=== PATIENT | male | born 1935 | race Caucasian/White ===

== ENCOUNTER 2019-07-30 15:10 | Inpatient (IN) | payer MEDICARE, SELFPAY ==
[2019-07-30] VITALS (7 sets, daily range): BP systolic 119–158; BP diastolic 43–87; PULSE 63–108; RESP 16–22; TEMP 36.7–36.8; O2SAT 96–100; BMI 23.3
--- NOTE | ~2019-07-30 | XR_ITS ---
EXAMINATION: XR foot LT min 3V DATE: 07/31/2019 15:27 INDICATION: Left foot gangrene. TECHNIQUE: 4 views of left foot were obtained. COMPARISON: None. FINDINGS: There is dorsiflexion of all of the metatarsophalangeal joints on all views. There is an ol d healed fracture of proximal diaphysis of fifth metatarsal. There is mild osteoarthritis of talonavi cular joint. There are enthesophytes at the posterior and plantar aspects of calcaneal tuberosity. Th ere is soft tissue gas in the second and third digits and near the heads of the second and third meta tarsals. IMPRESSION: 1. Soft tissue gas in the second and third digits and near the heads of the second and third metatars als. 2. No specific evidence of osteomyelitis. Reviewed, dictated and finalized at location A. K LEATHER TRIMMER IMPRESSION: 1. Soft tissue gas in the second and third digits and near the heads of the sec ond and third metatarsals. 2. No specific evidence of osteomyelitis.
--- NOTE | ~2019-07-30 | US_ITS ---
EXAMINATION: US renal BI DATE: 08/05/2019 15:58 INDICATION: Abnormal kidney function. TECHNIQUE: Multiple ultrasound grayscale images of the kidneys were obtained. COMPARISON: Ultrasound 05/20/2019 FINDINGS: The right kidney measures 7.3 x 5.3 x 4.4 cm. The left kidney measures 11.0 x 4.6 x 7.4 cm. The kidne ys demonstrate normal parenchymal echogenicity. There is mild left hydronephrosis. The bladder is dis tended. IMPRESSION: 1. New mild left hydronephrosis. 2. Stable mild atrophy of right kidney. Reviewed, dictated and finalized at location A. SUPPORT TECH
--- NOTE | ~2019-07-30 | US_ITS ---
US arterial duplex LE 07/30/2019 18:20 Indication: Gangrenous toe of the fourth digit. Procedure: Duplex Doppler ultrasound including color flow analysis of the left lower extremity arteri es Comparison: No prior studies for comparison. Findings: There is normal Doppler signal throughout the left lower extremity arteries including the c ommon femoral, profunda femoral, superficial femoral, popliteal, posterior tibial and air cells pedis arteries. The following velocities were obtained: Common femoral artery 143 cm/s, profunda femoral 62 cm/s, superficial femoral 251 cm/s, popliteal art claus 65 cm/s, posterior tibial artery 51 cm/s and dorsalis pedis artery 65 cm/s. There is predominantl y biphasic flow throughout the left lower extremity. Impression: 1: Unremarkable Doppler signal in the left lower extremity arteries. No evidence for occlusion. Reviewed, dictated and finalized at location A. NESS UNIT LEADER Impression: 1: Unremarkable Doppler signal in the left lower extremity arteries. No evidenc e for occlusion.
--- NOTE | 2019-07-30 16:12 | ED.LOWEXIN ---
HPI - Extremity Injury (Lower) General Chief Complaint: Extremity Injury, Lower Stated Complaint: left foot infection Time Seen by Provider: 07/30/19 16:09 Source: patient and RN notes reviewed Mode of arrival: EMS Limitations: no limitations History of Present Illness HPI Narrative: Pt is an 84 y/o male who presents to the ED, via EMS, with c/o 10/10 left foot pain d/t his left foot infection. Pt does not recall when the infection began. Pt states that the infection began after he stubbed his toe. Pt was seen at [facility] and was sent home with abx for his foot. Pt states that he did not take the medication and he also states that he is noncompliant with his diabetes medication. Pt arrived with his left foot covered in a bandage. Pt reports chills, but denies a fever. complaint: other (foot pain) Onset (ago): unknown Context: other (infection) Other symptoms: other (chills) Treatments prior to arrival: bandage Related Data Home Medications Medication Instructions Recorded Confirmed Januvia 50 mg PO DAILY 05/17/19 05/17/19 atorvastatin 80 mg PO HS 05/17/19 05/17/19 clopidogrel 75 mg PO DAILY 05/17/19 05/17/19 dutasteride 0.5 mg PO DAILY 05/17/19 05/17/19 furosemide 20 mg PO DAILY 05/17/19 05/17/19 gabapentin 300 mg PO TID 05/17/19 05/17/19 glimepiride 1 mg PO QAM 05/17/19 05/17/19 pantoprazole 40 mg PO BID 05/17/19 05/17/19 Allergies Allergy/AdvReac Type Severity Reaction Status Date / Time No Known Allergies Allergy Unknown Verified 07/30/19 16:01 Review of Systems Review of Systems: All systems reviewed & are unremarkable except as noted in HPI and below Constitutional: Constitutional: Reports chills and Denies fever(s) Musculoskeletal: Musculoskeletal: Reports other (left foot pain) [facility] Past Medical History Medical History (Updated 07/30/19 @ 19:22 by Timmy Hunt MD) Anemia Arthritis Cataract Chronic kidney disease, stage 3 Coronary artery disease CVA (cerebral vascular accident) Diabetes type 2, controlled GERD (gastroesophageal reflux disease) Hiatal hernia History of angina Hyperlipidemia Hypertension Peripheral arterial disease Seasonal allergies Thrombocytopenia Surgical History Surgical History (Updated 07/30/19 @ 16:44 by Carmencita Hughes) H/O carotid endarterectomy H/O endarterectomy Patient has hx of axillofem bypass requiring endarterectomy in May 2017 History of angioplasty x2 History of cardiac catheterization History of carpal tunnel release Social History Social History Social History: Patient is full code. He lives with his niece. They have 2 dogs. Smoking packs per day: 1 Smoking cigarettes per day: 20.0 Years smoked: 30 Smoking pack-years: 30.00 Smoking status: Former smoker Alcohol intake: current Substance use: never Gender identity (if verbalized by the patient): Male Spiritual care concerns: No Exam Const: General: no acute distress and alert Orientation/consciousness: patient oriented x3 HENMT: Head: normal to inspection Eyes: Conjunctivae: conjunctivae normal Pupils: Equal, round and reactive pupils present Neck: Neck: normal visual inspection Chest: Chest palpation & inspection: normal inspection of the chest Resp: Effort & Inspection: normal respiratory effort Cardio: Rate: regular rate Rhythm: regular rhythm GI: GI Palp: Yes Soft to palpation Skin: General skin exam: normal color Extrem: Other: examination of the left foot shows gangrene 3 toe with foul smell ,with a serous drainage. Psych: Mental Status: mental status grossly normal Affect: normal affect Course Consultations Consultation #1: Discussed case with GUNNER Nichols (Hospitalist). Accepts admission to Dr. Clark. Date: 07/30/19 Time: 17:34 Consultation #2: Discussed case with Dr. Avalos (General Surgery). Accepts consult. Date: 07/30/19 Time: 19:06 Vital Sign
--- NOTE | 2019-07-30 16:18 | ECG_ITS ---
Measurements Intervals [place] Rate: 84 P: WI: 0 QRS: 18 QRSD: 94 T: 49 QT: 410 QTc: 486 Interpretive Statements SINUS RHYTHM ATRIAL AND VENTRICULAR PREMATURE COMPLEXES BASELINE ARTIFACT- I, II, III, AVR, AVL, AVF, V1-V3 ABNORMAL ECG Electronically Signed On 07-30-2019 17:53:41 FURNACE MAINTENANCE by Duncan Walsh D.O.
--- NOTE | 2019-07-30 18:07 | PC.NURSE ---
Patient in ultrasound at this time.
[2019-07-30 18:16] LABS: Basophils Percent Auto 0.3 % (0.2-1.2); Eosinophils Percent Auto 0.1 % (0-4.4); Hematocrit 35.1 % (42.0-52.0); Hemoglobin 12.1 g/dL (14.0-18.0); Immature Granulocyte Absolute 0.17 K/mm3 (0.00-0.031); Immature Granulocyte Percent A 1.2 % (0-0.5); Lymphocytes Absolute Auto 1.57 K/mm3 (0.9-3.2); Lymphocytes Percent Auto 10.7 % (18.3-44.2); Mean Corpuscular HGB Conc 34.5 g/dl (32-36); Mean Corpuscular Hemoglobin 30.9 pg (26-34); Mean Corpuscular Volume 89.5 fl (80-100); Mean Platelet Volume 10.6 fl (7.4-10.4); Monocytes Absolute Auto 0.9 K/mm3 (0.1-0.6); Monocytes Percent Auto 5.9 % (2.6-8.5); Neutrophils Percent Auto 81.8 % (45.5-73.1); Platelet Count Result 257 k/mm3 (150-375); Red Blood Count 3.92 M/mm3 (4.6-6.20); Red Cell Distribution Width 12.3 % (11.5-14.5); White Blood Count 14.7 K/mm3 (4.5-10.0)
[2019-07-30 18:24] LABS: INR 1.2; Prothrombin Time 14.6 Seconds (11.1-14.7)
[2019-07-30 18:29] LABS: Alanine Aminotransferase 21 U/L (4-50); Albumin Level 3.3 g/dL (3.5-5.1); Alkaline Phosphatase 135 U/L (38-126); Aspartate Amino Transferase 29 U/L (17-59); Bilirubin,Total 1.8 mg/dL (0.2-1.3); Blood Urea Nitrogen 24 mg/dL (9-20); CRP 7.8 mg/dL (<1.0); Calcium 8.9 mg/dL (8.4-10.2); Carbon Dioxide 25 mmol/L (22-30); Chloride 88 mmol/L (98-107); Estimated CRCL calculation 24 ml/min; Estimated Glomerular Filt Rate 36; Glucose 228 mg/dL (75-110); Potassium 3.6 mmol/L (3.4-5.0); Sodium 129 mmol/L (137-145)
[2019-07-30] MEDS: SODIUM CHLORIDE 0.9% IV 1,000 ML 150 ML IV CONT (18:35)
[2019-07-30 20:00] LABS: Add Urine Microscopic? YES; Amorphous Sediment Urine Moderate; Appearance Urine Cloudy (Clear); Bacteria Urine Trace /hpf; Bilirubin Urine Negative (Negative); Blood Urine 1+ (Negative); Color Urine Yellow (Yellow); Glucose Urine UA 3+ mg/dL (Negative); Ketones Urine 2+ mg/dL (Negative); Leukocyte Esterase Ur Negative LEU/UL (Negative); Mucus Urine Rare /lpf; Nitrate Urine Negative (Negative); Protein Urine 2+ mg/dL (Negative); RBC Urine 21-50 /hpf (0-2); Specific Grav Ur 1.021 (1.001-1.035); Squamous Epithelial Cell Urine Few /hpf (Few); WBC Urine 0-3 /hpf
[2019-07-30] MEDS: MORPHINE SULFATE 4 MG/ML INJ IV PUSH (21:24)
--- NOTE | 2019-07-30 23:57 | ADMGEN ---
This patient, Jose D Sterling, was admitted to [facility] Surg Room 321-01. Patient/family oriented to hospital policies and general routines including ID bracelet, bed and alarms, visiting hours, pain management, procedures, bathroom and other care routines, personal items, smoking policy, room service/diet, and visiting hours. Valuables list has been completed. Information on how to activate the Rapid Response Team has been discussed. Patient/Family are encouraged to report perceived risks to care and to ask questions if they do not understand what they are told or what they should do.
[2019-07-31 00:04] LABS: Glucose Point of Care 181 (65-105)
[2019-07-31] MEDS: LACTATED RINGERS 1,000 ML 150 ML IV CONT (00:46)
[2019-07-31 06:00] VITALS: BP 140/43; PULSE 62; RESP 18; TEMP 36.7; O2SAT 98
[2019-07-31 06:01] LABS: Glucose Point of Care 165 (65-105)
--- NOTE | 2019-07-31 08:30 | PM.PNGS ---
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 complications; L08.9 - Local infection of the skin and subcutaneous tissue, unspecified Status: Acute Assessment and Plan: agree with antibiotics and will need dried dressing for now. Due to peripheral vascular disease and the gangrenous changes of the forefoot, his foot is not salvageable. I explained to him that he will be needing an amputation of the left leg. He would not be ambulatory with a below knee amputation and it is questionable if a below-knee amputation would heal. Therefore, I think it best to proceed with left above knee amputation. I discussed this with the patient. He lives with his niece who he says is in the hospital but not here. Will discuss with others but do not feel the leg is salvageable due to severe peripheral vascular disease. (2) Gangrene of left foot: Code(s): I96 - Gangrene, not elsewhere classified Status: Acute Assessment and Plan: See above. (3) Diabetes mellitus with peripheral vascular disease: Code(s): E11.51 - Type 2 diabetes mellitus with diabetic peripheral angiopathy without gangrene Status: Chronic Assessment and Plan: See above. (4) Antiplatelet or antithrombotic long-term use: Code(s): Z79.02 - group home (current) use of antithrombotics/antiplatelets Status: Chronic Assessment and Plan: Hold for now. Unfortunately he will not be able to be off Plavix for a week so bleeding risks will be increased with surgery. Subjective Subjective Date/Time Seen: 07/31/19 08:30 Left gangrenous forefoot an 83-year-old gentleman. Has some memory issues. Not sure how long this has been present. Review of Systems Review of Systems: ROS unobtainable: unobtainable due to mental status ( Has memory issues.) Constitutional: Constitutional: Denies chills and Denies fever(s) Endocrine: Endocrine: Reports other ( Insulin-dependent diabetes.) Hematologic/Lymphatic: Hematologic/Lymphatic: Reports easy bleeding ( Patient takes Plavix.) Exam Extrem: Left lower extremity: foot ( Gangrenous 3rd toe and forefoot with ulceration and foul odor) Details: warmth, edema and vascular exam ( no distal pulses, no left popliteal pulse, positive left femoral pulse.) Objective Data Vital Signs Vital Signs: Vital Signs - 24 hr 07/30/19 15:17 07/30/19 17:18 07/30/19 18:47 Temperature 36.8 C Pulse Rate 108 H 79 80 Respiratory Rate 22 H 16 16 Blood Pressure 119/87 158/61 H 132/52 L Pulse Oximetry 100 99 100 07/30/19 19:38 07/30/19 22:43 07/30/19 22:50 Temperature 36.7 C Pulse Rate 83 69 71 Respiratory Rate 16 18 18 Blood Pressure 150/72 H 127/59 L 131/43 L Pulse Oximetry 100 100 99 07/30/19 23:28 07/31/19 06:00 Temperature 36.7 C Pulse Rate 63 62 Respiratory Rate 16 18 Blood Pressure 140/43 L Pulse Oximetry 96 98 Intake/Output Intake/Output: Intake & Output 07/28/19 07/29/19 07/30/19 07/31/19 23:59 23:59 23:59 23:59 Intake Total 1000 740 Output Total 100 Balance 1000 640 Meds/Results Medications: Active Medications Generic Name Dose Route Start Last Admin Trade Name Freq PRN Reason Stop Dose Admin Acetaminophen 650 mg 07/31/19 04:53 Tylenol Tablet PO Q4H PRN Mild Pain (1-3) Or Fever Hydrocodone Bitart/Acetaminophen 1 tab 07/30/19 19:24 [place] 5-325 Mg PO Q4H PRN Pain Rated 4-6 Atorvastatin Calcium 80 mg 07/31/19 21:00 Lipitor PO HS [facility] Clopidogrel Bisulfate 75 mg 07/31/19 09:00 Plavix PO DAILY [facility] Dextrose 12.5 gm 07/31/19 04:56 Dextrose 50% Syringe IV PUSH PRN PRN Hypoglycemia Protocol Dutasteride 0.5 mg 07/31/19 09:00 Avodart PO DAILY [facility] Furosemide 20 mg 07/31/19 09:00 Lasix Tablet PO DAILY [facility] Gabapentin 300 mg 07/31/19 09:00
[2019-07-31] MEDS: CLOPIDOGREL BISULFATE 75 MG TABLET PO (08:53)
[2019-07-31] MEDS: GABAPENTIN 300 MG CAPSULE PO ×3 (08:54→18:44)
[2019-07-31] MEDS: TAMSULOSIN HCL 0.4 MG CAPSULE PO (08:54)
[2019-07-31] MEDS: DUTASTERIDE 0.5 MG CAPSULE PO (08:54)
[2019-07-31] MEDS: FUROSEMIDE 20 MG TABLET PO (08:54)
[2019-07-31] MEDS: PANTOPRAZOLE 40 MG TABLET PO ×2 (08:54→18:44)
[2019-07-31] MEDS: INSULIN GLARGINE (*BKC) 100 UNITS/ML 10 UNITS SUB-Q (09:02)
[2019-07-31 09:14] LABS: Glucose Point of Care 150 (65-105)
--- NOTE | 2019-07-31 09:58 | PM.CNGS ---
Assessment and Plan Assessment and plan (1) Gangrene of left foot: Code(s): I96 - Gangrene, not elsewhere classified Status: Acute Assessment and Plan: Continue with IV antibiotics. We will initiate a dry gauze dressing to keep the left foot covered today. The patient does have a history of significant peripheral arterial disease but his vascular exam reveals a palpable dorsalis pedis pulse and I was able to doppler both a posterior tibial and dorsalis pedis pulse. Discussed this with Dr. Taylor. He has evaluated the patient and discussed the options with the patient. The plan is to proceed with an open transmetatarsal amputation by Dr. taylor tomorrow. I will also order plain films of the left foot today. Post-operatively, the patient will need extensive wound therapy. He will also likely need to go to a group home facility on discharge due to the extensive wound care and he will essentially be living at home alone if his niece is still in the hospital or in poor health. This can further be discussed once closer to discharge. Thank you for allowing me to evaluate the patient in consultation and we will continue to follow along with you. (2) Diabetes mellitus with peripheral vascular disease: Code(s): E11.51 - Type 2 diabetes mellitus with diabetic peripheral angiopathy without gangrene Status: Chronic (3) Antiplatelet or antithrombotic long-term use: Code(s): Z79.02 - termite inspector (current) use of antithrombotics/antiplatelets Status: Chronic Assessment and Plan: The patient did receive a dose of Plavix today (07/31/19). I put the Plavix on hold for now. This will increase his risk of bleeding associated with surgery tomorrow. (4) Chronic kidney disease, stage 3: Code(s): N18.3 - Chronic kidney disease, stage 3 (moderate) Status: Acute (5) Hypertension: Qualifiers: Hypertension type: essential hypertension Qualified Code(s): I10 - Essential (primary) hypertension Code(s): I10 - Essential (primary) hypertension Status: Acute (6) Hyperlipidemia: Code(s): E78.5 - Hyperlipidemia, unspecified Status: Acute Additional Plan Discussed the patient's case and plan of care with Dr. Taylor. History of Present Illness Consult details Consult date: 07/31/19 Reason for consult: wound care (Diabetic left foot infection) Requesting physician: Jeff Clark MD Narrative: This is an 84-year-old male with a history of diabetes, coronary artery disease, peripheral arterial disease, chronic kidney disease, hypertension, hyperlipidemia, and history of stroke. The patient is currently on Plavix for his previous vascular surgeries years ago. The patient has been in the hospital a few times in the past 2 months. He was hospitalized at [facility] from 05/17/2019 through 05/24/2019 for left lower extremity cellulitis and treated with IV antibiotics, then discharged with 3 days of oral antibiotics. The patient was discharged to a SNF for rehab, but was eventually sent back to his home where he lives with his niece. Since then, he has apparently had multiple falls. He has admitted to being noncompliant with his medications. I also spoke with his nephew on the phone, who reports he is noncompliant at home. The patient's niece, who he resides with and helps take care of him, has recently been admitted to a different hospital as well for a diabetic foot infection. The patient apparently called EMS with complaints of left lower extremity pain and was taken to the ED for further evaluation. After evaluation in the emergency department, the patient was found to have a left foot infection. His white blood cell count was 14,700 and CRP 7.8. Left arterial duplex showed unremarkable doppler signal with no evidence of an arterial occlusion. According to the ED documentation, the patient was also recently at [facility] the left foot infection and treated with or
[2019-07-31] MEDS: LACTATED RINGERS 1,000 ML 75 ML IV CONT (11:37)
--- NOTE | 2019-07-31 13:01 | PM.IMPN ---
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 complications; L08.9 - Local infection of the skin and subcutaneous tissue, unspecified Status: Acute Assessment and Plan: Pt is on iv fluids and iv zosyn, norco for pain control (2) Gangrene of left foot: Code(s): I96 - Gangrene, not elsewhere classified Status: Acute Assessment and Plan: Pt to have toe amputation today 1 possibly 2-3 toes with salvage (3) Hyperlipidemia: Code(s): E78.5 - Hyperlipidemia, unspecified Status: Chronic (4) DVT prophylaxis: Code(s): Z29.9 - Encounter for prophylactic measures, unspecified Status: Acute Assessment and Plan: HOld Lovenox and clopidogrel pt is going for surgery tomorrow (5) Diabetes type 2, controlled: Qualifiers: Diabetes mellitus complication detail: with peripheral angiopathy without gangrene Diabetes mellitus complication status: with circulatory complication Diabetes mellitus terminal press operator insulin use: without skilled nursing use Qualified Code(s): E11.51 - Type 2 diabetes mellitus with diabetic peripheral angiopathy without gangrene Code(s): E11.9 - Type 2 diabetes mellitus without complications Status: Chronic Assessment and Plan: Accuchecks, SSI (6) Peripheral arterial disease: Code(s): I73.9 - Peripheral vascular disease, unspecified Status: Chronic Assessment and Plan: ARterial doppler negative, surgery has felt palpable pulses in the leg (7) Chronic kidney disease, stage 3: Code(s): N18.3 - Chronic kidney disease, stage 3 (moderate) Status: Chronic Assessment and Plan: Continue to monitor BMP Subjective Date/time seen: 07/31/19 13:01 Interval history: Admitted with cellulitis of the left lower extremity as well as acute kidney injury. Pt has foul smelling 3 rd left toe. Pt was discharged with abx for DM cellulitis infection of left foot. Pt will need 3 rd toe amputation tomorrow under surgery with with possible 2 and 4 th toes amputation. Pt is quite anxious wants his nephew involved in the decision. Explained that his foot can worsen without surgery with ascending gangrene. Pt is ready for the procedure. Review of Systems Review of Systems: All systems reviewed & are unremarkable except as noted in HPI and below Musculoskeletal: Comments: Toe drainage Exam Const: General: cooperative and healthy appearing; No in distress Nutritional Appearance: overweight Orientation/consciousness: oriented to person HENMT: Head: normal to inspection Resp: Effort & Inspection: no respiratory distress Auscultation: no rhonchi and no wheezes Cardio: Rate: regular rate Rhythm: regular rhythm GI: Inspection: normal to inspection GI Palp: No abdominal tenderness, No Guarding due to palpation present (GI) and No Hepatomegaly present Auscultation: normal bowel sounds Extrem: Other: 3 rd toe left foot with drainage Objective Data Vital Signs Vital Signs: Vital Signs - 24 hr 07/30/19 15:17 07/30/19 17:18 07/30/19 18:47 Temperature 36.8 C Pulse Rate 108 H 79 80 Respiratory Rate 22 H 16 16 Blood Pressure 119/87 158/61 H 132/52 L Pulse Oximetry 100 99 100 07/30/19 19:38 07/30/19 22:43 07/30/19 22:50 Temperature 36.7 C Pulse Rate 83 69 71 Respiratory Rate 16 18 18 Blood Pressure 150/72 H 127/59 L 131/43 L Pulse Oximetry 100 100 99 07/30/19 23:28 07/31/19 06:00 Temperature 36.7 C Pulse Rate 63 62 Respiratory Rate 16 18 Blood Pressure 140/43 L Pulse Oximetry 96 98 Intake/Output Intake/Output: Intake & Output 07/28/19 07/29/19 07/30/19 07/31/19 23:59 23:59 23:59 23:59 Intake Total 1000 1150 Output Total 100 Balance 1000 1050 Meds/Results Medications: Active Medications Generic Name Dose Route Start Last Admin Trade Name Freq PRN Reason Stop Dose Ad
[2019-07-31 14:26] LABS: Glucose Point of Care 191 (65-105)
[2019-07-31 15:28] VITALS: BP 126/45; PULSE 74; RESP 16; TEMP 36.6; O2SAT 100
[2019-07-31] MEDS: INSULIN ASPART (*BKC) 100 UNITS/ML SUB-Q (18:46)
[2019-07-31 18:48] LABS: Glucose Point of Care 233 (65-105)
[2019-07-31 21:18] LABS: Glucose Point of Care 190 (65-105)
[2019-07-31] MEDS: ATORVASTATIN 40 MG TABLET 80 MG PO (21:40)
[2019-07-31 22:00] VITALS: BP 135/52; PULSE 77; RESP 18; TEMP 36.8; O2SAT 98
[2019-08-01] VITALS (14 sets, daily range): BP systolic 119–166; BP diastolic 49–83; PULSE 56–80; RESP 10–18; TEMP 36.4–37; O2SAT 94–100
[2019-08-01] MEDS: LACTATED RINGERS 1,000 ML 75 ML IV CONT (02:07)
[2019-08-01 06:31] LABS: Hematocrit 31.4 % (42.0-52.0); Hemoglobin 10.3 g/dL (14.0-18.0); Mean Corpuscular HGB Conc 32.8 g/dl (32-36); Mean Corpuscular Hemoglobin 30.5 pg (26-34); Mean Corpuscular Volume 92.9 fl (80-100); Mean Platelet Volume 10.6 fl (7.4-10.4); Platelet Count Result 204 k/mm3 (150-375); Red Blood Count 3.38 M/mm3 (4.6-6.20); Red Cell Distribution Width 12.6 % (11.5-14.5); White Blood Count 11.7 K/mm3 (4.5-10.0)
[2019-08-01 06:47] LABS: Potassium 3.1 mmol/L (3.4-5.0)
[2019-08-01 07:09] LABS: Blood Urea Nitrogen 26 mg/dL (9-20); Calcium 7.7 mg/dL (8.4-10.2); Carbon Dioxide 27 mmol/L (22-30); Chloride 91 mmol/L (98-107); Estimated CRCL calculation 24 ml/min; Estimated Glomerular Filt Rate 30; Glucose 219 mg/dL (75-110); Sodium 127 mmol/L (137-145)
[2019-08-01 09:16] LABS: Glucose Point of Care 203 (65-105)
[2019-08-01] MEDS: DUTASTERIDE 0.5 MG CAPSULE PO (09:28)
[2019-08-01] MEDS: PANTOPRAZOLE 40 MG TABLET PO ×2 (09:29→19:16)
[2019-08-01] MEDS: GABAPENTIN 300 MG CAPSULE PO ×2 (09:29→19:16)
[2019-08-01] MEDS: TAMSULOSIN HCL 0.4 MG CAPSULE PO (09:29)
[2019-08-01] MEDS: FUROSEMIDE 20 MG TABLET PO (09:29)
[2019-08-01] MEDS: INSULIN GLARGINE (*BKC) 100 UNITS/ML 10 UNITS SUB-Q (09:58)
[2019-08-01 11:56] LABS: Glucose Point of Care 181 (65-105)
--- NOTE | 2019-08-01 13:20 | WPDANESEPPF ---
Anes - Initial Pre Proc Eval Procedure: Operation Date: 08/01/19 15:30 Proposed Procedures p OPEN TRANSMETATARSAL AMPUTATION LEFT 3RD TOE,POSSBLE 2ND AND 4TH TOE AMPUTATION - Bryan Avalos MD Date/Time: 08/01/19 13:20 Pre Op Diagnosis: gangrene toe left foot Patient Data Age: 84 Gender: M Height: 1.73 m Weight: 69.8 kg Last Vital Signs Temp 37.0 C 08/01/19 06:00 Pulse 80 08/01/19 06:00 Resp 18 08/01/19 06:00 BP 121/49 L 08/01/19 06:00 Pulse Ox 94 08/01/19 06:00 Allergies Allergy/AdvReac Type Severity Reaction Status Date / Time No Known Allergies Allergy Unknown Verified 07/30/19 16:01 Home Medications Medication Instructions Recorded Confirmed Type Januvia 50 mg PO DAILY 05/17/19 07/30/19 History atorvastatin 80 mg PO HS 05/17/19 07/30/19 History clopidogrel 75 mg PO DAILY 05/17/19 07/30/19 History dutasteride 0.5 mg PO DAILY 05/17/19 07/30/19 History furosemide 20 mg PO DAILY 05/17/19 07/30/19 History gabapentin 300 mg PO TID 05/17/19 07/30/19 History glimepiride 1 mg PO QAM 05/17/19 07/30/19 History pantoprazole 40 mg PO BID 05/17/19 07/30/19 History acetaminophen [Mapap 650 mg PO Q4H PRN 30 Days tablet 05/24/19 07/30/19 Rx (acetaminophen)] clindamycin HCl 300 mg PO Q8H 3 Days #9 cap 05/24/19 07/30/19 Rx docosanol [Abreva] 1 applic TOPICAL 5 TIMES DAILY 7 05/24/19 07/30/19 Rx Days gm tamsulosin 0.4 mg capsule 0.4 mg PO DAILY #90 cap 07/18/19 07/30/19 Rx insulin glargine 100 unit/mL 10 unit SUBCUT DAILY #9 ml 07/23/19 07/30/19 Rx subcutaneous solution Laboratory Tests 07/31/19 07/31/19 07/31/19 13:04 18:45 21:09 WBC RBC Hgb Hct MCV MCH MCHC RDW Plt Count MPV Sodium Potassium Chloride Carbon Dioxide BUN Creatinine Estim Creat Clear Calc Estimated GFR Glucose POC Capillary Glucose 191 mg/dl H mg/dl 233 mg/dl H mg/dl 190 mg/dl H mg/dl (65-105) (65-105) (65-105) Calcium 08/01/19 08/01/19 08/01/19 06:02 06:02 09:13 WBC 11.7 K/mm3 H K/mm3 (4.5-10.0) RBC 3.38 M/mm3 L M/mm3 (4.6-6.20) Hgb 10.3 g/dL L g/dL (14.0-18.0) Hct 31.4 % L % (42.0-52.0) MCV 92.9 fl fl (80-100) MCH 30.5 pg pg (26-34) MCHC 32.8 g/dl g/dl (32-36) RDW 12.6 % % (11.5-14.5) Plt Count 204 k/mm3 k/mm3 (150-375) MPV 10.6 fl H fl (7.4-10.4) Sodium 127 mmol/L L mmol/L (137-145) Potassium 3.1 mmol/L L mmol/L (3.4-5.0) Chloride 91 mmol/L L mmol/L (98-107) Carbon Dioxide 27 mmol/L mmol/L (22-30) BUN 26 mg/dL H mg/dL (9-20) Creatinine 2.10 mg/dL H mg/dL (0.7-1.3) Estim Creat Clear Calc 24 ml/min ml/min Estimated GFR 30 L (59 - ) Glucose 219 mg/dL H mg/dL (75-110) POC Capillary Glucose 203 mg/dl H mg/dl (65-105) Calcium 7.7 mg/dL L mg/dL (8.4-10.2) 08/01/19 11:53 WBC RBC Hgb Hct MCV MCH MCHC RDW Plt Count MPV Sodium Potassium Chloride Carbon Dioxide BUN Creatinine Estim Creat Clear Calc Estimated GFR Glucose POC Capillary Glucose 181 mg/dl H mg/dl (65-105) Calcium ECG: Date of Service: 07/30/19 Procedure(s): CA 12 lead EKG Accession Number(s): [id number] cc: ~ Measurements Intervals [place] Rate: 84 P: OR: 0 QRS: 18 QRSD: 94 T: 49 QT: 410
--- NOTE | 2019-08-01 13:35 | PC.NURSE ---
To OR per [bed ], IV [ saline locked]
[2019-08-01] MEDS: LACTATED RINGERS 1,000 ML 30 ML IV CONT (13:50)
--- NOTE | 2019-08-01 16:52 | PM.PROC ---
Procedure Note - Detailed Date of procedure: 08/01/19 Pre-op diagnosis: gangrene toe left foot Diabetic foot infection left foot, gangrene left 3rd toe. Post-op diagnosis: other (Diabetic foot infection left foot, gangrene left 3rd toe, necrotizing soft tissue infection left forefoot) Procedure performed: Open transmetatarsal amputation left 3rd and 2nd toes, excisional debridement skin, subcutaneous,and muscle of necrotic tissue of the corresponding forefoot-5 cm x 3 cm x 1 cm. . Description of procedure: The patient was taken to surgery and IV sedation was administered. The left foot was prepped and draped. We started with a transmetatarsal amputation of the left 3rd toe which was obviously gangrenous and appeared to be the central focus of the diabetic foot infection. A wedge including the plantar surface and the instep associated with the metatarsal of the 3rd toe was incised. The soft tissue was divided. The 3rd toe came off the metatarsal easily. It was sent off as a specimen labeled gangrenous left 3rd toe. There was obvious necrotizing soft tissue infection in the bed of the 3rd metatarsal. I used a swab and took a wound culture for aerobes and anaerobes from the infected tissue in the area of the 3rd metatarsal. I used a periosteal elevator to free the shaft of the 3rd metatarsal. Bone cutters were then used to divide the distal shaft of the 3rd metatarsal and removed the distal end of the 3rd metatarsal. This was sent with the toe as a specimen. We then excised necrotic skin subcutaneous and muscle in the bed of the transmetatarsal amputation. Most of this lead over to the 2nd toe. Eventually it became obvious, the 2nd toe would need to be removed as well. I went ahead and created another incision that excised the medial portion of the 2nd toe and connected this with the wedge defect at it already been created for the 3rd toe and 3rd metatarsal. I exposed the distal metatarsal shaft for the 2nd toe. I used the periosteal elevator to expose the shaft. I then used a larger bone cutter and divided the 2nd metatarsal shaft distally. The toe and distal metatarsal were removed and sent off to pathology labeled appropriately. We then continued to excise necrotic subcutaneous and fascia in the wound bed. Fortunately this did not appear to compromise the 1st toe. We also removed ends of tendon and ligament that would interfere with wound healing. There was some bleeding but it was not brisk. A small amount of cautery was used. Eventually the wound was debrided adequately such that there was no further devitalized or infected tissue present. There was some generalized oozing which was not unexpected and should respond to packing. The patient was on Plavix at the time of the procedure. I packed the wound bed with vaginal packing. Multiple fluffs were placed over the vaginal packing and over the forefoot. I then wrapped the foot and ankle with 2 Kerlix rolls. Finally, 2 4 in John wraps were used to secure the dressing in place. The patient was then awakened and taken to recovery in good condition. Counts were correct x2. Anesthesia: MAC Surgeon: Bryan Avalos MD Cryptographic Machine Operator: Graciela SMITH Estimated blood loss (mL): 20 Drains: No Packing: Yes (Vaginal packing) Pathology: yes (2ND AND 3RD TOES WITH METATARSALS, CULTURES OF WOUND) Complications: None Condition: stable Disposition: PACU Findings: GANGRENOUS 3RD TOE WITH NECROTIZING SOFT TISSUE INFECTION OF THE SKIN, SUBCUTANEOUS, AND MUSCLE OF THE FOREFOOT. SECOND TOE NOT GANGRENOUS BUT ALL THE UNDERLYING INFECTION AROUND THE TOE AND METATARSAL REQUIRED THIS TO BE AMPUTATED WELL. RESULTING WOUND LOOKED QUITE CLEAN.
[2019-08-01 17:41] LABS: Glucose Point of Care 153 (65-105)
--- NOTE | 2019-08-01 18:42 | PC.NURSE ---
Returned from OR per [bed ]
[2019-08-01] MEDS: ATORVASTATIN 40 MG TABLET 80 MG PO (20:23)
[2019-08-01] MEDS: LACTATED RINGERS 1,000 ML 80 ML IV CONT (20:28)
[2019-08-01 20:36] LABS: Glucose Point of Care 146 (65-105)
[2019-08-02 01:39] VITALS: BP 137/67; PULSE 72; RESP 18; TEMP 36.6; O2SAT 97
[2019-08-02 06:00] VITALS: BP 155/59; PULSE 76; RESP 18; TEMP 36.5; O2SAT 97
[2019-08-02] MEDS: SILVERGEL (ELTA) 45 ML 1 APPLIC TOPICAL (07:38)
--- NOTE | 2019-08-02 08:03 | PM.PNGS ---
Progress Note: A&P Assessment and Plan (1) Gangrene of left foot: Code(s): I96 - Gangrene, not elsewhere classified Status: Acute Assessment and Plan: left foot much improved after amputation of 2nd and 3rd toes with transmetatarsal amputation done open. Still a little bit of necrotic tissue in the wound but no purulence and overall looks to have good blood supply and much improved. Will have wound nurses see about placing wound VAC today. (2) Diabetic infection of left foot: Code(s): E11.628 - Type 2 diabetes mellitus with other skin complications; L08.9 - Local infection of the skin and subcutaneous tissue, unspecified Status: Acute Assessment and Plan: Cultures taken intraoperatively. Continue IV antibiotics. (3) Diabetes mellitus with peripheral vascular disease: Code(s): E11.51 - Type 2 diabetes mellitus with diabetic peripheral angiopathy without gangrene Status: Chronic (4) Antiplatelet or antithrombotic long-term use: Code(s): Z79.02 - tank terminal gauger (current) use of antithrombotics/antiplatelets Status: Chronic Assessment and Plan: No excessive bleeding despite Plavix. Probably can restart Plavix tomorrow. Subjective Subjective Date/Time Seen: 08/02/19 08:03 patient confused. No particular complaints. Does have some burning pain with the left foot. Review of Systems Review of Systems: ROS unobtainable: unobtainable due to mental status Exam Extrem: Left lower extremity: foot ( Amps wound clean with minimal necrotic debris lateral wall. No purulence) Psych: Speech and movement: Clear speech present Affect: normal affect Attitude: cooperative Thought process: Illogical thought process present Thought content: Yes other ( Confused) Insight: Fair insight present (Psych) Judgement: Poor judgement present (Psych) Objective Data Vital Signs Vital Signs: Vital Signs - 24 hr 08/01/19 13:43 08/01/19 16:40 08/01/19 16:55 Temperature 37.0 C 37.0 C Pulse Rate 64 60 60 Respiratory Rate 16 12 15 Blood Pressure 166/52 H 119/49 L 126/54 L Pulse Oximetry 99 99 99 08/01/19 17:10 08/01/19 17:25 08/01/19 17:40 Temperature Pulse Rate 56 L 60 59 L Respiratory Rate 14 12 12 Blood Pressure 153/54 H 154/62 H 151/55 H Pulse Oximetry 98 97 97 08/01/19 17:55 08/01/19 18:10 08/01/19 18:40 Temperature 36.4 C L Pulse Rate 57 L 60 63 Respiratory Rate 12 10 L 14 Blood Pressure 152/51 H 152/83 H 135/68 Pulse Oximetry 96 95 98 08/01/19 18:55 08/01/19 19:25 08/01/19 20:25 Temperature 36.5 C 36.6 C 36.7 C Pulse Rate 68 59 L 62 Respiratory Rate 14 16 16 Blood Pressure 145/68 H 152/59 H 149/61 H Pulse Oximetry 96 100 99 08/01/19 22:00 08/02/19 01:39 08/02/19 06:00 Temperature 36.8 C 36.6 C 36.5 C Pulse Rate 65 72 76 Respiratory Rate 16 18 18 Blood Pressure 146/62 H 137/67 155/59 H Pulse Oximetry 100 97 97 Intake/Output Intake/Output: Intake & Output 07/30/19 07/31/19 08/01/19 08/02/19 23:59 23:59 23:59 23:59 Intake Total 1000 2090 2477 850 Output Total 450 1250 1325 Balance 1000 1640 1227 -475 Meds/Results Medications: Active Medications Generic Name Dose Route Start Last Admin Trade Name Micheline PRN Reason Stop Dose Admin Acetaminophen 500 mg 08/01/19 18:33 Tylenol Tablet PO Q6H PRN Mild Pain (1-3) or Fever Hydrocodone Bitart/Acetaminophen 1 tab 08/01/19 18:33 08/02/19 07:34 [place] 7.5-325 Mg PO 1 tab Q4H PRN Administration Pain Rated 7-10 Hydrocodone Bitart/Acetaminophen 1 tab 08/01/19 18:33 08/01/19 20:23 [place] 5-325 Mg PO 1 tab Q4H PRN Administration Pain Rated 4-6 Atorvastatin Calcium 80 mg 07/31/19 21:00 08/01/19 20:23 Lipitor PO 80 mg HS JOSSUE Administration Clopidogrel Bisulfate 75 mg 07/31/19 09:00 07/31/19 08:53 Plavix PO 75 mg DAILY JOSSUE Administration Dextrose 12.5 gm 07/31/19 04:56 Dextrose 50% Syringe IV PUSH P
[2019-08-02 08:26] LABS: Blood Urea Nitrogen 21 mg/dL (9-20); Calcium 8.3 mg/dL (8.4-10.2); Carbon Dioxide 31 mmol/L (22-30); Chloride 90 mmol/L (98-107); Estimated CRCL calculation 24 ml/min; Estimated Glomerular Filt Rate 30; Glucose 106 mg/dL (75-110); Potassium 2.9 mmol/L (3.4-5.0); Sodium 130 mmol/L (137-145)
[2019-08-02 08:39] LABS: Hematocrit 33.7 % (42.0-52.0); Hemoglobin 11.5 g/dL (14.0-18.0); Mean Corpuscular HGB Conc 34.1 g/dl (32-36); Mean Corpuscular Hemoglobin 30.7 pg (26-34); Mean Corpuscular Volume 89.9 fl (80-100); Mean Platelet Volume 10.6 fl (7.4-10.4); Platelet Count Result 231 k/mm3 (150-375); Red Blood Count 3.75 M/mm3 (4.6-6.20); Red Cell Distribution Width 12.5 % (11.5-14.5); White Blood Count 11.6 K/mm3 (4.5-10.0)
[2019-08-02 09:50] VITALS: O2SAT 91
--- NOTE | 2019-08-02 10:06 | WPDANESPN ---
Anes - Prog Note Post-Op Date/Time: 08/02/19 10:06 Vital Signs: Last Vital Signs Temp 97.7 F 08/02/19 06:00 Pulse 76 08/02/19 06:00 Resp 18 08/02/19 06:00 BP 155/59 H 08/02/19 06:00 Pulse Ox 91 08/02/19 09:50 I/O: Intake & Output 08/01/19 08/02/19 08/02/19 23:59 07:59 15:59 Intake Total 450 850 Output Total 650 1325 Balance -200 -475 Laboratory Tests 08/02/19 07:42 08/02/19 07:42 08/01/19 08/01/19 08/01/19 11:53 17:39 20:34 WBC RBC Hgb Hct MCV MCH MCHC RDW Plt Count MPV Sodium Potassium Chloride Carbon Dioxide BUN Creatinine Estim Creat Clear Calc Estimated GFR Glucose POC Capillary Glucose 181 H 153 H 146 H Calcium 08/02/19 08/02/19 07:42 07:42 WBC 11.6 H RBC 3.75 L Hgb 11.5 L Hct 33.7 L MCV 89.9 MCH 30.7 MCHC 34.1 RDW 12.5 Plt Count 231 MPV 10.6 H Sodium 130 L Potassium 2.9 L Chloride 90 L Carbon Dioxide 31 H BUN 21 H Creatinine 2.10 H Estim Creat Clear Calc 24 Estimated GFR 30 L Glucose 106 POC Capillary Glucose Calcium 8.3 L Patient Feedback: Patient satisfied with anesthetic care.
[2019-08-02] MEDS: LACTATED RINGERS 1,000 ML 80 ML IV CONT (10:14)
[2019-08-02] MEDS: FUROSEMIDE 20 MG TABLET PO (11:09)
[2019-08-02] MEDS: GABAPENTIN 300 MG CAPSULE PO ×3 (11:09→17:58)
[2019-08-02] MEDS: ENOXAPARIN 40 MG/0.4 ML SYRINGE SUB-Q (11:09)
[2019-08-02] MEDS: TAMSULOSIN HCL 0.4 MG CAPSULE PO (11:10)
[2019-08-02] MEDS: DUTASTERIDE 0.5 MG CAPSULE PO (11:10)
[2019-08-02] MEDS: PANTOPRAZOLE 40 MG TABLET PO ×2 (11:10→17:58)
[2019-08-02] MEDS: polyethylene glycoL 3350 17 GM POWD.PACK PO (11:10)
[2019-08-02] MEDS: INSULIN GLARGINE (*BKC) 100 UNITS/ML 10 UNITS SUB-Q (11:10)
[2019-08-02 14:00] VITALS: BP 112/47; PULSE 78; RESP 18; TEMP 36.4; O2SAT 98
--- NOTE | 2019-08-02 15:54 | PM.IMPN ---
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 complications; L08.9 - Local infection of the skin and subcutaneous tissue, unspecified Status: Acute Assessment and Plan: Pt is on iv fluids and iv zosyn, norco for pain control (2) Gangrene of left foot: Code(s): I96 - Gangrene, not elsewhere classified Status: Acute Assessment and Plan: sp amputation of 2nd and 3rd toes (3) Hyperlipidemia: Code(s): E78.5 - Hyperlipidemia, unspecified Status: Chronic (4) DVT prophylaxis: Code(s): Z29.9 - Encounter for prophylactic measures, unspecified Status: Acute Assessment and Plan: On Lovenox and clopidogrel (5) Diabetes type 2, controlled: Qualifiers: Diabetes mellitus terminologist insulin use: without mcc use Diabetes mellitus complication status: with circulatory complication Diabetes mellitus complication detail: with peripheral angiopathy without gangrene Qualified Code(s): E11.51 - Type 2 diabetes mellitus with diabetic peripheral angiopathy without gangrene Code(s): E11.9 - Type 2 diabetes mellitus without complications Status: Chronic Assessment and Plan: Accuchecks, SSI (6) Peripheral arterial disease: Code(s): I73.9 - Peripheral vascular disease, unspecified Status: Chronic Assessment and Plan: ARterial doppler negative, mild PAD (7) Chronic kidney disease, stage 3: Code(s): N18.3 - Chronic kidney disease, stage 3 (moderate) Status: Chronic Assessment and Plan: Continue to monitor BMP Subjective Date/time seen: 08/02/19 15:54 Interval history: Admitted with cellulitis of the left lower extremity as well as acute kidney injury. Pt has foul smelling 3 rd left toe. Pt was discharged with abx for DM cellulitis infection of left foot. Pt is sp amputation of his 2nd and 3 rd toes left foot. Pt awaiting rehab placememt. No specific compliants Review of Systems Review of Systems: All systems reviewed & are unremarkable except as noted in HPI and below Exam Const: General: cooperative and healthy appearing; No in distress Nutritional Appearance: overweight Orientation/consciousness: oriented to person HENMT: Head: normal to inspection Resp: Effort & Inspection: no respiratory distress Auscultation: no rhonchi and no wheezes Cardio: Rate: regular rate Rhythm: regular rhythm GI: Inspection: normal to inspection Auscultation: normal bowel sounds Neuro: General: oriented to person Extrem: Other: left foot bandaged over s amputation of his left 3rd and 2nd toes Objective Data Vital Signs Vital Signs: Vital Signs - 24 hr 08/01/19 16:40 08/01/19 16:55 08/01/19 17:10 Temperature 37.0 C Pulse Rate 60 60 56 L Respiratory Rate 12 15 14 Blood Pressure 119/49 L 126/54 L 153/54 H Pulse Oximetry 99 99 98 08/01/19 17:25 08/01/19 17:40 08/01/19 17:55 Temperature Pulse Rate 60 59 L 57 L Respiratory Rate 12 12 12 Blood Pressure 154/62 H 151/55 H 152/51 H Pulse Oximetry 97 97 96 08/01/19 18:10 08/01/19 18:40 08/01/19 18:55 Temperature 36.4 C L 36.5 C Pulse Rate 60 63 68 Respiratory Rate 10 L 14 14 Blood Pressure 152/83 H 135/68 145/68 H Pulse Oximetry 95 98 96 08/01/19 19:25 08/01/19 20:25 08/01/19 22:00 Temperature 36.6 C 36.7 C 36.8 C Pulse Rate 59 L 62 65 Respiratory Rate 16 16 16 Blood Pressure 152/59 H 149/61 H 146/62 H Pulse Oximetry 100 99 100 08/02/19 01:39 08/02/19 06:00 08/02/19 09:50 Temperature 36.6 C 36.5 C Pulse Rate 72 76 Respiratory Rate 18 18 Blood Pressure 137/67 155/59 H Pulse Oximetry 97 97 91 Intake/Output Intake/Output: Intake & Output 07/30/19 07/31/19 08/01/19 08/02/19 23:59 23:59 23:59 23:59 Intake Total 1000 2090 2477 1760 Output Total 450 1250 1325 Balance 1000 9657 1227 435 Meds/Results Medicatio
[2019-08-02 17:02] LABS: Glucose Point of Care 215 (65-105)
[2019-08-02 17:02] LABS: Glucose Point of Care 109 (65-105)
[2019-08-02 17:20] VITALS: BP 130/68; PULSE 66; RESP 16; TEMP 36.3; O2SAT 98
[2019-08-02] MEDS: INSULIN ASPART (*BKC) 100 UNITS/ML SUB-Q (17:58)
[2019-08-02] MEDS: ATORVASTATIN 40 MG TABLET 80 MG PO (20:35)
[2019-08-02 21:11] LABS: Glucose Point of Care 224 (65-105)
[2019-08-02 22:00] VITALS: BP 127/67; PULSE 68; RESP 16; TEMP 36.7; O2SAT 97
[2019-08-03] MEDS: LACTATED RINGERS 1,000 ML 80 ML IV CONT ×2 (00:35→14:24)
[2019-08-03 06:00] VITALS: BP 122/58; PULSE 62; RESP 16; TEMP 36.8; O2SAT 96
[2019-08-03 08:05] LABS: Glucose Point of Care 137 (65-105)
[2019-08-03] MEDS: ACETAMINOPHEN 500 MG TABLET PO (08:46)
[2019-08-03] MEDS: INSULIN GLARGINE (*BKC) 100 UNITS/ML 10 UNITS SUB-Q (08:47)
[2019-08-03] MEDS: TAMSULOSIN HCL 0.4 MG CAPSULE PO (08:47)
[2019-08-03] MEDS: ENOXAPARIN 40 MG/0.4 ML SYRINGE SUB-Q (08:48)
[2019-08-03] MEDS: polyethylene glycoL 3350 17 GM POWD.PACK PO (08:48)
[2019-08-03] MEDS: FUROSEMIDE 20 MG TABLET PO (08:48)
[2019-08-03] MEDS: DUTASTERIDE 0.5 MG CAPSULE PO (08:48)
[2019-08-03] MEDS: GABAPENTIN 300 MG CAPSULE PO ×3 (08:48→16:57)
[2019-08-03] MEDS: PANTOPRAZOLE 40 MG TABLET PO ×2 (08:48→16:57)
--- NOTE | 2019-08-03 09:47 | PM.PNGS ---
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 complications; L08.9 - Local infection of the skin and subcutaneous tissue, unspecified Status: Acute Assessment and Plan: Improved. Continue wound VAC therapy and IV antibiotics. Cultures are pending. (2) Gangrene of left foot: Code(s): I96 - Gangrene, not elsewhere classified Status: Acute (3) Diabetes mellitus with peripheral vascular disease: Code(s): E11.51 - Type 2 diabetes mellitus with diabetic peripheral angiopathy without gangrene Status: Chronic (4) Antiplatelet or antithrombotic long-term use: Code(s): Z79.02 - blister pack operator (current) use of antithrombotics/antiplatelets Status: Chronic Assessment and Plan: Will restart Plavix today. Subjective Subjective Date/Time Seen: 08/03/19 09:47 Left foot michel since wound VAC placed. Otherwise no new complaints or problems Exam Extrem: General: other (Wound VAC in place, working well, toes exposed and looked good) Objective Data Vital Signs Vital Signs: Vital Signs - 24 hr 08/02/19 09:50 08/02/19 14:00 08/02/19 17:20 Temperature 36.4 C 36.3 C L Pulse Rate 78 66 Respiratory Rate 18 16 Blood Pressure 112/47 L 130/68 Pulse Oximetry 91 98 98 08/02/19 22:00 08/03/19 06:00 Temperature 36.7 C 36.8 C Pulse Rate 68 62 Respiratory Rate 16 16 Blood Pressure 127/67 122/58 L Pulse Oximetry 97 96 Intake/Output Intake/Output: Intake & Output 07/31/19 08/01/19 08/02/19 08/03/19 23:59 23:59 23:59 23:59 Intake Total 2090 2477 3990 1510 Output Total 450 1250 1450 650 Balance 1640 1227 2540 860 Meds/Results Medications: Active Medications Generic Name Dose Route Start Last Admin Trade Name Freq PRN Reason Stop Dose Admin Acetaminophen 500 mg 08/01/19 18:33 08/03/19 08:46 Tylenol Tablet PO 500 mg Q6H PRN Administration Mild Pain (1-3) or Fever Hydrocodone Bitart/Acetaminophen 1 tab 08/01/19 18:33 08/02/19 07:34 [place] 7.5-325 Mg PO 1 tab Q4H PRN Administration Pain Rated 7-10 Hydrocodone Bitart/Acetaminophen 1 tab 08/01/19 18:33 08/03/19 03:44 [place] 5-325 Mg PO 1 tab Q4H PRN Administration Pain Rated 4-6 Atorvastatin Calcium 80 mg 07/31/19 21:00 08/02/19 20:35 Lipitor PO 80 mg HS JOSSUE Administration Clopidogrel Bisulfate 75 mg 07/31/19 09:00 07/31/19 08:53 Plavix PO 75 mg DAILY JOSSUE Administration Dextrose 12.5 gm 07/31/19 04:56 Dextrose 50% Syringe IV PUSH PRN PRN Hypoglycemia Protocol Dutasteride 0.5 mg 07/31/19 09:00 08/03/19 08:48 Avodart PO 0.5 mg DAILY JOSSUE Administration Enoxaparin Sodium 40 mg 08/02/19 09:00 08/03/19 08:48 Lovenox SUB-Q 40 mg DAILY JOSSUE Administration Fentanyl Citrate 25 mcg 08/01/19 07:38 08/01/19 17:35 Sublimaze IV PUSH 25 mcg Q2M PRN Administration Pain Furosemide 20 mg 07/31/19 09:00 08/03/19 08:48 Lasix Tablet PO 20 mg DAILY JOSSUE Administration Gabapentin 300 mg 07/31/19 09:00 08/03/19 08:48 Neurontin PO 300 mg TID JOSSUE Administration Glucagon 1 mg 07/31/19 04:56 Glucagon For Inj IM PRN PRN Hypoglycemia Protocol Glucose 15 gm 07/31/19 04:56 Glutose 15 PO PRN PRN Hypoglycemia Protocol Hydromorphone HCl 0.25 mg 08/01/19 07:38 Dilaudid Inj IV PUSH Q5M PRN Pain Piperacillin Sod/Tazobactam Sod 2.25 gm in 50 mls @ 100 mls/hr 07/31/19 03:00 08/03/19 08:46 Zosyn 2.25 Gm/D5w 50 Ml IVPB 100 mls/hr Q6H JOSSUE Administration Dextrose 1,000 mls @ 100 mls/hr 07/31/19 04:56 Dextrose 5% 1,000 Ml IVPB PRN PRN Hypoglycemia Protocol Lactated Ringer's 1,000 mls @ 80 mls/hr 08/01/19 18:33 08/03/19 05:52 Lr - Lactated Ringers Iv IV CONT 80 mls/hr .[id number] JOSSUE Infusion Insulin Aspart 3 -
[2019-08-03 12:07] LABS: Glucose Point of Care 179 (65-105)
[2019-08-03 14:33] VITALS: BP 157/58; PULSE 59; RESP 16; TEMP 36.2; O2SAT 99
--- NOTE | 2019-08-03 16:02 | PM.IMPN ---
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 complications; L08.9 - Local infection of the skin and subcutaneous tissue, unspecified Status: Acute Assessment and Plan: Pt is on iv fluids and iv zosyn, norco for pain control (2) Gangrene of left foot: Code(s): I96 - Gangrene, not elsewhere classified Status: Acute Assessment and Plan: sp amputation of 2nd and 3rd toes, PT/OT in hospital, hopeful placement to rehab soon (3) Hyperlipidemia: Code(s): E78.5 - Hyperlipidemia, unspecified Status: Chronic Assessment and Plan: On statin (4) DVT prophylaxis: Code(s): Z29.9 - Encounter for prophylactic measures, unspecified Status: Acute Assessment and Plan: On Lovenox and clopidogrel (5) Diabetes type 2, controlled: Qualifiers: Diabetes mellitus director digital insulin use: without fdc use Diabetes mellitus complication status: with circulatory complication Diabetes mellitus complication detail: with peripheral angiopathy without gangrene Qualified Code(s): E11.51 - Type 2 diabetes mellitus with diabetic peripheral angiopathy without gangrene Code(s): E11.9 - Type 2 diabetes mellitus without complications Status: Chronic Assessment and Plan: Accuchecks, SSI (6) Peripheral arterial disease: Code(s): I73.9 - Peripheral vascular disease, unspecified Status: Chronic Assessment and Plan: ARterial doppler negative, mild PAD (7) Chronic kidney disease, stage 3: Code(s): N18.3 - Chronic kidney disease, stage 3 (moderate) Status: Chronic Assessment and Plan: Continue to monitor BMP Subjective Date/time seen: 08/03/19 16:02 Interval history: Admitted with cellulitis of the left lower extremity as well as acute kidney injury. Pt has foul smelling 3 rd left toe. Pt was discharged with abx for DM cellulitis infection of left foot. Pt is sp amputation of his 2nd and 3 rd toes left foot. Pt awaiting rehab placement. No specific complaints, yet to have PT/OT Review of Systems Review of Systems: All systems reviewed & are unremarkable except as noted in HPI and below Exam Const: General: cooperative and healthy appearing; No in distress Nutritional Appearance: overweight Orientation/consciousness: oriented to person HENMT: Head: normal to inspection Resp: Effort & Inspection: no respiratory distress Auscultation: no rhonchi and no wheezes Cardio: Rate: regular rate Rhythm: regular rhythm GI: Inspection: normal to inspection Auscultation: normal bowel sounds Neuro: General: oriented to person Extrem: Other: left foot bandaged over amputation of his left 3rd and 2nd toes Objective Data Vital Signs Vital Signs: Vital Signs - 24 hr 08/02/19 17:20 08/02/19 22:00 08/03/19 06:00 Temperature 36.3 C L 36.7 C 36.8 C Pulse Rate 66 68 62 Respiratory Rate 16 16 16 Blood Pressure 130/68 127/67 122/58 L Pulse Oximetry 98 97 96 08/03/19 14:33 Temperature 36.2 C L Pulse Rate 59 L Respiratory Rate 16 Blood Pressure 157/58 H Pulse Oximetry 99 Intake/Output Intake/Output: Intake & Output 07/31/19 08/01/19 08/02/19 08/03/19 23:59 23:59 23:59 23:59 Intake Total 2090 2477 3990 2250 Output Total 450 1250 1450 650 Balance 1640 1227 2540 1600 Meds/Results Medications: Active Medications Generic Name Dose Route Start Last Admin Trade Name Freq PRN Reason Stop Dose Admin Acetaminophen 500 mg 08/01/19 18:33 08/03/19 08:46 Tylenol Tablet PO 500 mg Q6H PRN Administration Mild Pain (1-3) or Fever Hydrocodone Bitart/Acetaminophen 1 tab 08/01/19 18:33 08/02/19 07:34 [place] 7.5-325 Mg PO 1 tab Q4H PRN Administration Pain Rated 7-10 Hydrocodone Bitart/Acetaminophen 1 tab 08/01/19 18:33 08/03/19 03:44 [place] 5-325 Mg PO 1 tab Q4H PRN
[2019-08-03 17:40] LABS: Glucose Point of Care 185 (65-105)
[2019-08-03] MEDS: ATORVASTATIN 40 MG TABLET 80 MG PO (20:29)
[2019-08-03 20:38] LABS: Glucose Point of Care 210 (65-105)
[2019-08-03 20:51] VITALS: O2SAT 94
[2019-08-03 22:00] VITALS: BP 153/55; PULSE 64; RESP 16; TEMP 37.1; O2SAT 98
[2019-08-04] MEDS: LACTATED RINGERS 1,000 ML 80 ML IV CONT ×2 (05:02→16:39)
[2019-08-04 05:57] VITALS: BP 152/59; PULSE 62; RESP 16; TEMP 36.6; O2SAT 96
[2019-08-04 06:29] LABS: Hematocrit 28.2 % (42.0-52.0); Hemoglobin 9.8 g/dL (14.0-18.0); Mean Corpuscular HGB Conc 34.8 g/dl (32-36); Mean Corpuscular Hemoglobin 31.1 pg (26-34); Mean Corpuscular Volume 89.5 fl (80-100); Mean Platelet Volume 10.5 fl (7.4-10.4); Platelet Count Result 196 k/mm3 (150-375); Red Blood Count 3.15 M/mm3 (4.6-6.20); Red Cell Distribution Width 12.6 % (11.5-14.5); White Blood Count 7.6 K/mm3 (4.5-10.0)
[2019-08-04 06:44] LABS: Blood Urea Nitrogen 20 mg/dL (9-20); Calcium 7.6 mg/dL (8.4-10.2); Carbon Dioxide 29 mmol/L (22-30); Chloride 92 mmol/L (98-107); Estimated CRCL calculation 21 ml/min; Estimated Glomerular Filt Rate 26; Glucose 177 mg/dL (75-110); Potassium 2.9 mmol/L (3.4-5.0); Sodium 130 mmol/L (137-145)
[2019-08-04] MEDS: ENOXAPARIN 40 MG/0.4 ML SYRINGE SUB-Q (09:00)
[2019-08-04] MEDS: PANTOPRAZOLE 40 MG TABLET PO ×2 (09:01→16:39)
[2019-08-04] MEDS: polyethylene glycoL 3350 17 GM POWD.PACK PO (09:01)
[2019-08-04] MEDS: CLOPIDOGREL BISULFATE 75 MG TABLET PO (09:01)
[2019-08-04] MEDS: TAMSULOSIN HCL 0.4 MG CAPSULE PO (09:01)
[2019-08-04] MEDS: FUROSEMIDE 20 MG TABLET PO (09:01)
[2019-08-04] MEDS: DUTASTERIDE 0.5 MG CAPSULE PO (09:01)
[2019-08-04] MEDS: GABAPENTIN 300 MG CAPSULE PO ×3 (09:01→16:39)
[2019-08-04] MEDS: INSULIN GLARGINE (*BKC) 100 UNITS/ML 10 UNITS SUB-Q (09:02)
[2019-08-04 09:24] LABS: Glucose Point of Care 156 (65-105)
[2019-08-04 12:04] LABS: Glucose Point of Care 127 (65-105)
[2019-08-04 13:38] VITALS: BP 140/53; PULSE 65; RESP 18; TEMP 36.4; O2SAT 100
--- NOTE | 2019-08-04 15:13 | PCOTNOTE ---
The patient treatment was not able to be completed on 08/04/19 due to time constraints. Will plan to continue treatment per plan of care.
[2019-08-04 16:50] LABS: Glucose Point of Care 157 (65-105)
[2019-08-04 16:56] LABS: Glucose Point of Care 165 (65-105)
--- NOTE | 2019-08-04 17:36 | PM.IMPN ---
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 complications; L08.9 - Local infection of the skin and subcutaneous tissue, unspecified Status: Acute Assessment and Plan: Pt is norco for pain control, stop iv zosyn (2) Gangrene of left foot: Code(s): I96 - Gangrene, not elsewhere classified Status: Acute Assessment and Plan: sp amputation of 2nd and 3rd toes, PT/OT in hospital, hopeful placement to rehab soon (3) Hyperlipidemia: Code(s): E78.5 - Hyperlipidemia, unspecified Status: Chronic Assessment and Plan: On statin (4) DVT prophylaxis: Code(s): Z29.9 - Encounter for prophylactic measures, unspecified Status: Acute Assessment and Plan: On Lovenox and clopidogrel (5) Diabetes type 2, controlled: Qualifiers: Diabetes mellitus half-way insulin use: without half-way use Diabetes mellitus complication status: with circulatory complication Diabetes mellitus complication detail: with peripheral angiopathy without gangrene Qualified Code(s): E11.51 - Type 2 diabetes mellitus with diabetic peripheral angiopathy without gangrene Code(s): E11.9 - Type 2 diabetes mellitus without complications Status: Chronic Assessment and Plan: Accuchecks, SSI (6) Peripheral arterial disease: Code(s): I73.9 - Peripheral vascular disease, unspecified Status: Chronic Assessment and Plan: ARterial doppler negative, mild PAD (7) Chronic kidney disease, stage 3: Code(s): N18.3 - Chronic kidney disease, stage 3 (moderate) Status: Chronic Assessment and Plan: Continue to monitor BMP, worsening kidney function will consult nephrology DR Conroy. Subjective Date/time seen: 08/04/19 17:36 Interval history: Admitted with cellulitis of the left lower extremity as well as acute kidney injury. Pt has foul smelling 3 rd left toe. Pt was discharged with abx for DM cellulitis infection of left foot. Pt is sp amputation of his 2nd and 3 rd toes left foot. Pt awaiting rehab placement. No specific complaints, kidney function is worsening, will consult Dr Conroy Review of Systems Review of Systems: All systems reviewed & are unremarkable except as noted in HPI and below Exam Const: General: cooperative and healthy appearing; No in distress Nutritional Appearance: overweight Orientation/consciousness: oriented to person HENMT: Head: normal to inspection Resp: Effort & Inspection: no respiratory distress Auscultation: no rhonchi and no wheezes Cardio: Rate: regular rate Rhythm: regular rhythm GI: Inspection: normal to inspection Auscultation: normal bowel sounds Neuro: General: oriented to person Extrem: Other: left foot bandaged over amputation of his left 3rd and 2nd toes Objective Data Vital Signs Vital Signs: Vital Signs - 24 hr 08/03/19 20:51 08/03/19 22:00 08/04/19 05:57 Temperature 37.1 C 36.6 C Pulse Rate 64 62 Respiratory Rate 16 16 Blood Pressure 153/55 H 152/59 H Pulse Oximetry 94 98 96 08/04/19 13:38 Temperature 36.4 C L Pulse Rate 65 Respiratory Rate 18 Blood Pressure 140/53 L Pulse Oximetry 100 Intake/Output Intake/Output: Intake & Output 08/01/19 08/02/19 08/03/19 08/04/19 23:59 23:59 23:59 23:59 Intake Total 2477 3990 2820 2740 Output Total 1250 1450 1150 1350 Balance 1227 2540 1670 1390 Meds/Results Medications: Active Medications Generic Name Dose Route Start Last Admin Trade Name Freq PRN Reason Stop Dose Admin Acetaminophen 500 mg 08/01/19 18:33 08/03/19 08:46 Tylenol Tablet PO 500 mg Q6H PRN Administration Mild Pain (1-3) or Fever Hydrocodone Bitart/Acetaminophen 1 tab 08/01/19 18:33 08/04/19 16:37 [place] 7.5-325 Mg PO 1 tab Q4H PRN Administration Pain Rated 7-10 Hydrocodone Bitart/Acetaminophen 1 tab 01
[2019-08-04] MEDS: ATORVASTATIN 40 MG TABLET 80 MG PO (20:01)
[2019-08-04 22:00] VITALS: BP 152/50; PULSE 63; RESP 16; TEMP 37; O2SAT 97
[2019-08-05 01:23] LABS: Glucose Point of Care 219 (65-105)
[2019-08-05] MEDS: LACTATED RINGERS 1,000 ML 80 ML IV CONT ×2 (05:20→16:32)
[2019-08-05 05:47] VITALS: BP 170/66; PULSE 79; RESP 16; TEMP 36.4; O2SAT 96
[2019-08-05] MEDS: INSULIN GLARGINE (*BKC) 100 UNITS/ML 10 UNITS SUB-Q (08:03)
[2019-08-05] MEDS: ENOXAPARIN 40 MG/0.4 ML SYRINGE SUB-Q (08:06)
[2019-08-05] MEDS: FUROSEMIDE 20 MG TABLET PO (08:06)
[2019-08-05] MEDS: DUTASTERIDE 0.5 MG CAPSULE PO (08:06)
[2019-08-05] MEDS: CLOPIDOGREL BISULFATE 75 MG TABLET PO (08:06)
[2019-08-05] MEDS: PANTOPRAZOLE 40 MG TABLET PO ×2 (08:06→16:33)
[2019-08-05] MEDS: GABAPENTIN 300 MG CAPSULE PO ×3 (08:06→16:33)
[2019-08-05] MEDS: SILVERGEL (ELTA) 45 ML 1 APPLIC TOPICAL (08:07)
[2019-08-05] MEDS: TAMSULOSIN HCL 0.4 MG CAPSULE PO (08:07)
[2019-08-05] MEDS: polyethylene glycoL 3350 17 GM POWD.PACK PO (08:07)
[2019-08-05 08:10] LABS: Blood Urea Nitrogen 18 mg/dL (9-20); Calcium 7.5 mg/dL (8.4-10.2); Carbon Dioxide 32 mmol/L (22-30); Chloride 95 mmol/L (98-107); Estimated CRCL calculation 22 ml/min; Estimated Glomerular Filt Rate 29; Glucose 114 mg/dL (75-110); Hematocrit 29.2 % (42.0-52.0); Hemoglobin 9.9 g/dL (14.0-18.0); Mean Corpuscular HGB Conc 33.9 g/dl (32-36); Mean Corpuscular Hemoglobin 30.5 pg (26-34); Mean Corpuscular Volume 89.8 fl (80-100); Mean Platelet Volume 10.7 fl (7.4-10.4); Platelet Count Result 199 k/mm3 (150-375); Potassium 2.9 mmol/L (3.4-5.0); Red Blood Count 3.25 M/mm3 (4.6-6.20); Red Cell Distribution Width 12.6 % (11.5-14.5); Sodium 135 mmol/L (137-145); White Blood Count 7.3 K/mm3 (4.5-10.0)
[2019-08-05] MEDS: POTASSIUM CHLORIDE 20 MEQ PACKET (FOR LIQUID) PO (08:10)
[2019-08-05 08:31] LABS: Glucose Point of Care 115 (65-105)
[2019-08-05 12:01] LABS: Glucose Point of Care 157 (65-105)
--- NOTE | 2019-08-05 12:43 | PM.IMPN ---
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 complications; L08.9 - Local infection of the skin and subcutaneous tissue, unspecified Status: Acute Assessment and Plan: Pt is on norco for pain control, stop iv zosyn, as creat has worsened since admission, continue to follow. BMP. pt is on iv fluids (2) Gangrene of left foot: Code(s): I96 - Gangrene, not elsewhere classified Status: Acute Assessment and Plan: Sp amputation of 2nd and 3rd toes, PT/OT in hospital, hopeful placement to rehab soon as pt is unable to walk much, pt is on a wound vac. (3) Hyperlipidemia: Code(s): E78.5 - Hyperlipidemia, unspecified Status: Chronic Assessment and Plan: On statin (4) DVT prophylaxis: Code(s): Z29.9 - Encounter for prophylactic measures, unspecified Status: Acute Assessment and Plan: On Lovenox and clopidogrel (5) Diabetes type 2, controlled: Qualifiers: Diabetes mellitus group home insulin use: without long chain quiller tender use Diabetes mellitus complication status: with circulatory complication Diabetes mellitus complication detail: with peripheral angiopathy without gangrene Qualified Code(s): E11.51 - Type 2 diabetes mellitus with diabetic peripheral angiopathy without gangrene Code(s): E11.9 - Type 2 diabetes mellitus without complications Status: Chronic Assessment and Plan: Accuchecks, SSI, glucose are doing good in the hospital, will order hbaic to check group home control (6) Peripheral arterial disease: Code(s): I73.9 - Peripheral vascular disease, unspecified Status: Chronic Assessment and Plan: Arterial doppler negative, mild PAD (7) Chronic kidney disease, stage 3: Code(s): N18.3 - Chronic kidney disease, stage 3 (moderate) Status: Chronic Assessment and Plan: Continue to monitor BMP, worsening kidney function will consult nephrology DR Conroy. Subjective Date/time seen: 08/05/19 12:43 Interval history: Admitted with cellulitis of the left lower extremity as well as acute kidney injury. Pt has foul smelling 3 rd left toe. Pt was discharged with abx for DM cellulitis infection of left foot. Pt is sp amputation of his 2nd and 3 rd toes of left foot. Pt awaiting rehab placement. No specific complaints, kidney function is worsening, will consult Dr Conroy. Pt iv zosyn was stopped yesterday. Potassium slightly low pt is not eating much, add potassium supplements. Review of Systems Review of Systems: All systems reviewed & are unremarkable except as noted in HPI and below Exam Const: General: cooperative and healthy appearing; No in distress Nutritional Appearance: overweight Orientation/consciousness: oriented to person HENMT: Head: normal to inspection Resp: Effort & Inspection: no respiratory distress Auscultation: no rhonchi and no wheezes Cardio: Rate: regular rate Rhythm: regular rhythm GI: Inspection: normal to inspection Auscultation: normal bowel sounds Neuro: General: oriented to person Extrem: Other: left foot bandaged over amputation of his left 3rd and 2nd toes, pt has wound vac Objective Data Vital Signs Vital Signs: Vital Signs - 24 hr 08/04/19 13:38 08/04/19 22:00 08/05/19 05:47 Temperature 36.4 C L 37.0 C 36.4 C L Pulse Rate 65 63 79 Respiratory Rate 18 16 16 Blood Pressure 140/53 L 152/50 H 170/66 H Pulse Oximetry 100 97 96 Intake/Output Intake/Output: Intake & Output 08/02/19 08/03/19 08/04/19 08/05/19 23:59 23:59 23:59 23:59 Intake Total 3990 2820 3290 1890 Output Total 1450 1150 2350 935 Balance 2540 1670 940 955 Meds/Results Medications: Active Medications Generic Name Dose Route Start Last Admin Trade Name Freq PRN Reason Stop Dose Admin Acetaminophen 500 mg 08/01/19 18:33 08/03/19 08:46 Tylenol Tablet PO 500 mg
--- NOTE | 2019-08-05 14:50 | PM.CNNEP ---
Assessment and Plan Assessment and plan (1) Chronic kidney disease, stage 3: Code(s): N18.3 - Chronic kidney disease, stage 3 (moderate) Status: Chronic Assessment and Plan: The patient has chronic kidney disease This is probably from diabetes and hypertension. He may have some vascular disease in the kidneys as well. To evaluate this and I will get serology in immunofixation. (2) Acute renal failure: Qualifiers: Acute renal failure type: unspecified Qualified Code(s): N17.9 - Acute kidney failure, unspecified Code(s): N17.9 - Acute kidney failure, unspecified Status: Acute Assessment and Plan: The patient had acute kidney injury. It seems like his creatinine has gradually risen over the past couple of months. This may be all because of the diabetic wound, culminating in the diabetic infection. Now that his infection is drain and his toes are gone his creatinine hopefully will improve back to their prior baseline. I am not sure how much better they are going to get but hopefully will least get down to the 1.5 To 1.7 range. Other possibilities include interstitial nephritis because of being on antibiotics. Post infectious glomerulonephritis is a possibility but it seems a little bit too soon. Glomerulonephritis is always a possibility however this would be an unusual clinical scenario for that. To evaluate this I will get urine electrolytes and eosinophils and a renal ultrasound. His potassium is low I will supplement this. (3) Peripheral arterial disease: Code(s): I73.9 - Peripheral vascular disease, unspecified Status: Chronic Assessment and Plan: The patient has peripheral arterial disease involving both lower extremities. This may also involve his kidneys. (4) Diabetic infection of left foot: Code(s): E11.628 - Type 2 diabetes mellitus with other skin complications; L08.9 - Local infection of the skin and subcutaneous tissue, unspecified Status: Acute Assessment and Plan: He is on antibiotics and had surgery. (5) Hyponatremia: Code(s): E87.1 - Hypo-osmolality and hyponatremia Status: Acute Assessment and Plan: Sodium level was as low as 130. This has improved now. It is probably due to the renal insufficiency. We will keep an eye on this. History of Present Illness Reason for Consult Consult date: 08/05/19 Chief Complaint Chief complaint: gangrene toe left foot History of Present Illness Narrative: Jose D is a very pleasant 84-year-old gentleman who has multiple medical problems including diabetes, hypertension, peripheral vascular disease status post stents in the right lower extremity, hyperlipidemia, GERD, BPH. The patient came into the hospital because of sores on his left foot. This turned out to be gangrenous with infection and so he had 2 toes removed from his left foot. The patient has a past history of chronic kidney disease with a baseline creatinine that had run between 1.5 and 1.7 in May of 2019 however was 2.1 in June. On admission this time is creatinine was 1.8 and shalom eventually to 2.4 the day after his surgery to remove his toes. Today is creatinine is back down to 2.2. The patient is not aware that he has underlying kidney disease. 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 He has never been told he had kidney problems before. He denies any bloody urine, foamy urine, painful urination, kidney stones, or bladder infections. He does not take any nonsteroidal anti-inflammatory agents. He has diabetes and has had this for many years. He says it has been pretty well controlled. His last A1c in May was 7.8. He has hypertension is had this for a long time. He says his blood pressure has been pretty well controlled. He has peripheral vascular disease in the lower extremities. Review of Systems Constitutional: Constitutional: Reports no additional constitutional complaint
[2019-08-05 16:20] LABS: Add Urine Microscopic? NO; Appearance Urine Clear (Clear); Bilirubin Urine Negative (Negative); Blood Urine Negative (Negative); Color Urine Yellow (Yellow); Glucose Urine UA Negative (Negative); Ketones Urine Negative (Negative); Leukocyte Esterase Ur Negative LEU/UL (NEGATIVE); Nitrate Urine Negative (Negative); Protein Urine Negative (Negative); Specific Grav Ur 1.012 (1.001-1.035); Urobilinogen Urine Negative mg/dL (<2.0)
--- NOTE | 2019-08-05 16:26 | PCOTNOTE ---
Patient unable to be seen for OT this date. Will continue POC, tomorrow 08/06/19.
[2019-08-05] MEDS: POTASSIUM CHLORIDE 20 MEQ PACKET (FOR LIQUID) 40 MEQ PO (16:33)
[2019-08-05 16:38] LABS: Basophils Absolute Auto 0.1 K/mm3 (0.0-0.1); Basophils Percent Auto 0.6 % (0.2-1.2); Eosinophils Absolute Auto 0.1 K/mm3 (0-0.3); Eosinophils Percent Auto 1.8 % (0-4.4); Hematocrit 32.7 % (42.0-52.0); Hemoglobin 11.1 g/dL (14.0-18.0); Immature Granulocyte Absolute 0.05 K/mm3 (0.00-0.031); Immature Granulocyte Percent A 0.6 % (0-0.5); Lymphocytes Absolute Auto 2.93 K/mm3 (0.9-3.2); Lymphocytes Percent Auto 36.6 % (18.3-44.2); Mean Corpuscular HGB Conc 33.9 g/dl (32-36); Mean Corpuscular Hemoglobin 30.8 pg (26-34); Mean Corpuscular Volume 90.8 fl (80-100); Mean Platelet Volume 10.4 fl (7.4-10.4); Monocytes Absolute Auto 0.6 K/mm3 (0.1-0.6); Neutrophils Absolute Auto 4.3 K/mm3 (1.3-6.7); Neutrophils Percent Auto 53.4 % (45.5-73.1); Platelet Count Result 225 k/mm3 (150-375); Red Cell Distribution Width 12.6 % (11.5-14.5)
[2019-08-05 16:41] LABS: Glucose Point of Care 116 (65-105)
[2019-08-05 16:45] LABS: Creatinine Urine 73.9 mg/dL; Total Protein Urine Random 19 mg/dL
[2019-08-05 16:46] LABS: Sodium Urine Random 60 meq/L
[2019-08-05 16:50] LABS: Creatine Kinase 21 U/L (55-170)
[2019-08-05 16:57] LABS: Complement C3 112 mg/dL (88-165)
[2019-08-05 17:16] LABS: Erythrocyte Sedimentation Rate 56 mm/hr (0-20)
[2019-08-05 17:55] VITALS: BP 150/54; PULSE 75; RESP 18; TEMP 37.2; O2SAT 98
[2019-08-05] MEDS: ATORVASTATIN 40 MG TABLET 80 MG PO (21:22)
[2019-08-05 22:10] LABS: Glucose Point of Care 112 (65-105)
[2019-08-05 22:30] VITALS: BP 151/51; PULSE 60; RESP 16; TEMP 36.8; O2SAT 97
[2019-08-06 06:35] VITALS: BP 174/60; PULSE 63; RESP 16; TEMP 36.2; O2SAT 100
[2019-08-06 08:20] LABS: Basophils Percent Auto 0.5 % (0.2-1.2); Eosinophils Absolute Auto 0.2 K/mm3 (0-0.3); Eosinophils Percent Auto 2.1 % (0-4.4); Hematocrit 33.5 % (42.0-52.0); Hemoglobin 11.1 g/dL (14.0-18.0); Immature Granulocyte Absolute 0.05 K/mm3 (0.00-0.031); Immature Granulocyte Percent A 0.6 % (0-0.5); Lymphocytes Absolute Auto 2.58 K/mm3 (0.9-3.2); Lymphocytes Percent Auto 31.2 % (18.3-44.2); Mean Corpuscular HGB Conc 33.1 g/dl (32-36); Mean Corpuscular Hemoglobin 30.3 pg (26-34); Mean Corpuscular Volume 91.5 fl (80-100); Mean Platelet Volume 10.6 fl (7.4-10.4); Monocytes Absolute Auto 0.5 K/mm3 (0.1-0.6); Monocytes Percent Auto 5.4 % (2.6-8.5); Neutrophils Percent Auto 60.2 % (45.5-73.1); Platelet Count Result 225 k/mm3 (150-375); Red Blood Count 3.66 M/mm3 (4.6-6.20); Red Cell Distribution Width 12.8 % (11.5-14.5); White Blood Count 8.3 K/mm3 (4.5-10.0)
[2019-08-06 08:22] LABS: Glucose Point of Care 99 (65-105)
[2019-08-06 08:32] LABS: Blood Urea Nitrogen 18 mg/dL (9-20); Calcium 7.7 mg/dL (8.4-10.2); Carbon Dioxide 30 mmol/L (22-30); Chloride 97 mmol/L (98-107); Estimated CRCL calculation 24 ml/min; Estimated Glomerular Filt Rate 30; Glucose 104 mg/dL (75-110); Potassium 3.4 mmol/L (3.4-5.0); Sodium 135 mmol/L (137-145)
[2019-08-06] MEDS: polyethylene glycoL 3350 17 GM POWD.PACK PO (09:39)
[2019-08-06] MEDS: GABAPENTIN 300 MG CAPSULE PO ×3 (09:40→18:41)
[2019-08-06] MEDS: POTASSIUM CHLORIDE 20 MEQ PACKET (FOR LIQUID) 40 MEQ PO ×2 (09:40→18:41)
[2019-08-06] MEDS: ENOXAPARIN 40 MG/0.4 ML SYRINGE SUB-Q (09:40)
[2019-08-06] MEDS: CLOPIDOGREL BISULFATE 75 MG TABLET PO (09:41)
[2019-08-06] MEDS: FUROSEMIDE 20 MG TABLET PO (09:41)
[2019-08-06] MEDS: TAMSULOSIN HCL 0.4 MG CAPSULE PO (09:41)
[2019-08-06] MEDS: DUTASTERIDE 0.5 MG CAPSULE PO (09:41)
[2019-08-06] MEDS: PANTOPRAZOLE 40 MG TABLET PO ×2 (09:42→18:41)
[2019-08-06] MEDS: INSULIN GLARGINE (*BKC) 100 UNITS/ML 10 UNITS SUB-Q (09:47)
--- NOTE | 2019-08-06 12:02 | PCDIET ---
Weekly nutritional screen. Patient is tolerating current diet with adequate intake. No weight loss reported. No nutritional needs at this time.
[2019-08-06 12:12] LABS: Glucose Point of Care 157 (65-105)
--- NOTE | 2019-08-06 12:12 | PCNSR ---
On 08/06/19, the student,Raiza Tellez, provided care and completed [facility] documentation on this patient. I have reviewed the student's documentation and agree with the findings.
--- NOTE | 2019-08-06 13:53 | PM.PNGS ---
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 complications; L08.9 - Local infection of the skin and subcutaneous tissue, unspecified Status: Acute Assessment and Plan: Left foot wound healing nicely with the wound VAC therapy. Continue wound VAC and IV antibiotics. Preliminary culture results show growth of bacteroides fragilis group and peptostreptococcus species. ID consulted and appreciate recommendations. Will plan to change the wound VAC again on Tuesday. Patient will likely require SNF placement on discharge with wound VAC therapy and physical therapy. Improved. Continue wound VAC therapy and IV antibiotics. Cultures are pending. (2) Gangrene of left foot: Code(s): I96 - Gangrene, not elsewhere classified Status: Acute (3) Diabetes mellitus with peripheral vascular disease: Code(s): E11.51 - Type 2 diabetes mellitus with diabetic peripheral angiopathy without gangrene Status: Chronic (4) Antiplatelet or antithrombotic long-term use: Code(s): Z79.02 - group home (current) use of antithrombotics/antiplatelets Status: Chronic Assessment and Plan: On Plavix. (5) Acute renal failure: Qualifiers: Acute renal failure type: unspecified Qualified Code(s): N17.9 - Acute kidney failure, unspecified Code(s): N17.9 - Acute kidney failure, unspecified Status: Acute (6) PVD (peripheral vascular disease): Code(s): I73.9 - Peripheral vascular disease, unspecified Status: Acute Subjective Subjective Date/Time Seen: 08/06/19 13:53 Patient reports: no new complaints Interval history: Patient seen and examined with Dr. Avalos and the wound care nurses. Patient has no new complaints. Left wound cultures from surgery preliminary results showed growth of bacteroides fragilis and peptostreptococcus species. Creatinine 2.1 today. Review of Systems Review of Systems: All systems reviewed & are unremarkable except as noted in HPI and below Exam Const: General: comfortable, no acute distress, awake and Physically active Extrem: General: edema left (LLE 1-2+ pitting edema) Other: Wound VAC removed. Left foot wound looks good today with granulation tissue noted in nearly the entire wound bed and good vascularization. No necrotic tissue. Does have left lower ext swelling with indention of the wound VAC tubing to his lower leg and small dark red/purple area over the dorsal aspect of the midfoot where the wound VAC suction was attached - wound care nurse applying wound VAC today will change where the top adapter of the wound VAC dressing will be on the foot. Objective Data Vital Signs Vital Signs: Vital Signs - 24 hr 08/05/19 17:55 08/05/19 22:30 08/06/19 06:35 Temperature 37.2 C 36.8 C 36.2 C L Pulse Rate 75 60 63 Respiratory Rate 18 16 16 Blood Pressure 150/54 H 151/51 H 174/60 H Pulse Oximetry 98 97 100 Intake/Output Intake/Output: Intake & Output 08/03/19 08/04/19 08/05/19 08/06/19 23:59 23:59 23:59 23:59 Intake Total 2820 3290 4020 590 Output Total 1150 2350 1085 800 Balance 6258 504 6489 -210 Meds/Results Medications: Active Medications Generic Name Dose Route Start Last Admin Trade Name Freq PRN Reason Stop Dose Admin Acetaminophen 500 mg 08/01/19 18:33 08/03/19 08:46 Tylenol Tablet PO 500 mg Q6H PRN Administration Mild Pain (1-3) or Fever Hydrocodone Bitart/Acetaminophen 1 tab 08/01/19 18:33 08/05/19 17:31 [place] 7.5-325 Mg PO 1 tab Q4H PRN Administration Pain Rated 7-10 Hydrocodone Bitart/Acetaminophen 1 tab 08/01/19 18:33 08/05/19 05:21 [place] 5-325 Mg PO 1 tab Q4H PRN Administration Pain Rated 4-6 Atorvastatin Calcium 80 mg 07/31/19 21:00 08/05/19 21:22 Lipitor PO 80 mg HS JOSSUE Administration Clopidogrel Bisulfate 75 mg 07/31/19 09:00 08/06/19 09:41
--- NOTE | 2019-08-06 13:58 | WPDINFPN2 ---
Progress Note: A&P Assessment and Plan (1) Gangrene of toe of left foot: Code(s): I96 - Gangrene, not elsewhere classified Status: Acute Assessment and Plan: 1. Gangrene of L toes, POD # 6 2. DM 3. ASPVD REC Add metronidazole to Ancef Subjective Date/time seen: 08/06/19 13:58 Objective Data Vital Signs Vital Signs: Vital Signs - 24 hr 08/05/19 17:55 08/05/19 22:30 08/06/19 06:35 Temperature 37.2 C 36.8 C 36.2 C L Pulse Rate 75 60 63 Respiratory Rate 18 16 16 Blood Pressure 150/54 H 151/51 H 174/60 H Pulse Oximetry 98 97 100 Intake/Output Intake/Output: Intake & Output 08/03/19 08/04/19 08/05/19 08/06/19 23:59 23:59 23:59 23:59 Intake Total 2820 3290 4020 590 Output Total 1150 2350 1085 800 Balance 1947 496 7323 -210 Meds/Results Medications: Active Medications Generic Name Dose Route Start Last Admin Trade Name Freq PRN Reason Stop Dose Admin Acetaminophen 500 mg 08/01/19 18:33 08/03/19 08:46 Tylenol Tablet PO 500 mg Q6H PRN Administration Mild Pain (1-3) or Fever Hydrocodone Bitart/Acetaminophen 1 tab 08/01/19 18:33 08/05/19 17:31 [place] 7.5-325 Mg PO 1 tab Q4H PRN Administration Pain Rated 7-10 Hydrocodone Bitart/Acetaminophen 1 tab 08/01/19 18:33 08/05/19 05:21 [place] 5-325 Mg PO 1 tab Q4H PRN Administration Pain Rated 4-6 Atorvastatin Calcium 80 mg 07/31/19 21:00 08/05/19 21:22 Lipitor PO 80 mg HS JOSSUE Administration Clopidogrel Bisulfate 75 mg 07/31/19 09:00 08/06/19 09:41 Plavix PO 75 mg DAILY JOSSUE Administration Dextrose 12.5 gm 07/31/19 04:56 Dextrose 50% Syringe IV PUSH PRN PRN Hypoglycemia Protocol Dutasteride 0.5 mg 07/31/19 09:00 08/06/19 09:41 Avodart PO 0.5 mg DAILY JOSSUE Administration Enoxaparin Sodium 40 mg 08/02/19 09:00 08/06/19 09:40 Lovenox SUB-Q 40 mg DAILY JOSSUE Administration Furosemide 20 mg 07/31/19 09:00 08/06/19 09:41 Lasix Tablet PO 20 mg DAILY JOSSUE Administration Gabapentin 300 mg 07/31/19 09:00 08/06/19 13:28 Neurontin PO 300 mg TID JOSSUE Administration Glucagon 1 mg 07/31/19 04:56 Glucagon For Inj IM PRN PRN Hypoglycemia Protocol Glucose 15 gm 07/31/19 04:56 Glutose 15 PO PRN PRN Hypoglycemia Protocol Hydromorphone HCl 0.25 mg 08/01/19 07:38 Dilaudid Inj IV PUSH Q5M PRN Pain Dextrose 1,000 mls @ 100 mls/hr 07/31/19 04:56 Dextrose 5% 1,000 Ml IVPB PRN PRN Hypoglycemia Protocol Lactated Ringer's 1,000 mls @ 80 mls/hr 08/01/19 18:33 08/05/19 16:32 Lr - Lactated Ringers Iv IV CONT 80 mls/hr .[id number] JOSSUE Administration Cefazolin Sodium 1 gm in 50 mls @ 100 mls/hr 08/06/19 09:20 Ancef 1 Gm/D5w 50 Ml Pm IVPB Q8H JOSSUE Magnesium Sulfate/Dextrose 1 gm in 100 mls @ 100 mls/hr 08/06/19 13:30 Magnesium Sulf 1 Gm/D5w 100 Ml IVPB 08/06/19 14:29 ONCE ONE Insulin Aspart 3 - 6 units 07/31/19 08:00 08/06/19 12:27 Novolog SUB-Q Not Given [facility] Protocol Insulin Glargine 10 units 07/31/19 09:00 08/06/19 09:47 Lantus SUB-Q 10 units DAILY JOSSUE Administration Morphine Sulfate 1 mg 08/01/19 18:33 Morphine Sulfate Inj IV PUSH Q2H PRN Pain Rated 4-6 Morphine Sulfate 2 mg 08/01/19 18:33 Morphine Sulfate Inj IV PUSH Q2H PRN Pain Rated 7-10 Naloxone HCl 0.1 mg 08/01/19 18:33 Narcan IV PUSH Q2M PRN Opiate Reversal Ondansetron HCl 4 mg 08/01/19 18:33 Zofran Inj IV PUSH Q4H PRN Nausea And Vomiting Pantoprazole Sodium 40 mg 07/31/19 09:00 08/06/19 09:42 Protonix PO 40 mg BID JOSSUE Administration Polyethylene Glycol 17 gm 08/02/19 09:00 08/06/19 09:39 Miralax PO 17 gm QAM JOSSUE Administration Potassium Chloride 40 meq 08/05/19 12:53 08/06/19 09:40 Kcl Powder (For Liquid) PO 40 meq BID JOSSUE Admi
[2019-08-06 14:39] VITALS: BP 146/51; PULSE 75; RESP 16; TEMP 36.3; O2SAT 100
[2019-08-06] MEDS: MAGNESIUM SULF 1 GM/D5W 100 ML 1 GM/100 ML BAG IVPB (15:07)
[2019-08-06] MEDS: metroNIDAZOLE 250 MG TABLET 500 MG PO ×2 (15:59→21:56)
--- NOTE | 2019-08-06 16:14 | PM.PNNEP ---
Progress Note: A&P Assessment and Plan (1) Chronic kidney disease, stage 3: Code(s): N18.3 - Chronic kidney disease, stage 3 (moderate) Status: Chronic Assessment and Plan: The patient has chronic kidney disease This is probably from diabetes and hypertension. (2) Acute renal failure: Qualifiers: Acute renal failure type: unspecified Qualified Code(s): N17.9 - Acute kidney failure, unspecified Code(s): N17.9 - Acute kidney failure, unspecified Status: Acute Assessment and Plan: The patient had acute kidney injury. r renal u/s shows small right kidney, mild hydro on left. ua negative. urine 'lytes nonprerenal. Creatinine is borderline better. Continue IV fluids we will check another creatinine tomorrow (3) Peripheral arterial disease: Code(s): I73.9 - Peripheral vascular disease, unspecified Status: Chronic Assessment and Plan: The patient has peripheral arterial disease involving both lower extremities. This may also involve his kidneys. (4) Diabetic infection of left foot: Code(s): E11.628 - Type 2 diabetes mellitus with other skin complications; L08.9 - Local infection of the skin and subcutaneous tissue, unspecified Status: Acute Assessment and Plan: He is on antibiotics and had surgery. (5) Hyponatremia: Code(s): E87.1 - Hypo-osmolality and hyponatremia Status: Acute Assessment and Plan: Sodium level was as low as 130. This has improved to 135. Subjective Date/time seen: 08/06/19 16:14 Interval history: Patient feels better. No swelling. Lying flat in bed and not short of breath. Getting IV fluids. Review of Systems Cardiovascular: Cardiovascular: Reports no additional cardiovascular complaints Respiratory: Respiratory: Reports no additional respiratory complaints Gastrointestinal: Gastrointestinal: Reports no additional gastrointestinal complaints Genitourinary: Genitourinary: Reports no additional male genitourinary complaints Exam Narrative: Exam Narrative: Well developed well-nourished in no acute distress Lungs clear Heart regular without rub Abdomen bowel sounds positive soft nontender Extremities no edema Skin no rash Objective Data Vital Signs Vital Signs: Vital Signs - 24 hr 08/05/19 17:55 08/05/19 22:30 08/06/19 06:35 Temperature 37.2 C 36.8 C 36.2 C L Pulse Rate 75 60 63 Respiratory Rate 18 16 16 Blood Pressure 150/54 H 151/51 H 174/60 H Pulse Oximetry 98 97 100 08/06/19 14:39 Temperature 36.3 C L Pulse Rate 75 Respiratory Rate 16 Blood Pressure 146/51 H Pulse Oximetry 100 Intake/Output Intake/Output: Intake & Output 08/03/19 08/04/19 08/05/19 08/06/19 23:59 23:59 23:59 23:59 Intake Total 2820 3290 4020 710 Output Total 1150 2350 1085 800 Balance 4186 836 1285 -90 Meds/Results Medications: Active Medications Generic Name Dose Route Start Last Admin Trade Name Freq PRN Reason Stop Dose Admin Acetaminophen 500 mg 08/01/19 18:33 08/03/19 08:46 Tylenol Tablet PO 500 mg Q6H PRN Administration Mild Pain (1-3) or Fever Hydrocodone Bitart/Acetaminophen 1 tab 08/01/19 18:33 08/05/19 17:31 [place] 7.5-325 Mg PO 1 tab Q4H PRN Administration Pain Rated 7-10 Hydrocodone Bitart/Acetaminophen 1 tab 08/01/19 18:33 08/05/19 05:21 [place] 5-325 Mg PO 1 tab Q4H PRN Administration Pain Rated 4-6 Atorvastatin Calcium 80 mg 07/31/19 21:00 08/05/19 21:22 Lipitor PO 80 mg HS JOSSUE Administration Clopidogrel Bisulfate 75 mg 07/31/19 09:00 08/06/19 09:41 Plavix PO 75 mg DAILY JOSSUE Administration Dextrose 12.5 gm 07/31/19 04:56 Dextrose 50% Syringe IV PUSH PRN PRN Hypoglycemia Protocol Dutasteride 0.5 mg 07/31/19 09:00 08/06/19 09:41 Avodart PO 0.5 mg DAILY JOSSUE Administration Enoxaparin Sodium 40 mg 08/02/19 09:00 08/06/19 09:40 Lovenox SUB-Q
--- NOTE | 2019-08-06 16:44 | PM.IMPN ---
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 complications; L08.9 - Local infection of the skin and subcutaneous tissue, unspecified Status: Acute Assessment and Plan: Patient is 84-year-old male with history of diabetes and peripheral vascular disease presented to emergency department with a gangrenous right foot had been seen by general surgery and treated with a wound VAC and is healing well, is also developed acute kidney injury and seen by living nurse suspect most likely secondary to diabetes and hypertension patient is being gently hydrated, today patient states is feeling better the pain is in is controlled denies any fever or chills, patient had been treated with Zosyn however patient kidney function was worsening Zosyn was stopped started the patient Ancef seen by Dr. vang and added Flagyl patient is seen by wound team and further recommendation to follow (2) Gangrene of left foot: Code(s): I96 - Gangrene, not elsewhere classified Status: Acute Assessment and Plan: Sp amputation of 2nd and 3rd toes, PT/OT in hospital, hopeful placement to rehab soon as pt is unable to walk much, pt is on a wound vac. (3) Hyperlipidemia: Code(s): E78.5 - Hyperlipidemia, unspecified Status: Chronic Assessment and Plan: On statin (4) DVT prophylaxis: Code(s): Z29.9 - Encounter for prophylactic measures, unspecified Status: Acute Assessment and Plan: On Lovenox and clopidogrel (5) Diabetes type 2, controlled: Qualifiers: Diabetes mellitus complication detail: with peripheral angiopathy without gangrene Diabetes mellitus complication status: with circulatory complication Diabetes mellitus custodial insulin use: without custodial use Qualified Code(s): E11.51 - Type 2 diabetes mellitus with diabetic peripheral angiopathy without gangrene Code(s): E11.9 - Type 2 diabetes mellitus without complications Status: Chronic Assessment and Plan: Accuchecks, SSI, glucose are doing good in the hospital, will order hbaic to check custodial control (6) Peripheral arterial disease: Code(s): I73.9 - Peripheral vascular disease, unspecified Status: Chronic Assessment and Plan: Arterial doppler negative, mild PAD (7) Chronic kidney disease, stage 3: Code(s): N18.3 - Chronic kidney disease, stage 3 (moderate) Status: Chronic Assessment and Plan: Continue to monitor BMP, worsening kidney function will consult nephrology DR Conroy. (8) RADHA (acute kidney injury): Code(s): N17.9 - Acute kidney failure, unspecified Status: Acute Assessment and Plan: Patient with acute on chronic kidney disease most likely secondary to diabetes hypertension poor p.o. intake resulting in dehydration, as well as infection as well as IV antibiotic patient is seen by Dr. Conroy and workup is in progress Subjective Date/time seen: 08/06/19 16:44 Patient is 84-year-old male with history of diabetes and peripheral vascular disease presented to emergency department with a gangrenous right foot had been seen by general surgery and treated with a wound VAC and is healing well, is also developed acute kidney injury and seen by living nurse suspect most likely secondary to diabetes and hypertension patient is being gently hydrated, today patient states is feeling better the pain is in is controlled denies any fever or chills Review of Systems Review of Systems: All systems reviewed & are unremarkable except as noted in HPI and below Exam Narrative: Exam Narrative: Elderly frail Const: General: comfortable and no acute distress HENMT: General nose exam: Normal nares present Mouth: Yes moist mucous membranes Eyes: General: appearance normal, both eyes and all related structures Sclera: sclerae normal Neck: Neck: supple Resp:
[2019-08-06 17:23] LABS: Glucose Point of Care 181 (65-105)
--- NOTE | 2019-08-06 17:43 | CONS_ITS ---
DATE OF CONSULTATION: 08/06/2019 REASON FOR CONSULTATION: Gangrene of the left foot and toes. HISTORY OF PRESENT ILLNESS: The patient is an 84-year-old male, who is a poor historian. He originally was admitted on July 30, with progressive gangrenous changes of the left 3rd toe. He was taken to the operating room 2 days later, this is postop day 6. 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 Now has a wound VAC in place. He received a single dose of piperacillin-tazobactam and is now on Ancef. Consultation was requested for antibiotic management. The patient reports chronic diminished sensation, and since his initial illness, he has also had numbness over the foot as well. He denies fever, chills, or sweats. ALLERGIES: NONE KNOWN. PRESENT MEDICATIONS: No systemic immunosuppressants. HABITS: He smoked from 10 years old until about 41 years old. Alcohol use is recorded. PAST MEDICAL HISTORY: Medical nonadherence, diabetes mellitus, carpal tunnel surgery, cardiac cath, appendectomy, endarterectomy of the carotid, thrombocytopenia, peripheral vascular disease, hypertension, hyperlipidemia, known angina, GERD, previous stroke, stage 3 chronic renal insufficiency, anemia, arthritis, cataract. REVIEW OF SYSTEMS: Limited by the patient's memory. A 14-point review otherwise negative. FAMILY HISTORY: Not pertinent to his present illness. SOCIAL HISTORY: He lives with his niece, who is presently hospitalized. No family at the bedside currently. He is retired. PHYSICAL EXAMINATION: GENERAL: This is an elderly male, appears his actual age. No acute distress. VITAL SIGNS: Afebrile since his 1st hospital day when he had a temperature 38.0 once, 174/60, 63, 16, 100% on room air. SKIN: No generalized rashes. He has chronic-appearing ecchymoses in upper and lower extremities. EENT: The conjunctivae appear clear. Oral mucosa is well hydrated. NECK: Without mass or thyromegaly. NODES: He has no cervical or axillary adenopathy. LUNGS: Clear to auscultation. CHEST: Equal expansion. Normal AP diameter. CARDIAC: Regular rate and rhythm without murmur or gallop. Radial pulses are 1+. Unable to palpate right dorsalis pedis. ABDOMEN: Obese, nontender. No masses. No organomegaly. EXTREMITIES: Wound VAC removed and he has a deep surgical wound with oozing at the edges. No areas of necrosis, odor, discharge, or visible bone. LABORATORY DATA: White count 8.3, hemoglobin 11.1, platelets are 225. Differential is normal. His creatinine 2.1, BUN 18, glucose 157. His CRP 7.8. Urinalysis, no evidence of infection and was normal. Complements normal. Blood cultures, no growth final. MRSA screen negative. Wound culture from the operating room group B and group G Streptococcus. Also Bacteroides fragilis group and Peptostreptococcus. Surgical specimen with 2nd and 3rd toe submitted showing acute osteomyelitis and acute inflammation with ulceration and necrosis. RADIOLOGY: Preop foot x-ray, soft tissue gas. ASSESSMENT: 1. Gangrene of the left 2nd and 3rd toes, now postop day 5, resection to the metatarsals. Surgical wound shows adequate healing at this time without residual soft tissue infection. Path demonstrated acute osteomyelitis in the toes. 2. Diabetes mellitus. 3. Peripheral vascular disease. 4. Hyperlipidemia. RECOMMENDATIONS: 1. Continue Ancef and additional metronidazole. 2. Follow up clinical evaluation over time to help define length of therapy. 3. Probably not a home IV antibiotic candidate. Thank you very much for asking me to see him. VONNIE CHAPA M.D.
[2019-08-06] MEDS: ATORVASTATIN 40 MG TABLET 80 MG PO (20:44)
[2019-08-06] MEDS: LACTATED RINGERS 1,000 ML 80 ML IV CONT (20:45)
[2019-08-06 22:00] VITALS: BP 144/60; PULSE 76; RESP 18; TEMP 36.4; O2SAT 97
[2019-08-06 22:07] LABS: Glucose Point of Care 151 (65-105)
[2019-08-07] MEDS: metroNIDAZOLE 250 MG TABLET 500 MG PO ×3 (05:22→22:15)
[2019-08-07 06:00] VITALS: BP 140/68; PULSE 80; RESP 20; TEMP 36.3; O2SAT 97
[2019-08-07 06:14] LABS: Basophils Percent Auto 0.5 % (0.2-1.2); Eosinophils Absolute Auto 0.1 K/mm3 (0-0.3); Eosinophils Percent Auto 1.2 % (0-4.4); Hematocrit 29.8 % (42.0-52.0); Hemoglobin 10.1 g/dL (14.0-18.0); Immature Granulocyte Absolute 0.05 K/mm3 (0.00-0.031); Immature Granulocyte Percent A 0.7 % (0-0.5); Lymphocytes Absolute Auto 2.34 K/mm3 (0.9-3.2); Lymphocytes Percent Auto 31.9 % (18.3-44.2); Mean Corpuscular HGB Conc 33.9 g/dl (32-36); Mean Corpuscular Hemoglobin 30.6 pg (26-34); Mean Corpuscular Volume 90.3 fl (80-100); Mean Platelet Volume 10.2 fl (7.4-10.4); Monocytes Absolute Auto 0.5 K/mm3 (0.1-0.6); Monocytes Percent Auto 6.5 % (2.6-8.5); Neutrophils Absolute Auto 4.3 K/mm3 (1.3-6.7); Neutrophils Percent Auto 59.2 % (45.5-73.1); Platelet Count Result 200 k/mm3 (150-375); Red Cell Distribution Width 12.7 % (11.5-14.5); White Blood Count 7.3 K/mm3 (4.5-10.0)
[2019-08-07 06:22] LABS: Albumin Level 2.6 g/dL (3.5-5.1); Blood Urea Nitrogen 17 mg/dL (9-20); Calcium 7.4 mg/dL (8.4-10.2); Carbon Dioxide 30 mmol/L (22-30); Chloride 99 mmol/L (98-107); Estimated CRCL calculation 27 ml/min; Estimated Glomerular Filt Rate 36; Glucose 117 mg/dL (75-110); Magnesium 1.2 mg/dL (1.6-2.3); Phosphorus 2.4 mg/dL (2.5-4.5); Potassium 4.1 mmol/L (3.4-5.0); Sodium 134 mmol/L (137-145)
[2019-08-07 08:00] VITALS: PULSE 83; RESP 18; O2SAT 100
[2019-08-07] MEDS: CLOPIDOGREL BISULFATE 75 MG TABLET PO (08:28)
[2019-08-07] MEDS: polyethylene glycoL 3350 17 GM POWD.PACK PO (08:28)
[2019-08-07] MEDS: DUTASTERIDE 0.5 MG CAPSULE PO (08:28)
[2019-08-07] MEDS: POTASSIUM CHLORIDE 20 MEQ PACKET (FOR LIQUID) 40 MEQ PO ×2 (08:28→17:51)
[2019-08-07] MEDS: PANTOPRAZOLE 40 MG TABLET PO ×2 (08:29→17:51)
[2019-08-07] MEDS: GABAPENTIN 300 MG CAPSULE PO ×3 (08:29→17:51)
[2019-08-07] MEDS: FUROSEMIDE 20 MG TABLET PO (08:29)
[2019-08-07] MEDS: ENOXAPARIN 40 MG/0.4 ML SYRINGE SUB-Q (08:29)
[2019-08-07] MEDS: TAMSULOSIN HCL 0.4 MG CAPSULE PO (08:29)
[2019-08-07 08:50] LABS: Glucose Point of Care 120 (65-105)
--- NOTE | 2019-08-07 09:01 | PM.PNNEP ---
Progress Note: A&P Assessment and Plan (1) Chronic kidney disease, stage 3: Code(s): N18.3 - Chronic kidney disease, stage 3 (moderate) Status: Chronic Assessment and Plan: The patient has chronic kidney disease This is probably from diabetes and hypertension. Baseline creatinine seems to be 1.8 (2) Acute renal failure: Qualifiers: Acute renal failure type: unspecified Qualified Code(s): N17.9 - Acute kidney failure, unspecified Code(s): N17.9 - Acute kidney failure, unspecified Status: Acute Assessment and Plan: The patient had acute kidney injury. renal u/s shows small right kidney, mild hydro on left. ua negative. urine 'lytes nonprerenal. Creatinine is now back to baseline of 1.8 Will stop IV fluids Magnesium low. We will supplement (3) Peripheral arterial disease: Code(s): I73.9 - Peripheral vascular disease, unspecified Status: Chronic Assessment and Plan: The patient has peripheral arterial disease involving both lower extremities. This may also involve his kidneys. (4) Diabetic infection of left foot: Code(s): E11.628 - Type 2 diabetes mellitus with other skin complications; L08.9 - Local infection of the skin and subcutaneous tissue, unspecified Status: Acute Assessment and Plan: He is on antibiotics and had surgery. (5) Hyponatremia: Code(s): E87.1 - Hypo-osmolality and hyponatremia Status: Acute Assessment and Plan: Sodium level was as low as 130. This has improved to 135. Subjective Date/time seen: 08/07/19 09:01 Interval history: Patient feels better. No swelling. Eating breakfast. Review of Systems Cardiovascular: Cardiovascular: Reports no additional cardiovascular complaints Respiratory: Respiratory: Reports no additional respiratory complaints Gastrointestinal: Gastrointestinal: Reports no additional gastrointestinal complaints Genitourinary: Genitourinary: Reports no additional male genitourinary complaints Exam Narrative: Exam Narrative: Well developed well-nourished in no acute distress Lungs clear bilaterally Heart regular without rub Abdomen bowel sounds positive soft nontender Extremities no edema Skin no rash or subcu nodules Objective Data Vital Signs Vital Signs: Vital Signs - 24 hr 08/06/19 14:39 08/06/19 22:00 08/07/19 06:00 Temperature 36.3 C L 36.4 C 36.3 C L Pulse Rate 75 76 80 Respiratory Rate 16 18 20 Blood Pressure 146/51 H 144/60 H 140/68 Pulse Oximetry 100 97 97 Intake/Output Intake/Output: Intake & Output 08/04/19 08/05/19 08/06/19 08/07/19 23:59 23:59 23:59 23:59 Intake Total 3290 4020 2160 856 Output Total 2350 1085 1800 650 Balance 940 2935 360 206 Meds/Results Medications: Active Medications Generic Name Dose Route Start Last Admin Trade Name Freq PRN Reason Stop Dose Admin Acetaminophen 500 mg 08/01/19 18:33 08/03/19 08:46 Tylenol Tablet PO 500 mg Q6H PRN Administration Mild Pain (1-3) or Fever Hydrocodone Bitart/Acetaminophen 1 tab 08/01/19 18:33 08/05/19 17:31 Epps 7.5-325 Mg PO 1 tab Q4H PRN Administration Pain Rated 7-10 Hydrocodone Bitart/Acetaminophen 1 tab 08/01/19 18:33 08/05/19 05:21 Epps 5-325 Mg PO 1 tab Q4H PRN Administration Pain Rated 4-6 Atorvastatin Calcium 80 mg 07/31/19 21:00 08/06/19 20:44 Lipitor PO 80 mg HS JOSSUE Administration Clopidogrel Bisulfate 75 mg 07/31/19 09:00 08/07/19 08:28 Plavix PO 75 mg DAILY JOSSUE Administration Dextrose 12.5 gm 07/31/19 04:56 Dextrose 50% Syringe IV PUSH PRN PRN Hypoglycemia Protocol Dutasteride 0.5 mg 07/31/19 09:00 08/07/19 08:28 Avodart PO 0.5 mg DAILY JOSSUE Administration Enoxaparin Sodium 40 mg 08/02/19 09:00 08/07/19 08:29 Lovenox SUB-Q 40 mg DAILY JOSSUE Administration Furosemide 20 mg 07/31/19 09:00 08/07/19 08:29 Lasix
[2019-08-07] MEDS: INSULIN GLARGINE (*BKC) 100 UNITS/ML 10 UNITS SUB-Q (09:42)
[2019-08-07] MEDS: MAGNESIUM SULF 2 GM/WATER 50ML 2 GM/50 ML BAG IVPB (09:47)
[2019-08-07 13:03] LABS: Complement Total CH50 >60 U/mL (31-60)
--- NOTE | 2019-08-07 13:25 | WPDINFPN2 ---
Progress Note: A&P Assessment and Plan (1) Gangrene of toe of left foot: Code(s): I96 - Gangrene, not elsewhere classified Status: Acute Assessment and Plan: 1. Gangrene of L toes, POD # 7 2. DM 3. ASPVD REC Ancef and metronidazole same, improving status. Local care. Glycemic control. Elevation. Subjective Date/time seen: 08/07/19 13:26 Interval history: back pain when laying in bed for a long time. He as up in chair earlier Exam Narrative: Exam Narrative: afebrile Const: General: no acute distress Eyes: General: appearance normal, both eyes and all related structures Resp: Effort & Inspection: normal respiratory effort Auscultation: clear to auscultation bilaterally Cardio: Rate: regular rate Rhythm: regular rhythm Heart sounds: no gallops and no murmurs GI: Inspection: non-distended GI Palp: Yes Soft to palpation and No Tenderness to palpation present (GI) Skin: General skin exam: no rashes or lesions noted Extrem: General: edema Other: stasis erythema LLE. vac inplace Objective Data Vital Signs Vital Signs: Vital Signs - 24 hr 08/06/19 14:39 08/06/19 22:00 08/07/19 06:00 Temperature 36.3 C L 36.4 C 36.3 C L Pulse Rate 75 76 80 Respiratory Rate 16 18 20 Blood Pressure 146/51 H 144/60 H 140/68 Pulse Oximetry 100 97 97 Intake/Output Intake/Output: Intake & Output 08/04/19 08/05/19 08/06/19 08/07/19 23:59 23:59 23:59 23:59 Intake Total 3290 4020 2160 976 Output Total 2350 1085 1800 650 Balance 940 2935 360 326 Meds/Results Medications: Active Medications Generic Name Dose Route Start Last Admin Trade Name Freq PRN Reason Stop Dose Admin Acetaminophen 500 mg 08/01/19 18:33 08/03/19 08:46 Tylenol Tablet PO 500 mg Q6H PRN Administration Mild Pain (1-3) or Fever Hydrocodone Bitart/Acetaminophen 1 tab 08/01/19 18:33 08/05/19 17:31 Walker 7.5-325 Mg PO 1 tab Q4H PRN Administration Pain Rated 7-10 Hydrocodone Bitart/Acetaminophen 1 tab 08/01/19 18:33 08/05/19 05:21 Walker 5-325 Mg PO 1 tab Q4H PRN Administration Pain Rated 4-6 Atorvastatin Calcium 80 mg 07/31/19 21:00 08/06/19 20:44 Lipitor PO 80 mg HS JOSSUE Administration Clopidogrel Bisulfate 75 mg 07/31/19 09:00 08/07/19 08:28 Plavix PO 75 mg DAILY JOSSUE Administration Dextrose 12.5 gm 07/31/19 04:56 Dextrose 50% Syringe IV PUSH PRN PRN Hypoglycemia Protocol Dutasteride 0.5 mg 07/31/19 09:00 08/07/19 08:28 Avodart PO 0.5 mg DAILY JOSSUE Administration Enoxaparin Sodium 40 mg 08/02/19 09:00 08/07/19 08:29 Lovenox SUB-Q 40 mg DAILY JOSSUE Administration Furosemide 20 mg 07/31/19 09:00 08/07/19 08:29 Lasix Tablet PO 20 mg DAILY JOSSUE Administration Gabapentin 300 mg 07/31/19 09:00 08/07/19 08:29 Neurontin PO 300 mg TID JOSSUE Administration Glucagon 1 mg 07/31/19 04:56 Glucagon For Inj IM PRN PRN Hypoglycemia Protocol Glucose 15 gm 07/31/19 04:56 Glutose 15 PO PRN PRN Hypoglycemia Protocol Hydromorphone HCl 0.25 mg 08/01/19 07:38 Dilaudid Inj IV PUSH Q5M PRN Pain Dextrose 1,000 mls @ 100 mls/hr 07/31/19 04:56 Dextrose 5% 1,000 Ml IVPB PRN PRN Hypoglycemia Protocol Cefazolin Sodium 1 gm in 50 mls @ 100 mls/hr 08/07/19 18:00 Ancef 1 Gm/D5w 50 Ml Pm IVPB Q8H [facility] Insulin Aspart 3 - 6 units 07/31/19 08:00 08/07/19 09:41 Novolog SUB-Q Not Given TIDWM [facility] Protocol Insulin Glargine 10 units 07/31/19 09:00 08/07/19 09:42 Lantus SUB-Q 10 units DAILY JOSSUE Administration Metronidazole 500 mg 08/06/19 14:00 08/07/19 05:22 Flagyl PO 500 mg Q8HR JOSSUE Administration Morphine Sulfate 1 mg 01/29/20 18:33 Morphine Sulfate Inj IV PUSH Q2H PRN Pain Rated 4-6 Morphine Sulfate 2 mg 08/01/19 18:33 Morphine Sulfate Inj IV PUSH Q2H PRN Pain Rated
[2019-08-07 14:00] VITALS: BP 130/65; PULSE 83; RESP 18; TEMP 36.2; O2SAT 100
--- NOTE | 2019-08-07 14:05 | PM.IMPN ---
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 complications; L08.9 - Local infection of the skin and subcutaneous tissue, unspecified Status: Acute Assessment and Plan: Patient is 84-year-old male with history of diabetes and peripheral vascular disease presented to emergency department with a gangrenous right foot had been seen by general surgery and treated with a wound VAC and is healing well, is also developed acute kidney injury and seen by traffic warehouse supervisor suspect most likely secondary to diabetes and hypertension patient is being gently hydrated, today patient states is feeling better the pain is in is controlled denies any fever or chills, patient had been treated with Zosyn however patient kidney function was worsening Zosyn was stopped started the patient Ancef seen by Dr. Echeverria and added Flagyl and instructed to CPM for now until further recommendation, patient is seen by wound team has wound vac and further recommendation to follow (2) Gangrene of left foot: Code(s): I96 - Gangrene, not elsewhere classified Status: Acute Assessment and Plan: Sp amputation of 2nd and 3rd toes, PT/OT in hospital, hopeful placement to rehab soon as pt is unable to walk much, pt is on a wound vac. (3) Hyperlipidemia: Code(s): E78.5 - Hyperlipidemia, unspecified Status: Chronic Assessment and Plan: On statin (4) DVT prophylaxis: Code(s): Z29.9 - Encounter for prophylactic measures, unspecified Status: Acute Assessment and Plan: On Lovenox and clopidogrel (5) Diabetes type 2, controlled: Qualifiers: Diabetes mellitus long term care phlebotomist insulin use: without long term care phlebotomist use Diabetes mellitus complication status: with circulatory complication Diabetes mellitus complication detail: with peripheral angiopathy without gangrene Qualified Code(s): E11.51 - Type 2 diabetes mellitus with diabetic peripheral angiopathy without gangrene Code(s): E11.9 - Type 2 diabetes mellitus without complications Status: Chronic Assessment and Plan: Accuchecks, SSI, glucose are doing good in the hospital, will order hbaic to check [facility] control (6) Peripheral arterial disease: Code(s): I73.9 - Peripheral vascular disease, unspecified Status: Chronic Assessment and Plan: Arterial doppler negative, mild PAD (7) Chronic kidney disease, stage 3: Code(s): N18.3 - Chronic kidney disease, stage 3 (moderate) Status: Chronic Assessment and Plan: Continue to monitor BMP, worsening kidney function will consult nephrology DR Conroy. (8) RADHA (acute kidney injury): Code(s): N17.9 - Acute kidney failure, unspecified Status: Acute Assessment and Plan: Patient with acute on chronic kidney disease most likely secondary to diabetes hypertension poor p.o. intake resulting in dehydration, as well as infection as well as IV antibiotic patient is seen by Dr. Conroy and workup is in progress Subjective Date/time seen: Patient is 84-year-old male with history of diabetes and peripheral vascular disease presented to emergency department with a gangrenous right foot had been seen by general surgery and treated with a wound VAC and is healing well, is also developed acute kidney injury and seen by traffic warehouse supervisor suspect most likely secondary to diabetes and hypertension patient is being gently hydrated, today patient states is feeling better the pain is in is controlled denies any fever or chills, patient had been treated with Zosyn however patient kidney function was worsening Zosyn was stopped started the patient Ancef seen by Dr. Echeverria and added Flagyl and instructed to CPM for now until further recommendation, patient is seen by wound team has wound vac and further recommendation to follow Review of Systems Review of Systems: All systems reviewed &
[2019-08-07 14:55] LABS: Glucose Point of Care 173 (65-105)
[2019-08-07 16:57] LABS: Glucose Point of Care 211 (65-105)
[2019-08-07] MEDS: INSULIN ASPART (*BKC) 100 UNITS/ML SUB-Q (17:49)
[2019-08-07 22:00] VITALS: BP 150/52; PULSE 68; RESP 18; TEMP 36.6; O2SAT 97
[2019-08-07] MEDS: ATORVASTATIN 40 MG TABLET 80 MG PO (22:14)
[2019-08-07 22:38] LABS: Glucose Point of Care 139 (65-105)
[2019-08-07 22:59] LABS: Lambda Light Chain 90.9 mg/L (5.7-26.3)
[2019-08-08] MEDS: metroNIDAZOLE 250 MG TABLET 500 MG PO ×2 (05:08→14:21)
[2019-08-08 06:00] VITALS: BP 171/65; PULSE 85; RESP 18; TEMP 36.3; O2SAT 97
[2019-08-08 06:35] LABS: Albumin Level 2.6 g/dL (3.5-5.1); Blood Urea Nitrogen 15 mg/dL (9-20); Calcium 7.5 mg/dL (8.4-10.2); Carbon Dioxide 26 mmol/L (22-30); Chloride 99 mmol/L (98-107); Estimated CRCL calculation 27 ml/min; Estimated Glomerular Filt Rate 36; Glucose 115 mg/dL (75-110); Magnesium 1.5 mg/dL (1.6-2.3); Phosphorus 2.6 mg/dL (2.5-4.5); Potassium 4.4 mmol/L (3.4-5.0); Sodium 134 mmol/L (137-145)
[2019-08-08 09:05] LABS: Basophils Absolute Auto 0.1 K/mm3 (0.0-0.1); Basophils Percent Auto 0.7 % (0.2-1.2); Eosinophils Absolute Auto 0.1 K/mm3 (0-0.3); Eosinophils Percent Auto 1.4 % (0-4.4); Hematocrit 30.7 % (42.0-52.0); Hemoglobin 10.2 g/dL (14.0-18.0); Immature Granulocyte Absolute 0.06 K/mm3 (0.00-0.031); Immature Granulocyte Percent A 0.8 % (0-0.5); Lymphocytes Absolute Auto 2.05 K/mm3 (0.9-3.2); Mean Corpuscular HGB Conc 33.2 g/dl (32-36); Mean Corpuscular Hemoglobin 30.6 pg (26-34); Mean Corpuscular Volume 92.2 fl (80-100); Mean Platelet Volume 10.4 fl (7.4-10.4); Monocytes Absolute Auto 0.5 K/mm3 (0.1-0.6); Monocytes Percent Auto 7.1 % (2.6-8.5); Neutrophils Absolute Auto 4.3 K/mm3 (1.3-6.7); Platelet Count Result 203 k/mm3 (150-375); Red Blood Count 3.33 M/mm3 (4.6-6.20); Red Cell Distribution Width 12.9 % (11.5-14.5); White Blood Count 7.1 K/mm3 (4.5-10.0)
[2019-08-08] MEDS: MAGNESIUM SULF 2 GM/WATER 50ML 2 GM/50 ML BAG IVPB (09:52)
[2019-08-08] MEDS: INSULIN GLARGINE (*BKC) 100 UNITS/ML 10 UNITS SUB-Q (09:52)
[2019-08-08] MEDS: SILVERGEL (ELTA) 45 ML 1 APPLIC TOPICAL (09:53)
[2019-08-08] MEDS: ENOXAPARIN 40 MG/0.4 ML SYRINGE SUB-Q (09:54)
[2019-08-08] MEDS: DUTASTERIDE 0.5 MG CAPSULE PO (09:54)
[2019-08-08] MEDS: polyethylene glycoL 3350 17 GM POWD.PACK PO (09:54)
[2019-08-08] MEDS: PANTOPRAZOLE 40 MG TABLET PO (09:54)
[2019-08-08] MEDS: CLOPIDOGREL BISULFATE 75 MG TABLET PO (09:55)
[2019-08-08] MEDS: GABAPENTIN 300 MG CAPSULE PO ×2 (09:55→14:21)
[2019-08-08] MEDS: POTASSIUM CHLORIDE 20 MEQ PACKET (FOR LIQUID) 40 MEQ PO (09:55)
[2019-08-08] MEDS: FUROSEMIDE 20 MG TABLET PO (09:55)
[2019-08-08] MEDS: TAMSULOSIN HCL 0.4 MG CAPSULE PO (09:56)
[2019-08-08] MEDS: ACETAMINOPHEN 500 MG TABLET PO (09:59)
[2019-08-08 11:31] LABS: Glucose Point of Care 186 (65-105)
--- NOTE | 2019-08-08 12:03 | WPDINFPN2 ---
Progress Note: A&P Assessment and Plan (1) Gangrene of toe of left foot: Code(s): I96 - Gangrene, not elsewhere classified Status: Acute Assessment and Plan: 1. Gangrene of L toes, POD # 8 2. DM 3. ASPVD 4. Renal insufficiency REC Ancef and metronidazole same, improving status. No new changes in dosing, already at q12hr for the ancef. Local care. Glycemic control. Elevation. Subjective Date/time seen: 08/08/19 12:03 Interval history: feeling ok. no n/v, no foot pain Exam Narrative: Exam Narrative: afebrile Const: General: no acute distress Eyes: General: appearance normal, both eyes and all related structures Resp: Effort & Inspection: normal respiratory effort Auscultation: clear to auscultation bilaterally Cardio: Rate: regular rate Rhythm: regular rhythm Heart sounds: no gallops and no murmurs GI: Inspection: non-distended GI Palp: Yes Soft to palpation, No Tenderness to palpation present (GI) and No Guarding due to palpation present (GI) Skin: General skin exam: normal color and no rashes or lesions noted Extrem: Other: L foot no erythema nor necrosis surrounding the open wound Objective Data Vital Signs Vital Signs: Vital Signs - 24 hr 08/07/19 14:00 08/07/19 22:00 08/08/19 06:00 Temperature 36.2 C L 36.6 C 36.3 C L Pulse Rate 83 68 85 Respiratory Rate 18 18 18 Blood Pressure 130/65 150/52 H 171/65 H Pulse Oximetry 100 97 97 Intake/Output Intake/Output: Intake & Output 08/05/19 08/06/19 08/07/19 08/08/19 23:59 23:59 23:59 23:59 Intake Total 4020 2160 1716 600 Output Total 1085 1800 1135 875 Balance 2931 033 946 -630 Meds/Results Medications: Active Medications Generic Name Dose Route Start Last Admin Trade Name Freq PRN Reason Stop Dose Admin Acetaminophen 500 mg 08/01/19 18:33 08/08/19 09:59 Tylenol Tablet PO 500 mg Q6H PRN Administration Mild Pain (1-3) or Fever Hydrocodone Bitart/Acetaminophen 1 tab 08/01/19 18:33 08/05/19 17:31 [place]wood 7.5-325 Mg PO 1 tab Q4H PRN Administration Pain Rated 7-10 Hydrocodone Bitart/Acetaminophen 1 tab 08/01/19 18:33 08/05/19 05:21 [place]wood 5-325 Mg PO 1 tab Q4H PRN Administration Pain Rated 4-6 Atorvastatin Calcium 80 mg 07/31/19 21:00 08/07/19 22:14 Lipitor PO 80 mg HS JOSSUE Administration Clopidogrel Bisulfate 75 mg 07/31/19 09:00 08/08/19 09:55 Plavix PO 75 mg DAILY JOSSUE Administration Dextrose 12.5 gm 07/31/19 04:56 Dextrose 50% Syringe IV PUSH PRN PRN Hypoglycemia Protocol Dutasteride 0.5 mg 07/31/19 09:00 08/08/19 09:54 Avodart PO 0.5 mg DAILY JOSSUE Administration Enoxaparin Sodium 40 mg 08/02/19 09:00 08/08/19 09:54 Lovenox SUB-Q 40 mg DAILY JOSSUE Administration Furosemide 20 mg 07/31/19 09:00 08/08/19 09:55 Lasix Tablet PO 20 mg DAILY JOSSUE Administration Gabapentin 300 mg 07/31/19 09:00 08/08/19 09:55 Neurontin PO 300 mg TID JOSSUE Administration Glucagon 1 mg 07/31/19 04:56 Glucagon For Inj IM PRN PRN Hypoglycemia Protocol Glucose 15 gm 07/31/19 04:56 Glutose 15 PO PRN PRN Hypoglycemia Protocol Hydromorphone HCl 0.25 mg 08/01/19 07:38 Dilaudid Inj IV PUSH Q5M PRN Pain Dextrose 1,000 mls @ 100 mls/hr 07/31/19 04:56 Dextrose 5% 1,000 Ml IVPB PRN PRN Hypoglycemia Protocol Cefazolin Sodium 1 gm in 50 mls @ 100 mls/hr 08/07/19 18:00 08/08/19 05:41 Ancef 1 Gm/D5w 50 Ml Pm IVPB Infused Q12H JOSSUE Infusion Insulin Aspart 3 - 6 units 07/31/19 08:00 08/08/19 09:19 Novolog SUB-Q Not Given TIDWM [facility] Protocol Insulin Glargine 10 units 07/31/19 09:00 08/08/19 09:52 Lantus SUB-Q 10 units DAILY JOSSUE Administration Metronidazole 500 mg 08/06/19 14:00 08/08/19 05:08 Flagyl PO 500 mg Q8HR JOSSUE Administration Morphine Sulfate 1 mg 08/01/19 18:33 Morphine Sulfate Inj
--- NOTE | 2019-08-08 13:32 | PM.IMPN ---
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 complications; L08.9 - Local infection of the skin and subcutaneous tissue, unspecified Status: Acute Assessment and Plan: 08/08/19 13:32 Patient is 84-year-old male with history of diabetes and peripheral vascular disease presented to emergency department with a gangrenous right foot had been seen by general surgery and treated with a wound VAC and is healing well, is also developed acute kidney injury and seen by tip mender suspect most likely secondary to diabetes and hypertension patient is being gently hydrated, today patient states is feeling better the pain is in is controlled denies any fever or chills, patient had been treated with Zosyn however patient kidney function was worsening Zosyn was stopped started the patient Ancef seen by Dr. Echeverria and added Flagyl and instructed to CPM for now until further recommendation, patient is seen by wound team has wound vac and further recommendation to follow, again today patient was seen by Dr. Echeverria and recommended to CPM will reassesses tomorrow. (2) Gangrene of left foot: Code(s): I96 - Gangrene, not elsewhere classified Status: Acute Assessment and Plan: Sp amputation of 2nd and 3rd toes, PT/OT in hospital, hopeful placement to rehab soon as pt is unable to walk much, pt is on a wound vac. (3) Hyperlipidemia: Code(s): E78.5 - Hyperlipidemia, unspecified Status: Chronic Assessment and Plan: On statin (4) DVT prophylaxis: Code(s): Z29.9 - Encounter for prophylactic measures, unspecified Status: Acute Assessment and Plan: On Lovenox and clopidogrel (5) Diabetes type 2, controlled: Qualifiers: Diabetes mellitus parts counterman insulin use: without chcf use Diabetes mellitus complication status: with circulatory complication Diabetes mellitus complication detail: with peripheral angiopathy without gangrene Qualified Code(s): E11.51 - Type 2 diabetes mellitus with diabetic peripheral angiopathy without gangrene Code(s): E11.9 - Type 2 diabetes mellitus without complications Status: Chronic Assessment and Plan: Accuchecks, SSI, glucose are doing good in the hospital, will order hbaic to check chcf control (6) Peripheral arterial disease: Code(s): I73.9 - Peripheral vascular disease, unspecified Status: Chronic Assessment and Plan: Arterial doppler negative, mild PAD (7) Chronic kidney disease, stage 3: Code(s): N18.3 - Chronic kidney disease, stage 3 (moderate) Status: Chronic Assessment and Plan: Continue to monitor BMP, worsening kidney function will consult nephrology DR Conroy. (8) RADHA (acute kidney injury): Code(s): N17.9 - Acute kidney failure, unspecified Status: Acute Assessment and Plan: Patient with acute on chronic kidney disease most likely secondary to diabetes hypertension poor p.o. intake resulting in dehydration, as well as infection as well as IV antibiotic patient is seen by Dr. Conroy and workup is in progress Subjective Date/time seen: 08/08/19 13:32 Patient is 84-year-old male with history of diabetes and peripheral vascular disease presented to emergency department with a gangrenous right foot had been seen by general surgery and treated with a wound VAC and is healing well, is also developed acute kidney injury and seen by tip mender suspect most likely secondary to diabetes and hypertension patient is being gently hydrated, today patient states is feeling better the pain is in is controlled denies any fever or chills, patient had been treated with Zosyn however patient kidney function was worsening Zosyn was stopped started the patient Ancef seen by Dr. Echeverria and added Flagyl and instructed to CPM for now until further recommendation, patient is seen by felicia
--- NOTE | 2019-08-08 13:47 | PM.PROC ---
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 Patient consent was obtained. The area was prepped and the site and procedure were confirmed. I then used sharp scissors with pick ups for excisional debridement of the overlying necrotic slough on the left side of the wound near the level of the 4th metatarsal. The overall length of the area of debridement was 2 cm and the width was 1 cm. The depth was 0.3 cm. Once I was finished with the debridement, there was no other significant areas of necrotic tissue that needed to be excised. Nearly the entire wound bed appeared to have good red and pink granulation tissue. No significant oozing or bleeding occurred during the debridement. The patient had no feeling over this area, so there was no need for any type of local anesthetic. He tolerated the procedure well. The wound was then covered with a wet to dry sterile gauze dressing due to plans of discharge today. A wound VAC will then be reapplied once at the long-term facility later today. Anesthesia: none Surgeon: SARAH Neil Nutritional Assistant: Kaila chisel trimmer Estimated blood loss (mL): 0 Drains: No Packing: No Pathology: none sent Complications: No immediate complications Condition: stable Disposition: no change Findings: The left transmetatarsal amputation of the left 2nd and 3rd toe wound seems to be healing well. There was a small area of necrotic slough-like debri that was in the wound bed on the left side of the wound. This was easily excised and now the wound bed looks clean and will hopefully continue to heal nicely.
[2019-08-08 14:00] VITALS: BP 145/59; PULSE 80; RESP 18; TEMP 36.6; O2SAT 98
--- NOTE | 2019-08-08 14:05 | PM.DS ---
DS: Diagnosis Admitting Diagnosis Admitting Diagnosis: Type 2 diabetes mellitus with other skin complications Discharge Diagnosis (1) Diabetic infection of left foot: Code(s): E11.628 - Type 2 diabetes mellitus with other skin complications; L08.9 - Local infection of the skin and subcutaneous tissue, unspecified Status: Acute Assessment and Plan: 08/08/19 13:32 Patient is 84-year-old male with history of diabetes and peripheral vascular disease presented to emergency department with a gangrenous right foot had been seen by general surgery and treated with a wound VAC and is healing well, is also developed acute kidney injury and seen by sub prior suspect most likely secondary to diabetes and hypertension patient is being gently hydrated, today patient states is feeling better the pain is in is controlled denies any fever or chills, patient had been treated with Zosyn however patient kidney function was worsening Zosyn was stopped started the patient Ancef seen by Dr. Echeverria and added Flagyl and instructed to CPM for now until further recommendation, patient is seen by wound team has wound vac and further recommendation to follow, again today patient was seen by Dr. Echeverria and recommended to CPM will reassesses tomorrow. (2) Gangrene of left foot: Code(s): I96 - Gangrene, not elsewhere classified Status: Acute Assessment and Plan: Sp amputation of 2nd and 3rd toes, PT/OT in hospital, hopeful placement to rehab soon as pt is unable to walk much, pt is on a wound vac. 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 insulin use: without termite control technician use Diabetes mellitus complication status: with circulatory complication Diabetes mellitus complication detail: with peripheral angiopathy without gangrene Qualified Code(s): E11.51 - Type 2 diabetes mellitus with diabetic peripheral angiopathy without gangrene Code(s): E11.9 - Type 2 diabetes mellitus without complications Status: Chronic Assessment and Plan: Accuchecks, SSI, glucose are doing good in the hospital, will order hbaic to check fdc control (6) Peripheral arterial disease: Code(s): I73.9 - Peripheral vascular disease, unspecified Status: Chronic Assessment and Plan: Arterial doppler negative, mild PAD (7) Chronic kidney disease, stage 3: Code(s): N18.3 - Chronic kidney disease, stage 3 (moderate) Status: Chronic Assessment and Plan: Continue to monitor BMP, worsening kidney function will consult nephrology DR Conroy. (8) RADHA (acute kidney injury): Code(s): N17.9 - Acute kidney failure, unspecified Status: Acute Assessment and Plan: Patient with acute on chronic kidney disease most likely secondary to diabetes hypertension poor p.o. intake resulting in dehydration, as well as infection as well as IV antibiotic patient is seen by Dr. Conroy and workup is in progress DS: Summary Hospital Course Reason for hospitalization: Patient is 84-year-old male with history of diabetes and peripheral vascular disease presented to emergency department with a gangrenous right foot had been seen by general surgery and treated with a wound VAC and is healing well, is also developed acute kidney injury and seen by sub prior suspect most likely secondary to diabetes and hypertension patient is being gently hydrated, today patient states is feeling better the pain is in is controlled denies any fever or chills, patient had been treated with Zosyn however patient kidney function was worsening Zosyn was stopped started the patient Ancef seen by
--- NOTE | 2019-08-08 14:06 | PM.PNGS ---
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 complications; L08.9 - Local infection of the skin and subcutaneous tissue, unspecified Status: Acute Assessment and Plan: Continues to improve. Amputation site healing nicely. There was a small superficial area of slough-like necrotic tissue on the left side of the wound that would benefit from excisional debridement. Discussed this with the patient who is agreeable to proceed. Will proceed with bedside excisional wound debridement today, see procedure note. Antibiotics on discharge per ID recommendations. Cultures showed light growth of Bacteroides fragilis group and of Peptostreptococcus species. Okay to discharge from a surgical standpoint to the SNF where he will continue to have wound VAC dressing changes three times per week. Dr. Avalos will see the patient in follow-up in 2 weeks in the wound clinic. (2) Gangrene of left foot: Code(s): I96 - Gangrene, not elsewhere classified Status: Acute (3) Diabetes mellitus with peripheral vascular disease: Code(s): E11.51 - Type 2 diabetes mellitus with diabetic peripheral angiopathy without gangrene Status: Chronic (4) Antiplatelet or antithrombotic long-term use: Code(s): Z79.02 - termite control servicer (current) use of antithrombotics/antiplatelets Status: Chronic Assessment and Plan: On Plavix. (5) Acute renal failure: Qualifiers: Acute renal failure type: unspecified Qualified Code(s): N17.9 - Acute kidney failure, unspecified Code(s): N17.9 - Acute kidney failure, unspecified Status: Acute (6) PVD (peripheral vascular disease): Code(s): I73.9 - Peripheral vascular disease, unspecified Status: Acute Additional Plan Discussed the patient's case and plan of care with Dr. Avalos. Subjective Subjective Date/Time Seen: 08/08/19 13:06 Post Op day: 7 (Open transmetatarsal amputation of the left 2nd and 3rd toe 08/01/19) Patient reports: no new complaints and feels better Interval history: Patient seen and examined with Dr. Avalos and the wound care nurses. The patient has no new complaints today. Overall, he feels he is doing well. He is still confused and had forgotten that he is going to a SNF on discharge but this was discussed again in detail. Review of Systems Review of Systems: All systems reviewed & are unremarkable except as noted in HPI and below Exam Const: General: comfortable and no acute distress Orientation/consciousness: oriented to person, oriented to place and No oriented to time Extrem: Left lower extremity: normal capillary refill Other: The wound was assessed with Dr. Avalos at the bedside. The wound continues to heal well with majority of the wound bed forming good granulation tissue. On the left side of the wound at the level of the 4th metatarsal, there is an area of about 2 x 1 cm that has a thin superficial layer of necrotic slough-like tissue. Small area on the dorsal aspect of the left midfoot that has superficial skin breakdown with dark purple discoloration, consistent with a pressure wound. This was a previous area where the wound VAC suction adapter was placed. No longer placing the wound VAC adapter there. LLE swelling seems to have improved today. Objective Data Vital Signs Vital Signs: Vital Signs - 24 hr 08/07/19 22:00 08/08/19 06:00 Temperature 36.6 C 36.3 C L Pulse Rate 68 85 Respiratory Rate 18 18 Blood Pressure 150/52 H 171/65 H Pulse Oximetry 97 97 Intake/Output Intake/Output: Intake & Output 08/05/19 08/06/19 08/07/19 08/08/19 23:59 23:59 23:59 23:59 Intake Total 4020 2160 1716 600 Output Total 1085 1800 1135 875 Balance 2935 360 581 -257 Meds/Results Medications: Active Medications Generic Name Dose Route Start Last Admin Trade Name Freq PRN Reason Stop Dose Admin Acetaminophen 500 mg 08/01/19 18:33
== END 2019-08-08 16:25 | DRG 240 ==
LOC: ANHED 19:24 → ANH3MEDSUR 20:00
PROVIDERS: Family Medicine; Internal Medicine Nephrology; Surgery; Admitting Provider Internal Medicine; Emergency Provider Family Medicine; PCP Family Medicine; Visit Provider Family Medicine
PROC: 0Y6N0ZB Detachment at Left Foot, Partial 2nd Ray, Open Approach (ICD-10-PCS; principal; 2019-08-01 15:30)
DX: E11.52 Type 2 diabetes mellitus with diabetic peripheral angiopathy with gangrene (principal); I96 Gangrene, not elsewhere classified; N17.9 Acute kidney failure, unspecified; E87.1 Hypo-osmolality and hyponatremia; Z91.14 Patient's other noncompliance with medication regimen; M19.90 Unspecified osteoarthritis, unspecified site; E11.36 Type 2 diabetes mellitus with diabetic cataract; H26.9 Unspecified cataract; I25.10 Atherosclerotic heart disease of native coronary artery without angina pectoris; Z86.73 Personal history of transient ischemic attack (TIA), and cerebral infarction without residual deficits; N18.3 Chronic kidney disease, stage 3 (moderate); K21.9 Gastro-esophageal reflux disease without esophagitis; K44.9 Diaphragmatic hernia without obstruction or gangrene; E78.5 Hyperlipidemia, unspecified; I10 Essential (primary) hypertension; E11.621 Type 2 diabetes mellitus with foot ulcer; L97.529 Non-pressure chronic ulcer of other part of left foot with unspecified severity; E11.22 Type 2 diabetes mellitus with diabetic chronic kidney disease; E11.628 Type 2 diabetes mellitus with other skin complications; L08.9 Local infection of the skin and subcutaneous tissue, unspecified; Z79.02 Long term (current) use of antithrombotics/antiplatelets
CPT/HCPCS: 36415; 73630; 76775; 80048; 80053; 80069; 81001; 81003; 82550; 82570; 83735; 83883; 84156; 84300; 85025; 85027; 85610; 85652; 85999; 86038; 86140; 86160; 86162; 86334; 86335; 87040; 87070; 87075; 87076; 87147; 87205; 88305; 88311; 93005; 93926; 96361; 96365; 96366; 96375; 97110; 97116; 97161; 97165; 97530; 97535; 99285; A9270; J0690; J1650; J1815; J2270; J2543; J2704; J3010; J3475; J7030; J7120

== ENCOUNTER 2019-11-01 09:00 | Outpatient (RCR) | payer OTHER, MEDICARE, SELFPAY ==
--- NOTE | 2019-08-23 07:19 | P.PNWOUND_ITS ---
Wound Care Note Date/Time: 08/23/19 07:19 Mister Sterling is an 84-year-old diabetic man who on August 01, 2019 had a severe diabetic foot infection of the left foot. He was taken to surgery and open transmetatarsal amputation of the left 2nd and 3rd toe was performed. He was treated with wound VAC therapy but on follow-up visit August 08, 2019 Graciela Ish SMITH had to perform additional debridement of skin and subcutaneous in the wound clinic. He has continued with wound VAC therapy at [facility] since then and is seen now in the wound clinic in follow-up. Assessment and Plan Assessment and plan (1) Gangrene of left foot: Code(s): I96 - Gangrene, not elsewhere classified Status: Acute Assessment and Plan: Gangrene large has resolved but patient still has open transmetatarsal amputation of the left foot. I discussed with patient that it is unlikely he will be able to return to his home even once the wound has healed. I suggested he may need to be in assisted living. He will need half-way or at least nursing assistance with the wound VAC for several more weeks. Amputation is healing but it is going to be slow to completely close. (2) Diabetes mellitus with peripheral vascular disease: Code(s): E11.51 - Type 2 diabetes mellitus with diabetic peripheral angiopathy without gangrene Status: Chronic (3) Antiplatelet or antithrombotic long-term use: Code(s): Z79.02 - retirement (current) use of antithrombotics/antiplatelets Status: Chronic Assessment and Plan: On Plavix (4) Chronic kidney disease, stage 3: Code(s): N18.3 - Chronic kidney disease, stage 3 (moderate) Status: Chronic Review of Systems Review of Systems: All systems reviewed & are unremarkable except as noted in HPI and below Constitutional: Constitutional: Denies headache(s) ENT: Denies headache(s) Cardiovascular: Cardiovascular: Denies chest pain and Denies dyspnea Respiratory: Respiratory: Denies cough and Denies dyspnea Gastrointestinal: Gastrointestinal: Denies bloating, Denies constipation and Denies nausea Neurologic: Denies confusion and Denies headache(s) Comments: Patient had a stroke about 10-15 years ago. Psychiatric: Psychiatric: Denies confusion Exam Const: General: comfortable and no acute distress; No confusion Orientation/consciousness: patient oriented x3 and No confusion Neuro: General: patient oriented x3, no focal motor deficits and No confusion Extrem: Left lower extremity: foot ( Second and 3rd amputation wound is clean and granulating.) Details: other (Debrided some superficial necrotic material. Bleeding controlled with Surgicel. Dressed with silver gel and patient will have wound VAC replaced at [facility] tomorrow.) Psych: Affect: normal affect Insight: Good insight present (Psych) Judgement: Good judgement present (Psych)
[2019-08-23 09:53] VITALS: BMI 23.3
--- NOTE | 2019-09-06 16:01 | P.PNWOUND_ITS ---
Wound Care Note Date/Time: 09/06/19 16:01 Mister Sterling is seen in the wound clinic today in follow-up after amputation of his left 2nd and 3rd toe August 01, 2019. He is now in [facility] and continues to use wound VAC therapy. He is having no pain with the wound an is seen now in follow up in wound clinic. Assessment and Plan Assessment and plan (1) Open wound of left foot: Qualifiers: Encounter type: subsequent encounter Qualified Code(s): S91.302D - Unspecified open wound, left foot, subsequent encounter Code(s): S91.302A - Unspecified open wound, left foot, initial encounter Status: Chronic Assessment and Plan: Amputation wound continues to heal. We will discontinue the wound VAC and start silver gel dressings daily. Wound nurses will see if AmnioExcel is covered by his insurance as this may well facilitate ingrowth of skin over the amputation wound more quickly. I will see him again in a week. If AmnioExcel is approved, we will apply it at that time. (2) Gangrene of left foot: Code(s): I96 - Gangrene, not elsewhere classified Status: Resolved (3) Diabetic infection of left foot: Code(s): E11.628 - Type 2 diabetes mellitus with other skin complications; L08.9 - Local infection of the skin and subcutaneous tissue, unspecified Status: Resolved Review of Systems Constitutional: Constitutional: Denies chills, Reports fatigue and Denies fever(s) Exam Extrem: Right lower extremity: foot Details: other (Amputation wound granulating with no depth to the wound at all now. Some skin maceration)
--- NOTE | 2019-09-26 13:05 | PCWOUND ---
Addendum entered by Radha Block RN 09/26/19 13:12: appointment for 09-27-19 Original Note: WOCN NOTE Received direction to cancel patient appointment for 09-26-19 due to Covid 19. left message to reschedule.
--- NOTE | 2019-10-11 11:30 | P.PNWOUND_ITS ---
Wound Care Note Date/Time: 09/13/19 10:00 Patient underwent transmetatarsal open amputation of 2nd and 3rd toes on the left foot. He has been receiving wound VAC therapy at [facility]. He is seen in the wound clinic today. He has been approved for an knee 0 XL grafting. This will be applied today. Overall no new complaints or problems. Continuing to use daily silver gel dressings. Assessment and Plan Assessment and plan (1) Open wound of left foot: Qualifiers: Encounter type: subsequent encounter Qualified Code(s): S91.302D - Unspecified open wound, left foot, subsequent encounter Code(s): S91.302A - Unspecified open wound, left foot, initial encounter Status: Chronic Assessment and Plan: Amnioexcel graft placed with wound care today. Dressing to stay in place for 2 days, then start daily silver gel wound care again. See again in wound clinic in 2 weeks. 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 insulin use: without snf use Diabetes mellitus complication status: with circulatory complication Diabetes mellitus complication detail: with peripheral angiopathy without gangrene Qualified Code(s): E11.51 - Type 2 diabetes mellitus with diabetic peripheral angiopathy without gangrene Code(s): E11.9 - Type 2 diabetes mellitus without complications Status: Chronic (6) PVD (peripheral vascular disease): Code(s): I73.9 - Peripheral vascular disease, unspecified Status: Chronic Review of Systems Review of Systems: All systems reviewed & are unremarkable except as noted in HPI and below ( HPI) Exam Extrem: Left lower extremity: foot ( mod edema lower leg and foot, no sign infection, granulating) Details: other ( Amnioexcel graft placed. Wound seems to be coming along well.)
--- NOTE | 2019-11-01 16:35 | WPDWOUNDNOTE ---
Wound Care Note Date/Time: 11/01/19 10:35 Patient is seen in the wound clinic for follow-up of his left 2nd and 3rd toe open amputations. He has voiced no new complaints or problems. The wound seems to have healed. He noticed a large callus on the right 5th metatarsal. This was debrided by the wound nurses. Assessment and Plan Assessment and plan (1) Open wound of left foot: Qualifiers: Encounter type: subsequent encounter Qualified Code(s): S91.302D - Unspecified open wound, left foot, subsequent encounter Code(s): S91.302A - Unspecified open wound, left foot, initial encounter Status: Chronic Assessment and Plan: open left 2nd and 3rd toe amputation wound has completely healed. No need for further follow-up with me. 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 See below. (2) Diabetic ulcer of foot associated with diabetes mellitus due to underlying condition, limited to breakdown of skin: Code(s): E08.621 - Diabetes mellitus due to underlying condition with foot ulcer; L97.501 - Non-pressure chronic ulcer of other part of unspecified foot limited to breakdown of skin Status: Acute Assessment and Plan: Superficial ulcer right 5th metatarsal. Recommend follow-up with his sheet mill supervisor for were thought exude. Family will get pressure reducing insoles and padding in the meantime. Warned patient that if left alone this could result in infection similar to what he had on the left foot. (3) CVA (cerebral vascular accident): Code(s): I63.9 - Cerebral infarction, unspecified Status: Acute (4) Diabetes type 2, controlled: Qualifiers: Diabetes mellitus penitentiary insulin use: without penitentiary use Diabetes mellitus complication status: with circulatory complication Diabetes mellitus complication detail: with peripheral angiopathy without gangrene Qualified Code(s): E11.51 - Type 2 diabetes mellitus with diabetic peripheral angiopathy without gangrene Code(s): E11.9 - Type 2 diabetes mellitus without complications Status: Chronic Review of Systems Review of Systems: All systems reviewed & are unremarkable except as noted in HPI and below ( HPI) Exam Extrem: Right lower extremity: foot ( right 5th metatarsal ulcer, not infected or full-thickness.) Left lower extremity: foot ( Amputation wound has completely healed. No open areas. Looks great.)
== END 2019-11-12 07:20 | disposition home or self-care (01) ==
LOC: ANHWOC 09:00
PROVIDERS: PCP Family Medicine; Visit Provider Surgery
DX: Z47.81 Encounter for orthopedic aftercare following surgical amputation (principal); Z89.422 Acquired absence of other left toe(s)
CPT/HCPCS: 15275; 99212; 99213; Q4137; A9270; G0463

== ENCOUNTER 2019-12-25 15:16 | Inpatient (IN) | payer MEDICARE, SELFPAY ==
[2019-12-25] VITALS (8 sets, daily range): BP systolic 158–199; BP diastolic 53–76; PULSE 89–115; RESP 15–23; TEMP 36.8–38.2; O2SAT 95–99; BMI 23.1
--- NOTE | ~2019-12-25 | CT_ITS ---
EXAMINATION: CT brain wo con EXAM DATE: 12/25/2019 15:56 INDICATION: Weakness, vomiting and confusion. TECHNIQUE: Spiral CT of the head was performed without contrast. Axial, coronal and sagittal images were reviewed. The dose-length product (DLP) for this examination was 605.33 mGy-cm. The exposure w as tailored according to patient size, and iterative reconstruction (ASIR) was used as additional dos e reduction technique. Comparison is made to prior examination from 06/22/2019. FINDINGS: There is no acute intraparenchymal hemorrhage. No evidence of intraparenchymal brain mass lesion. No evidence of acute infarction. Please note that initial head CT has limited sensitivity f or small or acute infarctions. Small to moderate old right parietal, small old right frontal lobe in farctions. There is mild to moderate periventricular and subcortical hypodensity, nonspecific but pr obably related to small vessel ischemic disease. There is mild to moderate prominence of the sulci and ventricles related to cerebral atrophy. There is intracranial carotid arteriosclerosis. There are no extra-axial collections. There is no mass effect or midline shift. Patient has had bilateral ocular lens surgery. Soft tissue is unremarkable. The visualized sinuses and mastoid air cells are well aerated. IMPRESSION: 1. No acute intracranial findings. 2. Chronic age related findings. 3. Old right cerebral cortical infarctions. Reviewed, dictated and finalized at location B.
--- NOTE | ~2019-12-25 | XR_ITS ---
EXAMINATION: XR chest 1V portable INDICATION: Transient alteration of awareness TECHNIQUE: Portable AP chest at 1724 hours COMPARISON: 06/22/2019 FINDINGS: The lungs are free of acute opacities. There is no pleural effusion or pneumothorax. The ca rdiomediastinal silhouette is normal. Surgical clips project over the right lung apex and left upper quadrant. There are changes of cervical spinal fusion procedure. IMPRESSION: 1. No acute cardiopulmonary abnormality. Reviewed, dictated and finalized at location A.
--- NOTE | 2019-12-25 15:26 | ECG_ITS ---
Measurements Intervals [place] Rate: 119 P: [place]: 0 QRS: 28 QRSD: 91 T: 66 QT: 351 QTc: 494 Interpretive Statements ATRIAL FLUTTER/TACHYCARDIA WITH RAPID VENTRICULAR RESPONSE BASELINE ARTIFACT- I, II, III, AVR, AVL, AVF ABNORMAL ECG Electronically Signed On 12-25-2019 16:08:06 CDT by Duncan Walsh D.O.
[2019-12-25 15:28] LABS: Glucose Point of Care 243 (65-105)
--- NOTE | 2019-12-25 15:34 | ED.WEAKNESS ---
HPI - Weakness General Chief complaint: Weakness Stated complaint: Weakness Time Seen by Provider: 12/25/19 15:25 History of Present Illness HPI Narrative: Patient presents via EMS for weakness. He had a doctor's appointment this morning with his primary and actually vomited in the office. His nephew is here had difficulty getting him into the house after the appointment. And he continued to get weaker throughout the day. Usually he can walk with his walker. There is no known trauma, or falls. he has some memory problems but has not been diagnosed as dementia. He lives with his niece. Neither the patient or the nephew know whether he has had A. fib in the past. He may be on Plavix for the history of stroke. He has not been sick recently according to the nephew. The patient is hard of hearing and oriented x2. He says he has no pain. He has difficulty following directions. MD Complaint: generalized weakness Onset (ago): hour(s) Duration: constant Location: generalized Relieving factors: none Exacerbating factors: none Related Data Home Medications Medication Instructions Recorded Confirmed atorvastatin 80 mg PO HS 05/17/19 08/23/19 clopidogrel 75 mg PO DAILY 05/17/19 08/23/19 furosemide 20 mg PO DAILY 05/17/19 08/23/19 gabapentin 300 mg PO TID 05/17/19 08/23/19 glimepiride 1 mg PO QAM 05/17/19 08/23/19 pantoprazole 40 mg PO BID 05/17/19 08/23/19 insulin glargine [Basaglar KwikPen 10 unit SUBCUT DAILY 08/23/19 08/23/19 U-100 Insulin] linagliptin [Tradjenta] 5 mg PO QAM 08/23/19 08/23/19 insulin aspart U-100 [Novolog 10 unit SUBCUT TID 12/25/19 Flexpen U-100 Insulin] multivitamin,sm-vzdv-zkvqbrmn 1 tablet PO DAILY 12/25/19 [Complete Multivitamin] Allergies Allergy/AdvReac Type Severity Reaction Status Date / Time No Known Allergies Allergy Unknown Verified 12/25/19 15:33 Review of Systems Review of Systems: Narrative: The review of systems is as per the nephew, and is limited to what is in the HPI. [facility] Past Medical History Medical History Anemia Arthritis Cataract Chronic kidney disease, stage 3 Coronary artery disease CVA (cerebral vascular accident) 10-15 years ago, right side weakness Diabetes type 2, controlled GERD (gastroesophageal reflux disease) Hiatal hernia History of angina Hyperlipidemia Hypertension Peripheral arterial disease PVD (peripheral vascular disease) Seasonal allergies Thrombocytopenia Surgical History Surgical History H/O carotid endarterectomy H/O endarterectomy Patient has hx of axillofem bypass requiring endarterectomy in May 2017 History of angioplasty x2 History of appendectomy ?Patient confused but believes he had an appendectomy, he does have a scar on his abdomen that would be consistent with possible open appendectomy. History of cardiac catheterization History of carpal tunnel release Social History Social History Social History: Patient is full code. He lives with his niece who is also a diabetic and helps him with some activities of daily living. He is apparently non-compliant with medications and his overall health. They have 2 dogs. The patient does not have durable healthcare power of adjunct psychology instructor but delegates either his neice, Shannon, or nephew, William, to be his decision makers. Shannon is currently hospitalized and William would be his contact at this time. Smoking packs per day: 1 Smoking cigarettes per day: 20.0 Years smoked: 30 Smoking pack-years: 30.00 Smoking status: Former smoker Tobacco type: cigarettes Smoking end date: 07/04/75 Alcohol intake: current Substance use: never Gender identity (if verbalized by the patient): Male Spiritual care concerns: No Exam Narrative: Exam Narrative: GENERAL: Well-appearing, well-nourished, and in no acute distress. He tends t
--- NOTE | 2019-12-25 15:44 | PC.NURSE ---
unable to draw labs due to patient taken to CT
--- NOTE | 2019-12-25 15:45 | PC.NURSE ---
pt to imaging via stretcher at this time, diltiazem drip infusing in left wrist iv.
--- NOTE | 2019-12-25 16:32 | PC.NURSE ---
Dilt drip titrated to [address] Romeo at bedside.
[2019-12-25 16:35] LABS: Basophils Absolute Auto 0.1 K/mm3 (0.0-0.1); Basophils Percent Auto 0.3 % (0.2-1.2); Hematocrit 39.2 % (42.0-52.0); Hemoglobin 14.1 g/dL (14.0-18.0); Immature Granulocyte Absolute 0.17 K/mm3 (0.00-0.031); Immature Granulocyte Percent A 0.9 % (0-0.5); Lymphocytes Absolute Auto 0.66 K/mm3 (0.9-3.2); Lymphocytes Percent Auto 3.5 % (18.3-44.2); Mean Corpuscular Hemoglobin 31.5 pg (26-34); Mean Corpuscular Volume 87.5 fl (80-100); Mean Platelet Volume 11.1 fl (7.4-10.4); Monocytes Absolute Auto 0.9 K/mm3 (0.1-0.6); Neutrophils Absolute Auto 16.9 K/mm3 (1.3-6.7); Neutrophils Percent Auto 90.3 % (45.5-73.1); Platelet Count Result 157 k/mm3 (150-375); Red Blood Count 4.48 M/mm3 (4.6-6.20); White Blood Count 18.8 K/mm3 (4.5-10.0)
[2019-12-25 16:39] LABS: Add Urine Microscopic? YES; Appearance Urine Clear (Clear); Bilirubin Urine Negative (Negative); Blood Urine Negative (Negative); Color Urine Yellow (Yellow); Glucose Urine UA 3+ mg/dL (Negative); Ketones Urine 1+ mg/dL (Negative); Leukocyte Esterase Ur Negative LEU/UL (Negative); Nitrate Urine Negative (Negative); Protein Urine 2+ mg/dL (Negative); Specific Grav Ur 1.018 (1.001-1.035); Squamous Epithelial Cell Urine Rare /hpf (Few); Urobilinogen Urine Negative mg/dL (<2.0); WBC Urine 0-3 /hpf
[2019-12-25 16:45] LABS: Lactic Acid 1.1 mmol/L (0.7-2.1)
[2019-12-25 16:46] LABS: INR 1.2; Prothrombin Time 14.4 Seconds (11.1-14.7)
[2019-12-25 16:47] LABS: Alanine Aminotransferase 12 U/L (4-50); Albumin Level 4.3 g/dL (3.5-5.1); Alkaline Phosphatase 119 U/L (38-126); Aspartate Amino Transferase 23 U/L (17-59); Bilirubin,Total 1.7 mg/dL (0.2-1.3); Blood Urea Nitrogen 19 mg/dL (9-20); Calcium 9.3 mg/dL (8.4-10.2); Carbon Dioxide 20 mmol/L (22-30); Chloride 97 mmol/L (98-107); Estimated Glomerular Filt Rate 48; Ethanol < 10 mg/dL (<10); Glucose 282 mg/dL (75-110); Potassium 3.7 mmol/L (3.4-5.0); Sodium 132 mmol/L (137-145)
[2019-12-25 16:53] LABS: Amphetamine Screen Urine Negative (Negative); Barbiturate Screen Urine Negative (Negative); Benzodiazepines Screen Urine Negative (Negative); Cannabinoid Screen Urine Negative (Negative); Cocaine Screen Urine Negative (Negative); Methadone Screen Urine Negative (Negative); Opiate Screen Urine Negative (Negative); Phencyclidine Screen Urine Negative (Negative)
[2019-12-25 16:54] LABS: Creatine Kinase 27 U/L (55-170)
--- NOTE | 2019-12-25 16:54 | PC.NURSE ---
Verbal order from Dr. bobo to increase diltiazem drip to 15mg/hr.
[2019-12-25 16:59] LABS: Troponin I 0.034 ng/mL (0.000-0.034)
[2019-12-25 17:05] LABS: NT Pro B Type Natriuretic Pept 3220 PG/ML (5-100)
--- NOTE | 2019-12-25 17:29 | PC.NURSE ---
Verbal order from Dr. Romeo to increase Diltiazem drip to 20mg/hr.
[2019-12-25] MEDS: FUROSEMIDE INJ 40 MG/4 ML VIAL IV PUSH (17:37)
[2019-12-25 20:30] LABS: Troponin I 0.054 ng/mL (0.000-0.034)
--- NOTE | 2019-12-25 21:01 | ADMGEN ---
This patient, Jose D Sterling, was admitted to IMU Room 232-01. Patient/family oriented to hospital policies and general routines including ID bracelet, bed and alarms, visiting hours, pain management, procedures, bathroom and other care routines, personal items, smoking policy, room service/diet, and visiting hours. Valuables list has been completed. Information on how to activate the Rapid Response Team has been discussed. Patient/Family are encouraged to report perceived risks to care and to ask questions if they do not understand what they are told or what they should do. pt arrived at approx 1999 report recieved by William
--- NOTE | 2019-12-25 21:25 | PM.IMHP ---
H&P: HPI History of Present Illness Chief complaint: new a fib with RVR, new CHF, Narrative: Jose D Sterling is a 84 year old male the patient came into the emergency room to be evaluated for weakness. The patient lives with the knees but the nephew brought him in today. The patient had a doctor department this morning and vomited in the office. However the patient was sent home from the office and the nephew had difficulty getting the patient into the doctor's appointment and getting him back into the house after the appointment.. Patient continued to get weaker throughout the day. He usually walks with a walker. He has not had any trauma or falls but does have some memory problems. He has never been diagnosed with dementia. He has never had a history of atrial fibrillation. He has not recently had any fever chills. He is hard of hearing. And baseline is typically orientated x2. Therefore EMS was activated. The patient was found to be in AFib RVR. His white count was noted to be 18.8. Urine was negative for UTI but he is spilling some glucose in his urine. BNP 3220. Patient was started on a Cardizem drip for the AFib with RVR. Looks like he is trying to convert now he goes in and out of it right now. He was maxed out on the Cardizem drip. His blood pressure seemed to tolerated. Chest x-ray was read as no acute cardiopulmonary abnormalities. Head CT was read as no acute intracranial findings. Chronic age-related findings. 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 Patient also has chronic renal failure. Actually patient's creatinine is improved from his baseline. Blood sugars 282. GFR is 48. Patient had a troponin of 0.054. Date of service 12/25/2019 for AFib RVR and new onset of CHF Review of Systems Review of Systems: Narrative: Patient is not answering questions. The information was obtained from the knees and old records. All systems reviewed & are unremarkable except as noted in HPI and below Constitutional: Constitutional: Reports as per HPI and Reports no additional constitutional complaints Eyes: Eyes: Reports as per HPI and Reports no additional eye complaints ENT: Reports system reviewed and no additional complaints, except as documented and Reports Normal hearing present Cardiovascular: Cardiovascular: Reports no additional cardiovascular complaints Respiratory: Respiratory: Reports no additional respiratory complaints and Reports no additional respiratory complaints Gastrointestinal: Gastrointestinal: Reports as per HPI and Reports no additional gastrointestinal complaints Musculoskeletal: Musculoskeletal: Reports no additional musculoskeletal complaints Integumentary/Breasts: Skin/Breast: Reports system reviewed and no additional complaints, except as docu and Reports as per HPI Neurologic: Reports system reviewed and no additional complaints, except as documented, Reports as per HPI and Reports Normal hearing present Psychiatric: Psychiatric: Reports no additional psychiatric complaints and Reports as per HPI Endocrine: Endocrine: Reports no additional endocrine complaints Hematologic/Lymphatic: Hematologic/Lymphatic: Reports no additional hematologic/lymphatic complaints Allergic/Immunologic: Allergic/Immunologic: Reports no additional allergic/immunologic complaints [facility] Past Medical History Medical History (Updated 12/25/19 @ 21:46 by Lea Simmons NP) 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
[2019-12-26] VITALS (15 sets, daily range): BP systolic 128–181; BP diastolic 42–84; PULSE 65–107; RESP 12–20; TEMP 35.7–36.9; O2SAT 95–98
[2019-12-26 05:50] LABS: Basophils Percent Auto 0.2 % (0.2-1.2); Hematocrit 39.8 % (42.0-52.0); Hemoglobin 14.2 g/dL (14.0-18.0); Immature Granulocyte Absolute 0.12 K/mm3 (0.00-0.031); Immature Granulocyte Percent A 0.8 % (0-0.5); Lymphocytes Absolute Auto 0.61 K/mm3 (0.9-3.2); Lymphocytes Percent Auto 4.2 % (18.3-44.2); Mean Corpuscular HGB Conc 35.7 g/dl (32-36); Mean Corpuscular Hemoglobin 31.5 pg (26-34); Mean Corpuscular Volume 88.2 fl (80-100); Mean Platelet Volume 11.3 fl (7.4-10.4); Monocytes Absolute Auto 0.3 K/mm3 (0.1-0.6); Monocytes Percent Auto 2.3 % (2.6-8.5); Neutrophils Absolute Auto 13.5 K/mm3 (1.3-6.7); Neutrophils Percent Auto 92.5 % (45.5-73.1); Platelet Count Result 145 k/mm3 (150-375); Red Blood Count 4.51 M/mm3 (4.6-6.20); Red Cell Distribution Width 12.9 % (11.5-14.5); White Blood Count 14.6 K/mm3 (4.5-10.0)
--- NOTE | 2019-12-26 06:00 | ECHO_ITS ---
Patient Info Name: Jose D Sterling Age: 84 years : 1935 Gender: Male Ht: 69 in Wt: 157 lbs BSA: 1.87 m2 HR: 75 bpm BP: 181 / 54 mmHg Heart Rhythm: Sinus Rhythm Technical Quality: Good Exam Date: 12/26/2019 10:32 AM Exam Location: [facility] Patient Status: Inpatient Admit Date: 12/25/2019 Staff Ordering Physician: Bridget Romeo MD Bee Farmer: Omar Ryan RDCS Attending Provider: Chris Mckenna MD Referring Physician: Agueda MORATAYA; Exam Type: CA echo doppler color flow Study Info Indications I48.0 - Paroxysmal atrial fibrillation Complete two-dimensional, color flow and Doppler transthoracic echocardiogram is performed. Strain analysis performed. History/Risk Factors New onset Afib w/ CHF; CKD3, DM2, HTN, CAD. Summary 1. Normal left ventricular size with moderate concentric left ventricular hypertrophy. Mild global left ventricular dysfunction with no focal wall motion abnormalities. The visual ejection fraction is 45-50%, calculated at 52%. Global longitudinal strain is mildly decreased at -14%. Grade 2 diastolic dysfunction is present. 2. Right ventricular chamber dimension is mildly enlarged with normal systolic function. 3. Left atrial chamber dimension is moderately enlarged. 4. There is severe mitral valve annular calcification and thickening of the leaflet tips with minimal mitral stenosis and no mitral regurgitation. 5. There is moderate aortic valve sclerosis with no stenosis. 6. Normal sinus rhythm. Left Ventricle Left ventricular chamber dimension is normal. Left ventricular systolic function is mildly reduced, estimated at 45-50%. There is moderately increased left ventricular wall thickness. Left ventricular septal wall motion is normal. The left ventricular diastolic function is grade II diastolic dysfunction. Global longitudinal strain is mildly elevated at 14 %. Right Ventricle Right ventricular chamber dimension is mildly enlarged with normal systolic function. Right ventricular systolic function is normal. Left Atria Left atrial chamber dimension is moderately enlarged. Right Atria Right atrial chamber dimension is normal. Aortic Valve The aortic valve is trileaflet. There is moderate aortic valve sclerosis with no stenosis. There is no aortic valve stenosis. There is no aortic valve regurgitation. Pulmonic Valve The pulmonic valve is normal. There is no pulmonic valve stenosis. There is no pulmonic regurgitation. Mitral Valve The mitral valve has thickened leaflets and calcified annulus. There is mild mitral valve stenosis. There is no mitral valve regurgitation. There is severe mitral valve annular calcification and thickening of the leaflet tips with minimal mitral stenosis and no mitral regurgitation. Tricuspid Valve The tricuspid valve leaflets are normal. There is no significant tricuspid valve stenosis. There is no tricuspid valve regurgitation. No pulmonary hypertension, estimated pulmonary arterial systolic pressure is Empty. Pericardium/Pleural The pericardium appears normal. There is no pericardial effusion. Inferior Vena Cava Normal inferior vena cava with >50% collapse upon inspiration consistent with Empty right atrial pressure, 5 mmHg. Aorta The aortic root size at the sinus of Valsalva is normal. The prox ascending aorta size is normal. Left Ventricular Outflow Tract Name
[2019-12-26 06:24] LABS: Alanine Aminotransferase 11 U/L (4-50); Alkaline Phosphatase 91 U/L (38-126); Aspartate Amino Transferase 22 U/L (17-59); Bilirubin,Total 1.9 mg/dL (0.2-1.3); Blood Urea Nitrogen 25 mg/dL (9-20); CRP 15.7 mg/dL (<1.0); Carbon Dioxide 26 mmol/L (22-30); Chloride 93 mmol/L (98-107); Estimated CRCL calculation 34 ml/min; Estimated Glomerular Filt Rate 45; Glucose 306 mg/dL (75-110); Magnesium 1.5 mg/dL (1.6-2.3); Potassium 3.1 mmol/L (3.4-5.0); Sodium 130 mmol/L (137-145)
[2019-12-26 07:24] LABS: Thyroid Stimulating Hormone Reflex 0.977 uIU/mL (0.465-4.68)
[2019-12-26 07:34] LABS: Troponin I 0.081 ng/mL (0.000-0.034)
[2019-12-26 08:20] LABS: Glucose Point of Care 316 (65-105)
[2019-12-26] MEDS: POTASSIUM CHLORIDE 20 MEQ PACKET (FOR LIQUID) 40 MEQ PO (09:11)
[2019-12-26] MEDS: MAGNESIUM SULF 2 GM/WATER 50ML 2 GM/50 ML BAG IVPB (09:11)
[2019-12-26] MEDS: INSULIN ASPART (*BKC) 100 UNITS/ML SUB-Q ×3 (09:11→16:33)
[2019-12-26] MEDS: PANTOPRAZOLE 40 MG TABLET PO ×2 (09:12→16:33)
[2019-12-26] MEDS: FUROSEMIDE INJ 40 MG/4 ML VIAL 20 MG IV PUSH (09:12)
[2019-12-26] MEDS: THERAPEUTIC MULTIVITAMINS/MINERALS TAB (*BKC) 1 TABLET PO (09:12)
[2019-12-26] MEDS: FINASTERIDE 5 MG TABLET PO (09:12)
[2019-12-26] MEDS: TAMSULOSIN HCL 0.4 MG CAPSULE PO (09:12)
[2019-12-26] MEDS: CLOPIDOGREL BISULFATE 75 MG TABLET PO (09:12)
[2019-12-26] MEDS: ASPIRIN 81 MG CHEWABLE TABLET PO (09:14)
[2019-12-26] MEDS: INSULIN GLARGINE (*BKC) 100 UNITS/ML 10 UNITS SUB-Q (09:14)
[2019-12-26] MEDS: GABAPENTIN 300 MG CAPSULE PO ×3 (09:22→16:33)
--- NOTE | 2019-12-26 09:48 | PM.IMPN ---
Progress Note: A&P Assessment and Plan (1) Atrial fibrillation with rapid ventricular response: Code(s): I48.91 - Unspecified atrial fibrillation Status: Acute Assessment and Plan: Telemetry reviewed. EKG reviewed as well. No evidence of atrial fibrillation that could be found. Diltiazem drip has been stopped. Appreciate Cardiology input. TSH normal. Echocardiogram ordered and is pending. Atrial fibrillation has been ruled out. Continue telemetry. (2) Generalized weakness: Code(s): R53.1 - Weakness Status: Acute Assessment and Plan: Etiology unclear. Has elevated WBC and CRP but UA and CXR clear. BCx NGTD. Not on abx and WBC trending down. PT and OT evaluation consulted; resident care provider for placement. Continue to follow (3) Diabetic ulcer of foot associated with diabetes mellitus due to underlying condition, limited to breakdown of skin: Qualifiers: Diabetic foot ulcer location: other Laterality: right Qualified Code(s): E08.621 - Diabetes mellitus due to underlying condition with foot ulcer; L97.511 - Non-pressure chronic ulcer of other part of right foot limited to breakdown of skin Code(s): E08.621 - Diabetes mellitus due to underlying condition with foot ulcer; L97.501 - Non-pressure chronic ulcer of other part of unspecified foot limited to breakdown of skin Status: Acute Assessment and Plan: He has healing ulcer on his foot no need for any further care at this time. Continue to monitor. (4) Hyperlipidemia: Qualifiers: Hyperlipidemia type: unspecified Qualified Code(s): E78.5 - Hyperlipidemia, unspecified Code(s): E78.5 - Hyperlipidemia, unspecified Status: Chronic Assessment and Plan: LFTs okay. Continue with atorvastatin. (5) Hypertension: Qualifiers: Hypertension type: essential hypertension Qualified Code(s): I10 - Essential (primary) hypertension Code(s): I10 - Essential (primary) hypertension Status: Acute Assessment and Plan: Blood pressure elevated on admission even despite diltiazem drip. Initial plan was to switch to oral regiment depending on echo results but diltiazem drip has been stopped. For unclear reasons, his blood pressure has improved despite this. He is not on antihypertensive medications at home. Will add low-dose beta-jeff. Consider RATNA inhibitor given his DM. (6) Diabetes type 2, controlled: Qualifiers: Chronic kidney disease stage: stage 3 (moderate) Diabetes mellitus complication detail: with chronic kidney disease Diabetes mellitus complication status: with kidney complications Diabetes mellitus longterm insulin use: with longterm use Qualified Code(s): E11.22 - Type 2 diabetes mellitus with diabetic chronic kidney disease; N18.3 - Chronic kidney disease, stage 3 (moderate); Z79.4 - MCFP (current) use of insulin Code(s): E11.9 - Type 2 diabetes mellitus without complications Status: Chronic Assessment and Plan: A1c 7.8 in May. Glucose reviewed on 12/26/2019. Glucose elevated in the 200-300 range. Will continue Accu-Cheks and advance sliding scale regiment. Will also advance Lantus. Hypoglycemia protocol as needed. Repeat A1c. (7) Congestive heart failure: Code(s): I50.9 - Heart failure, unspecified Status: Acute Assessment and Plan: Patient may have CHF but CXR clear. BNP elevated to 3220. Creatinine 1.4 which is below baseline that may represent mild fluid overload. Echo ordered. Was on IV Lasix but stopped by Cardiology. Follow up on echo results. Subjective Date/time seen: 12/26/19 09:48 Interval history: 84yo male with CKD, dementia and DM here for weakness, nausea and found to have AFib/RVR. Patient alert but confused thus unable to provide accurate history. Review of Systems Review of Systems: ROS unobtainable: Yes unobtainable due to mental s
--- NOTE | 2019-12-26 13:20 | PM.CNCAR ---
Assessment and Plan Assessment and plan (1) Atrial fibrillation with rapid ventricular response: Code(s): I48.91 - Unspecified atrial fibrillation <Angela Tijerina APRN - Last Filed: 12/26/19 17:33> Status: Acute <Angela Tijerina APRN - Last Filed: 12/26/19 17:33> Assessment and Plan: EKG personally reviewed with Dr. Rees at 1530 on 12/26/2019 revealing a tachycardia at 119 beats per minute. There is a lot of baseline artifact however does not appear to be atrial fibrillation. P-wave morphology is different throughout. Telemetry reviewed also without atrial fibrillation but sinus rhythm and sinus arrhythmia with frequent APCs with occasional PVCs. Cardizem drip discontinued. Continue telemetry to monitor heart rate and rhythm EKG in the morning <Angela Tijerina APRN - Last Filed: 12/26/19 17:33> (2) Congestive heart failure: Code(s): I50.9 - Heart failure, unspecified <Angela Tijerina IT COMMUNICATIONS SPECIALIST - Last Filed: 12/26/19 17:33> Status: Acute <Angela Tijerina APRN - Last Filed: 12/26/19 17:33> Assessment and Plan: Echocardiogram pending BNP elevated. Received some Lasix in the emergency room as well as in dose this morning. However chest x-ray (also reviewed with Dr. Rees) did not reveal any pulmonary edema. His lungs are clear. On room air. Denied shortness of breath. He has no edema. Stop IV Lasix Will evaluate need for further diuretics. <Angela Tijerina APRN - Last Filed: 12/26/19 17:33> (3) Hypertensive crisis: Code(s): I16.9 - Hypertensive crisis, unspecified <Angela Tijerina APRN - Last Filed: 12/26/19 17:33> Status: Acute <Angela Tijerina APRN - Last Filed: 12/26/19 17:33> Assessment and Plan: Blood pressures were significantly elevated in the emergency room and through the night despite the Cardizem drip. Blood pressure in his Primary Care Provider's office was 132/88. Blood pressure improved. Will monitor for need of any antihypertensives. <Angela Tijerina APRN - Last Filed: 12/26/19 17:33> (4) Hypokalemia: Code(s): E87.6 - Hypokalemia <Angela Tijerina APRN - Last Filed: 12/26/19 17:33> Status: Acute <Angela Tijerina APRN - Last Filed: 12/26/19 17:33> Assessment and Plan: Supplemented BMP in the morning <Angela Tijerina APRN - Last Filed: 12/26/19 17:33> (5) Hypomagnesemia: Code(s): E83.42 - Hypomagnesemia <Angela Tijerina APRN - Last Filed: 12/26/19 17:33> Status: Acute <Angela Tijerina APRN - Last Filed: 12/26/19 17:33> Assessment and Plan: Supplemented Magnesium level in the morning <Angela Tijerina APRN - Last Filed: 12/26/19 17:33> Additional Plan Reportedly he lives with a niece that is bed-bound and he handles is on medications. His memory is poor as he is unable to remember why he was brought to the emergency room much less any of his medical/surgical history. Concerned that he is not taking his medications as prescribed and also concern for falling. Most likely will need some type of placement after this hospitalization. Plan discussed with Dr. Rees 1700 12/26/2019 <Angela Tijerina APRN - Last Filed: 12/26/19 17:33> History of Present Illness History of Present Illness Consult date/time: 12/26/19 13:03 <Angela Tijerina APRN - Last Filed: 06/24/20 17:33> Requesting physician: Bridget Romeo MD <Angela Tijerina APRN - Last Filed: 12/26/19 17:33> Consult reason: Other (New atrial fibrillation, congestive heart failure, hypertensive crisis) <Angela Tijerina APRN - Last Filed: 12/26/19 17:33> Reason For Visit: Weakness <Angela Tijerina APRN - Last Filed: 12/26/19 17:33> Narrative: 84-year-old male to the emergency room via EMS for weakness. History of present illness, medical and
[2019-12-26 14:00] LABS: Glucose Point of Care 350 (65-105)
[2019-12-26 16:32] LABS: Glucose Point of Care 398 (65-105)
[2019-12-26] MEDS: ATORVASTATIN 40 MG TABLET 80 MG PO (20:31)
[2019-12-26] MEDS: METOPROLOL TARTRATE 12.5 MG TABLET PO (20:31)
[2019-12-26 21:25] LABS: Glucose Point of Care 94 (65-105)
[2019-12-27] VITALS (16 sets, daily range): BP systolic 112–135; BP diastolic 40–54; PULSE 72–105; RESP 16–20; TEMP 35.8–36.5; O2SAT 96–100
[2019-12-27 07:50] LABS: Hematocrit 36.6 % (42.0-52.0); Hemoglobin 12.9 g/dL (14.0-18.0); Immature Platelet Fraction Pct 6.8 % (0.9-11.2); Mean Corpuscular HGB Conc 35.2 g/dl (32-36); Mean Corpuscular Hemoglobin 31.2 pg (26-34); Mean Corpuscular Volume 88.6 fl (80-100); Mean Platelet Volume 11.5 fl (7.4-10.4); Platelet Count Result 132 k/mm3 (150-375); Red Blood Count 4.13 M/mm3 (4.6-6.20); Red Cell Distribution Width 12.9 % (11.5-14.5)
[2019-12-27 08:18] LABS: Glucose Point of Care 156 (65-105)
[2019-12-27 08:21] LABS: Hemoglobin A1C 9.5 % (<5.7)
[2019-12-27] MEDS: METOPROLOL TARTRATE 12.5 MG TABLET PO ×2 (08:55→21:34)
[2019-12-27] MEDS: ASPIRIN 81 MG CHEWABLE TABLET PO (08:55)
[2019-12-27] MEDS: PANTOPRAZOLE 40 MG TABLET PO ×2 (08:55→17:23)
[2019-12-27] MEDS: FINASTERIDE 5 MG TABLET PO (08:55)
[2019-12-27] MEDS: CLOPIDOGREL BISULFATE 75 MG TABLET PO (08:55)
[2019-12-27] MEDS: TAMSULOSIN HCL 0.4 MG CAPSULE PO (08:55)
[2019-12-27] MEDS: THERAPEUTIC MULTIVITAMINS/MINERALS TAB (*BKC) 1 TABLET PO (08:55)
[2019-12-27] MEDS: GABAPENTIN 300 MG CAPSULE PO ×3 (08:55→17:23)
[2019-12-27] MEDS: INSULIN GLARGINE (*BKC) 100 UNITS/ML 15 UNITS SUB-Q (09:00)
[2019-12-27 10:10] LABS: Blood Urea Nitrogen 35 mg/dL (9-20); Calcium 8.4 mg/dL (8.4-10.2); Carbon Dioxide 29 mmol/L (22-30); Chloride 89 mmol/L (98-107); Estimated CRCL calculation 30 ml/min; Estimated Glomerular Filt Rate 39; Glucose 271 mg/dL (75-110); Potassium 3.5 mmol/L (3.4-5.0); Sodium 125 mmol/L (137-145)
--- NOTE | 2019-12-27 10:17 | PM.IMPN ---
Progress Note: A&P Assessment and Plan (1) Atrial fibrillation with rapid ventricular response: Code(s): I48.91 - Unspecified atrial fibrillation Status: Acute Assessment and Plan: Telemetry reviewed. EKG reviewed as well. No evidence of atrial fibrillation that could be found. Diltiazem driphad been started for concern for AFib but this was stopped. Appreciate Cardiology input. TSH normal. Echocardiogram showing EF 45-50%. Atrial fibrillation has been ruled out. Continue telemetry. (2) Generalized weakness: Code(s): R53.1 - Weakness Status: Acute Assessment and Plan: Etiology unclear. Has elevated WBC and CRP but UA and CXR clear. BCx NGTD. Not on abx and WBC continues to trend down. PT and OT evaluation consulted; adult care manager for placement. Continue to follow (3) Diabetic ulcer of foot associated with diabetes mellitus due to underlying condition, limited to breakdown of skin: Qualifiers: Diabetic foot ulcer location: other Laterality: right Qualified Code(s): E08.621 - Diabetes mellitus due to underlying condition with foot ulcer; L97.511 - Non-pressure chronic ulcer of other part of right foot limited to breakdown of skin Code(s): E08.621 - Diabetes mellitus due to underlying condition with foot ulcer; L97.501 - Non-pressure chronic ulcer of other part of unspecified foot limited to breakdown of skin Status: Acute Assessment and Plan: He has healing ulcer on his foot no need for any further care at this time. Continue to monitor. (4) Hyperlipidemia: Qualifiers: Hyperlipidemia type: unspecified Qualified Code(s): E78.5 - Hyperlipidemia, unspecified Code(s): E78.5 - Hyperlipidemia, unspecified Status: Chronic Assessment and Plan: LFTs okay. Continue with atorvastatin. (5) Hypertension: Qualifiers: Hypertension type: essential hypertension Qualified Code(s): I10 - Essential (primary) hypertension Code(s): I10 - Essential (primary) hypertension Status: Acute Assessment and Plan: BP reviewed on 12/27/19. Blood pressure elevated on admission. No antihypertensive medications listed on his home med list. Was on Cardizem drip but this is been stopped. Blood pressure better controlled off the diltiazem for unclear reasons. Metoprolol added. BP better controlled. Continue monitor closely. Consider RATNA inhibitor given his DM. (6) Diabetes type 2, controlled: Qualifiers: Chronic kidney disease stage: stage 3 (moderate) Diabetes mellitus complication detail: with chronic kidney disease Diabetes mellitus complication status: with kidney complications Diabetes mellitus termite control representative insulin use: with senior care use Qualified Code(s): E11.22 - Type 2 diabetes mellitus with diabetic chronic kidney disease; N18.3 - Chronic kidney disease, stage 3 (moderate); Z79.4 - termite control representative (current) use of insulin Code(s): E11.9 - Type 2 diabetes mellitus without complications Status: Chronic Assessment and Plan: A1c 9.5. Glucose reviewed on 12/27/2019. Glucose elevated up to 300 range but labile since he ws 89 last night. Will continue Accu-Cheks with sliding scale regiment. Continue current dose of Lantus. Hypoglycemia protocol as needed (7) Congestive heart failure: Code(s): I50.9 - Heart failure, unspecified Status: Acute Assessment and Plan: Patient may have CHF but CXR clear. BNP elevated to 3220. Creatinine 1.4 which is below baseline that may represent mild fluid overload. Echo as noted above. Was on IV Lasix but stopped by Cardiology. Follow clinically. (8) Chronic kidney disease, stage 3: Code(s): N18.3 - Chronic kidney disease, stage 3 (moderate) Status: Chronic Assessment and Plan: Cr1.4 on admission but back up to 1.7 which is closer to his baseline. Follow periodically. (9) DVT prophylaxis:
[2019-12-27 10:21] LABS: CRP 17.2 mg/dL (<1.0)
[2019-12-27 11:12] LABS: Folic Acid 12.8 ng/mL (2.76->20)
[2019-12-27] MEDS: INSULIN ASPART (*BKC) 100 UNITS/ML SUB-Q ×2 (12:11→17:23)
[2019-12-27 12:17] LABS: Glucose Point of Care 318 (65-105)
[2019-12-27 16:16] LABS: Glucose Point of Care 305 (65-105)
--- NOTE | 2019-12-27 18:04 | PM.PNCARD ---
Progress Note: A&P Assessment and Plan (1) Atrial fibrillation with rapid ventricular response: Code(s): I48.91 - Unspecified atrial fibrillation Status: Acute Assessment and Plan: Atrial fibrillation has been ruled out. Probably multifocal atrial tachycardia or sinus tachycardia secondary to mild dehydration. Improved. Telemetry reveals sinus rhythm with APCs and occasional PVCs. (2) Congestive heart failure: Code(s): I50.9 - Heart failure, unspecified Status: Acute Assessment and Plan: BNP was elevated chest x-ray did not reveal any CHF. Improved with both Lasix and IV fluids. Echocardiogram 12/26/2019:Normal left ventricular size with moderate concentric left ventricular hypertrophy. Mild global left ventricular dysfunction with no focal wall motion abnormalities. The visual ejection fraction is 45-50%, calculated at 52%. Global longitudinal strain is mildly decreased at -14%. Grade 2 diastolic dysfunction is present. Right ventricular chamber dimension is mildly enlarged with normal systolic function. Left atrial chamber dimension is moderately enlarged. There is severe mitral valve annular calcification and thickening of the leaflet tips with minimal mitral stenosis and no mitral regurgitation. There is moderate aortic valve sclerosis with no stenosis. Has been started on low-dose beta-jeff for blood pressure and mild LV dysfunction. (3) Hypertensive crisis: Code(s): I16.9 - Hypertensive crisis, unspecified Status: Acute Assessment and Plan: Blood pressure improved. Beta-jeff as above. (4) Hypokalemia: Code(s): E87.6 - Hypokalemia Status: Acute Assessment and Plan: Supplemented Potassium 3.5 this morning. (5) Hypomagnesemia: Code(s): E83.42 - Hypomagnesemia Status: Acute Assessment and Plan: Supplemented Magnesium 2.0 this morning. Additional Plan No further cardiac recommendation Does not need cardiology follow-up at this time Cardiology will sign off. Do not hesitate to call if we can be of further assistance. Plan discussed with Dr Rees 1805 12/27/2019 Subjective Date/time seen: 12/27/19 18:04 Interval history: Follow-up for: Tachycardia thought to be atrial fibrillation that was brought to the emergency room for weakness Date of service: 12/27/2019 Subjective: Denied chest discomfort. States breathing is ?okay?. Denied lightheadedness. States has not been out of bed. According to the nursing staff he has been up in the chair twice today. Review of Systems Constitutional: Constitutional: Denies chills and Denies fever(s) Eyes: Eyes: Denies blurry vision ENT: Denies dizziness and Reports hearing loss Cardiovascular: Cardiovascular: Denies chest pain, Denies syncope, Denies lightheadedness and Denies dyspnea Respiratory: Respiratory: Denies dyspnea Gastrointestinal: Gastrointestinal: Denies abdominal pain, Denies diarrhea, Denies nausea and Denies vomiting Comments: Good appetite Genitourinary: Genitourinary: Denies hematuria Musculoskeletal: Musculoskeletal: Denies back pain Neurologic: Denies Normal hearing present Psychiatric: Psychiatric: Denies anxiety Endocrine: Endocrine: Reports cold intolerance Hematologic/Lymphatic: Hematologic/Lymphatic: Reports easy bruising Allergic/Immunologic: Allergic/Immunologic: Denies lip swelling and Denies wheezing Exam Narrative: Exam Narrative: Sitting up in bed. No distress. Just finished dinner. More awake and alert Const: General: cooperative, comfortable and awake Nutritional Appearance: average body habitus and well nourished Orientation/consciousness: patient oriented x3 HENMT: Head: normal to inspection, normocephalic and atraumatic Ears: external ears normal and hearing grossly impaired
[2019-12-27] MEDS: ATORVASTATIN 40 MG TABLET 80 MG PO (21:34)
[2019-12-28] VITALS (13 sets, daily range): BP systolic 127–159; BP diastolic 49–70; PULSE 64–90; RESP 16–18; TEMP 35.8–36.5; O2SAT 94–100
[2019-12-28 06:00] LABS: Blood Urea Nitrogen 42 mg/dL (9-20); Calcium 8.1 mg/dL (8.4-10.2); Carbon Dioxide 28 mmol/L (22-30); Chloride 91 mmol/L (98-107); Estimated CRCL calculation 28 ml/min; Estimated Glomerular Filt Rate 36; Glucose 206 mg/dL (75-110); Potassium 3.4 mmol/L (3.4-5.0); Sodium 126 mmol/L (137-145)
--- NOTE | 2019-12-28 07:54 | P.CDI_ITS ---
CDI Query Clarification Request -CHF unspecified has been documented by hospitalist and cardiology. Please further specify type and acuity of CHF: * Systolic *Acute * Diastolic *Chronic * Systolic and Diastolic *Acute on Chronic * Unable to determine *Unable to determine <Shannon Calderón RN - Last Filed: 12/28/19 08:03>
--- NOTE | 2019-12-28 07:54 | WPDCDIQUERY2 ---
CDI Query Clarification Request -CHF unspecified has been documented by hospitalist and cardiology. Please further specify type and acuity of CHF: Systolic *Acute Diastolic *Chronic Systolic and Diastolic *Acute on Chronic Unable to determine *Unable to determine <Shannon Calderón RN - Last Filed: 12/28/19 08:03>
[2019-12-28 08:40] LABS: Glucose Point of Care 223 (65-105)
[2019-12-28] MEDS: INSULIN ASPART (*BKC) 100 UNITS/ML SUB-Q ×3 (08:47→17:58)
[2019-12-28] MEDS: ASPIRIN 81 MG CHEWABLE TABLET PO (08:49)
[2019-12-28] MEDS: PANTOPRAZOLE 40 MG TABLET PO ×2 (08:49→17:56)
[2019-12-28] MEDS: GABAPENTIN 300 MG CAPSULE PO ×3 (08:49→17:56)
[2019-12-28] MEDS: THERAPEUTIC MULTIVITAMINS/MINERALS TAB (*BKC) 1 TABLET PO (08:49)
[2019-12-28] MEDS: FINASTERIDE 5 MG TABLET PO (08:49)
[2019-12-28] MEDS: CLOPIDOGREL BISULFATE 75 MG TABLET PO (08:49)
[2019-12-28] MEDS: METOPROLOL TARTRATE 12.5 MG TABLET PO ×2 (08:50→21:39)
[2019-12-28] MEDS: TAMSULOSIN HCL 0.4 MG CAPSULE PO (08:50)
[2019-12-28] MEDS: INSULIN GLARGINE (*BKC) 100 UNITS/ML 15 UNITS SUB-Q (11:17)
--- NOTE | 2019-12-28 11:40 | PCOTNOTE ---
Attempted to see patient this am, however patient was sleeping upon entering and declined due to fatigue. Pt mumbled, I don't think so. as he fell back asleep.
[2019-12-28 12:31] LABS: Glucose Point of Care 334 (65-105)
--- NOTE | 2019-12-28 13:09 | PM.IMPN ---
Progress Note: A&P Assessment and Plan (1) Rash: Code(s): R21 - Rash and other nonspecific skin eruption Status: Acute Assessment and Plan: Splotchy rash RLE. Low grade fever on admission but nothing since. WBC 18K on admisison but improving since without abx. Patient with some pain to the leg. Will add Keflex for cellulitis and monitor clinically. (2) Atrial fibrillation with rapid ventricular response: Code(s): I48.91 - Unspecified atrial fibrillation Status: Acute Assessment and Plan: Telemetry reviewed. EKG reviewed as well. No evidence of atrial fibrillation that could be found. Diltiazem driphad been started for concern for AFib but this was stopped. Appreciate Cardiology input. TSH normal. Echocardiogram showing EF 45-50%. Atrial fibrillation has been ruled out. Continue telemetry. (3) Generalized weakness: Code(s): R53.1 - Weakness Status: Acute Assessment and Plan: Etiology unclear. Has elevated WBC and CRP but UA and CXR clear - possibly related to cellulitis? BCx NGTD. Continue PT and OT; customer care representative for placement. Continue to follow (4) Hyperlipidemia: Qualifiers: Hyperlipidemia type: unspecified Qualified Code(s): E78.5 - Hyperlipidemia, unspecified Code(s): E78.5 - Hyperlipidemia, unspecified Status: Chronic Assessment and Plan: LFTs okay. Continue with atorvastatin. (5) Hypertension: Qualifiers: Hypertension type: essential hypertension Qualified Code(s): I10 - Essential (primary) hypertension Code(s): I10 - Essential (primary) hypertension Status: Acute Assessment and Plan: BP reviewed on 12/28/19. Blood pressure elevated on admission but better controlled now. No antihypertensive medications listed on his home med list but metoprolol added. Was on Cardizem drip but this is been stopped. Blood pressure better controlled off the diltiazem for unclear reasons. Continue monitor closely. Consider RATNA inhibitor given his DM. 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 Glucose reviewed on 12/28/2019. Glucose elevated but mostly in the 200 range now. Will continue Accu-Cheks with sliding scale regiment. Will advance Lantus. Hypoglycemia protocol as needed (7) Congestive heart failure: Qualifiers: Heart failure type: diastolic Heart failure chronicity: acute on chronic Qualified Code(s): I50.33 - Acute on chronic diastolic (congestive) heart failure Code(s): I50.9 - Heart failure, unspecified Status: Acute Assessment and Plan: Patient may have CHF but CXR clear. BNP elevated to 3220. Creatinine 1.4 which is below baseline that may represent mild fluid overload. Echo as noted above. Was on IV Lasix but stopped. Follow clinically. (8) Chronic kidney disease, stage 3: Code(s): N18.3 - Chronic kidney disease, stage 3 (moderate) Status: Chronic Assessment and Plan: Cr1.4 on admission but back up to 1.8 which is closer to his baseline. Follow periodically. (9) DVT prophylaxis: Code(s): Z29.9 - Encounter for prophylactic measures, unspecified Status: Acute Assessment and Plan: SCDs Subjective Date/time seen: 12/28/19 13:09 Interval history: 84yo male with CKD, dementia and DM here for weakness, nausea and fo
--- NOTE | 2019-12-28 15:26 | PC.NURSE ---
This patient, Jose D Sterling, was transferred to [facility] via bed on 12/28/19 at 1514 without issue. Personal belongings sent with patient. Belongings list checked and signed with receiving . Report given to MARIA TERESA Lowry. Appropriate documentation sent with patient.
[2019-12-28] MEDS: CEPHALEXIN 250 MG CAPSULE PO (17:56)
[2019-12-28 18:43] LABS: Glucose Point of Care 268 (65-105)
[2019-12-28] MEDS: ATORVASTATIN 40 MG TABLET 80 MG PO (21:38)
[2019-12-28 22:04] LABS: Glucose Point of Care 274 (65-105)
[2019-12-29] VITALS (9 sets, daily range): BP systolic 115–138; BP diastolic 42–51; PULSE 56–92; RESP 16–18; TEMP 36.2–36.3; O2SAT 97–99
[2019-12-29] MEDS: CEPHALEXIN 250 MG CAPSULE PO ×4 (00:07→17:40)
[2019-12-29 06:53] LABS: Blood Urea Nitrogen 42 mg/dL (9-20); Calcium 8.5 mg/dL (8.4-10.2); Carbon Dioxide 31 mmol/L (22-30); Chloride 92 mmol/L (98-107); Estimated CRCL calculation 28 ml/min; Estimated Glomerular Filt Rate 36; Glucose 230 mg/dL (75-110); Potassium 3.6 mmol/L (3.4-5.0); Sodium 129 mmol/L (137-145)
[2019-12-29] MEDS: THERAPEUTIC MULTIVITAMINS/MINERALS TAB (*BKC) 1 TABLET PO (08:39)
[2019-12-29] MEDS: INSULIN ASPART (*BKC) 100 UNITS/ML SUB-Q ×3 (08:39→17:40)
[2019-12-29] MEDS: FINASTERIDE 5 MG TABLET PO (08:40)
[2019-12-29] MEDS: CLOPIDOGREL BISULFATE 75 MG TABLET PO (08:40)
[2019-12-29] MEDS: GABAPENTIN 300 MG CAPSULE PO ×3 (08:40→17:41)
[2019-12-29] MEDS: ASPIRIN 81 MG CHEWABLE TABLET PO (08:40)
[2019-12-29] MEDS: METOPROLOL TARTRATE 12.5 MG TABLET PO (08:40)
[2019-12-29] MEDS: PANTOPRAZOLE 40 MG TABLET PO ×2 (08:40→17:41)
[2019-12-29] MEDS: TAMSULOSIN HCL 0.4 MG CAPSULE PO (08:40)
[2019-12-29] MEDS: INSULIN GLARGINE (*BKC) 100 UNITS/ML 20 UNITS SUB-Q (08:44)
[2019-12-29 08:57] LABS: Glucose Point of Care 230 (65-105)
[2019-12-29] MEDS: ACETAMINOPHEN 325 MG TABLET 650 MG PO (11:36)
[2019-12-29 12:19] LABS: Glucose Point of Care 241 (65-105)
[2019-12-29 13:53] LABS: SARS-CoV-2 RNA PCR Negative
--- NOTE | 2019-12-29 15:27 | PM.DS ---
DS: Admitting Diagnosis Admitting Diagnosis Admitting Diagnosis: Unspecified atrial fibrillation DS: Discharge Diagnosis Discharge Diagnosis (1) Rash: Code(s): R21 - Rash and other nonspecific skin eruption Status: Acute Assessment and Plan: Splotchy rash RLE. Low grade fever on admission but nothing since. WBC 18K on admission but improving prior to abx. Patient with some pain to the leg. We added Keflex for cellulitis. (2) Atrial fibrillation with rapid ventricular response: Code(s): I48.91 - Unspecified atrial fibrillation Status: Acute Assessment and Plan: Telemetry reviewed. EKG reviewed as well. No evidence of atrial fibrillation that could be found. Diltiazem drip had been started for concern for AFib but this was stopped. Appreciate Cardiology input. TSH normal. Echocardiogram showing EF 45-50%. Atrial fibrillation has been ruled out. (3) Generalized weakness: Code(s): R53.1 - Weakness Status: Acute Assessment and Plan: Etiology unclear. Has elevated WBC and CRP but UA and CXR clear - possibly related to cellulitis? Related to poorly controlled DM? BCx NGTD. PT and OT started; rn intensive care unit for placement. Continue to follow (4) Hypertension: Qualifiers: Hypertension type: essential hypertension Qualified Code(s): I10 - Essential (primary) hypertension Code(s): I10 - Essential (primary) hypertension Status: Acute Assessment and Plan: BP monitored closely. Blood pressure elevated on admission but better controlled now. No antihypertensive medications listed on his home med list but metoprolol added. Was on Cardizem drip but this is been stopped. Blood pressure better controlled off the diltiazem for unclear reasons. Continue monitor closely. Consider RATNA inhibitor given his DM. 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 Glucose monitored closely. Glucose elevated but mostly in the mid to low 200 range now. We continued Accu-Cheks with sliding scale regiment. We advanced his Lantus. Hypoglycemia protocol available as needed. (6) Congestive heart failure: Qualifiers: Heart failure chronicity: acute on chronic Heart failure type: diastolic Qualified Code(s): I50.33 - Acute on chronic diastolic (congestive) heart failure Code(s): I50.9 - Heart failure, unspecified Status: Acute Assessment and Plan: Patient may have CHF exacerbation but CXR clear. BNP elevated to 3220. Creatinine 1.4 which is below baseline that may represent mild fluid overload. Echo as noted above. He was treated with IV Lasix with good UOP. Clinically improved. (7) Hyperlipidemia: Qualifiers: Hyperlipidemia type: unspecified Qualified Code(s): E78.5 - Hyperlipidemia, unspecified Code(s): E78.5 - Hyperlipidemia, unspecified Status: Chronic Assessment and Plan: LFTs okay. Continue with atorvastatin. (8) Chronic kidney disease, stage 3: Code(s): N18.3 - Chronic kidney disease, stage 3 (moderate) Status: Chronic Assessment and Plan: Cr1.4 on admission but back up to 1.8 which is closer to his baseline. DS: Summary Time Spent with Patient Time attestation: Total time spent providing and/or coordinating discharge services: Exam Narrative: Exam Narrative: Woody
[2019-12-29 17:53] LABS: Glucose Point of Care 214 (65-105)
== END 2019-12-29 19:05 | DRG 291 ==
LOC: ANHED 18:07 → ANHIMU 12-26 06:49 → ANH3MEDSUR 12-29 15:47 → ANHIMU 01-01 16:49
PROVIDERS: Nurse Practitioner; Admitting Provider Family Medicine; Emergency Provider Emergency Medicine; PCP Family Medicine; Visit Provider Internal Medicine
DX: I13.0 Hypertensive heart and chronic kidney disease with heart failure and stage 1 through stage 4 chronic kidney disease, or unspecified chronic kidney disease (principal); I50.33 Acute on chronic diastolic (congestive) heart failure; N17.9 Acute kidney failure, unspecified; E11.22 Type 2 diabetes mellitus with diabetic chronic kidney disease; N18.3 Chronic kidney disease, stage 3 (moderate); E11.621 Type 2 diabetes mellitus with foot ulcer; L97.511 Non-pressure chronic ulcer of other part of right foot limited to breakdown of skin; E11.51 Type 2 diabetes mellitus with diabetic peripheral angiopathy without gangrene; E11.36 Type 2 diabetes mellitus with diabetic cataract; H26.9 Unspecified cataract; F03.90 Unspecified dementia, unspecified severity, without behavioral disturbance, psychotic disturbance, mood disturbance, and anxiety; Z11.59 Encounter for screening for other viral diseases; R53.1 Weakness; E86.0 Dehydration; E87.6 Hypokalemia; E83.42 Hypomagnesemia; R21 Rash and other nonspecific skin eruption; Z66 Do not resuscitate; I25.10 Atherosclerotic heart disease of native coronary artery without angina pectoris; E78.5 Hyperlipidemia, unspecified; Z79.4 Long term (current) use of insulin; Z86.73 Personal history of transient ischemic attack (TIA), and cerebral infarction without residual deficits; Z87.891 Personal history of nicotine dependence; Z89.422 Acquired absence of other left toe(s); Z91.14 Patient's other noncompliance with medication regimen; Z91.81 History of falling
CPT/HCPCS: 36415; 51701; 70450; 71045; 80048; 80053; 80307; 81001; 82550; 82607; 82746; 83036; 83605; 83735; 83880; 84443; 84484; 85025; 85027; 85055; 85610; 86140; 87040; 87635; 93005; 93306; 96365; 96366; 96375; 97110; 97116; 97161; 97165; 97530; 97535; 99285; A9270; C9803; J1815; J1940; J3475; U0003

== ENCOUNTER 2020-02-04 18:02 | Inpatient (IN) | payer MEDICARE, SELFPAY ==
--- NOTE | ~2020-02-04 | CT_ITS ---
EXAMINATION: CT brain wo con EXAM DATE: 02/04/2020 20:02 INDICATION: Transient alteration of awareness. Weakness, vomiting. Confusion. TECHNIQUE: Spiral CT of the head was performed without contrast. Axial, coronal and sagittal images were reviewed. The dose-length product (DLP) for this examination was 605.33 mGy-cm. The exposure w as tailored according to patient size, and iterative reconstruction (ASIR) was used as additional dos e reduction technique. Comparison is made to prior examination from 12/25/2019. FINDINGS: Small old right frontal lobe and right parietal lobe cortical infarctions. There is no acut e intraparenchymal hemorrhage. No evidence of intraparenchymal brain mass lesion. No evidence of ac [place] infarction. Please note that initial head CT has limited sensitivity for small or acute infarcti ons. Punctate old right caudate head lacunar infarction. There is mild to moderate periventricular and subcortical hypodensity, nonspecific but probably related to small vessel ischemic disease. The re is mild to moderate prominence of the sulci and ventricles related to cerebral atrophy. There is intracranial carotid arteriosclerosis. There are no extra-axial collections. There is no mass effe ct or midline shift. Patient has had bilateral ocular lens surgery. Soft tissue is unremarkable. T he visualized sinuses and mastoid air cells are well aerated. There is no interval change. IMPRESSION: 1. No acute intracranial findings. 2. Chronic age related findings. 3. Old small right-sided infarctions. Reviewed, dictated and finalized at location A.
--- NOTE | ~2020-02-04 | US_ITS ---
EXAMINATION: US venous doppler LE RT DATE: 02/05/2020 10:45 INDICATION: Right lower limb swelling and cellulitis TECHNIQUE: Lozano scale images without and with compression and Doppler images of the right lower extre mity veins were obtained. COMPARISON: None FINDINGS: The right common femoral vein, profunda femoral vein, femoral vein, popliteal vein, peronea l trunk, posterior tibial veins, and greater saphenous vein are patent. IMPRESSION: 1. Patent right lower extremity veins. No evidence of deep venous thrombosis. Reviewed, dictated and finalized at location A.
[2020-02-04 18:07] VITALS: BP 179/89; PULSE 103; RESP 20; TEMP 37.3; O2SAT 94
--- NOTE | 2020-02-04 18:12 | ECG_ITS ---
Measurements Intervals [place] Rate: 100 P: 186 [place]: 85 QRS: 30 QRSD: 87 T: 64 QT: 415 QTc: 535 Interpretive Statements SINUS RHYTHM ATRIAL COUPLET AND SUPRAVENTRICULAR TRIGEMINY BORDERLINE ST ABNORMALITY- ANTEROLATERAL LEADS ABNORMAL ECG Electronically Signed On 02-04-2020 19:23:07 CDT by Duncan Walsh D.O.
[2020-02-04 18:37] LABS: Hematocrit 42.6 % (42.0-52.0); Hemoglobin 15.2 g/dL (14.0-18.0); Immature Platelet Fraction Pct 5.9 % (0.9-11.2); Mean Corpuscular HGB Conc 35.7 g/dl (32-36); Mean Corpuscular Hemoglobin 31.7 pg (26-34); Mean Corpuscular Volume 88.9 fl (80-100); Platelet Count Result 144 k/mm3 (150-375); Red Blood Count 4.79 M/mm3 (4.6-6.20); Red Cell Distribution Width 13.2 % (11.5-14.5); White Blood Count 14.6 K/mm3 (4.5-10.0)
--- NOTE | 2020-02-04 18:42 | ED.AMS ---
HPI - Altered Mental Status General Chief Complaint: Altered Mental Status Stated Complaint: weakness Time Seen by Provider: 02/04/20 18:31 History of Present Illness HPI narrative: Brought in from home by his son for weakness. His son does not live with him and tells me only that he is very weak, he has diabetes, and this has happened before. He is not able to provide details. The patient denies any complaints, but appears ill and has difficulty staying awake long enough to answer my questions. Related Data Home Medications Medication Instructions Recorded Confirmed atorvastatin 80 mg PO HS 05/17/19 12/25/19 clopidogrel 75 mg PO DAILY 05/17/19 12/25/19 furosemide 20 mg PO DAILY 05/17/19 12/25/19 gabapentin 300 mg PO TID 05/17/19 12/25/19 pantoprazole 40 mg PO BID 05/17/19 12/25/19 Complete Multivitamin 1 tablet PO DAILY 12/25/19 12/25/19 Allergies Allergy/AdvReac Type Severity Reaction Status Date / Time No Known Allergies Allergy Unknown Verified 12/25/19 15:33 Review of Systems Review of Systems: ROS unobtainable: Yes unobtainable due to mental status PMFSH Past Medical History Medical History 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 on the left Anemia Arthritis Cataract Chronic kidney disease, stage 3 Coronary artery disease CVA (cerebral vascular accident) 10-15 years ago, right side weakness Diabetes type 2, controlled GERD (gastroesophageal reflux disease) Hiatal hernia History of angina Hyperlipidemia Hypertension Peripheral arterial disease PVD (peripheral vascular disease) Seasonal allergies Thrombocytopenia Surgical History Surgical History H/O carotid endarterectomy H/O endarterectomy Patient has hx of axillofem bypass requiring endarterectomy in May 2017 History of angioplasty x2 History of appendectomy ?Patient confused but believes he had an appendectomy, he does have a scar on his abdomen that would be consistent with possible open appendectomy. History of cardiac catheterization History of carpal tunnel release Family History Family History Mother Old age Other Unknown family medical history Social History Social History Social History: Patient is a DNR per his knees.. He lives with his niece who is also a diabetic and helps him with some activities of daily living. He is apparently non-compliant with medications and his overall health. They have 2 dogs. The patient does not have durable healthcare power of employment law attorney but delegates either his neice, Shannon, or nephew, William, to be his decision makers. Shannon the niece is at home now and William is a nephew. The patient has no biological children. Smoking packs per day: 1 Smoking cigarettes per day: 20.0 Years smoked: 50 Smoking pack-years: 50.00 Smoking status: Former smoker Tobacco type: cigarettes Smoking end date: 07/04/75 Alcohol intake: never Substance use: never Gender identity (if verbalized by the patient): Male Spiritual care concerns: No Exam Const: General: ill appearing Orientation/consciousness: patient oriented x3 Other: Somnolent HENMT: Mouth: Yes dry mucous membranes Eyes: Pupils: Equal, round and reactive pupils present Resp: Effort & Inspection: normal respiratory effort Auscultation: clear to auscultation bilaterally Cardio: Rate: regular rate Rhythm: abnormal rhythm irregularly irregular GI: GI Palp: Yes Soft to palpation and No Tenderness to palpation present (GI) Skin: General skin exam: normal color Neuro: General: patient oriented x3 and moves all extremities Speech: normal speech Extrem: Other: RLE edema with posterior erythema and tenderness Course Vital Signs Vital signs: Vital Signs Temperature 37.3 C 02/03
[2020-02-04 18:50] LABS: Alanine Aminotransferase 13 U/L (4-50); Albumin Level 4.4 g/dL (3.5-5.1); Alkaline Phosphatase 122 U/L (38-126); Anion Gap 17.5 mmol/L (7-16); Aspartate Amino Transferase 25 U/L (17-59); Blood Urea Nitrogen 27 mg/dL (9-20); Calcium 9.1 mg/dL (8.4-10.2); Carbon Dioxide 21 mmol/L (22-30); Chloride 100 mmol/L (98-107); Estimated Glomerular Filt Rate 41; Glucose 204 mg/dL (75-110); Lactic Acid 1.5 mmol/L (0.7-2.1); Potassium 3.5 mmol/L (3.4-5.0); Sodium 135 mmol/L (137-145)
[2020-02-04] MEDS: SODIUM CHLORIDE 0.9% IV 1,000 ML 999 ML IV CONT (18:51)
[2020-02-04 19:00] LABS: Band Neutrophils Percent 6 % (0-6); Lymphocytes Absolute Manual 0.87 K/mm3 (1.1-4.5); Monocytes Absolute Manual 0.87 K/mm3 (0.1-0.90); Monocytes Percent Manual 6 % (3-9); Neutrophils Absolute Manual 12.84 K/mm3 (1.3-6.7); Neutrophils Percent Manual 82 % (46-73); Nucleated Red Blood Cells 2 %; Total Cells Counted 100
[2020-02-04 19:09] LABS: Glucose Point of Care 194 (65-105)
[2020-02-04 19:17] LABS: Add Urine Microscopic? YES; Appearance Urine Clear (Clear); Bilirubin Urine Negative (Negative); Blood Urine Negative (Negative); Color Urine Yellow (Yellow); Glucose Urine UA 2+ mg/dL (Negative); Ketones Urine 1+ mg/dL (Negative); Leukocyte Esterase Ur Negative LEU/UL (Negative); Nitrate Urine Negative (Negative); Protein Urine 2+ mg/dL (Negative); RBC Urine 0-2 /hpf (0-2); Specific Grav Ur 1.015 (1.001-1.035); Squamous Epithelial Cell Urine Rare /hpf (Few); Urobilinogen Urine Negative mg/dL (<2.0); WBC Urine 0-3 /hpf
[2020-02-04] MEDS: LACTATED RINGERS 1,000 ML 100 ML IV CONT (20:32)
[2020-02-04 20:33] VITALS: BP 142/95; PULSE 94; RESP 20; O2SAT 97
[2020-02-04 21:21] VITALS: BP 168/43; PULSE 85; RESP 20; TEMP 37.1; O2SAT 99
[2020-02-04 21:22] VITALS: BMI 23.6
--- NOTE | 2020-02-04 21:43 | PM.IMHP ---
H&P: HPI History of Present Illness Date/Time: 02/04/20 21:43 Chief complaint: Cellulitis Narrative: This is a pleasant 84 year old Diabetic male who presented to the hospital with a complaint of increased weakness over the past few days. Initially on arrival to the hospital the patient was poorly responsive and very somnolent. He was found to have a red, hot lacy rash on the posterior aspect of his right lower leg wrapping around towards the front. He can't tell me how long he has had this rash for and denies any significant leg pain at this time. On my encounter with him, he is awake and alert. He denies any recent fevers, chills, shortness of breath, chest pain, abdominal pain, nausea, vomiting hematuria, dysuria, diarrhea or rectal bleeding. His cousin who is at bedside tells me that the patient has not taken any of his home medications for at least 1 week now. Routine labs demonstrated leukocytosis of 14,600, an elevated anion gap of 17.5. Brain CT was unremarkable. The patient was treated w/ IV antibiotics and admitted to the hospital for further care. 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 on the left Anemia Arthritis Cataract Chronic kidney disease, stage 3 Coronary artery disease CVA (cerebral vascular accident) 10-15 years ago, right side weakness Diabetes type 2, controlled GERD (gastroesophageal reflux disease) Hiatal hernia History of angina Hyperlipidemia Hypertension Peripheral arterial disease PVD (peripheral vascular disease) Seasonal allergies Thrombocytopenia Surgical History Surgical History H/O carotid endarterectomy H/O endarterectomy Patient has hx of axillofem bypass requiring endarterectomy in May 2017 History of angioplasty x2 History of appendectomy ?Patient confused but believes he had an appendectomy, he does have a scar on his abdomen that would be consistent with possible open appendectomy. History of cardiac catheterization History of carpal tunnel release Family History Family History Mother Old age Diabetes mellitus Sibling Diabetes mellitus Social History Social History Social History: Patient is a DNR per his knees.. He lives with his niece who is also a diabetic and helps him with some activities of daily living. He is apparently non-compliant with medications and his overall health. They have 2 dogs. 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 Shannon the niece is at home now and William is a nephew. The patient has no biological children. Smoking packs per day: 1 Smoking cigarettes per day: 20.0 Years smoked: 40 Smoking pack-years: 40.00 Smoking status: Former smoker Tobacco type: cigarettes Smoking end date: 07/04/75 Alcohol intake: current Drinks per week: 1 Substance use: never Substance use type: does not use Gender identity (if verbalized by the patient): Male Spiritual care concerns: No Meds Home Medications and Allergies Home Medications Medication Instructions Recorded Confirmed Type atorvastatin 80 mg PO HS 05/17/19 02/04/20 History clopidogrel 75 mg PO DAILY 05/17/19 02/04/20 History furosemide 20 mg PO DAILY 05/17/19 02/04/20 History gabapentin 300 mg PO TID 05/17/19 02/04/20 History pantoprazole 40 mg PO BID 05/17/19 02/04/20 History tamsulosin 0.4 mg capsule 0.4 mg PO DAILY #90 cap 07/18/19 02/04/20 Rx Complete Multivitamin 1 tablet PO DAILY 12/25/19 02/04/20 History alogliptin 25 mg tablet 25 mg PO DAILY #30 tablet 12/25/19
[2020-02-04 22:02] LABS: Glucose Point of Care 222 (65-105)
[2020-02-05 06:00] VITALS: BP 158/45; PULSE 78; RESP 18; TEMP 36.8; O2SAT 97
[2020-02-05] MEDS: IMIPENEM/CILASTATIN SODIUM 250 MG in DEXTROSE 5% 100 ML 300 ML IVPB ×3 (06:20→18:56)
[2020-02-05] MEDS: SODIUM CHLORIDE 0.9% IV 1,000 ML 100 ML IV CONT ×2 (06:21→18:02)
[2020-02-05 06:35] LABS: Basophils Percent Auto 0.2 % (0.2-1.2); Eosinophils Percent Auto 0.1 % (0-4.4); Hemoglobin 12.8 g/dL (14.0-18.0); Immature Granulocyte Absolute 0.21 K/mm3 (0.00-0.031); Immature Granulocyte Percent A 1.4 % (0-0.5); Immature Platelet Fraction Pct 7.5 % (0.9-11.2); Lymphocytes Absolute Auto 0.96 K/mm3 (0.9-3.2); Lymphocytes Percent Auto 6.5 % (18.3-44.2); Mean Corpuscular HGB Conc 35.6 g/dl (32-36); Mean Corpuscular Hemoglobin 31.5 pg (26-34); Mean Corpuscular Volume 88.7 fl (80-100); Mean Platelet Volume 11.6 fl (7.4-10.4); Monocytes Absolute Auto 0.4 K/mm3 (0.1-0.6); Monocytes Percent Auto 2.9 % (2.6-8.5); Neutrophils Absolute Auto 13.1 K/mm3 (1.3-6.7); Neutrophils Percent Auto 88.9 % (45.5-73.1); Platelet Count Result 117 k/mm3 (150-375); Red Blood Count 4.06 M/mm3 (4.6-6.20); Red Cell Distribution Width 13.2 % (11.5-14.5); White Blood Count 14.8 K/mm3 (4.5-10.0)
[2020-02-05 07:07] LABS: Anion Gap 11.5 mmol/L (7-16); Blood Urea Nitrogen 22 mg/dL (9-20); Calcium 8.2 mg/dL (8.4-10.2); Carbon Dioxide 24 mmol/L (22-30); Chloride 100 mmol/L (98-107); Estimated CRCL calculation 32 ml/min; Estimated Glomerular Filt Rate 41; Glucose 191 mg/dL (75-110); Potassium 3.5 mmol/L (3.4-5.0); Sodium 132 mmol/L (137-145)
[2020-02-05 07:49] LABS: Glucose Point of Care 191 (65-105)
[2020-02-05 08:00] VITALS: PULSE 72; RESP 18; O2SAT 100
[2020-02-05] MEDS: ENOXAPARIN 40 MG/0.4 ML SYRINGE SUB-Q (08:29)
[2020-02-05 11:52] LABS: Glucose Point of Care 187 (65-105)
[2020-02-05 14:00] VITALS: BP 121/49; PULSE 72; RESP 18; TEMP 36.8; O2SAT 100
[2020-02-05 16:39] LABS: Glucose Point of Care 234 (65-105)
--- NOTE | 2020-02-05 17:22 | PM.IMPN ---
Progress Note: A&P Assessment and Plan (1) Cellulitis of right leg: Code(s): L03.115 - Cellulitis of right lower limb Status: Acute Assessment and Plan: 02/05/20 17:22 Patient was brought to the emergency department by his son patient had been quite somnolent, tired fatigue had not been taking his medication patient is found to cellulitis of right lower extremity is started on imipenem and vancomycinfrom emergency depart, patient is still somewhat confused and unable to provide detailed review of symptom or history, patient does not have lactic acid white counts mildly elevated, patient does not have fever, unlikely patient has a septic (2) Sepsis: Code(s): A41.9 - Sepsis, unspecified organism Status: Acute Assessment and Plan: patient does not have sepsis (3) Hyperlipidemia: Qualifiers: Hyperlipidemia type: unspecified Qualified Code(s): E78.5 - Hyperlipidemia, unspecified Code(s): E78.5 - Hyperlipidemia, unspecified Status: Chronic Assessment and Plan: will continue home regimen and (4) Hypertension: Qualifiers: Hypertension type: essential hypertension Qualified Code(s): I10 - Essential (primary) hypertension Code(s): I10 - Essential (primary) hypertension Status: Acute Assessment and Plan: continue regimen and monitor (5) Chronic kidney disease, stage 3: Code(s): N18.3 - Chronic kidney disease, stage 3 (moderate) Status: Chronic Assessment and Plan: patient creatinine his at baseline will continue to gently hydrate the patient monitor kidney function (6) Diabetes mellitus with peripheral vascular disease: Code(s): E11.51 - 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 Subjective Date/time seen: 02/05/20 17:22 Patient was brought to the emergency department by his son patient had been quite somnolent, tired fatigue had not been taking his medication patient is found to cellulitis of right lower extremity is started on imipenem and vancomycinfrom emergency depart, patient is still somewhat confused and unable to provide detailed review of symptom or history, patient does not have lactic acid white counts mildly elevated, patient does not have fever, unlikely patient has a septic Review of Systems Review of Systems: ROS unobtainable: Yes unobtainable due to medical condition Exam Narrative: Exam Narrative: elderly frail Const: General: no acute distress and uncomfortable HENMT: General nose exam: Normal nares present Eyes: Sclera: sclerae normal Neck: Neck: supple Resp: Effort & Inspection: normal respiratory effort Auscultation: clear to auscultation bilaterally Cardio: Rate: regular rate Rhythm: regular rhythm GI: Auscultation: normal bowel sounds Skin: Other: had lower extremity erythmatous macules, no induration or drainage Neuro: Other: patient is quite somber Extrem: General: normal to inspection Psych: Other: patient is quite somnolent Objective Data Vital Signs Vital Signs: Vital Signs - 24 hr 02/04/20 18:07 02/04/20 20:33 02/04/20 21:21 Temperature 99.2 F 98.8 F Pulse Rate 103 H 94 85 Respiratory Rate 20 20 20 Blood Pressure 179/89 H 142/95 H 168/43 H Pulse Oximetry 94 97 99 02/05/20 06:00 02/05/20 08:00 02/05/20 14:00 Temperature 98.2 F 98.2 F Pulse Rate 78 72 72 Respiratory Rate 18 18 18 Blood Pressure 158/45 H 121/49 L Pulse Oximetry 97 100 100 Intake/Output Intake/Output: Intake & Output 02/02/20 02/03/20 02/04/20 02/05/20 23:59 23:59 23:59 23:59 Intake Total 1100 2600 Output Total 800 Balance 1100 1800 Meds/Results Medications: Active Medications Generic Name Dose Route Start Last Admin Trade Name Freq PRN Reason Stop Dose Admin Acetaminophen 650 mg 02/04/20 21:51 Tyl
[2020-02-05] MEDS: INSULIN ASPART (*BKC) 100 UNITS/ML SUB-Q (18:04)
[2020-02-05 20:40] VITALS: BP 126/54; PULSE 65; RESP 14; TEMP 36.8; O2SAT 98
[2020-02-05 20:54] LABS: Glucose Point of Care 215 (65-105)
[2020-02-06] MEDS: IMIPENEM/CILASTATIN SODIUM 250 MG in DEXTROSE 5% 100 ML 300 ML IVPB ×3 (00:39→18:07)
--- NOTE | 2020-02-06 00:40 | PC.NURSE ---
Imipenem would not scan for dose due at 0000. Called down to pharmacy and was able to get antibiotic with new labels sent up to properly scan.
[2020-02-06] MEDS: SODIUM CHLORIDE 0.9% IV 1,000 ML 100 ML IV CONT ×2 (04:11→16:22)
[2020-02-06 05:14] VITALS: BP 155/56; PULSE 63; RESP 12; TEMP 36.1; O2SAT 100
[2020-02-06 06:09] LABS: Hematocrit 31.7 % (42.0-52.0); Mean Corpuscular HGB Conc 34.7 g/dl (32-36); Mean Corpuscular Hemoglobin 30.9 pg (26-34); Mean Platelet Volume 12.3 fl (7.4-10.4); Platelet Count Result 103 k/mm3 (150-375); Red Blood Count 3.56 M/mm3 (4.6-6.20); Red Cell Distribution Width 13.3 % (11.5-14.5); White Blood Count 7.7 K/mm3 (4.5-10.0)
[2020-02-06 06:33] LABS: Anion Gap 10.4 mmol/L (7-16); Blood Urea Nitrogen 26 mg/dL (9-20); Calcium 7.8 mg/dL (8.4-10.2); Carbon Dioxide 22 mmol/L (22-30); Chloride 104 mmol/L (98-107); Estimated CRCL calculation 34 ml/min; Estimated Glomerular Filt Rate 45; Glucose 167 mg/dL (75-110); Potassium 3.4 mmol/L (3.4-5.0); Sodium 133 mmol/L (137-145)
[2020-02-06 08:06] LABS: Glucose Point of Care 175 (65-105)
[2020-02-06] MEDS: ENOXAPARIN 40 MG/0.4 ML SYRINGE SUB-Q (08:30)
--- NOTE | 2020-02-06 09:23 | PC.NURSE ---
Re: glasses Patient stated he thought he had glasses with him upon admission. Glasses were not identified on belongings list; room was searched by CAR DISTRIBUTOR with no glasses found. Admitting CAR DISTRIBUTOR was contacted and states that this patient did NOT have glasses at time of admission.
--- NOTE | 2020-02-06 09:58 | WPDCDIQUERY2 ---
CDI Query Clarification Request - Per EDP on arrival, pt with chief complaint of altered mental status, somnolent, has difficulty staying awake long enough to answer my questions documented. - Metabolic encephalopathy documented by EDP - Initially on arrival to the hospital the patient was poorly responsive and very somnolent - you have documented, patient is still somewhat confused and unable to provide detailed review of symptom or history Please clarify if metabolic encephalopathy was ruled in or ruled out. <Shannon Calderón RN - Last Filed: 02/06/20 10:08>
[2020-02-06 11:52] LABS: Glucose Point of Care 293 (65-105)
[2020-02-06] MEDS: INSULIN ASPART (*BKC) 100 UNITS/ML SUB-Q ×2 (11:52→17:00)
[2020-02-06] MEDS: IMIPENEM/CILASTATIN SODIUM 250 MG in DEXTROSE 5% 100 ML IVPB (11:52)
[2020-02-06 14:00] VITALS: BP 165/60; PULSE 53; RESP 16; TEMP 36.7; O2SAT 100
[2020-02-06 14:25] LABS: SARS-CoV-2 RNA PCR Negative
[2020-02-06 16:52] LABS: Glucose Point of Care 210 (65-105)
--- NOTE | 2020-02-06 17:14 | PM.IMPN ---
Progress Note: A&P Assessment and Plan (1) Cellulitis of right leg: Code(s): L03.115 - Cellulitis of right lower limb Status: Acute Assessment and Plan: 02/05/20 17:22 Patient was brought to the emergency department by his son patient had been quite somnolent, tired fatigue had not been taking his medication patient is found to cellulitis of right lower extremity is started on imipenem and vancomycinfrom emergency depart, patient is still somewhat confused and unable to provide detailed review of symptom or history, patient does not have lactic acid white counts mildly elevated, patient does not have fever, unlikely patient has a septic (2) Sepsis: Code(s): A41.9 - Sepsis, unspecified organism Status: Acute Assessment and Plan: patient does not have sepsis (3) Hyperlipidemia: Qualifiers: Hyperlipidemia type: unspecified Qualified Code(s): E78.5 - Hyperlipidemia, unspecified Code(s): E78.5 - Hyperlipidemia, unspecified Status: Chronic Assessment and Plan: will continue home regimen and (4) Hypertension: Qualifiers: Hypertension type: essential hypertension Qualified Code(s): I10 - Essential (primary) hypertension Code(s): I10 - Essential (primary) hypertension Status: Acute Assessment and Plan: continue regimen and monitor (5) Chronic kidney disease, stage 3: Code(s): N18.3 - Chronic kidney disease, stage 3 (moderate) Status: Chronic Assessment and Plan: patient creatinine his at baseline will continue to gently hydrate the patient monitor kidney function (6) Diabetes mellitus with peripheral vascular disease: Code(s): E11.51 - 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 (7) Encephalopathy, metabolic: Code(s): G93.41 - Metabolic encephalopathy Status: Acute Assessment and Plan: upon arrival to emergency depart patient was quite somnolent was not able to provide any history or review of symptom this was transient as patient CT scan of the head did not show any inflammation or acute injury, patient denies any fever or lactic acid, unlikely patient had metabolic encephalopathy most likely stress related patient's symptoms are now stable Subjective Date/time seen: 02/06/20 17:14 Patient was brought to the emergency department by his son patient had been quite somnolent, tired fatigue had not been taking his medication patient is found to cellulitis of right lower extremity is started on imipenem and vancomycinfrom emergency depart, patient is still somewhat confused and unable to provide detailed review of symptom or history, patient does not have lactic acid white counts mildly elevated, patient does not have fever, unlikely patient has a septic, today patient is clinically stable little more alert, lower extremity Doppler was negative for DVT and patient's cellulitis is improving will discharge the patient to correction tomorrow. Review of Systems Review of Systems: All systems reviewed & are unremarkable except as noted in HPI and below Exam Narrative: Exam Narrative: elderly frail Const: General: comfortable and no acute distress HENMT: General nose exam: Normal nares present Mouth: Yes moist mucous membranes Eyes: General: appearance normal, both eyes and all related structures Sclera: sclerae normal Neck: Neck: supple Resp: Effort & Inspection: normal respiratory effort Auscultation: clear to auscultation bilaterally Cardio: Rate: regular rate Rhythm: regular rhythm GI: Auscultation: normal bowel sounds Skin: Other: right lower extremity hyperemic Neuro: Sensory Exam: normal sensation Extrem: General: normal to inspection Psych: Affect: Anxious affect present Objective Data Vital Signs Vital Signs: Vital Signs - 2
[2020-02-06 21:18] VITALS: BP 151/82; PULSE 57; RESP 16; TEMP 36.2; O2SAT 100
[2020-02-06 21:26] LABS: Glucose Point of Care 199 (65-105)
--- NOTE | 2020-02-06 21:28 | PC.NURSE ---
Patient continues to get up without using call light to set off the bed alarm; despite many attempts to inform him of the importance of using the call light to help prevent falls.
--- NOTE | 2020-02-07 00:15 | PC.NURSE ---
Pt removed IV himself earlier this evening. After attempts from me and the charge nurse, Ambar, the pt became very uncooperative. We decided that we would speak with CAIT Tate and were given orders to discontinue the IV Imipenem and Normal Saline that was running. Pt is scheduled for discharge to [facility] today. Meds have been discontinued in the SEP, per CAIT Tate.
[2020-02-07 04:30] VITALS: BP 139/50; PULSE 74; RESP 14; TEMP 36.1; O2SAT 100
[2020-02-07 05:45] LABS: Hematocrit 31.3 % (42.0-52.0); Hemoglobin 11.1 g/dL (14.0-18.0); Mean Corpuscular HGB Conc 35.5 g/dl (32-36); Mean Corpuscular Hemoglobin 31.5 pg (26-34); Mean Corpuscular Volume 88.9 fl (80-100); Platelet Count Result 107 k/mm3 (150-375); Red Blood Count 3.52 M/mm3 (4.6-6.20); Red Cell Distribution Width 13.4 % (11.5-14.5); White Blood Count 8.3 K/mm3 (4.5-10.0)
[2020-02-07 05:58] LABS: Anion Gap 7.3 mmol/L (7-16); Blood Urea Nitrogen 24 mg/dL (9-20); Calcium 7.9 mg/dL (8.4-10.2); Carbon Dioxide 24 mmol/L (22-30); Chloride 103 mmol/L (98-107); Estimated CRCL calculation 39 ml/min; Estimated Glomerular Filt Rate 53; Glucose 181 mg/dL (75-110); Potassium 3.3 mmol/L (3.4-5.0); Sodium 131 mmol/L (137-145)
[2020-02-07 07:53] LABS: Glucose Point of Care 185 (65-105)
[2020-02-07] MEDS: ENOXAPARIN 40 MG/0.4 ML SYRINGE SUB-Q (08:10)
[2020-02-07] MEDS: POTASSIUM CHLORIDE 20 MEQ TABLET 40 MEQ PO (09:46)
--- NOTE | 2020-02-07 10:33 | PM.DS ---
DS: Admitting Diagnosis Admitting Diagnosis Admitting Diagnosis: Cellulitis of right lower limb DS: Discharge Diagnosis Discharge Diagnosis (1) Cellulitis of right leg: Code(s): L03.115 - Cellulitis of right lower limb Status: Acute Assessment and Plan: Continue IV antibiotics, blood cultures pending. LIght IV hydration overnight. delineate area of cellulitis w/ Sharpie marker. (2) Sepsis: Code(s): A41.9 - Sepsis, unspecified organism Status: Acute Assessment and Plan: source of sepsis appears to be skin. Continue IV antibiotics. Blood cultures pending. Monitor acid-base status. Monitor vital signs and urine output. (3) Hyperlipidemia: Qualifiers: Hyperlipidemia type: unspecified Qualified Code(s): E78.5 - Hyperlipidemia, unspecified Code(s): E78.5 - Hyperlipidemia, unspecified Status: Chronic Assessment and Plan: Continue atorvastatin. (4) Hypertension: Qualifiers: Hypertension type: essential hypertension Qualified Code(s): I10 - Essential (primary) hypertension Code(s): I10 - Essential (primary) hypertension Status: Acute Assessment and Plan: Monitor blood pressure. Continue lasix. (5) Chronic kidney disease, stage 3: Code(s): N18.3 - Chronic kidney disease, stage 3 (moderate) Status: Chronic Assessment and Plan: Monitor renal function. Avoid nephrotoxic agents. (6) Diabetes mellitus with peripheral vascular disease: Code(s): E11.51 - Type 2 diabetes mellitus with diabetic peripheral angiopathy without gangrene Status: Chronic Assessment and Plan: Accuchecks, SSI Coverage, hypoglycemic protocol. DS: Summary Hospital Course Reason for hospitalization: Narrative: This is a pleasant 84 year old Diabetic male who presented to the hospital with a complaint of increased weakness over the past few days. Initially on arrival to the hospital the patient was poorly responsive and very somnolent. He was found to have a red, hot lacy rash on the posterior aspect of his right lower leg wrapping around towards the front. He can't tell me how long he has had this rash for and denies any significant leg pain at this time. On my encounter with him, he is awake and alert. He denies any recent fevers, chills, shortness of breath, chest pain, abdominal pain, nausea, vomiting hematuria, dysuria, diarrhea or rectal bleeding. His cousin who is at bedside tells me that the patient has not taken any of his home medications for at least 1 week now. Routine labs demonstrated leukocytosis of 14,600, an elevated anion gap of 17.5. Brain CT was unremarkable. The patient was treated w/ IV antibiotics and admitted to the hospital for further care. Hospital Course: Patient was brought to the emergency department by his son patient had been quite somnolent, tired fatigue had not been taking his medication patient is found to cellulitis of right lower extremity is started on imipenem and vancomycinfrom emergency depart, patient is still somewhat confused and unable to provide detailed review of symptom or history, patient does not have lactic acid white counts mildly elevated, patient does not have fever, unlikely patient has a septic, patient clinical symptoms are improving, and he is stable, will discharge patient to [facility] today. Status at Discharge Functional status at discharge: uses cane/walker Overall status at discharge: patient is back to baseline Time Spent with Patient Time attestation: Total time spent providing and/or coordinating discharge services:Patient was seen and examined at the time of the discharge Condition at discharge is stable Code status: Full code. Time spent preparing discharge summary, discharge medications, discussing discharge planning with case packer and sealer and patient is 35 minutes. Time spent: Greater than 30 minutes Exam Const: General: comfortable and no acute distre
[2020-02-07 11:49] LABS: Glucose Point of Care 219 (65-105)
[2020-02-07] MEDS: INSULIN ASPART (*BKC) 100 UNITS/ML SUB-Q (11:49)
== END 2020-02-07 12:57 | DRG 603 ==
LOC: ANHED 20:28 → ANH3MED 22:23
PROVIDERS: Emergency Medicine; Admitting Provider Family Medicine; Emergency Provider Emergency Medicine; PCP Family Medicine; Visit Provider Family Medicine
DX: L03.115 Cellulitis of right lower limb; Z20.828 Contact with and (suspected) exposure to other viral communicable diseases; E11.51 Type 2 diabetes mellitus with diabetic peripheral angiopathy without gangrene; E11.22 Type 2 diabetes mellitus with diabetic chronic kidney disease; I12.9 Hypertensive chronic kidney disease with stage 1 through stage 4 chronic kidney disease, or unspecified chronic kidney disease; N18.3 Chronic kidney disease, stage 3 (moderate); I25.10 Atherosclerotic heart disease of native coronary artery without angina pectoris; E78.5 Hyperlipidemia, unspecified; Z66 Do not resuscitate; Z79.899 Other long term (current) drug therapy; Z86.73 Personal history of transient ischemic attack (TIA), and cerebral infarction without residual deficits; Z91.14 Patient's other noncompliance with medication regimen
CPT/HCPCS: 36415; 70450; 80048; 80053; 81001; 82948; 83605; 85025; 85027; 85055; 87040; 87635; 93005; 93971; 96360; 97161; 97165; 97530; 97535; 99285; A9270; C9803; J0743; J1650; J1815; J3370; J7030; J7120; U0003

== ENCOUNTER 2020-06-04 09:24 | Inpatient (IN) | payer MEDICARE, SELFPAY ==
[2020-06-04] VITALS (8 sets, daily range): BP systolic 136–187; BP diastolic 56–88; PULSE 67–108; RESP 16–21; TEMP 36.7–37.1; O2SAT 99–100; BMI 23.2
--- NOTE | ~2020-06-04 | US_ITS ---
US arterial ankle brachial ind INDICATION: Right lateral foot wound. Partial amputation of the right first toe. TECHNIQUE: Segmental pressures and plethysmographic and Doppler waveforms of the brachial and lower e xtremity arteries were obtained. COMPARISON: Right foot series dated 06/05/2020. FINDINGS: Right and left brachial artery pressures of 125 mm Hg and 139 mm Hg, respectively, are concordant (no rmal difference <= 30 mmHg). The right ankle-brachial index (NINA) is 0.3 (normal >= 0.9-1.0). The right great toe-brachial index i s not calculated due to partial amputation. The left NINA is 0.9. The left TBI is 0.75. IMPRESSION: 1. Significantly decreased right ankle brachial index consistent with severe peripheral arterial dise ase. 2: Normal left ankle brachial index. Reviewed, dictated and finalized at location B. ICAL DOCUMENT IMPROVEMENT EDUCATOR IMPRESSION: 1. Significantly decreased right ankle brachial index consistent with severe pe ripheral arterial disease. 2: Normal left ankle brachial index.
--- NOTE | ~2020-06-04 | MR_ITS ---
EXAMINATION: MR foot RT wo con DATE: 06/06/2020 12:28 INDICATION: Right foot osteoarthritis. TECHNIQUE: Magnetic resonance imaging (MRI) of the right foot was performed without intravenous contr ast. Sequences included sagittal STIR FSE and T1-weighted FSE and short-axis and long-axis T1-weighte d FSE and T2-weighted FS FSE. COMPARISON: Right foot radiographs 06/05/2020 FINDINGS: There is dorsal dislocation of second distal phalanx with respect to the middle phalanx. Th ere is amputation at first interphalangeal joint. No fracture. There is increased T2-weighted signal intensity in the medullary space of diaphysis and base of third metatarsal. There is mild osteoarthri tis of medial naviculocuneiform joint with subchondral cyst in medial cuneiform. Lisfranc ligament is intact. The flexor and extensor tendons are unremarkable. There is severe fatty atrophy and increase d T2-weighted signal intensity involving much of the musculature, likely subacute on chronic denervat ion. There is subcutaneous edema in the forefoot, greatest dorsally. IMPRESSION: 1. No evidence of osteomyelitis. 2. Dislocation of second distal interphalangeal joint. 3. Increased T2-weighted signal intensity in the medullary space of diaphysis and base of third metat arsal, which may be an intraosseous ganglion or stress reaction. Reviewed, dictated and finalized at location A. ER STACKER IMPRESSION: 1. No evidence of osteomyelitis. 2. Dislocation of second distal interphalangeal joint. 3. Increased T2-weighted signal intensity in the medullary space of diaphysis a nd base of third metatarsal, which may be an intraosseous ganglion or stress re action.
--- NOTE | ~2020-06-04 | XR_ITS ---
XR chest 1V 06/04/2020 10:29 Indication: Dyspnea. Wheezing. Procedure: AP view of the chest Comparison: 12/25/2019 Findings: Borderline heart size. No focal air space disease, pulmonary edema, pleural effusion or brad pected pneumothorax. There are degenerative changes of the shoulders. Stable cardiomediastinal silhou ette. There are spinal fusion changes of the cervical spine, partially visualized. There is atheroscl erosis of the aorta. Impression: 1: No acute cardiopulmonary disease. Reviewed, dictated and finalized at location B. CTOR OF TESTING Impression: 1: No acute cardiopulmonary disease.
--- NOTE | ~2020-06-04 | US_ITS ---
EXAMINATION: US arterial duplex LE RT DATE: 06/05/2020 17:54 INDICATION: Severely diminished right ankle-brachial index with nonpalpable right pedal pulses. TECHNIQUE: Multiple grayscale and Doppler ultrasound images of the arteries of the right lower limb w ere obtained. COMPARISON: None FINDINGS: There are monophasic arterial waveforms with delayed upstrokes throughout the arteries of the right l ower limb. Velocities in centimeter per second are 35 at the right common femoral artery, 57 at the p rofunda femoral artery, 39 at the proximal, 46 at the mid and 182 at the distal right femoral artery, 39 at the right popliteal artery, 37 at the right posterior tibial artery and 30 at the right anteri or tibial artery. The acceleration at the distal right femoral artery suggests a hemodynamically sign ificant stenosis at this location. There is an occluded right axillary to femoral bypass graft with n o flow evident on color Doppler from its origin through its distal anastomosis. IMPRESSION: 1. Monophasic waveforms with delayed upstrokes throughout the arteries of the right lower limb sugges ting a significant more proximal stenosis likely for treatment of which there is a right axillary to femoral bypass graft. There is however complete occlusion of the bypass graft. 2. Likely high-grade stenosis in the distal right femoral artery where there is a significant flow ac celeration with peak systolic velocities increasing from 46 to 182 cm/s. Reviewed, dictated and finalized at location A. RTRAIN ENGINEER IMPRESSION: 1. Monophasic waveforms with delayed upstrokes throughout the arteries of the r ight lower limb suggesting a significant more proximal stenosis likely for fallon tment of which there is a right axillary to femoral bypass graft. There is bryson mike complete occlusion of the bypass graft. 2. Likely high-grade stenosis in the distal right femoral artery where there is a significant flow acceleration with peak systolic velocities increasing from 46 to 182 cm/s.
--- NOTE | ~2020-06-04 | XR_ITS ---
EXAMINATION: XR knee RT 3V DATE: 06/07/2020 16:29 INDICATION: Right knee erythema TECHNIQUE: Anteroposterior, oblique and crosstable lateral views of the right knee were obtained COMPARISON: None. FINDINGS: Alignment is normal. No fracture. Joint spaces appear normal on nonweightbearing imaging. No joint e ffusion/layering lipohemarthrosis. Enthesophytes along the anterior margin of the patella and at the anterior tibial tuberosity. Atherosclerotic calcifications posteriorly at the tibial fossa, distal th igh and proximal calf. No soft tissue gas or radiopaque foreign bodies. IMPRESSION: 1. No right knee joint effusion or acute osseous abnormality. Reviewed, dictated and finalized at location A. ETOLOGY TEACHER
--- NOTE | ~2020-06-04 | US_ITS ---
EXAMINATION: US venous doppler LE RT EXAM DATE: 06/04/2020 10:21 INDICATION: Right leg swelling. TECHNIQUE: Multiple grayscale, color flow and Doppler images of the right lower extremity deep venous system were obtained and reviewed. Comparison is made to prior examination from 02/05/2020. FINDINGS: The right common femoral, femoral and profunda veins demonstrate normal color flow, respira tory variation, augmentation and compressibility. Compressibility, color flow confirmed within the r ight popliteal, posterior tibial, and greater saphenous veins. IMPRESSION: 1. No right lower extremity deep venous thrombosis. Reviewed, dictated and finalized at location A. UNTS EXECUTIVE
--- NOTE | ~2020-06-04 | CT_ITS ---
EXAMINATION: CT brain wo con DATE: 06/04/2020 10:25 INDICATION: Altered mental status. TECHNIQUE: Computed tomography (CT) of the head was performed without intravenous contrast. The mA wa s adjusted according to patient size. Iterative reconstruction technique was employed. The dose-lengt h product was 605.33 mGy-cm. COMPARISON: Head CT 02/04/2020 FINDINGS: There is an old infarct involving right parietal lobe and posterior right frontal lobe. The re is an old infarct in right caudate nucleus. There is no intracranial hemorrhage, acute infarction, or abnormal intracranial mass lesion. There are scattered areas of low attenuation in the cerebral w chance matter. The ventricles are normal in size. There are likely changes of ocular lens replacement s urgeries. There is mild mucosal thickening in the ethmoid sinuses. There is a trace right mastoid eff usion. IMPRESSION: 1. 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 2. Stable moderate nonspecific cerebral white matter disease, which likely represents chronic small v essel ischemic disease. Reviewed, dictated and finalized at location A. KER UNIT ASSEMBLER IMPRESSION: 1. Old infarcts involving the right frontal and parietal lobes and right caudat e nucleus. 2. Stable moderate nonspecific cerebral white matter disease, which likely repr esents chronic small vessel ischemic disease.
--- NOTE | ~2020-06-04 | XR_ITS ---
EXAMINATION: XR foot RT min 3V DATE: 06/05/2020 14:52 INDICATION: Nonpalpable right pedal pulses. TECHNIQUE: 4 views of right foot were obtained. COMPARISON: None. FINDINGS: There is dorsiflexion of the metatarsophalangeal joints. 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 There is dorsal dislocation of second distal phalanx with respect to the middle phalanx. Osteopenia is noted. There is mild osteoarthritis of talonavicular joint. There are enthesophytes at the posterior and plantar aspects of calcaneal tuberosity. IMPRESSION: 1. Dislocation of second distal interphalangeal joint. Reviewed, dictated and finalized at location A. IST HELPER
--- NOTE | 2020-06-04 09:43 | ED.GENADULT ---
HPI - General Adult General Chief complaint: Weakness Stated complaint: AMS Source: RN notes reviewed History of Present Illness HPI narrative: Patient presents emergency department from home via EMS for weakness. Patient's has a home health nurse who comes and also helps periodically with the patient she had placed the patient in his recliner yesterday morning at 10 AM and came today and had found the patient still sitting in the recliner and had not gotten up in the past 24 hours. Patient states he has had some increased weakness he denies any current pain denies any fevers or chills chest pain shortness of breath abdominal pain or any other symptoms Related Data Home Medications Medication Instructions Recorded Confirmed atorvastatin 80 mg PO HS 05/17/19 02/04/20 clopidogrel 75 mg PO DAILY 05/17/19 02/04/20 furosemide 20 mg PO DAILY 05/17/19 02/04/20 gabapentin 300 mg PO TID 05/17/19 02/04/20 pantoprazole 40 mg PO BID 05/17/19 02/04/20 Complete Multivitamin 1 tablet PO DAILY 12/25/19 02/04/20 insulin aspart U-100 [Novolog unit SUBCUT 06/04/20 Flexpen U-100 Insulin] Allergies Allergy/AdvReac Type Severity Reaction Status Date / Time No Known Allergies Allergy Unknown Verified 06/04/20 09:51 Review of Systems Review of Systems: Narrative: Gen.: Denies fevers or chills ENT: Denies congestion Respiratory: Denies shortness of breath or cough CV: Denies chest pain or palpitations GI: Denies abdominal pain nausea, emesis or diarrhea denies burning, urgency, frequency or hematuria Musculoskeletal: Denies back pain or muscle pain Neuro: Denies numbness, tingling, reports weakness Skin: Denies rash Except as documented, all other systems reviewed and negative FOR[facility]LY [facility] Past Medical History Medical History (Updated 06/04/20 @ 12:09 by Jose D Balbuena DO) 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 on the left Anemia Arthritis Cataract Chronic kidney disease, stage 3 Coronary artery disease CVA (cerebral vascular accident) 10-15 years ago, right side weakness Diabetes type 2, controlled GERD (gastroesophageal reflux disease) Hiatal hernia History of angina Hyperlipidemia Hypertension Peripheral arterial disease PVD (peripheral vascular disease) Seasonal allergies Thrombocytopenia Surgical History Surgical History H/O carotid endarterectomy H/O endarterectomy Patient has hx of axillofem bypass requiring endarterectomy in May 2017 History of angioplasty x2 History of appendectomy ?Patient confused but believes he had an appendectomy, he does have a scar on his abdomen that would be consistent with possible open appendectomy. History of cardiac catheterization History of carpal tunnel release Family History Family History Mother Old age Diabetes mellitus Sibling Diabetes mellitus Social History Social History Social History: Patient is a DNR per his knees.. He lives with his niece who is also a diabetic and helps him with some activities of daily living. He is apparently non-compliant with medications and his overall health. They have 2 dogs. The patient does not have durable healthcare power of trust and estates attorney but delegates either his neice, Shannon, or nephew, William, to be his decision makers. Shannon the niece is at home now and William is a nephew. The patient has no biological children. Smoking packs per day: 1 Smoking cigarettes per day: 20.0 Years smoked: 40 Smoking pack-years: 40.00 Smoking status: Former smoker Tobacco type: cigarettes Smoking end date: 07/04/75 Alcohol intake: current Drinks per week: 1 Substance use: never Substance use type: does not use Gender identity (if verbalized by the patient): Male Spiritual care concerns: No Exam Narrative: Exam Narrative: APPE
[2020-06-04 10:55] LABS: Basophils Percent Auto 0.2 % (0.2-1.2); Hemoglobin 15.6 g/dL (14.0-18.0); Immature Granulocyte Absolute 0.15 K/mm3 (0.00-0.031); Immature Granulocyte Percent A 1.1 % (0-0.5); Immature Platelet Fraction Pct 8.3 % (0.9-11.2); Lymphocytes Absolute Auto 1.33 K/mm3 (0.9-3.2); Lymphocytes Percent Auto 9.6 % (18.3-44.2); Mean Corpuscular HGB Conc 35.5 g/dl (32-36); Mean Corpuscular Hemoglobin 31.8 pg (26-34); Mean Corpuscular Volume 89.8 fl (80-100); Mean Platelet Volume 11.3 fl (7.4-10.4); Monocytes Absolute Auto 0.6 K/mm3 (0.1-0.6); Monocytes Percent Auto 4.1 % (2.6-8.5); Neutrophils Absolute Auto 11.7 K/mm3 (1.3-6.7); Platelet Count Result 155 k/mm3 (150-375); White Blood Count 13.8 K/mm3 (4.5-10.0)
[2020-06-04] MEDS: SODIUM CHLORIDE 0.9% IV 1,000 ML 999 ML IV CONT (11:01)
[2020-06-04 11:10] LABS: Lactic Acid Reflex 1.8 mmol/L (0.7-2.1)
[2020-06-04 11:11] LABS: Prothrombin Time 13.9 Seconds (11.1-14.7)
[2020-06-04 11:12] LABS: Partial Thromboplastin Time 30.3 SECONDS (22.3-36.8)
[2020-06-04 11:15] LABS: Alanine Aminotransferase 15 U/L (4-50); Albumin Level 4.1 g/dL (3.5-5.1); Alkaline Phosphatase 104 U/L (38-126); Anion Gap 10 mmol/L (8-16); Aspartate Amino Transferase 36 U/L (17-59); Bilirubin,Total 2.3 mg/dL (0.2-1.3); Blood Urea Nitrogen 30 mg/dL (9-20); Calcium 9.3 mg/dL (8.4-10.2); Carbon Dioxide 28 mmol/L (22-30); Chloride 94 mmol/L (98-107); Estimated CRCL calculation 31 ml/min; Estimated Glomerular Filt Rate 41; Glucose 207 mg/dL (75-110); Potassium 3.4 mmol/L (3.4-5.0); Sodium 132 mmol/L (137-145)
[2020-06-04 11:34] LABS: Creatine Kinase 368 U/L (55-170)
[2020-06-04 12:00] LABS: Add Urine Microscopic? YES; Appearance Urine Clear (Clear); Bacteria Urine Trace /hpf; Bilirubin Urine Negative (Negative); Blood Urine 1+ (Negative); Color Urine Yellow (Yellow); Glucose Urine UA 3+ mg/dL (Negative); Ketones Urine Trace mg/dL (Negative); Leukocyte Esterase Ur Negative LEU/UL (Negative); Mucus Urine Rare /lpf; Nitrate Urine Negative (Negative); Protein Urine 3+ mg/dL (Negative); RBC Urine 0-2 /hpf (0-2); Specific Grav Ur 1.026 (1.001-1.035); Squamous Epithelial Cell Urine Rare /hpf (Few); Transitional Epi Cells Urine Rare /hpf (None Seen); Urobilinogen Urine Negative mg/dL (<2.0); WBC Urine 0-3 /hpf
--- NOTE | 2020-06-04 14:00 | ECG_ITS ---
Measurements Intervals [place] Rate: 91 P: 81 OR: 161 QRS: 1 QRSD: 94 T: 119 QT: 390 QTc: 481 Interpretive Statements SINUS RHYTHM FREQUENT ATRIAL PREMATURE COMPLEXES BORDERLINE ST-T WAVE ABNORMALITY- ANTEROLAT/HIGH LAT LEADS BASELINE ARTIFACT- I, II, III, AVR, AVL, AVF, V4-V6 ABNORMAL ECG Electronically Signed On 06-04-2020 15:11:10 FUR FINISHER TAILOR by Duncan Walsh D.O.
--- NOTE | 2020-06-04 15:30 | PM.IMHP ---
H&P: HPI History of Present Illness Date/Time: 06/04/20 15:30 Chief complaint: Weakness. Narrative: Jose D Sterling is an 85-year-old male with insulin-dependent diabetes, coronary artery disease, chronic kidney disease, hypertension, and several other comorbidities who presented to the emergency department earlier today via EMS from home for evaluation of weakness. He is not the greatest historian and as such some of this medical history is supplemented via a review of his electronic medical records. He is alert and oriented x3 at the time my evaluation but he cannot recall events that transpired today and in fact he did not even remember the ambulance ride to the hospital. The patient lives at home with his niece but apparently a home health aide saw him yesterday and when she came to visit him today he was still sitting in the chair where she left him yesterday at around. He was having a difficult time getting up and was brought to the emergency department where he was found to have a hot and red right lower extremity. He admits that he is feeling a bit more weak than usual and that he has not had an appetite today. He has no pain in the right leg. He denies fall and head injury, fever, cold and flu symptoms, headache, paresthesias, focal weakness, cough, shortness of breath, chest pain, nausea, vomiting, diarrhea, and dysuria. Review of Systems Review of Systems: Narrative: Twelve systems were reviewed with pertinent positives and negatives as per HPI. Except as documented, all other systems were reviewed and are negative. [facility] Past Medical History Medical History (Updated 06/04/20 @ 20:52 by Yanelis Koehler PA-C) Anemia Arthritis Benign prostatic hyperplasia Cerebrovascular accident Presenting with right-sided weakness. Chronic hyponatremia Chronic kidney disease, stage 3 Baseline creatinine is between 1.5 and 1.0. Coronary artery disease Gastroesophageal reflux disease Hiatal hernia Hyperlipidemia Hypertension Insulin dependent type 2 diabetes mellitus Hemoglobin A1c was 9.5% in December 2019. Peripheral arterial disease With history of carotid endarterectomy and axillofemoral bypass. Seasonal allergies Thrombocytopenia Mild, chronic thrombocytopenia. 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 History of angioplasty x2 History of appendectomy History of bilateral cataract extraction History of cardiac catheterization History of carotid endarterectomy History of carpal tunnel release History of vascular surgery Axillofemoral bypass graft with subsequent endarterectomy. Family History Family History Mother Old age Diabetes mellitus Sibling Diabetes mellitus Social History Social History (Updated 06/04/20 @ 20:46 by Yanelis Koehler PA-C) Social History: The patient lives in [place] with his niece. She helps him somewhat with activities of daily living. They have 2 dogs at home. He has no children. He smoked 1 pack of cigarettes per day for 40 years and quit many years ago. No alcohol or illicit substance use. He designates his niece Shannon Mckeon, as his surrogate decision maker and he wishes to be a do not resuscitate. Smoking packs per day: 1 Smoking cigarettes per day: 20.0 Years smoked: 40 Smoking pack-years: 40.00 Smoking status: Former smoker Tobacco type: cigarettes Alcohol intake: never Drinks per week: 1 Substance use: never Substance use type: does not use Gender identity (if verbalized by the patient): Male Spiritual care concerns: No Meds Home Medications and Allergies Home Medications Medication Instructions Recorded Confirmed Type atorvastatin 80 mg PO HS 05/17/19 06/04/20 History clopidogrel 75 mg PO DAILY 05/17/19 06/04/20 History furosemide 20 mg PO DAILY
[2020-06-04] MEDS: SODIUM CHLORIDE 0.9% IV 1,000 ML 80 ML IV CONT (15:31)
[2020-06-04 17:58] LABS: Glucose Point of Care 241 (65-105)
[2020-06-04] MEDS: INSULIN ASPART (*BKC) 100 UNITS/ML SUB-Q (18:11)
[2020-06-04] MEDS: SILVERGEL (ELTA) 45 ML 1 APPLIC TOPICAL (18:18)
[2020-06-04] MEDS: GABAPENTIN 300 MG CAPSULE PO ×2 (18:18→20:25)
[2020-06-04] MEDS: PANTOPRAZOLE 40 MG TABLET PO (18:19)
[2020-06-04] MEDS: INSULIN GLARGINE (*BKC) 100 UNITS/ML 10 UNITS SUB-Q (20:24)
[2020-06-04] MEDS: ATORVASTATIN 40 MG TABLET 80 MG PO (20:25)
[2020-06-04 21:51] LABS: Creatine Kinase 608 U/L (55-170)
[2020-06-04 22:37] LABS: Glucose Point of Care 177 (65-105)
[2020-06-05] MEDS: GABAPENTIN 300 MG CAPSULE PO ×3 (05:35→21:56)
[2020-06-05 06:26] LABS: Basophils Percent Auto 0.4 % (0.2-1.2); Eosinophils Percent Auto 0.2 % (0-4.4); Hematocrit 36.2 % (42.0-52.0); Hemoglobin 12.5 g/dL (14.0-18.0); Immature Granulocyte Absolute 0.08 K/mm3 (0.00-0.031); Immature Granulocyte Percent A 0.7 % (0-0.5); Immature Platelet Fraction Pct 6.2 % (0.9-11.2); Lymphocytes Absolute Auto 1.92 K/mm3 (0.9-3.2); Lymphocytes Percent Auto 17.2 % (18.3-44.2); Mean Corpuscular HGB Conc 34.5 g/dl (32-36); Mean Corpuscular Hemoglobin 30.9 pg (26-34); Mean Corpuscular Volume 89.6 fl (80-100); Mean Platelet Volume 11.3 fl (7.4-10.4); Monocytes Absolute Auto 0.7 K/mm3 (0.1-0.6); Monocytes Percent Auto 6.5 % (2.6-8.5); Neutrophils Absolute Auto 8.4 K/mm3 (1.3-6.7); Platelet Count Result 105 k/mm3 (150-375); Red Blood Count 4.04 M/mm3 (4.6-6.20); Red Cell Distribution Width 12.8 % (11.5-14.5); White Blood Count 11.2 K/mm3 (4.5-10.0)
[2020-06-05 06:43] LABS: Hemoglobin A1C 8.7 % (<5.7)
[2020-06-05 06:47] LABS: Alanine Aminotransferase 12 U/L (4-50); Albumin Level 2.8 g/dL (3.5-5.1); Alkaline Phosphatase 67 U/L (38-126); Anion Gap 7 mmol/L (8-16); Aspartate Amino Transferase 39 U/L (17-59); Bilirubin,Total 1.4 mg/dL (0.2-1.3); Blood Urea Nitrogen 27 mg/dL (9-20); Calcium 7.9 mg/dL (8.4-10.2); Carbon Dioxide 23 mmol/L (22-30); Chloride 101 mmol/L (98-107); Estimated CRCL calculation 35 ml/min; Estimated Glomerular Filt Rate 48; Glucose 123 mg/dL (75-110); Magnesium 1.6 mg/dL (1.6-2.3); Sodium 131 mmol/L (137-145)
[2020-06-05 08:00] VITALS: PULSE 76; RESP 18; O2SAT 94
[2020-06-05 08:45] LABS: Glucose Point of Care 147 (65-105)
[2020-06-05] MEDS: POTASSIUM CHLORIDE 20 MEQ TABLET 40 MEQ PO (09:44)
[2020-06-05] MEDS: FINASTERIDE 5 MG TABLET PO (09:45)
[2020-06-05] MEDS: CLOPIDOGREL BISULFATE 75 MG TABLET PO (09:45)
[2020-06-05] MEDS: FUROSEMIDE 20 MG TABLET PO (09:45)
[2020-06-05] MEDS: PANTOPRAZOLE 40 MG TABLET PO ×2 (09:45→18:24)
[2020-06-05 09:46] VITALS: PULSE 76; RESP 18; O2SAT 94
[2020-06-05] MEDS: SILVERGEL (ELTA) 45 ML 1 APPLIC TOPICAL (09:46)
[2020-06-05] MEDS: TAMSULOSIN HCL 0.4 MG CAPSULE PO (09:46)
[2020-06-05] MEDS: THERAPEUTIC MULTIVITAMINS/MINERALS TAB (*BKC) 1 TABLET PO (09:46)
[2020-06-05 13:07] LABS: Glucose Point of Care 278 (65-105)
[2020-06-05] MEDS: INSULIN ASPART (*BKC) 100 UNITS/ML SUB-Q (13:10)
[2020-06-05 14:00] VITALS: BP 132/51; PULSE 75; RESP 18; TEMP 36.6; O2SAT 96
--- NOTE | 2020-06-05 14:12 | PM.IMPN ---
Progress Note: A&P Assessment and Plan (1) Cellulitis of right leg: Code(s): L03.115 - Cellulitis of right lower limb Status: Acute Assessment and Plan: Likely secondary to chronic diabetic foot wound at the distal and lateral aspect of the right 5th metatarsal. The wound appears chronic with tunneling and concern for osteomyelitis. Check plain films of the right foot. WBC is improving. Check CRP. Obtain wound culture. Continue empiric vancomycin and primaxin per antibiotic stewardship recommendations. (2) Peripheral arterial disease: Code(s): I73.9 - Peripheral vascular disease, unspecified Status: Acute Assessment and Plan: Pt has hx of CEA and axillofemoral bypass. Pedal pulses are non-palpable. Doppler signal is present. Will order NINA. Continue plavix and atorvastatin. (3) Hypertension: Qualifiers: Hypertension type: essential hypertension Qualified Code(s): I10 - Essential (primary) hypertension Code(s): I10 - Essential (primary) hypertension Status: Chronic Assessment and Plan: BP were elevated at admission but have improved. Continue furosemide. He is not on any other antihypertensives at this time. (4) Chronic hyponatremia: Code(s): E87.1 - Hypo-osmolality and hyponatremia Status: Chronic Assessment and Plan: Chronic. Labs are consistent with baseline. Continue to monitor. (5) Chronic kidney disease, stage 3: Code(s): N18.30 - Chronic kidney disease, stage 3 unspecified Status: Chronic Assessment and Plan: Chronic. Labs are consistent with baseline. Renally dose medications and avoid nephrotoxins. 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 This has improved from labs from 9.5 12/27/19. Continue diabetic diet, ACHS glucose monitoring, sliding scale insulin, prior to admission basal insulin with lantus 10 units and hypoglycemia protocol. Continue to monitor. (7) Elevated creatine kinase: Code(s): R74.8 - Abnormal levels of other serum enzymes Status: Acute Assessment and Plan: Likely secondary to recent immobility and increased today. Will trend. Will avoid excess fluids for now given underlying CHF and trend. Encourage PO intake. He is more mobile today. (8) Generalized weakness: Code(s): R53.1 - Weakness Status: Acute Assessment and Plan: Likely secondary to cellulitis. Will consult PT/OT. He is doing much better today. Continue fall precautions. (9) Gastroesophageal reflux disease: Code(s): K21.9 - Gastro-esophageal reflux disease without esophagitis Status: Acute Assessment and Plan: Continue pantoprazole. (10) Benign prostatic hyperplasia: Code(s): N40.0 - Benign prostatic hyperplasia without lower urinary tract symptoms Status: Inactive Assessment and Plan: Chronic with no acute issues. Continue tamsulosin and finasteride. (11) Sacral ulcer: Code(s): L98.429 - Non-pressure chronic ulcer of back with unspecified severity Status: Acute Assessment and Plan: Wound care input is greatly appreciated. Continue wound care recommendations and offloading. Subjective Date/time seen: 06/05/20 14:12 Mr. Sterling is an 85 y.o. male with PMH significant for hyperlipidemia, IDDM, CKD stage III, GERD, CVA, BPH, chronic hyponatremia, and PAD who is seen in follow-up for RLE cellulitis. He has a chronic ulcer on the right lateral foot which he states has been there for a long time. He attributes this to chronic inversion of his right foot when he walks. His only complaint is swelling and erythema of his right leg with an ulcer there. He
[2020-06-05] MEDS: INSULIN GLARGINE (*BKC) 100 UNITS/ML 10 UNITS SUB-Q (21:55)
[2020-06-05] MEDS: ATORVASTATIN 40 MG TABLET 80 MG PO (21:56)
[2020-06-05 22:00] VITALS: BP 117/51; PULSE 76; RESP 20; TEMP 36.7; O2SAT 100
[2020-06-05 23:23] LABS: Glucose Point of Care 196 (65-105)
[2020-06-06 00:11] LABS: Glucose Point of Care 250 (65-105)
[2020-06-06] MEDS: GABAPENTIN 300 MG CAPSULE PO ×3 (05:09→20:48)
[2020-06-06 06:00] VITALS: BP 134/70; PULSE 74; RESP 20; TEMP 36.7; O2SAT 100
[2020-06-06 06:37] LABS: Basophils Percent Auto 0.5 % (0.2-1.2); Eosinophils Absolute Auto 0.1 K/mm3 (0-0.3); Eosinophils Percent Auto 0.7 % (0-4.4); Hematocrit 36.3 % (42.0-52.0); Hemoglobin 12.7 g/dL (14.0-18.0); Immature Granulocyte Absolute 0.04 K/mm3 (0.00-0.031); Immature Granulocyte Percent A 0.5 % (0-0.5); Lymphocytes Absolute Auto 1.84 K/mm3 (0.9-3.2); Lymphocytes Percent Auto 21.9 % (18.3-44.2); Mean Corpuscular Hemoglobin 31.4 pg (26-34); Mean Corpuscular Volume 89.6 fl (80-100); Mean Platelet Volume 12.5 fl (7.4-10.4); Monocytes Absolute Auto 0.6 K/mm3 (0.1-0.6); Monocytes Percent Auto 7.3 % (2.6-8.5); Neutrophils Absolute Auto 5.8 K/mm3 (1.3-6.7); Neutrophils Percent Auto 69.1 % (45.5-73.1); Platelet Count Result 119 k/mm3 (150-375); Red Blood Count 4.05 M/mm3 (4.6-6.20); Red Cell Distribution Width 12.8 % (11.5-14.5); White Blood Count 8.4 K/mm3 (4.5-10.0)
[2020-06-06] MEDS: SILVERGEL (ELTA) 45 ML 1 APPLIC TOPICAL (09:10)
[2020-06-06] MEDS: PANTOPRAZOLE 40 MG TABLET PO ×2 (09:10→17:29)
[2020-06-06] MEDS: FINASTERIDE 5 MG TABLET PO (09:10)
[2020-06-06] MEDS: THERAPEUTIC MULTIVITAMINS/MINERALS TAB (*BKC) 1 TABLET PO (09:10)
[2020-06-06] MEDS: TAMSULOSIN HCL 0.4 MG CAPSULE PO (09:10)
[2020-06-06] MEDS: CLOPIDOGREL BISULFATE 75 MG TABLET PO (09:11)
[2020-06-06] MEDS: FUROSEMIDE 20 MG TABLET PO (09:11)
[2020-06-06 09:49] LABS: Glucose Point of Care 163 (65-105)
[2020-06-06 10:53] LABS: Alanine Aminotransferase 15 U/L (4-50); Alkaline Phosphatase 71 U/L (38-126); Anion Gap 7 mmol/L (8-16); Aspartate Amino Transferase 37 U/L (17-59); Bilirubin Indirect 0.8 mg/dL (0-1.1); Blood Urea Nitrogen 36 mg/dL (9-20); Calcium 8.5 mg/dL (8.4-10.2); Carbon Dioxide 24 mmol/L (22-30); Chloride 102 mmol/L (98-107); Estimated CRCL calculation 28 ml/min; Estimated Glomerular Filt Rate 36; Glucose 211 mg/dL (75-110); Potassium 3.5 mmol/L (3.4-5.0); Sodium 133 mmol/L (137-145)
[2020-06-06] MEDS: INSULIN ASPART (*BKC) 100 UNITS/ML SUB-Q ×2 (12:43→17:27)
[2020-06-06] MEDS: ENOXAPARIN 40 MG/0.4 ML SYRINGE SUB-Q (12:50)
[2020-06-06 13:03] LABS: Glucose Point of Care 268 (65-105)
--- NOTE | 2020-06-06 13:12 | PM.IMPN ---
Progress Note: A&P Assessment and Plan (1) Cellulitis of right leg: Code(s): L03.115 - Cellulitis of right lower limb Status: Acute Assessment and Plan: Likely secondary to chronic diabetic foot wound at the distal and lateral aspect of the right 5th metatarsal. The wound appears chronic with tunneling. MRI is negative for osteomyelitis. Cellulitis has improved. WBC has normalized. CRP is 7. Will trend. Preliminary wound culture shows gram negative bacilli and gram positive cocci. Continue empiric vancomycin and primaxin per antibiotic stewardship recommendations. (2) Peripheral arterial disease: Code(s): I73.9 - Peripheral vascular disease, unspecified Status: Acute Assessment and Plan: Pt has hx of CEA and axillofemoral bypass. Pedal pulses are non-palpable. Doppler signal is present. NINA severely diminished at 0.3 on right. Right axillary to femoral bypass graft is occluded and he has high-grade stenosis in the distal right femoral artery. He follows with Dr. Malhotra, vascular surgeon, at [facility]. I have reached out to his office and I am waiting to hear back. He will need vascular follow-up outpatient given wound in the setting of advanced PAD. Continue plavix and atorvastatin. (3) Hypertension: Qualifiers: Hypertension type: essential hypertension Qualified Code(s): I10 - Essential (primary) hypertension Code(s): I10 - Essential (primary) hypertension Status: Chronic Assessment and Plan: BP are acceptable. Continue furosemide. He is not on any other antihypertensives at this time. (4) Chronic hyponatremia: Code(s): E87.1 - Hypo-osmolality and hyponatremia Status: Chronic Assessment and Plan: Chronic. Labs are consistent with baseline, sodium improved to 133 today. Continue to monitor. (5) Chronic kidney disease, stage 3: Code(s): N18.30 - Chronic kidney disease, stage 3 unspecified Status: Chronic Assessment and Plan: Chronic. Labs are consistent with baseline with mild increase in Cr to 1.8 today. Will monitor closely. Renally dose medications and avoid nephrotoxins. (6) Insulin dependent type 2 diabetes mellitus: Code(s): E11.9 - Type 2 diabetes mellitus without complications; Z79.4 - terminal supervisor (current) use of insulin Status: Chronic Assessment and Plan: With insulin resistance and hemoglobin A1c above target at 8.7. This has improved from labs from 9.5 6/25/20. Blood sugars still a bit elevated above goal. Tight glycemic control is crucial given infection. Continue diabetic diet, ACHS glucose monitoring, sliding scale insulin, increase lantus to 10 units, and hypoglycemia protocol. Continue to monitor. (7) Elevated creatine kinase: Code(s): R74.8 - Abnormal levels of other serum enzymes Status: Acute Assessment and Plan: Likely secondary to recent immobility. Will trend. Avoid excess fluids given underlying CHF. Encourage PO intake. He is more mobile today. (8) Generalized weakness: Code(s): R53.1 - Weakness Status: Acute Assessment and Plan: Likely secondary to cellulitis. Continue PT/OT. He is doing much better today. Continue fall precautions. (9) Gastroesophageal reflux disease: Code(s): K21.9 - Gastro-esophageal reflux disease without esophagitis Status: Acute Assessment and Plan: Continue pantoprazole. (10) Benign prostatic hyperplasia: Code(s): N40.0 - Benign prostatic hyperplasia without lower urinary tract symptoms Status: Inactive Assessment and Plan: Chronic with no acute issues. Continue tamsulosin and finasteride. (11) Sacral ulcer: Code(s): L98.429 - Non-pressure chronic ulcer of back with unspecified severity Status: Acute Assessment and Plan: Wound care input is greatly appreciated. Continue wound care recommendations and offloadi
[2020-06-06 14:00] VITALS: BP 139/66; PULSE 65; RESP 18; TEMP 36.6; O2SAT 98
[2020-06-06 16:32] LABS: Creatine Kinase 130 U/L (55-170)
[2020-06-06 18:53] LABS: Glucose Point of Care 238 (65-105)
[2020-06-06] MEDS: ATORVASTATIN 40 MG TABLET 80 MG PO (20:47)
[2020-06-06] MEDS: INSULIN GLARGINE (*BKC) 100 UNITS/ML 10 UNITS SUB-Q (20:48)
[2020-06-06 22:00] VITALS: BP 115/56; PULSE 68; RESP 18; TEMP 37.2; O2SAT 100
[2020-06-06 22:07] LABS: Glucose Point of Care 195 (65-105)
[2020-06-07] MEDS: GABAPENTIN 300 MG CAPSULE PO ×3 (05:54→21:43)
[2020-06-07 06:00] VITALS: BP 147/50; PULSE 72; RESP 16; TEMP 36.6; O2SAT 100
[2020-06-07 06:33] LABS: Basophils Percent Auto 0.3 % (0.2-1.2); Eosinophils Absolute Auto 0.1 K/mm3 (0-0.3); Hemoglobin 10.8 g/dL (14.0-18.0); Immature Granulocyte Absolute 0.04 K/mm3 (0.00-0.031); Immature Granulocyte Percent A 0.5 % (0-0.5); Immature Platelet Fraction Pct 7.1 % (0.9-11.2); Lymphocytes Absolute Auto 1.75 K/mm3 (0.9-3.2); Lymphocytes Percent Auto 22.7 % (18.3-44.2); Mean Corpuscular HGB Conc 34.8 g/dl (32-36); Mean Corpuscular Hemoglobin 30.7 pg (26-34); Mean Corpuscular Volume 88.1 fl (80-100); Mean Platelet Volume 11.9 fl (7.4-10.4); Monocytes Absolute Auto 0.7 K/mm3 (0.1-0.6); Monocytes Percent Auto 8.4 % (2.6-8.5); Neutrophils Absolute Auto 5.2 K/mm3 (1.3-6.7); Neutrophils Percent Auto 67.1 % (45.5-73.1); Platelet Count Result 117 k/mm3 (150-375); Red Blood Count 3.52 M/mm3 (4.6-6.20); Red Cell Distribution Width 12.7 % (11.5-14.5); White Blood Count 7.7 K/mm3 (4.5-10.0)
[2020-06-07 06:49] LABS: Anion Gap 5 mmol/L (8-16); Blood Urea Nitrogen 32 mg/dL (9-20); CRP 4.1 mg/dL (<1.0); Calcium 8.1 mg/dL (8.4-10.2); Carbon Dioxide 28 mmol/L (22-30); Chloride 99 mmol/L (98-107); Creatine Kinase 46 U/L (55-170); Estimated CRCL calculation 33 ml/min; Estimated Glomerular Filt Rate 45; Glucose 164 mg/dL (75-110); Sodium 132 mmol/L (137-145)
[2020-06-07 08:00] VITALS: PULSE 72; RESP 16; O2SAT 100
[2020-06-07] MEDS: POTASSIUM CHLORIDE 20 MEQ TABLET 40 MEQ PO (09:32)
[2020-06-07] MEDS: ENOXAPARIN 40 MG/0.4 ML SYRINGE SUB-Q (09:33)
[2020-06-07] MEDS: TAMSULOSIN HCL 0.4 MG CAPSULE PO (09:33)
[2020-06-07] MEDS: THERAPEUTIC MULTIVITAMINS/MINERALS TAB (*BKC) 1 TABLET PO (09:33)
[2020-06-07] MEDS: SILVERGEL (ELTA) 45 ML 1 APPLIC TOPICAL (09:33)
[2020-06-07] MEDS: PANTOPRAZOLE 40 MG TABLET PO ×2 (09:33→18:28)
[2020-06-07] MEDS: FUROSEMIDE 20 MG TABLET PO (09:34)
[2020-06-07] MEDS: CLOPIDOGREL BISULFATE 75 MG TABLET PO (09:34)
[2020-06-07] MEDS: FINASTERIDE 5 MG TABLET PO (09:34)
[2020-06-07 09:42] LABS: Glucose Point of Care 148 (65-105)
[2020-06-07 12:56] LABS: Vancomycin Trough 9.9 ug/mL (10.0-20.0)
[2020-06-07 14:00] VITALS: BP 147/62; PULSE 97; RESP 18; TEMP 36.4; O2SAT 98
[2020-06-07] MEDS: INSULIN ASPART (*BKC) 100 UNITS/ML SUB-Q ×2 (14:22→18:28)
[2020-06-07 14:31] LABS: Glucose Point of Care 258 (65-105)
--- NOTE | 2020-06-07 15:25 | PM.IMPN ---
Progress Note: A&P Assessment and Plan (1) Cellulitis of right leg: Code(s): L03.115 - Cellulitis of right lower limb Status: Acute Assessment and Plan: He does have a wound on his right foot at the lateral aspect of the 5th metatarsal although there is no evidence of osteomyelitis on MRI and he does not have any purulent drainage to suggest acute infection at the wound. RLE cellulitis has improved. WBC has normalized. CRP is improving at 4.1. Preliminary wound culture shows gram negative bacilli and gram positive cocci. Preliminary results show proteus mirabilis. Continue empiric vancomycin and primaxin per antibiotic stewardship recommendations. Continue to monitor. (2) Peripheral arterial disease: Code(s): I73.9 - Peripheral vascular disease, unspecified Status: Acute Assessment and Plan: Pt has hx of CEA and axillofemoral bypass. Pedal pulses are non-palpable. Doppler signal is present. NINA severely diminished at 0.3 on right. Right axillary to femoral bypass graft is occluded and he has high-grade stenosis in the distal right femoral artery. He follows with Dr. Malhotra, vascular surgeon, at [facility]. I have reached out to his office and I am waiting to hear back. He will need vascular follow-up outpatient given wound in the setting of advanced PAD. There is no evidence of acute infection at the wound on the lateral aspect of the 5th metatarsal. He needs offloading and continued wound care. Continue plavix and atorvastatin. (3) Hypertension: Qualifiers: Hypertension type: essential hypertension Qualified Code(s): I10 - Essential (primary) hypertension Code(s): I10 - Essential (primary) hypertension Status: Chronic Assessment and Plan: BP are acceptable. Continue furosemide. He is not on any other antihypertensives at this time. (4) Chronic hyponatremia: Code(s): E87.1 - Hypo-osmolality and hyponatremia Status: Chronic Assessment and Plan: Chronic. Labs are consistent with baseline. Continue to monitor. Recommend outpatient follow-up. (5) Chronic kidney disease, stage 3: Code(s): N18.30 - Chronic kidney disease, stage 3 unspecified Status: Chronic Assessment and Plan: Chronic. Cr has improved significantly and is 1.5 today. This appears consistent with his baseline. Renally dose medications and avoid nephrotoxins. (6) Insulin dependent type 2 diabetes mellitus: Code(s): E11.9 - Type 2 diabetes mellitus without complications; Z79.4 - intermodal dispatcher (current) use of insulin Status: Chronic Assessment and Plan: With insulin resistance and hemoglobin A1c above target at 8.7. This has improved from labs from 9.5 12/27/19. Lantus was added and blood sugars have improved today. Tight glycemic control is crucial given infection. Continue diabetic diet, ACHS glucose monitoring, sliding scale insulin, lantus 10 units q HS, and hypoglycemia protocol. Continue to monitor. (7) Elevated creatine kinase: Code(s): R74.8 - Abnormal levels of other serum enzymes Status: Resolved Assessment and Plan: Resolved. Likely secondary to recent immobility. CK has normalized. (8) Generalized weakness: Code(s): R53.1 - Weakness Status: Acute Assessment and Plan: Likely secondary to cellulitis. Continue PT/OT. Continue fall precautions. (9) Gastroesophageal reflux disease: Code(s): K21.9 - Gastro-esophageal reflux disease without esophagitis Status: Acute Assessment and Plan: Continue pantoprazole. (10) Benign prostatic hyperplasia: Code(s): N40.0 - Benign prostatic hyperplasia without lower urinary tract symptoms Status: Inactive Assessment and Plan: Chronic with no acute issues. Continue tamsulosin and finasteride. (11) Sacral ulcer: Code(s): L98.429 - Non-pressure chronic ulcer of back with unspeci
[2020-06-07 18:25] LABS: Glucose Point of Care 217 (65-105)
[2020-06-07] MEDS: SACCHAROMYCES BOULARDII 250 MG CAPSULE PO (18:28)
[2020-06-07 20:00] VITALS: PULSE 70; RESP 18; O2SAT 99
[2020-06-07] MEDS: INSULIN GLARGINE (*BKC) 100 UNITS/ML 10 UNITS SUB-Q (21:40)
[2020-06-07] MEDS: ATORVASTATIN 40 MG TABLET 80 MG PO (21:43)
[2020-06-07 21:57] LABS: Glucose Point of Care 242 (65-105)
[2020-06-07 22:00] VITALS: BP 156/40; PULSE 70; RESP 18; TEMP 36.9; O2SAT 99
[2020-06-08 06:00] VITALS: BP 146/56; PULSE 70; RESP 18; TEMP 36.9; O2SAT 97
[2020-06-08 06:12] LABS: Basophils Percent Auto 0.3 % (0.2-1.2); Eosinophils Absolute Auto 0.1 K/mm3 (0-0.3); Eosinophils Percent Auto 1.3 % (0-4.4); Hematocrit 31.3 % (42.0-52.0); Hemoglobin 11.1 g/dL (14.0-18.0); Immature Granulocyte Absolute 0.06 K/mm3 (0.00-0.031); Immature Granulocyte Percent A 0.7 % (0-0.5); Immature Platelet Fraction Pct 7.5 % (0.9-11.2); Lymphocytes Absolute Auto 2.07 K/mm3 (0.9-3.2); Lymphocytes Percent Auto 23.2 % (18.3-44.2); Mean Corpuscular HGB Conc 35.5 g/dl (32-36); Mean Corpuscular Hemoglobin 31.7 pg (26-34); Mean Corpuscular Volume 89.4 fl (80-100); Mean Platelet Volume 11.8 fl (7.4-10.4); Monocytes Absolute Auto 0.7 K/mm3 (0.1-0.6); Monocytes Percent Auto 8.2 % (2.6-8.5); Neutrophils Absolute Auto 5.9 K/mm3 (1.3-6.7); Neutrophils Percent Auto 66.3 % (45.5-73.1); Platelet Count Result 140 k/mm3 (150-375); Red Cell Distribution Width 12.7 % (11.5-14.5); White Blood Count 8.9 K/mm3 (4.5-10.0)
[2020-06-08] MEDS: GABAPENTIN 300 MG CAPSULE PO ×3 (06:14→21:41)
[2020-06-08 06:35] LABS: Alanine Aminotransferase 19 U/L (4-50); Albumin Level 2.9 g/dL (3.5-5.1); Alkaline Phosphatase 76 U/L (38-126); Anion Gap 4 mmol/L (8-16); Aspartate Amino Transferase 29 U/L (17-59); Bilirubin,Total 0.8 mg/dL (0.2-1.3); Blood Urea Nitrogen 30 mg/dL (9-20); CRP 3.6 mg/dL (<1.0); Calcium 8.1 mg/dL (8.4-10.2); Carbon Dioxide 30 mmol/L (22-30); Chloride 99 mmol/L (98-107); Estimated CRCL calculation 31 ml/min; Estimated Glomerular Filt Rate 41; Glucose 185 mg/dL (75-110); Potassium 3.2 mmol/L (3.4-5.0); Sodium 133 mmol/L (137-145); Uric Acid 8.2 mg/dL (3.5-8.5)
[2020-06-08] MEDS: POTASSIUM CHLORIDE 20 MEQ TABLET 40 MEQ PO (07:58)
[2020-06-08] MEDS: FINASTERIDE 5 MG TABLET PO (07:59)
[2020-06-08] MEDS: SACCHAROMYCES BOULARDII 250 MG CAPSULE PO ×3 (07:59→17:31)
[2020-06-08] MEDS: SILVERGEL (ELTA) 45 ML 1 APPLIC TOPICAL (07:59)
[2020-06-08] MEDS: ENOXAPARIN 40 MG/0.4 ML SYRINGE SUB-Q (07:59)
[2020-06-08] MEDS: CLOPIDOGREL BISULFATE 75 MG TABLET PO (07:59)
[2020-06-08] MEDS: THERAPEUTIC MULTIVITAMINS/MINERALS TAB (*BKC) 1 TABLET PO (07:59)
[2020-06-08 08:00] VITALS: PULSE 70; RESP 18; O2SAT 97
[2020-06-08] MEDS: PANTOPRAZOLE 40 MG TABLET PO ×2 (08:00→17:31)
[2020-06-08] MEDS: TAMSULOSIN HCL 0.4 MG CAPSULE PO (08:00)
[2020-06-08] MEDS: FUROSEMIDE 20 MG TABLET PO (08:00)
[2020-06-08 09:15] LABS: Glucose Point of Care 182 (65-105)
[2020-06-08] MEDS: INSULIN ASPART (*BKC) 100 UNITS/ML SUB-Q ×2 (11:29→17:30)
--- NOTE | 2020-06-08 11:57 | PM.IMPN ---
Progress Note: A&P Assessment and Plan (1) Cellulitis of right leg: Code(s): L03.115 - Cellulitis of right lower limb Status: Acute Assessment and Plan: He does have a wound on his right foot at the lateral aspect of the 5th metatarsal although there is no evidence of osteomyelitis on MRI and he does not have any purulent drainage to suggest acute infection at the wound. RLE cellulitis continues to improve. WBC has normalized. CRP is improving at 3.6. Preliminary wound culture shows gram negative bacilli and gram positive cocci, proteus is present with intermediate susceptibility to imipenem. Stop vancomycin and zosyn and start IV ceftriaxone. Continue to monitor. Hopeful discharge tomorrow. (2) Peripheral arterial disease: Code(s): I73.9 - Peripheral vascular disease, unspecified Status: Acute Assessment and Plan: Pt has hx of CEA and axillofemoral bypass. Pedal pulses are non-palpable. Doppler signal is present. NINA severely diminished at 0.3 on right. Right axillary to femoral bypass graft is occluded and he has high-grade stenosis in the distal right femoral artery. He follows with Dr. Malhotra, vascular surgeon, at [facility]. I have reached out to his office and I am waiting to hear back. He will need vascular follow-up outpatient given wound in the setting of advanced PAD. There is no evidence of acute infection at the wound on the lateral aspect of the 5th metatarsal. He needs offloading and continued wound care. Continue plavix and atorvastatin. (3) Hypertension: Qualifiers: Hypertension type: essential hypertension Qualified Code(s): I10 - Essential (primary) hypertension Code(s): I10 - Essential (primary) hypertension Status: Chronic Assessment and Plan: BP are acceptable. Continue furosemide. He is not on any other antihypertensives at this time. (4) Chronic hyponatremia: Code(s): E87.1 - Hypo-osmolality and hyponatremia Status: Chronic Assessment and Plan: Chronic. Labs are consistent with baseline. Continue to monitor. Recommend outpatient follow-up. (5) Chronic kidney disease, stage 3: Code(s): N18.30 - Chronic kidney disease, stage 3 unspecified Status: Chronic Assessment and Plan: Chronic. Cr has improved and is 1.6 today. This appears consistent with his baseline. Renally dose medications and avoid nephrotoxins. (6) Insulin dependent type 2 diabetes mellitus: Code(s): E11.9 - Type 2 diabetes mellitus without complications; Z79.4 - termite inspector (current) use of insulin Status: Chronic Assessment and Plan: With insulin resistance and hemoglobin A1c above target at 8.7. This has improved from labs from 9.5 12/27/19. Lantus was added and blood sugars have improved today. Tight glycemic control is crucial given infection. Continue diabetic diet, ACHS glucose monitoring, sliding scale insulin, lantus, increase to 15 units qHS, and hypoglycemia protocol. Continue to monitor. (7) Elevated creatine kinase: Code(s): R74.8 - Abnormal levels of other serum enzymes Status: Resolved Assessment and Plan: Resolved. Likely secondary to recent immobility. CK normalized. (8) Generalized weakness: Code(s): R53.1 - Weakness Status: Acute Assessment and Plan: Likely secondary to cellulitis. Continue PT/OT. Continue fall precautions. (9) Gastroesophageal reflux disease: Code(s): K21.9 - Gastro-esophageal reflux disease without esophagitis Status: Acute Assessment and Plan: Continue pantoprazole. (10) Benign prostatic hyperplasia: Code(s): N40.0 - Benign prostatic hyperplasia without lower urinary tract symptoms Status: Inactive Assessment and Plan: Chronic with no acute issues. Continue tamsulosin and finasteride. (11) Sacral ulcer: Code(s): L98.429 - Non-pressure chronic ulcer of
[2020-06-08 12:57] LABS: Glucose Point of Care 283 (65-105)
[2020-06-08 14:00] VITALS: BP 170/59; PULSE 76; RESP 16; TEMP 36.4; O2SAT 100
[2020-06-08 18:33] LABS: Glucose Point of Care 260 (65-105)
[2020-06-08] MEDS: ATORVASTATIN 40 MG TABLET 80 MG PO (21:41)
[2020-06-08] MEDS: INSULIN GLARGINE (*BKC) 100 UNITS/ML 10 UNITS SUB-Q (21:41)
[2020-06-08 22:00] VITALS: BP 135/50; PULSE 77; RESP 16; TEMP 36.5; O2SAT 97
[2020-06-08 22:39] LABS: Glucose Point of Care 227 (65-105)
[2020-06-09 05:45] VITALS: BP 111/67; PULSE 62; RESP 16; TEMP 36; O2SAT 96
[2020-06-09] MEDS: GABAPENTIN 300 MG CAPSULE PO ×3 (06:09→20:21)
[2020-06-09 06:43] LABS: Basophils Absolute Auto 0.1 K/mm3 (0.0-0.1); Basophils Percent Auto 0.5 % (0.2-1.2); Eosinophils Absolute Auto 0.1 K/mm3 (0-0.3); Eosinophils Percent Auto 1.3 % (0-4.4); Hematocrit 32.3 % (42.0-52.0); Hemoglobin 11.3 g/dL (14.0-18.0); Immature Granulocyte Absolute 0.08 K/mm3 (0.00-0.031); Immature Granulocyte Percent A 0.8 % (0-0.5); Lymphocytes Absolute Auto 2.89 K/mm3 (0.9-3.2); Lymphocytes Percent Auto 28.4 % (18.3-44.2); Mean Corpuscular Hemoglobin 30.7 pg (26-34); Mean Corpuscular Volume 87.8 fl (80-100); Mean Platelet Volume 11.8 fl (7.4-10.4); Monocytes Absolute Auto 0.8 K/mm3 (0.1-0.6); Monocytes Percent Auto 7.9 % (2.6-8.5); Neutrophils Absolute Auto 6.2 K/mm3 (1.3-6.7); Neutrophils Percent Auto 61.1 % (45.5-73.1); Platelet Count Result 163 k/mm3 (150-375); Red Blood Count 3.68 M/mm3 (4.6-6.20); Red Cell Distribution Width 12.5 % (11.5-14.5); White Blood Count 10.2 K/mm3 (4.5-10.0)
[2020-06-09 07:35] LABS: Anion Gap 2 mmol/L (8-16); Blood Urea Nitrogen 25 mg/dL (9-20); CRP 2.9 mg/dL (<1.0); Calcium 8.4 mg/dL (8.4-10.2); Carbon Dioxide 32 mmol/L (22-30); Chloride 100 mmol/L (98-107); Estimated CRCL calculation 31 ml/min; Estimated Glomerular Filt Rate 41; Glucose 136 mg/dL (75-110); Magnesium 1.3 mg/dL (1.6-2.3); Potassium 3.6 mmol/L (3.4-5.0); Sodium 134 mmol/L (137-145)
[2020-06-09] MEDS: CLOPIDOGREL BISULFATE 75 MG TABLET PO (08:29)
[2020-06-09] MEDS: THERAPEUTIC MULTIVITAMINS/MINERALS TAB (*BKC) 1 TABLET PO (08:29)
[2020-06-09] MEDS: ENOXAPARIN 40 MG/0.4 ML SYRINGE SUB-Q (08:29)
[2020-06-09] MEDS: SACCHAROMYCES BOULARDII 250 MG CAPSULE PO ×3 (08:29→17:29)
[2020-06-09] MEDS: FINASTERIDE 5 MG TABLET PO (08:29)
[2020-06-09] MEDS: TAMSULOSIN HCL 0.4 MG CAPSULE PO (08:29)
[2020-06-09] MEDS: FUROSEMIDE 20 MG TABLET PO (08:30)
[2020-06-09] MEDS: SILVERGEL (ELTA) 45 ML 1 APPLIC TOPICAL (08:34)
[2020-06-09 08:36] LABS: Glucose Point of Care 137 (65-105)
[2020-06-09] MEDS: PANTOPRAZOLE 40 MG TABLET PO ×2 (09:10→17:29)
[2020-06-09] MEDS: MAGNESIUM SULFATE 3GM/D5W100ML 3 GM/100 ML BAG IVPB (11:01)
[2020-06-09] MEDS: INSULIN ASPART (*BKC) 100 UNITS/ML SUB-Q ×2 (12:08→17:29)
[2020-06-09 12:14] LABS: Glucose Point of Care 373 (65-105)
[2020-06-09 14:00] VITALS: BP 159/51; PULSE 68; RESP 20; TEMP 36; O2SAT 99
--- NOTE | 2020-06-09 14:45 | PM.DS ---
DS: Admitting Diagnosis Admitting Diagnosis Admitting Diagnosis: Weakness. DS: Summary Time Spent with Patient Time attestation: Total time spent providing and/or coordinating discharge services: 50 minutes DS: Data Data Completed and Pending Labs on day of discharge: Labs from last 24 hours 06/09/20 06/09/20 06/09/20 12:06 08:26 06:15 WBC RBC Hgb Hct MCV MCH MCHC RDW Plt Count MPV Immature Gran % (Auto) Neut % (Auto) Lymph % (Auto) [place] % (Auto) Eos % (Auto) Baso % (Auto) Lymph # (Auto) [place] # (Auto) Eos # (Auto) Baso # (Auto) Abs Immat Gran (auto) Absolute Neuts (auto) Absolute Nucleated RBC Nucleated RBC % Sodium 134 L Potassium 3.6 Chloride 100 Carbon Dioxide 32 H Anion Gap 2 L BUN 25 H Creatinine 1.60 H Estim Creat Clear Calc 31 Estimated GFR 41 L Glucose 136 H POC Capillary Glucose 373 H 137 H Calcium 8.4 Magnesium 1.3 L C-Reactive Protein 2.9 H 06/09/20 06/08/20 06/08/20 06:15 21:44 17:28 WBC 10.2 H RBC 3.68 L Hgb 11.3 L Hct 32.3 L MCV 87.8 MCH 30.7 MCHC 35.0 RDW 12.5 Plt Count 163 MPV 11.8 H Immature Gran % (Auto) 0.8 H Neut % (Auto) 61.1 Lymph % (Auto) 28.4 [place] % (Auto) 7.9 Eos % (Auto) 1.3 Baso % (Auto) 0.5 Lymph # (Auto) 2.89 [place] # (Auto) 0.8 H Eos # (Auto) 0.1 Baso # (Auto) 0.1 Abs Immat Gran (auto) 0.08 H Absolute Neuts (auto) 6.2 Absolute Nucleated RBC 0.0 Nucleated RBC % 0.0 Sodium Potassium Chloride Carbon Dioxide Anion Gap BUN Creatinine Estim Creat Clear Calc Estimated GFR Glucose POC Capillary Glucose 227 H 260 H Calcium Magnesium C-Reactive Protein Preliminary micro results at discharge 06/04/20 10:49 Blood Culture - Preliminary Blood 06/04/20 10:42 Blood Culture - Preliminary Blood Discharge Plan Discharge Attending physician on discharge: Lance Eason Discharging Clinician: Candida Cervantes Patient Disposition: SNF Activity: as tolerated Diet: heart healthy and diabetic Discharge Instructions: Hospital Discharge Instructions You were hospitalized for cellulitis of your right leg. You were treated with IV antibiotics. You will need to continue oral antibiotics at discharge. Monitor your leg closely to ensure that it continues to improve. If you notice recurrent redness or swelling, notify your provider immediately. Proceed to the emergency department if you develop chest pain, shortness of breath or difficulty breathing, fainting or change in mental state, slurred speech, weakness/numbness on one side, vision change, or any other concerning or life-threatening symptoms. For all other concerns, call your doctor or specialist immediately. Follow-up Instructions: Follow-up with Dr. Gaitan within 1 week for a hospital follow-up visit. Please follow-up with your vascular surgeon, Dr. Malhotra, for your vascular disease. Your appointment has been scheduled for 06/23/20 at 11:00AM. Stand Alone Forms: General Discharge Information, Prison Discharge Follow-up/Referrals: Garrick Malhotra [Other] - 06/23/20 11:00 am (Please follow-up with your vascular surgeon, Dr. Malhotra, for your vascular disease. Your appointment has been scheduled for 06/23/20 at 11:00AM. ) Patricia Gaitan MD [Primary Care Provider] - Call for Appointment (Follow-up with Dr. Gaitan within 1 week for a hospital follow-up visit. ) Discharge Medications: New cefdinir 300 mg capsule 300 mg PO Q12H 8 Days Qty: 16 RF: 0 magnesium 200 mg tablet 200 mg PO BID 7 Days Qty: 14 RF: 0 Lantus U-100 Insulin 100 unit/mL Solution 20 unit subcut HS 14 Days Qty: 2.8 RF: 0 Continued alogliptin 25 mg tablet 25 mg PO DAILY Qty: 30 RF: 5 finasteride 5 mg tablet 5 mg PO DAILY Qty: 30 RF: 5
[2020-06-09 17:34] LABS: Glucose Point of Care 262 (65-105)
--- NOTE | 2020-06-09 18:00 | PM.IMPN ---
Progress Note: A&P Assessment and Plan (1) Cellulitis of right leg: Code(s): L03.115 - Cellulitis of right lower limb Status: Acute Assessment and Plan: He does have a wound on his right foot at the lateral aspect of the 5th metatarsal at an area of pressure due to foot inversion when he walks although this has healed well with local wound care and the wound is no longer open. MRI was negative for osteomyelitis. RLE cellulitis continues to improve with minimal residual erythema. WBC has normalized. CRP continues to improve. Wound culture shows proteus mirabilis and skin mahad. IV vancomycin and primaxin were discontinued 06/08 (initiated 06/04) and IV ceftriaxone was initiated due to wound culture results. Plan to discharge on PO cefdinir and will treat for a total of 14 days. WBC mildly increased but clinically, he has improved significantly. (2) Peripheral arterial disease: Code(s): I73.9 - Peripheral vascular disease, unspecified Status: Acute Assessment and Plan: Pt has hx of CEA and axillofemoral bypass. Pedal pulses are non-palpable. Doppler signal is present. NINA severely diminished at 0.3 on right. Right axillary to femoral bypass graft is occluded and he has high-grade stenosis in the distal right femoral artery. He follows with Dr. Malhotra, vascular surgeon, at [facility]. He will need vascular follow-up outpatient given wound in the setting of advanced PAD. There is no evidence of acute infection of the wound on the lateral aspect of his right foot. It is healing well with wound care. He needs continued offloading and continued wound care. Continue plavix and atorvastatin. I spoke with Dr. Malhotra's office today. The graft occlusion is not new. They will see him outpatient 06/23/20 at 11:00AM at [facility] [address] [place] [address], [address] [place] [address]. (3) Hypertension: Qualifiers: Hypertension type: essential hypertension Qualified Code(s): I10 - Essential (primary) hypertension Code(s): I10 - Essential (primary) hypertension Status: Chronic Assessment and Plan: BP are acceptable Most recent BP was 159/51. Continue furosemide. He is not on any other antihypertensives at this time. (4) Chronic hyponatremia: Code(s): E87.1 - Hypo-osmolality and hyponatremia Status: Chronic Assessment and Plan: Chronic. Labs are consistent with baseline. Continue to monitor. Recommend outpatient follow-up. (5) Chronic kidney disease, stage 3: Code(s): N18.30 - Chronic kidney disease, stage 3 unspecified Status: Chronic Assessment and Plan: Chronic. Cr is stable 1.6 today. This appears consistent with his baseline. Renally dose medications and avoid nephrotoxins. (6) Insulin dependent type 2 diabetes mellitus: Code(s): E11.9 - Type 2 diabetes mellitus without complications; Z79.4 - salvage determiner (current) use of insulin Status: Chronic Assessment and Plan: With insulin resistance and hemoglobin A1c above target at 8.7. This has improved from labs from 9.5 12/27/19. Lantus was added and blood sugars have improved today but still elevated above target. Tight glycemic control is crucial given infection. Continue diabetic diet, ACHS glucose monitoring, sliding scale insulin, lantus - increase to 20 units qHS, and hypoglycemia protocol. Continue to monitor. (7) Elevated creatine kinase: Code(s): R74.8 - Abnormal levels of other serum enzymes Status: Resolved Assessment and Plan: Resolved. Likely secondary to recent immobility. CK normalized. (8) Generalized weakness: Code(s): R53.1 - Weakness Status: Resolved Assessment and Plan: Likely secondary to cellulitis. He is doing much better and continues to work with PT/OT. Continue fall precautions. (9) Gastroesophageal reflux disease: Code(s): K21.9 - G
[2020-06-09 18:52] LABS: SARS-CoV-2 RNA PCR Negative
[2020-06-09] MEDS: ATORVASTATIN 40 MG TABLET 80 MG PO (20:21)
[2020-06-09] MEDS: INSULIN GLARGINE (*BKC) 100 UNITS/ML 20 UNITS SUB-Q (20:22)
--- NOTE | 2020-06-09 20:47 | PM.DS ---
DS: Admitting Diagnosis Admitting Diagnosis Admitting Diagnosis: Weakness. DS: Discharge Diagnosis Discharge Diagnosis (1) Cellulitis of right leg: Code(s): L03.115 - Cellulitis of right lower limb Status: Acute Assessment and Plan: Discharge Summary (Date of service 06/09/20): Mr. Sterling is an 85 y.o. male with PMH significant for hyperlipidemia, IDDM, CKD stage III, GERD, CVA, BPH, chronic hyponatremia, and PAD who presented to the emergency department 06/04/20 for the evaluation of generalized weakness. His home health care worker noticed that he was still sitting in the chair where she left him the day prior. His right leg was erythematous, hot, and swollen so she encouraged him to go to the ER via EMS for further evaluation. Initial workup in the ER included CT brain which was negative for acute findings and venous doppler US which was negative for DVT. He was admitted to the hospitalist service for the treatment of cellulitis. He was treated with IV vancomycin and primaxin per antibiotic stewardship recommendations. A wound was noted on his right foot at the lateral aspect of the 5th metatarsal at an area of pressure due to foot inversion when he walks. There was some tunnelling so plain films and MRI were ordered to r/o osteomyelitis and negative for osteomyelitis. Wound care was consulted and his wound healed well with local wound care. Wound cultures showed proteus mirabilis and skin mahad susceptible to ceftriaxone so IV vancomycin and primaxin were discontinued and IV ceftriaxone was initiated. RLE cellulitis improved with minimal residual erythema. He was discharged on PO cefdinir to complete a total of 14 days of antibiotic therapy. He was encouraged to follow-up with vascular surgery given his severe RLE PAD and an appt was scheduled. Blood cultures were negative for growth. He did very well with PT/OT and he will continue PT/OT at SNF upon discharge. His cellulitis resolved and he felt much better overall. He was discharged in hemodynamically stable condition on the evening of 06/09/20. (2) Peripheral arterial disease: Code(s): I73.9 - Peripheral vascular disease, unspecified Status: Acute Assessment and Plan: Pt has hx of CEA and axillofemoral bypass. Pedal pulses are non-palpable but doppler signal was present. NINA was severely diminished at 0.3 on right. Right axillary to femoral bypass graft is occluded and he has high-grade stenosis in the distal right femoral artery. He follows with Dr. Malhotra, vascular surgeon, at [facility]. He will need vascular follow-up outpatient. His wound did heal well with local wound care under the direction of the wound RN while inpatient. There was no evidence of acute infection of the wound on the lateral aspect of his right foot. He needs continued offloading and continued wound care. Continue plavix and atorvastatin. I spoke with Dr. Malhotra's office today. The graft occlusion is not new. They will see him outpatient 06/23/20 at 11:00AM at [facility], [address] [place] [address]. (3) Hypertension: Qualifiers: Hypertension type: essential hypertension Qualified Code(s): I10 - Essential (primary) hypertension Code(s): I10 - Essential (primary) hypertension Status: Chronic Assessment and Plan: BP were monitored and acceptable. Furosemide was continued. (4) Chronic hyponatremia: Code(s): E87.1 - Hypo-osmolality and hyponatremia Status: Chronic Assessment and Plan: Chronic. Labs are consistent with baseline. Recommend outpatient follow-up. (5) Chronic kidney disease, stage 3: Code(s): N18.30 - Chronic kidney disease, stage 3 unspecified Status: Chronic Assessment and Plan: Chronic. Cr was consistent with baseline. (6) Insulin dependent type 2 diabetes mellitus: Code(s): E11.9 - Type 2 diabetes caitlin
--- NOTE | 2020-06-09 22:26 | PC.NURSE ---
PT SALINE LOCK LEFT IN UPON DISCHARGE, SPOKE WITH KAMERON AT [facility] AND INFORMED HER IT CAN BE DISCONTINUED
== END 2020-06-09 20:50 | DRG 638 ==
LOC: ANHED 12:09 → ANH3MEDSUR 13:52
PROVIDERS: Family Medicine; Physician Assistant; Admitting Provider Internal Medicine; Emergency Provider Emergency Medicine; PCP Family Medicine; Visit Provider Internal Medicine
DX: E11.628 Type 2 diabetes mellitus with other skin complications (principal); L03.115 Cellulitis of right lower limb; I69.351 Hemiplegia and hemiparesis following cerebral infarction affecting right dominant side; E87.1 Hypo-osmolality and hyponatremia; Z20.828 Contact with and (suspected) exposure to other viral communicable diseases; E11.621 Type 2 diabetes mellitus with foot ulcer; L97.519 Non-pressure chronic ulcer of other part of right foot with unspecified severity; B96.4 Proteus (mirabilis) (morganii) as the cause of diseases classified elsewhere; N28.9 Disorder of kidney and ureter, unspecified; D64.9 Anemia, unspecified; Z66 Do not resuscitate; E11.22 Type 2 diabetes mellitus with diabetic chronic kidney disease; I12.9 Hypertensive chronic kidney disease with stage 1 through stage 4 chronic kidney disease, or unspecified chronic kidney disease; N18.30 Chronic kidney disease, stage 3 unspecified; K21.9 Gastro-esophageal reflux disease without esophagitis; E78.5 Hyperlipidemia, unspecified; N40.0 Benign prostatic hyperplasia without lower urinary tract symptoms; L98.429 Non-pressure chronic ulcer of back with unspecified severity; K44.9 Diaphragmatic hernia without obstruction or gangrene; M19.90 Unspecified osteoarthritis, unspecified site; R74.8 Abnormal levels of other serum enzymes; I25.10 Atherosclerotic heart disease of native coronary artery without angina pectoris; E11.51 Type 2 diabetes mellitus with diabetic peripheral angiopathy without gangrene; Z89.422 Acquired absence of other left toe(s); Z87.891 Personal history of nicotine dependence; Z95.5 Presence of coronary angioplasty implant and graft; Z91.14 Patient's other noncompliance with medication regimen
CPT/HCPCS: 36415; 51701; 70450; 71045; 73562; 73630; 73718; 80048; 80053; 80202; 81001; 82248; 82550; 83036; 83605; 83735; 84550; 85025; 85055; 85610; 85730; 86140; 87040; 87070; 87077; 87186; 87205; 87635; 93005; 93922; 93926; 93971; 96361; 96365; 96366; 96375; 96376; 97110; 97116; 97161; 97165; 97530; 97535; 99285; A9270; C9803; G0378; J0696; J0743; J1650; J1815; J3370; J3475; J7030; U0003

== ENCOUNTER 2020-10-06 18:50 | Inpatient (IN) | payer MEDICARE, SELFPAY ==
[2020-10-06] VITALS (42 sets, daily range): BP systolic 127–194; BP diastolic 62–119; PULSE 81–123; RESP 16–25; TEMP 37.4–39.1; O2SAT 83–100
--- NOTE | ~2020-10-06 | CT_ITS ---
EXAMINATION: CT brain wo con INDICATION: Lower limb weakness COMPARISON: 06/04/2020 TECHNIQUE: Standard unenhanced head CT. The dose-length product (DLP) was 605.33 mGy-cm. The mA was a djusted according to patient size. Iterative reconstruction technique was employed. FINDINGS: There is no acute intraparenchymal hemorrhage. No evidence of mass lesion. No evidence of a cute infarction. Again noted are old infarcts involving the right frontal and parietal lobes and righ t caudate nucleus There is mild periventricular and subcortical hypodensity probably related to small vessel ischemic disease. There is mild prominence of the sulci and ventricles related to cerebral at rophy. Intracranial calcified cerebral atherosclerosis is noted. There are no extra-axial collections . There is no mass effect or midline shift. Changes in the globes are likely from ocular lens surgery . There is mild mucosal thickening of the paranasal sinuses. IMPRESSION: 1. Areas of prior infarction without acute intracranial abnormality. 2. Age related findings. Reviewed, dictated and finalized at location A.
--- NOTE | ~2020-10-06 | XR_ITS ---
EXAMINATION: XR chest 2V DATE: 10/06/2020 19:20 INDICATION: Weakness, hypertension TECHNIQUE: AP and lateral views of the chest are obtained. COMPARISON: 06/04/2020 FINDINGS: There are minimal airspace opacities of the lower lobes. There is no pleural effusion or pn eumothorax. The cardiomediastinal silhouette is normal. There is moderate thoracic spondylosis. Rodríguez es of posterior fusion are noted in the cervical spine. IMPRESSION: 1. Minimal airspace opacities of the lung bases, consistent with atelectasis versus pneumonia. Reviewed, dictated and finalized at location A. IMPRESSION: 1. Minimal airspace opacities of the lung bases, consistent with atelectasis ve rsus pneumonia.
--- NOTE | ~2020-10-06 | US_ITS ---
EXAMINATION: US venous doppler LE EXAM DATE: 10/10/2020 12:16 INDICATION: Bilateral lower extremity swelling. TECHNIQUE: Multiple grayscale, color flow and Doppler images of the lower extremity deep venous syste ms bilaterally were obtained and reviewed. Comparison is made to prior examination from 06/04/2020. FINDINGS: Right side: The right common femoral, femoral and profunda veins demonstrate normal color flow, respi ratory variation, augmentation and compressibility. Compressibility, color flow confirmed within the right popliteal, posterior tibial, peroneal, and greater saphenous veins. Right inguinal lymph node measuring 3.3 x 1.2 cm, with large fatty hilum consistent with reactive etiology. Left side: The left common femoral, femoral and profunda veins demonstrate normal color flow, respira tory variation, augmentation and compressibility. Compressibility, color flow confirmed within the l eft popliteal, posterior tibial, peroneal veins. Could not confidently identify the greater saphenous vein. IMPRESSION: 1. No lower extremity deep venous thrombosis bilaterally. 2. Reactive right inguinal adenopathy. Reviewed, dictated and finalized at location A.
--- NOTE | 2020-10-06 18:55 | ECG_ITS ---
Measurements Intervals [place] Rate: 116 P: GA: 0 QRS: 13 QRSD: 96 T: 59 QT: 344 QTc: 478 Interpretive Statements MULTIFOCAL ATRIAL TACHYCARDIA ATRIAL PREMATURE COMPLEXES ABNORMAL ECG Electronically Signed On 10-06-2020 19:55:54 CDT by Duncan Walsh D.O.
--- NOTE | 2020-10-06 19:00 | PC.NURSE ---
Assumed care of patient. Report from Abdulaziz MOREL
[2020-10-06 20:42] LABS: Basophils Absolute Auto 0.1 K/mm3 (0.0-0.1); Basophils Percent Auto 0.4 % (0.2-1.2); Eosinophils Percent Auto 0.1 % (0-4.4); Hematocrit 44.2 % (42.0-52.0); Immature Granulocyte Absolute 0.13 K/mm3 (0.00-0.031); Immature Granulocyte Percent A 0.8 % (0-0.5); Immature Platelet Fraction Pct 6.2 % (0.9-11.2); Lymphocytes Absolute Auto 0.77 K/mm3 (0.9-3.2); Lymphocytes Percent Auto 4.7 % (18.3-44.2); Mean Corpuscular HGB Conc 36.2 g/dl (32-36); Mean Corpuscular Hemoglobin 31.7 pg (26-34); Mean Corpuscular Volume 87.5 fl (80-100); Mean Platelet Volume 11.7 fl (7.4-10.4); Monocytes Absolute Auto 0.6 K/mm3 (0.1-0.6); Monocytes Percent Auto 3.3 % (2.6-8.5); Neutrophils Absolute Auto 14.9 K/mm3 (1.3-6.7); Neutrophils Percent Auto 90.7 % (45.5-73.1); Platelet Count Result 132 k/mm3 (150-375); Red Blood Count 5.05 M/mm3 (4.6-6.20); Red Cell Distribution Width 12.7 % (11.5-14.5); White Blood Count 16.4 K/mm3 (4.5-10.0)
[2020-10-06 20:44] LABS: Alanine Aminotransferase 42 U/L (4-50); Albumin Level 4.6 g/dL (3.5-5.1); Alkaline Phosphatase 116 U/L (38-126); Anion Gap 9 mmol/L (8-16); Aspartate Amino Transferase 205 U/L (17-59); Bilirubin,Total 2.2 mg/dL (0.2-1.3); Blood Urea Nitrogen 28 mg/dL (9-20); Calcium 9.3 mg/dL (8.4-10.2); Carbon Dioxide 29 mmol/L (22-30); Chloride 98 mmol/L (98-107); Estimated CRCL calculation 29 ml/min; Estimated Glomerular Filt Rate 41; Glucose 262 mg/dL (75-110); Potassium 3.5 mmol/L (3.4-5.0); Sodium 136 mmol/L (137-145)
[2020-10-06 21:19] LABS: Add Urine Microscopic? YES; Appearance Urine Clear (Clear); Bilirubin Urine Negative (Negative); Blood Urine 2+ (Negative); Color Urine Yellow (Yellow); Glucose Urine UA 3+ mg/dL (Negative); Ketones Urine Trace mg/dL (Negative); Leukocyte Esterase Ur Negative LEU/UL (Negative); Nitrate Urine Negative (Negative); Protein Urine 3+ mg/dL (Negative); RBC Urine 0-2 /hpf (0-2); Specific Grav Ur 1.017 (1.001-1.035); Urobilinogen Urine Negative mg/dL (<2.0); WBC Urine 0-3 /hpf
--- NOTE | 2020-10-06 21:30 | ED.WEAKNESS ---
HPI - Weakness General Chief complaint: Weakness Stated complaint: weakness Time Seen by Provider: 10/06/20 18:52 Source: patient and family Mode of arrival: EMS Limitations: clinical condition History of Present Illness HPI Narrative: 89-year-old male Comes from home where he lives alone with his dogs His daughter and his son trade-off checking on him every other day Today his son found him sitting on the toilet because he was too weak to stand up and get off Patient is not a very good historian and just complains of his legs feeling very weak Otherwise he says he does not feel too bad nothing particularly hurts he is not having any trouble breathing not vomiting that anybody knows of and he does not complain of pain anywhere specifically not in the chest or abdomen and does not appear that he has fallen MD Complaint: generalized weakness Related Data Home Medications Medication Instructions Recorded Confirmed atorvastatin 80 mg PO HS 05/17/19 06/04/20 clopidogrel 75 mg PO DAILY 05/17/19 06/04/20 furosemide 20 mg PO DAILY 05/17/19 06/04/20 gabapentin 300 mg PO TID 05/17/19 06/04/20 pantoprazole 40 mg PO BID 05/17/19 06/04/20 Complete Multivitamin 1 tablet PO DAILY 12/25/19 06/04/20 insulin aspart U-100 [Novolog See Rx Instructions .ROUTE .COMPLEX 06/04/20 06/04/20 Flexpen U-100 Insulin] Allergies Allergy/AdvReac Type Severity Reaction Status Date / Time No Known Allergies Allergy Unknown Verified 06/04/20 15:09 Review of Systems Review of Systems: All systems reviewed & are unremarkable except as noted in HPI and below Constitutional: Constitutional: Denies chills, Reports fatigue, Denies fever(s), Denies headache(s) and Reports weakness Eyes: Eyes: Reports no additional eye complaints and Denies change in vision ENT: Denies headache(s) and Denies sore throat Cardiovascular: Cardiovascular: Denies chest pain and Denies dyspnea Respiratory: Respiratory: Denies cough and Denies dyspnea Gastrointestinal: Gastrointestinal: Denies abdominal pain, Denies diarrhea and Denies vomiting Genitourinary: Genitourinary: Denies dysuria and Denies urinary frequency Musculoskeletal: Musculoskeletal: Reports myalgias, Denies deformity, Denies arthralgias, Denies joint swelling and Denies numbness Integumentary/Breasts: Skin/Breast: Denies rash and Denies wounds Neurologic: Denies headache(s), Denies focal weakness, Denies numbness and Reports weakness Psychiatric: Psychiatric: Reports no additional psychiatric complaints Endocrine: Endocrine: Reports no additional endocrine complaints Hematologic/Lymphatic: Hematologic/Lymphatic: Reports no additional hematologic/lymphatic complaints Allergic/Immunologic: Allergic/Immunologic: Reports no additional allergic/immunologic complaints [facility] Past Medical History Medical History (Updated 10/06/20 @ 23:38 by Can Suresh MD) Anemia Arthritis Benign prostatic hyperplasia Cerebrovascular accident Presenting with right-sided weakness. Chronic hyponatremia Chronic kidney disease, stage 3 Baseline creatinine is between 1.5 and 1.0. Coronary artery disease Gastroesophageal reflux disease Hiatal hernia Hyperlipidemia Hypertension Insulin dependent type 2 diabetes mellitus Hemoglobin A1c was 9.5% in December 2019. Peripheral arterial disease With history of carotid endarterectomy and axillofemoral bypass. Seasonal allergies Thrombocytopenia Mild, chronic thrombocytopenia. 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 History of angioplasty x2 History of appendectomy History of bilateral cataract extraction History of cardiac catheterization History of carotid endarterectomy History of carpal tunnel release History of vascular surgery Axillofemoral bypass graft with subsequent endarterectomy. Family History Family History (Reviewed 06/04/20 @ 20:43 b
[2020-10-06] MEDS: LACTATED RINGERS 1,000 ML 999 ML IV CONT (21:47)
[2020-10-06] MEDS: METOPROLOL TARTRATE INJ 5 MG/5 ML VIAL IV PUSH ×2 (21:48→22:29)
--- NOTE | 2020-10-06 22:15 | PC.NURSE ---
Called lab for blood draw. pt. difficult stick
[2020-10-06 23:09] LABS: Lactic Acid Reflex 1.8 mmol/L (0.7-2.1)
[2020-10-06 23:25] LABS: NT Pro B Type Natriuretic Pept 15500 PG/ML (5-100); Troponin I 0.139 ng/mL (0.000-0.034)
--- NOTE | 2020-10-06 23:39 | ECG_ITS ---
Measurements Intervals [place] Rate: 80 P: 66 [place]: 165 QRS: 49 QRSD: 89 T: 92 QT: 444 QTc: 514 Interpretive Statements SINUS RHYTHM BORDERLINE T WAVE ABNORMALITY- HIGH LATERAL LEADS PROLONGED QT INTERVAL ABNORMAL ECG Electronically Signed On 10-07-2020 6:48:48 CDT by Duncan Walsh D.O.
[2020-10-07] VITALS (18 sets, daily range): BP systolic 97–179; BP diastolic 41–67; PULSE 66–97; RESP 14–25; TEMP 36.1–36.7; O2SAT 97–100; BMI 24.0
--- NOTE | 2020-10-07 00:49 | ADMGEN ---
This patient, Jose D Sterling, was admitted to IMU Room 232-01 on 10/07/20 at 0045. Patient/family oriented to hospital policies and general routines including ID bracelet, bed and alarms, visiting hours, pain management, procedures, bathroom and other care routines, personal items, smoking policy, room service/diet, and visiting hours. Information on how to activate the Rapid Response Team has been discussed. Patient/Family are encouraged to report perceived risks to care and to ask questions if they do not understand what they are told or what they should do.
--- NOTE | 2020-10-07 01:12 | PC.NURSE ---
attempt to call son William to confirm medication and history. No answer, message left.
--- NOTE | 2020-10-07 01:41 | PM.IMHP ---
H&P: HPI History of Present Illness Date/Time: 10/07/20 01:41 Chief Complaint: Generalized weakness++ Narrative: This is a 85-year-old diabetic demented male with known history of chronic kidney disease stage 3, previous CVA with residual right-sided weakness, hypertension among many other comorbidities who presented to the hospital with a complaint of generalized weakness. The patient's children found him sitting on the toilet because he was too weak to get up and decided to bring him to the hospital. The patient is known to live alone and overall is a very poor historian. When asked the patient if he knows why he is here he says I do not know. He also cannot tell me any of his own medical history. The patient denies any specific symptoms tonight. He was evaluated in the emergency room and found to be septic with fever, tachycardia, and leukocytosis. Source of sepsis is not entirely clear. Chest x-ray demonstrated minimal airspace opacities of the lung bases. Patient was treated with IV fluids and Levaquin and we are asked to admit him to the hospital for further care. Review of Systems Review of Systems: All systems reviewed & are unremarkable except as noted in HPI and below PMFSH Past Medical History Medical History (Updated 10/07/20 @ 05:47 by Hood Zamora MD) Anemia Arthritis Benign prostatic hyperplasia Cerebrovascular accident Presenting with right-sided weakness. Chronic hyponatremia Chronic kidney disease, stage 3 Baseline creatinine is between 1.5 and 1.0. Coronary artery disease Dementia Gastroesophageal reflux disease Hiatal hernia Hyperlipidemia Hypertension Insulin dependent type 2 diabetes mellitus Hemoglobin A1c was 9.5% in December 2019. Peripheral arterial disease With history of carotid endarterectomy and axillofemoral bypass. Seasonal allergies Thrombocytopenia Mild, chronic thrombocytopenia. 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 History of angioplasty x2 History of appendectomy History of bilateral cataract extraction History of cardiac catheterization History of carotid endarterectomy History of carpal tunnel release History of vascular surgery Axillofemoral bypass graft with subsequent endarterectomy. Family History Family History Mother Old age Diabetes mellitus Sibling Diabetes mellitus Social History Social History Social History: The patient lives in [place] with his niece. She helps him somewhat with activities of daily living. They have 2 dogs at home. He has no children. He smoked 1 pack of cigarettes per day for 40 years and quit many years ago. No alcohol or illicit substance use. He designates his niece Shannon Mckeon, as his surrogate decision maker and he wishes to be a do not resuscitate. Smoking packs per day: 1 Smoking cigarettes per day: 20.0 Years smoked: 40 Smoking pack-years: 40.00 Smoking status: Former smoker Tobacco type: cigarettes Alcohol intake: never Drinks per week: 1 Substance use: never Substance use type: does not use Gender identity (if verbalized by the patient): Male Spiritual care concerns: No Meds Home Medications and Allergies Home Medications Medication Instructions Recorded Confirmed Type atorvastatin 80 mg PO HS 05/17/19 10/07/20 History clopidogrel 75 mg PO DAILY 05/17/19 10/07/20 History furosemide 20 mg PO DAILY 05/17/19 10/07/20 History gabapentin 300 mg PO TID 05/17/19 10/07/20 History pantoprazole 40 mg PO BID 05/17/19 10/07/20 History tamsulosin 0.4 mg capsule 0.4 mg PO DAILY #90 cap 07/18/19 10/07/20 Rx Complete Multivitamin 1 tablet PO DAILY 12/25/19 10/07/20 History alogliptin 25 mg tablet 25 mg PO DAILY #30 tablet 12/25/19 10/07/20 Rx finasteride 5 mg ta
[2020-10-07] MEDS: SODIUM CHLORIDE 0.9% IV 1,000 ML 100 ML IV CONT ×2 (02:39→17:38)
[2020-10-07 04:29] LABS: Basophils Percent Auto 0.3 % (0.2-1.2); Eosinophils Absolute Auto 0.5 K/mm3 (0-0.3); Eosinophils Percent Auto 3.7 % (0-4.4); Hematocrit 39.3 % (42.0-52.0); Hemoglobin 13.8 g/dL (14.0-18.0); Immature Granulocyte Absolute 0.12 K/mm3 (0.00-0.031); Immature Granulocyte Percent A 0.9 % (0-0.5); Lymphocytes Absolute Auto 1.11 K/mm3 (0.9-3.2); Lymphocytes Percent Auto 8.1 % (18.3-44.2); Mean Corpuscular HGB Conc 35.1 g/dl (32-36); Mean Corpuscular Hemoglobin 31.4 pg (26-34); Mean Corpuscular Volume 89.5 fl (80-100); Mean Platelet Volume 11.6 fl (7.4-10.4); Monocytes Absolute Auto 0.6 K/mm3 (0.1-0.6); Monocytes Percent Auto 4.2 % (2.6-8.5); Neutrophils Absolute Auto 11.3 K/mm3 (1.3-6.7); Neutrophils Percent Auto 82.8 % (45.5-73.1); Platelet Count Result 132 k/mm3 (150-375); Red Blood Count 4.39 M/mm3 (4.6-6.20); Red Cell Distribution Width 12.9 % (11.5-14.5); White Blood Count 13.7 K/mm3 (4.5-10.0)
[2020-10-07 04:45] LABS: Anion Gap 7 mmol/L (8-16); Blood Urea Nitrogen 28 mg/dL (9-20); Calcium 8.2 mg/dL (8.4-10.2); Carbon Dioxide 30 mmol/L (22-30); Chloride 97 mmol/L (98-107); Estimated CRCL calculation 35 ml/min; Estimated Glomerular Filt Rate 45; Glucose 248 mg/dL (75-110); Magnesium 1.4 mg/dL (1.6-2.3); Potassium 3.2 mmol/L (3.4-5.0); Sodium 134 mmol/L (137-145)
[2020-10-07 05:06] LABS: Troponin I 0.174 ng/mL (0.000-0.034)
[2020-10-07 08:23] LABS: Glucose Point of Care 190 (65-105)
[2020-10-07] MEDS: MAGNESIUM OXIDE 200 MG TABLET PO ×2 (08:29→17:40)
[2020-10-07] MEDS: FINASTERIDE 5 MG TABLET PO (08:29)
[2020-10-07] MEDS: THERAPEUTIC MULTIVITAMINS/MINERALS TAB (*BKC) 1 TABLET PO (08:29)
[2020-10-07] MEDS: GABAPENTIN 300 MG CAPSULE PO ×3 (08:30→17:40)
[2020-10-07] MEDS: ENOXAPARIN 40 MG/0.4 ML SYRINGE SUB-Q (08:30)
[2020-10-07] MEDS: FUROSEMIDE 20 MG TABLET PO (08:30)
[2020-10-07] MEDS: PANTOPRAZOLE 40 MG TABLET PO ×2 (08:30→17:40)
[2020-10-07] MEDS: TAMSULOSIN HCL 0.4 MG CAPSULE PO (08:30)
[2020-10-07] MEDS: CLOPIDOGREL BISULFATE 75 MG TABLET PO (08:30)
[2020-10-07] MEDS: METOPROLOL TARTRATE 25 MG TABLET PO ×2 (11:42→20:31)
[2020-10-07 12:57] LABS: Glucose Point of Care 327 (65-105)
[2020-10-07] MEDS: INSULIN ASPART (*BKC) 100 UNITS/ML SUB-Q ×2 (13:48→17:40)
--- NOTE | 2020-10-07 14:25 | PM.IMPN ---
Progress Note: A&P Assessment and Plan (1) Sepsis: Qualifiers: Sepsis type: sepsis due to unspecified organism Sepsis acute organ dysfunction status: unspecified Qualified Code(s): A41.9 - Sepsis, unspecified organism Code(s): A41.9 - Sepsis, unspecified organism Status: Acute Assessment and Plan: Patient has been admitted to IMU. Source of sepsis could be skin as the patient seems to have a rash on his right lower extremity Pt is on iv Vancomycin, iv Levaquin and iv Cefepime. (2) Elevated troponin: Code(s): R77.8 - Other specified abnormalities of plasma proteins Status: Acute Assessment and Plan: Rule out acute coronary syndrome versus troponin leak. cardiology is consulted (3) Insulin dependent type 2 diabetes mellitus: Code(s): E11.9 - Type 2 diabetes mellitus without complications; Z79.4 - nursing home (current) use of insulin Status: Chronic Assessment and Plan: Accu-Cheks, sliding scale insulin coverage, hypoglycemia protocol. Continue alogliptin (4) Chronic kidney disease, stage 3: Qualifiers: Chronic kidney disease stage 3 subtype: unspecified whether 3a or 3b Qualified Code(s): N18.30 - Chronic kidney disease, stage 3 unspecified Code(s): N18.30 - Chronic kidney disease, stage 3 unspecified Status: Chronic Assessment and Plan: Renal function continue to monitor. (5) Generalized weakness: Code(s): R53.1 - Weakness Status: Acute Assessment and Plan: Likely secondary to chronic debility, chronic illnesses, and sepsis. PT OT evaluation. (6) Hypertension: Qualifiers: Hypertension type: essential hypertension Qualified Code(s): I10 - Essential (primary) hypertension Code(s): I10 - Essential (primary) hypertension Status: Chronic Assessment and Plan: Monitor blood pressure. Continue metoprolol. . (7) Cerebrovascular accident: Qualifiers: CVA mechanism: unspecified Qualified Code(s): I63.9 - Cerebral infarction, unspecified Code(s): I63.9 - Cerebral infarction, unspecified Status: Chronic Assessment and Plan: Patient has a history of previous CVA with chronic right-sided debility. Continue Plavix and atorvastatin. Additional Plan . Subjective Date/time seen: 10/07/20 14:25 Interval history: 85-year-old diabetic demented male with known history of chronic kidney disease stage 3, previous CVA with residual right-sided weakness, hypertension among many other comorbidities who presented to the hospital with a complaint of generalized weakness. Pt is being treated for sepsis in the hospital. Review of Systems Review of Systems: All systems reviewed & are unremarkable except as noted in HPI and below Exam Const: General: ill appearing Orientation/consciousness: Other orientation findings (demented++ ) Resp: Effort & Inspection: normal respiratory effort Auscultation: clear to auscultation bilaterally Cardio: Rate: regular rate Rhythm: regular rhythm Heart sounds: no murmurs Extrem: General: normal to inspection and edema Psych: Affect: Indifferent affect present Objective Data Vital Signs Vital Signs: Vital Signs - 24 hr 10/06/20 18:56 10/06/20 18:57 10/06/20 19:00 Temperature 38.1 C H Pulse Rate 121 H 116 H 112 H Respiratory Rate 21 H 23 H 18 Blood Pressure 192/107 H Pulse Oximetry 97 99 98 10/06/20 19:02 10/06/20 19:04 10/06/20 19:19 Temperature Pulse Rate 115 H 114 H 121 H Respiratory Rate 23 H 23 H Blood Pressure Pulse Oximetry 97 98 10/06/20 19:21 10/06/20 19:30 10/06/20 19:32 Temperature Pulse Rate 114 H 109 H 114 H Respiratory Rate 24 H 21 H 22 H Blood Pressure 184/92 H Pulse Oximetry 97 97 100 10/06/20 19:43 10/06/20 19:45 10/06/20 20:00 Temperature 37.4 C Pulse Rate 110 H 112 H 121 H Respiratory Rate 18 19 21 H Blood Pressure 184/92 H Pulse O
[2020-10-07 16:47] LABS: Glucose Point of Care 201 (65-105)
[2020-10-07 19:50] LABS: Glucose Point of Care 164 (65-105)
[2020-10-07] MEDS: ATORVASTATIN 40 MG TABLET 80 MG PO (20:30)
[2020-10-08] VITALS (10 sets, daily range): BP systolic 107–136; BP diastolic 47–51; PULSE 59–79; RESP 14–20; TEMP 36.2–36.7; O2SAT 97–100
[2020-10-08 06:31] LABS: Hematocrit 32.5 % (42.0-52.0); Hemoglobin 11.5 g/dL (14.0-18.0); Immature Platelet Fraction Pct 8.1 % (0.9-11.2); Mean Corpuscular HGB Conc 35.4 g/dl (32-36); Mean Corpuscular Hemoglobin 31.7 pg (26-34); Mean Corpuscular Volume 89.5 fl (80-100); Mean Platelet Volume 11.4 fl (7.4-10.4); Platelet Count Result 105 k/mm3 (150-375); Red Blood Count 3.63 M/mm3 (4.6-6.20); Red Cell Distribution Width 12.9 % (11.5-14.5); White Blood Count 9.7 K/mm3 (4.5-10.0)
[2020-10-08 06:39] LABS: Anion Gap 4 mmol/L (8-16); Blood Urea Nitrogen 37 mg/dL (9-20); Calcium 7.6 mg/dL (8.4-10.2); Carbon Dioxide 27 mmol/L (22-30); Chloride 101 mmol/L (98-107); Estimated CRCL calculation 33 ml/min; Estimated Glomerular Filt Rate 41; Glucose 107 mg/dL (75-110); Potassium 3.4 mmol/L (3.4-5.0); Sodium 132 mmol/L (137-145)
[2020-10-08 08:01] LABS: Glucose Point of Care 116 (65-105)
[2020-10-08] MEDS: TAMSULOSIN HCL 0.4 MG CAPSULE PO (09:04)
[2020-10-08] MEDS: PANTOPRAZOLE 40 MG TABLET PO ×2 (09:04→16:21)
[2020-10-08] MEDS: THERAPEUTIC MULTIVITAMINS/MINERALS TAB (*BKC) 1 TABLET PO (09:04)
[2020-10-08] MEDS: MAGNESIUM OXIDE 200 MG TABLET PO ×2 (09:05→16:21)
[2020-10-08] MEDS: ENOXAPARIN 40 MG/0.4 ML SYRINGE SUB-Q (09:05)
[2020-10-08] MEDS: FINASTERIDE 5 MG TABLET PO (09:05)
[2020-10-08] MEDS: METOPROLOL TARTRATE 25 MG TABLET PO ×2 (09:05→20:37)
[2020-10-08] MEDS: FUROSEMIDE 20 MG TABLET PO (09:05)
[2020-10-08] MEDS: GABAPENTIN 300 MG CAPSULE PO ×3 (09:05→16:21)
[2020-10-08] MEDS: CLOPIDOGREL BISULFATE 75 MG TABLET PO (09:06)
[2020-10-08 12:22] LABS: Glucose Point of Care 215 (65-105)
[2020-10-08] MEDS: INSULIN ASPART (*BKC) 100 UNITS/ML SUB-Q (12:52)
--- NOTE | 2020-10-08 14:18 | PM.IMPN ---
Progress Note: A&P Assessment and Plan (1) Sepsis: Qualifiers: Sepsis type: sepsis due to unspecified organism Sepsis acute organ dysfunction status: unspecified Qualified Code(s): A41.9 - Sepsis, unspecified organism Code(s): A41.9 - Sepsis, unspecified organism Status: Acute Assessment and Plan: Patient has been admitted to IMU. Source of sepsis could be skin as the patient seems to have a rash on his right lower extremity Pt is on iv Vancomycin, iv Levaquin and iv Cefepime. Cultures appear good. (2) Elevated troponin: Code(s): R77.8 - Other specified abnormalities of plasma proteins Status: Acute Assessment and Plan: Rule out acute coronary syndrome versus troponin leak. cardiology is consulted (3) Insulin dependent type 2 diabetes mellitus: Code(s): E11.9 - Type 2 diabetes mellitus without complications; Z79.4 - [employer] (current) use of insulin Status: Chronic Assessment and Plan: Accu-Cheks, sliding scale insulin coverage, hypoglycemia protocol. Continue alogliptin (4) Chronic kidney disease, stage 3: Qualifiers: Chronic kidney disease stage 3 subtype: unspecified whether 3a or 3b Qualified Code(s): N18.30 - Chronic kidney disease, stage 3 unspecified Code(s): N18.30 - Chronic kidney disease, stage 3 unspecified Status: Chronic Assessment and Plan: Renal function continue to monitor. (5) Generalized weakness: Code(s): R53.1 - Weakness Status: Acute Assessment and Plan: Likely secondary to chronic debility, chronic illnesses, and sepsis. PT OT evaluation. (6) Hypertension: Qualifiers: Hypertension type: essential hypertension Qualified Code(s): I10 - Essential (primary) hypertension Code(s): I10 - Essential (primary) hypertension Status: Chronic Assessment and Plan: Monitor blood pressure. Continue metoprolol. . (7) Cerebrovascular accident: Qualifiers: CVA mechanism: unspecified Qualified Code(s): I63.9 - Cerebral infarction, unspecified Code(s): I63.9 - Cerebral infarction, unspecified Status: Chronic Assessment and Plan: Patient has a history of previous CVA with chronic right-sided debility. Continue Plavix and atorvastatin. Additional Plan . Subjective Date/time seen: 10/08/20 14:18 Interval history: 85-year-old diabetic demented male with known history of chronic kidney disease stage 3, previous CVA with residual right-sided weakness, hypertension among many other comorbidities who presented to the hospital with a complaint of generalized weakness. Pt is being treated for sepsis in the hospital. Doing better today, Bp is good. Review of Systems Review of Systems: All systems reviewed & are unremarkable except as noted in HPI and below Exam Const: General: ill appearing Nutritional Appearance: well nourished Orientation/consciousness: oriented to person and Other orientation findings (demented++ ) HENMT: Head: normal to inspection General nose exam: Normal external nose present Face and sinus: normal facial exam Mouth: Yes Normal oral and palatal mucosa present and Yes oropharynx normal Eyes: Pupils: Equal, round and reactive pupils present EOM: EOMs intact bilaterally Neck: Neck: supple and no JVD Thyroid: thyroid normal Lymphatic: lymphadenopathy not noted Resp: Effort & Inspection: normal respiratory effort Auscultation: clear to auscultation bilaterally Cardio: Rate: regular rate Rhythm: regular rhythm Heart sounds: no murmurs GI: Inspection: normal to inspection Auscultation: normal bowel sounds Skin: General skin exam: normal color and erythema (Blotchy erythema noted right lower extremity++ ) Neuro: General: oriented to person Cranial nerves: Yes CN's II-XII intact bilaterally and Yes Equal, round and reactive pupils present Speech: normal speech Motor exam (neuro): Other motor
--- NOTE | 2020-10-08 14:29 | PC.NURSE ---
This patient, Jose D Sterling, was transferred to [facility] on 10/08/20 at 1404. Personal belongings sent with patient. Report given to Jyothi MOREL. Appropriate documentation sent with patient.
--- NOTE | 2020-10-08 14:34 | PC.NURSE ---
pt arrived from imu to room 322 at 1320, alert to person and place , no distress noted.
[2020-10-08 17:05] LABS: Glucose Point of Care 198 (65-105)
[2020-10-08] MEDS: ATORVASTATIN 40 MG TABLET 80 MG PO (20:36)
[2020-10-08 22:41] LABS: Glucose Point of Care 227 (65-105)
[2020-10-09 06:00] VITALS: BP 146/48; PULSE 62; RESP 16; TEMP 36.1; O2SAT 99
[2020-10-09 06:23] LABS: Estimated CRCL calculation 28 ml/min; Estimated Glomerular Filt Rate 34
[2020-10-09 07:30] LABS: Glucose Point of Care 202 (65-105)
[2020-10-09] MEDS: INSULIN ASPART (*BKC) 100 UNITS/ML SUB-Q ×3 (07:43→16:47)
[2020-10-09] MEDS: GABAPENTIN 300 MG CAPSULE PO ×3 (08:00→16:51)
[2020-10-09] MEDS: ENOXAPARIN 40 MG/0.4 ML SYRINGE SUB-Q (08:00)
[2020-10-09] MEDS: FUROSEMIDE 20 MG TABLET PO (08:00)
[2020-10-09 08:02] VITALS: PULSE 58
[2020-10-09] MEDS: TAMSULOSIN HCL 0.4 MG CAPSULE PO (08:02)
[2020-10-09] MEDS: CLOPIDOGREL BISULFATE 75 MG TABLET PO (08:02)
[2020-10-09] MEDS: PANTOPRAZOLE 40 MG TABLET PO ×2 (08:03→16:51)
[2020-10-09] MEDS: MAGNESIUM OXIDE 200 MG TABLET PO ×2 (08:03→16:51)
[2020-10-09] MEDS: FINASTERIDE 5 MG TABLET PO (08:03)
[2020-10-09] MEDS: THERAPEUTIC MULTIVITAMINS/MINERALS TAB (*BKC) 1 TABLET PO (08:03)
[2020-10-09 08:49] LABS: Anion Gap 4 mmol/L (8-16); Blood Urea Nitrogen 42 mg/dL (9-20); Calcium 7.9 mg/dL (8.4-10.2); Carbon Dioxide 27 mmol/L (22-30); Chloride 103 mmol/L (98-107); Estimated CRCL calculation 27 ml/min; Estimated Glomerular Filt Rate 32; Glucose 199 mg/dL (75-110); Potassium 3.2 mmol/L (3.4-5.0); Sodium 134 mmol/L (137-145)
[2020-10-09 09:38] LABS: Magnesium 1.7 mg/dL (1.6-2.3)
--- NOTE | 2020-10-09 09:40 | WPDCDIQUERY2 ---
CDI Query Clarification Request - Emergency Course: fever 102 after arrival, in light of l base rhonchi, inc wbc, likely pna, culured, started levaquin and clinical impression: pneumonia documented by EDP -WBC 16.4 -4/5 temp 100.6 and 102.3 -4/5 CXR impression: Minimal airspace opacities of the lung bases, consistent with atelectasis versus pneumonia Please clarify if pneumonia has been ruled in or ruled out.
[2020-10-09] MEDS: SODIUM CHLORIDE 0.9% IV 1,000 ML 100 ML IV CONT ×2 (10:11→23:34)
[2020-10-09] MEDS: POTASSIUM CHLORIDE 20 MEQ TABLET 40 MEQ PO (10:11)
[2020-10-09 11:46] LABS: Glucose Point of Care 293 (65-105)
[2020-10-09 14:00] VITALS: BP 149/46; PULSE 71; RESP 16; TEMP 36.9; O2SAT 99
--- NOTE | 2020-10-09 14:47 | PM.IMPN ---
Progress Note: A&P Assessment and Plan (1) Sepsis: Qualifiers: Sepsis acute organ dysfunction status: unspecified Sepsis type: sepsis due to unspecified organism Qualified Code(s): A41.9 - Sepsis, unspecified organism Code(s): A41.9 - Sepsis, unspecified organism Status: Acute Assessment and Plan: With fever and leukocytosis on arrival both resolved. Source may be skin given right his lower extremity rash. CXR showed minimal airspace disease. Patient without shortness of breath or cough or other symptoms of pneumonia thus PNA not suspected. He was treated with one dose of IV vancomycin, one dose of IV levaquin and has been on IV cefepime (day 3). Urine culture pending. Blood cultures with no growth to date. Monitor vital signs and urine output. (2) Elevated troponin: Code(s): R77.8 - Other specified abnormalities of plasma proteins Status: Acute Assessment and Plan: No chest pain. EKG without ST changes and ACS not suspected. (3) Insulin dependent type 2 diabetes mellitus: Code(s): E11.9 - Type 2 diabetes mellitus without complications; Z79.4 - custodial (current) use of insulin Status: Chronic Assessment and Plan: Continue accu-cheks and cover with SSI. Continue oral medications and monitor. Hypoglycemia protocol as needed. (4) Chronic kidney disease, stage 3: Qualifiers: Chronic kidney disease stage 3 subtype: unspecified whether 3a or 3b Qualified Code(s): N18.30 - Chronic kidney disease, stage 3 unspecified Code(s): N18.30 - Chronic kidney disease, stage 3 unspecified Status: Chronic Assessment and Plan: BUN and creatinine rising today. Suspect due to poor oral intake superimposed on CKD. Start gentle IV hydration and monitor fluid status closely. Monitor renal function, hold lasix. Check BMP + Mg in AM. (5) Generalized weakness: Code(s): R53.1 - Weakness Status: Acute Assessment and Plan: Likely secondary to chronic debility, chronic illnesses, and sepsis. PT OT evaluation. Gabrielao is home with HH. (6) Hypertension: Qualifiers: Hypertension type: essential hypertension Qualified Code(s): I10 - Essential (primary) hypertension Code(s): I10 - Essential (primary) hypertension Status: Chronic Assessment and Plan: BP reasonably stable on home metoprolol. Monitor BP and adjust treatment as needed. (7) Cerebrovascular accident: Qualifiers: CVA mechanism: unspecified Qualified Code(s): I63.9 - Cerebral infarction, unspecified Code(s): I63.9 - Cerebral infarction, unspecified Status: Chronic Assessment and Plan: Patient has a history of previous CVA with chronic right-sided debility. Continue Plavix and atorvastatin. Subjective Date/time seen: 10/09/20 14:30 Interval history: Mr. Sterling is a very pleasant 85yo M with dementia, diabetes, CKD, previous CVA with residual right-sided weakness admitted with generalized weakness. He is helped back from the restroom and is walking well with his walker contact guard. He reports right leg aching but otherwise offers no complaints. He denies chest pain, shortness of breath, nausea or vomiting. Review of Systems Review of Systems: All systems reviewed & are unremarkable except as noted in HPI and below Exam Narrative: Exam Narrative: General: Elderly male helped back from the bathroom with his walker, ambulated well and in no acute distress. HEENT: Normocephalic, EOMI, oral mucosa moist. Cardiovascular: Rate and rhythm are regular. Respiratory: Lungs clear to auscultation bilaterally. Respirations
[2020-10-09 16:39] LABS: Glucose Point of Care 228 (65-105)
[2020-10-09] MEDS: ATORVASTATIN 40 MG TABLET 80 MG PO (20:50)
[2020-10-09 20:51] VITALS: PULSE 71
[2020-10-09] MEDS: METOPROLOL TARTRATE 25 MG TABLET PO (20:51)
[2020-10-09 22:00] VITALS: BP 150/60; PULSE 71; RESP 18; TEMP 36.8; O2SAT 97
[2020-10-10 06:00] VITALS: BP 160/60; PULSE 62; RESP 18; TEMP 36.6; O2SAT 99
[2020-10-10 07:53] LABS: Glucose Point of Care 202 (65-105)
[2020-10-10] MEDS: INSULIN ASPART (*BKC) 100 UNITS/ML SUB-Q ×3 (07:53→16:58)
[2020-10-10] MEDS: ENOXAPARIN 40 MG/0.4 ML SYRINGE SUB-Q (08:01)
[2020-10-10] MEDS: PANTOPRAZOLE 40 MG TABLET PO ×2 (08:01→17:01)
[2020-10-10 08:02] VITALS: PULSE 65
[2020-10-10] MEDS: METOPROLOL TARTRATE 25 MG TABLET PO (08:02)
[2020-10-10] MEDS: GABAPENTIN 300 MG CAPSULE PO ×3 (08:03→17:01)
[2020-10-10] MEDS: MAGNESIUM OXIDE 200 MG TABLET PO ×2 (08:04→17:01)
[2020-10-10] MEDS: FINASTERIDE 5 MG TABLET PO (08:04)
[2020-10-10] MEDS: TAMSULOSIN HCL 0.4 MG CAPSULE PO (08:04)
[2020-10-10] MEDS: THERAPEUTIC MULTIVITAMINS/MINERALS TAB (*BKC) 1 TABLET PO (08:04)
[2020-10-10] MEDS: CLOPIDOGREL BISULFATE 75 MG TABLET PO (08:04)
[2020-10-10 08:43] LABS: Anion Gap 5 mmol/L (8-16); Blood Urea Nitrogen 33 mg/dL (9-20); Calcium 8.3 mg/dL (8.4-10.2); Carbon Dioxide 27 mmol/L (22-30); Chloride 104 mmol/L (98-107); Estimated CRCL calculation 33 ml/min; Estimated Glomerular Filt Rate 41; Glucose 194 mg/dL (75-110); Potassium 3.5 mmol/L (3.4-5.0); Sodium 136 mmol/L (137-145)
[2020-10-10 08:44] LABS: Magnesium 1.5 mg/dL (1.6-2.3)
[2020-10-10] MEDS: MAGNESIUM SULF 2 GM/WATER 50ML 2 GM/50 ML BAG IVPB (10:55)
[2020-10-10 12:43] LABS: Glucose Point of Care 298 (65-105)
[2020-10-10 13:37] LABS: Magnesium 2.1 mg/dL (1.6-2.3)
[2020-10-10 14:00] VITALS: BP 138/39; PULSE 61; RESP 16; TEMP 36.8; O2SAT 98
--- NOTE | 2020-10-10 14:16 | PM.DS ---
DS: Admitting Diagnosis Admitting Diagnosis Admitting Diagnosis: Weakness DS: Discharge Diagnosis Discharge Diagnosis (1) Sepsis: Qualifiers: Sepsis acute organ dysfunction status: unspecified Sepsis type: sepsis due to unspecified organism Qualified Code(s): A41.9 - Sepsis, unspecified organism Code(s): A41.9 - Sepsis, unspecified organism Status: Acute Assessment and Plan: Date of Admission 10/06/20 Date of Discharge 10/10/20 Mr. Sterling is a pleasant 85yo M with dementia, insulin-dependent diabetes mellitus, CKD, history of prior CVA with residual right-sided weakness, BPH, chronic hyponatremia, and peripheral arterial disease presented to the ED for evaluation of generalized weakness. EMS reported the patient's son for the patient sitting on the toilet unable to get up, unable to tell them how long he had been sitting on the toilet. He is known to live alone and overall is a very poor historian. In the ED he is found to meet sepsis criteria with fever, tachycardia, and leukocytosis. The source of sepsis was not entirely clear but he he did have significant blotchy erythema to his right lower extremity thus he was treated with IV antibiotics for possible cellulitis. Urine culture and blood cultures showed no growth. He was treated with 1 dose of IV vancomycin, 1 dose of IV Levaquin, and then was treated with 5 days of IV cefepime. He was feeling improved, right leg erythema was improved with the therapy outlined above and he was walking 150 ft contact guard with physical therapy on day of discharge. He was hemodynamically stable for discharge on 10/10/2020 and discharged with oral amoxicillin and doxycycline to complete the course. He is current with home health therapy and will resume such at discharge. With fever and leukocytosis on arrival both resolved. Source may be skin given right his lower extremity rash which is now improved. CXR showed minimal airspace disease. Patient without shortness of breath or cough or other symptoms of pneumonia thus PNA not suspected. He was treated with one dose of IV vancomycin, one dose of IV levaquin, followed by IV cefepime. Discharged with oral abx to complete the course. Urine culture negative. Blood cultures negative. (2) Elevated troponin: Code(s): R77.8 - Other specified abnormalities of plasma proteins Status: Acute Assessment and Plan: No chest pain. EKG without ST changes and ACS not suspected. (3) Insulin dependent type 2 diabetes mellitus: Code(s): E11.9 - Type 2 diabetes mellitus without complications; Z79.4 - [facility] (current) use of insulin Status: Chronic Assessment and Plan: Continue his oral medications. (4) Chronic kidney disease, stage 3: Qualifiers: Chronic kidney disease stage 3 subtype: unspecified whether 3a or 3b Qualified Code(s): N18.30 - Chronic kidney disease, stage 3 unspecified Code(s): N18.30 - Chronic kidney disease, stage 3 unspecified Status: Chronic Assessment and Plan: BUN and creatinine elevated. Suspect due to poor oral intake superimposed on CKD. He was provided with gentle IV hydration and Cr improved to 1.3 prior to discharge. (5) Generalized weakness: Code(s): R53.1 - Weakness Status: Acute Assessment and Plan: Likely secondary to chronic debility, chronic illnesses, and sepsis. PT OT evaluation. Octaviano is home with . (6) Hypertension: Qualifiers: Hypertension type: essential hypertension Qualified Code(s): I10 - Essential (primary) hypertension Code(s): I10 - Essential (primary) hypertension Status: Chronic Assessment and Plan: BP reasonably stable on home metoprolol.
[2020-10-10 16:57] LABS: Glucose Point of Care 236 (65-105)
== END 2020-10-10 18:44 | disposition home health service (06) | DRG 872 ==
LOC: ANHED 23:38 → ANHIMU 10-07 01:16 → ANH3MEDSUR 10-09 07:12 → ANHIMU 10-14 13:30
PROVIDERS: Family Medicine; Admitting Provider Family Medicine; Emergency Provider Emergency Medicine; PCP Family Medicine; Visit Provider Physician Assistant
DX: A41.9 Sepsis, unspecified organism (principal); I69.351 Hemiplegia and hemiparesis following cerebral infarction affecting right dominant side; E87.1 Hypo-osmolality and hyponatremia; L03.115 Cellulitis of right lower limb; E11.22 Type 2 diabetes mellitus with diabetic chronic kidney disease; I12.9 Hypertensive chronic kidney disease with stage 1 through stage 4 chronic kidney disease, or unspecified chronic kidney disease; N18.30 Chronic kidney disease, stage 3 unspecified; R53.1 Weakness; R77.8 Other specified abnormalities of plasma proteins; I48.91 Unspecified atrial fibrillation; N40.0 Benign prostatic hyperplasia without lower urinary tract symptoms; F03.90 Unspecified dementia, unspecified severity, without behavioral disturbance, psychotic disturbance, mood disturbance, and anxiety; I25.10 Atherosclerotic heart disease of native coronary artery without angina pectoris; K21.9 Gastro-esophageal reflux disease without esophagitis; K44.9 Diaphragmatic hernia without obstruction or gangrene; E11.51 Type 2 diabetes mellitus with diabetic peripheral angiopathy without gangrene; D69.6 Thrombocytopenia, unspecified; E78.5 Hyperlipidemia, unspecified; Z66 Do not resuscitate; Z79.02 Long term (current) use of antithrombotics/antiplatelets; Z79.4 Long term (current) use of insulin; Z79.899 Other long term (current) drug therapy; Z87.891 Personal history of nicotine dependence; Z98.42 Cataract extraction status, left eye; Z98.41 Cataract extraction status, right eye
CPT/HCPCS: 36415; 70450; 71046; 80048; 80053; 81001; 82565; 82948; 83605; 83735; 83880; 84484; 85025; 85027; 85055; 87040; 87070; 87086; 87205; 93005; 93970; 96361; 96365; 96375; 96376; 97110; 97116; 97161; 97165; 97530; 97535; 99285; A9270; J0692; J1650; J1815; J1956; J3370; J3475; J7030; J7120

== ENCOUNTER 2020-10-19 10:19 | Emergency (ER) | payer MEDICARE, SELFPAY ==
--- NOTE | ~2020-10-19 | XR_ITS ---
EXAMINATION: XR foot RT min 3V DATE: 10/19/2020 12:26 INDICATION: Right heel pain TECHNIQUE: Dorsoplantar, two oblique and lateral views of the right foot were obtained. COMPARISON: 06/05/2020 FINDINGS: Diffuse osteopenia. 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 Third and fourth claw toes. Dorsal dislocation of the second distal phalanx at the distal interphalangeal j oint. Mild osteoarthritis at the first metatarsophalangeal joint and at several tarsometatarsal and i nterphalangeal joints. No cortical erosions or periosteal reaction. Small plantar calcaneal spur. Sof t tissues are unremarkable. IMPRESSION: 1. No acute osseous abnormality. 2. 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 Reviewed, dictated and finalized at location A.
[2020-10-19 10:18] VITALS: BP 173/73; PULSE 60; RESP 20; TEMP 36.6; O2SAT 100
[2020-10-19 11:02] VITALS: BP 195/69; PULSE 70; RESP 20; O2SAT 98
[2020-10-19 12:02] VITALS: BP 200/71; PULSE 72; RESP 20; O2SAT 99
--- NOTE | 2020-10-19 12:18 | ED.GENADULT ---
HPI - General Adult General Chief complaint: Unspecified Stated complaint: BACK,R SIDE PAIN Time Seen by Provider: 10/19/20 11:17 Source: EMS Mode of arrival: EMS Limitations: dementia History of Present Illness HPI narrative: Patient is 85 years old white male came from snf because of pain on the right ear. Patient denying any symptoms., No history of trauma. No significant other at the bedside Related Data Home Medications Medication Instructions Recorded Confirmed atorvastatin 80 mg PO HS 05/17/19 10/07/20 clopidogrel 75 mg PO DAILY 05/17/19 10/07/20 furosemide 20 mg PO DAILY 05/17/19 10/07/20 gabapentin 300 mg PO TID 05/17/19 10/07/20 pantoprazole 40 mg PO BID 05/17/19 10/07/20 Complete Multivitamin 1 tablet PO DAILY 12/25/19 10/07/20 Allergies Allergy/AdvReac Type Severity Reaction Status Date / Time No Known Allergies Allergy Unknown Verified 06/04/20 15:09 Review of Systems Review of Systems: ROS unobtainable: Yes unobtainable due to mental status [facility] Past Medical History Medical History Anemia Arthritis Benign prostatic hyperplasia Cerebrovascular accident Presenting with right-sided weakness. Chronic hyponatremia Chronic kidney disease, stage 3 Baseline creatinine is between 1.5 and 1.0. Coronary artery disease Dementia Gastroesophageal reflux disease Hiatal hernia Hyperlipidemia Hypertension Insulin dependent type 2 diabetes mellitus Hemoglobin A1c was 9.5% in December 2019. Peripheral arterial disease With history of carotid endarterectomy and axillofemoral bypass. Seasonal allergies Thrombocytopenia Mild, chronic thrombocytopenia. 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 History of angioplasty x2 History of appendectomy History of bilateral cataract extraction History of cardiac catheterization History of carotid endarterectomy History of carpal tunnel release History of vascular surgery Axillofemoral bypass graft with subsequent endarterectomy. Family History Family History Mother Old age Diabetes mellitus Sibling Diabetes mellitus Social History Social History Social History: The patient lives in [place] with his niece. She helps him somewhat with activities of daily living. They have 2 dogs at home. He has no children. He smoked 1 pack of cigarettes per day for 40 years and quit many years ago. No alcohol or illicit substance use. He designates his niece Shannon Mckeon, as his surrogate decision maker and he wishes to be a do not resuscitate. Smoking packs per day: 1 Smoking cigarettes per day: 20.0 Years smoked: 40 Smoking pack-years: 40.00 Smoking status: Former smoker Tobacco type: cigarettes Alcohol intake: never Drinks per week: 1 Substance use: never Substance use type: does not use Gender identity (if verbalized by the patient): Male Spiritual care concerns: No Exam Narrative: Exam Narrative: General appearance: Well-developed, well-nourished patient does not look in pain or distress Skin: Normal color, the back of right heel showed healing skin avulsion, no surrounding erythema, no discharge, no swelling, warm right foot compared to the left 1 Head: Normocephalic, nontraumatic Chest and respiratory: Airway patent, no respiratory distress, no accessory muscle use Heart: Regular rate/rhythm Vascular: Normal peripheral pulses, normal capillary refill. Musculoskeletal: Normal range of motion, nontender back Neurologic: Alert and oriented to his name only
[2020-10-19 13:05] VITALS: BP 184/70; PULSE 70; RESP 20; O2SAT 100
[2020-10-19 13:46] LABS: Potassium 4.1 mmol/L (3.4-5.0)
[2020-10-19 13:59] LABS: Alanine Aminotransferase 21 U/L (4-50); Albumin Level 3.9 g/dL (3.5-5.1); Alkaline Phosphatase 102 U/L (38-126); Anion Gap 8 mmol/L (8-16); Aspartate Amino Transferase 30 U/L (17-59); Bilirubin,Total 1.7 mg/dL (0.2-1.3); Blood Urea Nitrogen 14 mg/dL (9-20); CRP 0.7 mg/dL (<1.0); Calcium 9.1 mg/dL (8.4-10.2); Carbon Dioxide 26 mmol/L (22-30); Chloride 104 mmol/L (98-107); Estimated CRCL calculation 38 ml/min; Estimated Glomerular Filt Rate 53; Glucose 114 mg/dL (75-110); Sodium 138 mmol/L (137-145)
[2020-10-19 14:16] LABS: Basophils Absolute Auto 0.1 K/mm3 (0.0-0.1); Basophils Percent Auto 0.6 % (0.2-1.2); Eosinophils Absolute Auto 0.1 K/mm3 (0-0.3); Eosinophils Percent Auto 0.9 % (0-4.4); Hematocrit 43.9 % (42.0-52.0); Hemoglobin 15.4 g/dL (14.0-18.0); Immature Granulocyte Absolute 0.03 K/mm3 (0.00-0.031); Immature Granulocyte Percent A 0.3 % (0-0.5); Lymphocytes Absolute Auto 3.75 K/mm3 (0.9-3.2); Lymphocytes Percent Auto 39.4 % (18.3-44.2); Mean Corpuscular HGB Conc 35.1 g/dl (32-36); Mean Corpuscular Hemoglobin 31.6 pg (26-34); Mean Platelet Volume 10.5 fl (7.4-10.4); Monocytes Absolute Auto 0.4 K/mm3 (0.1-0.6); Monocytes Percent Auto 4.6 % (2.6-8.5); Neutrophils Absolute Auto 5.2 K/mm3 (1.3-6.7); Neutrophils Percent Auto 54.2 % (45.5-73.1); Platelet Count Result 259 k/mm3 (150-375); Red Blood Count 4.88 M/mm3 (4.6-6.20); Red Cell Distribution Width 13.2 % (11.5-14.5); White Blood Count 9.5 K/mm3 (4.5-10.0)
[2020-10-19 14:22] LABS: Lactic Acid Reflex 1.5 mmol/L (0.7-2.1)
[2020-10-19 15:04] VITALS: BP 137/60; PULSE 67; RESP 20; O2SAT 99
== END 2020-10-19 15:15 ==
PROVIDERS: Emergency Provider Emergency Medicine; PCP Family Medicine
DX: L08.9 Local infection of the skin and subcutaneous tissue, unspecified (principal); E11.22 Type 2 diabetes mellitus with diabetic chronic kidney disease; I12.9 Hypertensive chronic kidney disease with stage 1 through stage 4 chronic kidney disease, or unspecified chronic kidney disease; N18.30 Chronic kidney disease, stage 3 unspecified; M19.90 Unspecified osteoarthritis, unspecified site; N40.0 Benign prostatic hyperplasia without lower urinary tract symptoms; I69.951 Hemiplegia and hemiparesis following unspecified cerebrovascular disease affecting right dominant side; E87.1 Hypo-osmolality and hyponatremia; Z87.891 Personal history of nicotine dependence; I25.10 Atherosclerotic heart disease of native coronary artery without angina pectoris; F03.90 Unspecified dementia, unspecified severity, without behavioral disturbance, psychotic disturbance, mood disturbance, and anxiety; E78.5 Hyperlipidemia, unspecified; K21.9 Gastro-esophageal reflux disease without esophagitis; E11.51 Type 2 diabetes mellitus with diabetic peripheral angiopathy without gangrene; Z98.42 Cataract extraction status, left eye; Z98.41 Cataract extraction status, right eye; Z95.5 Presence of coronary angioplasty implant and graft; Z66 Do not resuscitate
CPT/HCPCS: 36415; 73630; 80053; 83605; 85025; 86140; 87040; 99283

== ENCOUNTER 2020-12-02 15:54 | Observation (INO) | payer MEDICARE, SELFPAY ==
[2020-12-02] VITALS (15 sets, daily range): BP systolic 141–191; BP diastolic 50–89; PULSE 71–117; RESP 16–24; TEMP 36.4–37.7; O2SAT 93–99; BMI 23.1
--- NOTE | ~2020-12-02 | XR_ITS ---
XR chest 1V portable DATE: 12/02/2020 16:37 INDICATION: Fever. Atrial fibrillation, status post myocardial infarction. Hypertension. Coronary art claus disease. TECHNIQUE: Portable AP chest on 12/02/2020 at 1635 hours COMPARISON: 10/06/2020 AP and lateral views FINDINGS: Status post posterior cervical spine fusion. Diffuse osteopenia. Diffuse idiopathic skeletal hyperostosis of the thoracic spine. Osteoarthritic change at the glenohumeral joints. Degenerative spurring at the acromioclavicular join ts. A surgical clip overlies the medial base of the left side of the chest. Heart size is normal. Is aortic arch calcification, minimal aortic unfolding. No pulmonary infiltrate or consolidation, pleural effusion or pulmonary vascular congestion or pneumo thorax is evident. IMPRESSION: No active cardiopulmonary disease Aortic atherosclerosis Reviewed, dictated and finalized at location A.
--- NOTE | 2020-12-02 16:10 | ECG_ITS ---
Measurements Intervals [place] Rate: 101 P: [place]: 0 QRS: 8 QRSD: 89 T: 65 QT: 379 QTc: 492 Interpretive Statements SINUS RHYTHM ATRIAL COUPLETS AND ATRIAL PREMATURE COMPLEXES BORDERLINE ST ABNORMALITY- LATERAL LEADS BASELINE ARTIFACT- I, II, AVR, AVL ABNORMAL ECG Electronically Signed On 12-02-2020 19:20:19 CDT by Duncan Walsh D.O.
--- NOTE | 2020-12-02 16:28 | ED.WEAKNESS ---
HPI - Weakness General Chief complaint: Weakness <SOFIE Hendrix Last Filed: 12/02/20 20:08> Stated complaint: LOWER BACK PAIN <SOFIE eHndrix Last Filed: 12/02/20 20:08> Time Seen by Provider: 12/02/20 16:07 <SOFIE Hendrix Last Filed: 12/02/20 20:08> Source: patient and EMS <SOFIE Hendrix Last Filed: 12/02/20 20:08> Mode of arrival: EMS <SOFIE Hendrix Last Filed: 12/02/20 20:08> Limitations: no limitations <SOFIE Hendrix Last Filed: 12/02/20 20:08> History of Present Illness HPI Narrative: This is an 85-year-old male that presents to the emergency department for generalized weakness. Reportedly patient lives at home and has home health. The home health provider was concerned that patient was not able to get around like he usually does. Usually ambulates with a walker. Was having difficulty doing this today. Patient also febrile upon arrival to the ED. He denies any complaints currently. Denies sore throat, cough, chest pain, shortness of breath, abdominal pain, vomiting, or dysuria. <Hannah Ulrich PA-C - Last Filed: 12/02/20 20:08> Related Data Home medications: Home Medications Medication Instructions Recorded Confirmed atorvastatin 80 mg PO HS 05/17/19 10/07/20 clopidogrel 75 mg PO DAILY 05/17/19 10/07/20 furosemide 20 mg PO DAILY 05/17/19 10/07/20 gabapentin 300 mg PO TID 05/17/19 10/07/20 pantoprazole 40 mg PO BID 05/17/19 10/07/20 Complete Multivitamin 1 tablet PO DAILY 12/25/19 10/07/20 <SOFIE Hendrix Last Filed: 12/02/20 20:08> Allergies/Adverse reactions: Allergies Allergy/AdvReac Type Severity Reaction Status Date / Time No Known Allergies Allergy Unknown Verified 06/04/20 15:09 <SOFIE Hendrix Last Filed: 12/02/20 20:08> Review of Systems Review of Systems: Narrative: CONSTITUTIONAL: Reports fever, ENT: Denies rhinorrhea, congestion, sore throat CARDIOVASCULAR: Denies chest pain, or edema. RESPIRATORY: Denies cough or dyspnea. GASTROINTESTINAL: Denies abdominal pain, nausea, vomiting GENITOURINARY: Denies dysuria SKIN: Denies rash NEUROLOGIC: Reports generalized weakness. <Hannah Ulrich PA-C - Last Filed: 12/02/20 20:08> All systems reviewed & are unremarkable except as noted in HPI and below <Hannah Ulrich PA-C - Last Filed: 12/02/20 20:08> [facility] Past Medical History Medical History: Medical History Anemia Arthritis Benign prostatic hyperplasia Cerebrovascular accident Presenting with right-sided weakness. Chronic hyponatremia Chronic kidney disease, stage 3 Baseline creatinine is between 1.5 and 1.0. Coronary artery disease Dementia Gastroesophageal reflux disease Hiatal hernia Hyperlipidemia Hypertension Insulin dependent type 2 diabetes mellitus Hemoglobin A1c was 9.5% in December 2019. Peripheral arterial disease With history of carotid endarterectomy and axillofemoral bypass. Seasonal allergies Thrombocytopenia Mild, chronic thrombocytopenia. 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 History of angioplasty x2 History of appendectomy History of bilateral cataract extraction History of cardiac catheterization History of carotid endarterectomy History of carpal tunnel release History of vascular surgery Axillofemoral bypass graft with subsequent endarterectomy. <Hannah Ulrich PA-C - Last Filed: 12/02/20 20:08> Family History Family History: Family History Mother Old age Diabetes mellitus Sibling Diabetes mellitus <Hannah Ulrich PA-C - Last Filed: 12/02/20 20:08> Social History Social History: Social History (
[2020-12-02] MEDS: SODIUM CHLORIDE 0.9% IV 500 ML 999 ML IV CONT (17:08)
[2020-12-02 17:10] LABS: Basophils Absolute Auto 0.1 K/mm3 (0.0-0.1); Basophils Percent Auto 0.4 % (0.2-1.2); Eosinophils Absolute Auto 0.2 K/mm3 (0-0.3); Hematocrit 40.6 % (42.0-52.0); Hemoglobin 14.3 g/dL (14.0-18.0); Immature Granulocyte Absolute 0.06 K/mm3 (0.00-0.031); Immature Granulocyte Percent A 0.5 % (0-0.5); Lymphocytes Absolute Auto 0.96 K/mm3 (0.9-3.2); Lymphocytes Percent Auto 8.4 % (18.3-44.2); Mean Corpuscular HGB Conc 35.2 g/dl (32-36); Mean Corpuscular Hemoglobin 31.8 pg (26-34); Mean Corpuscular Volume 90.4 fl (80-100); Mean Platelet Volume 11.5 fl (7.4-10.4); Monocytes Absolute Auto 0.5 K/mm3 (0.1-0.6); Monocytes Percent Auto 4.5 % (2.6-8.5); Neutrophils Absolute Auto 9.6 K/mm3 (1.3-6.7); Neutrophils Percent Auto 84.2 % (45.5-73.1); Platelet Count Result 143 k/mm3 (150-375); Red Blood Count 4.49 M/mm3 (4.6-6.20); Red Cell Distribution Width 12.7 % (11.5-14.5); White Blood Count 11.4 K/mm3 (4.5-10.0)
[2020-12-02 17:19] LABS: Lactic Acid Reflex 1.3 mmol/L (0.7-2.1)
[2020-12-02 17:22] LABS: INR 1.1; Lipase 17 U/L (23-300); Prothrombin Time 14.4 Seconds (11.1-14.7)
[2020-12-02 17:23] LABS: Partial Thromboplastin Time 28.9 SECONDS (22.3-36.8)
[2020-12-02 17:31] LABS: Alanine Aminotransferase 14 U/L (4-50); Albumin Level 3.9 g/dL (3.5-5.1); Alkaline Phosphatase 102 U/L (38-126); Anion Gap 7 mmol/L (8-16); Aspartate Amino Transferase 25 U/L (17-59); Bilirubin,Total 1.8 mg/dL (0.2-1.3); Blood Urea Nitrogen 20 mg/dL (9-20); Calcium 9.1 mg/dL (8.4-10.2); Carbon Dioxide 30 mmol/L (22-30); Chloride 98 mmol/L (98-107); Estimated CRCL calculation 35 ml/min; Estimated Glomerular Filt Rate 48; Glucose 178 mg/dL (75-110); Potassium 3.3 mmol/L (3.4-5.0); Sodium 135 mmol/L (137-145)
[2020-12-02 18:04] LABS: CRP 5.9 mg/dL (<1.0)
[2020-12-02 18:47] LABS: Add Urine Microscopic? YES; Appearance Urine Clear (Clear); Bilirubin Urine Negative (Negative); Blood Urine Negative (Negative); Color Urine Yellow (Yellow); Glucose Urine UA 2+ mg/dL (Negative); Ketones Urine Negative (Negative); Leukocyte Esterase Ur Negative LEU/UL (Negative); Mucus Urine Rare /lpf; Nitrate Urine Negative (Negative); Protein Urine 3+ mg/dL (Negative); Specific Grav Ur 1.018 (1.001-1.035); Urobilinogen Urine Negative mg/dL (<2.0); WBC Urine 0-3 /hpf
[2020-12-02 20:12] LABS: Glucose Point of Care 177 mg/dl (65-105)
--- NOTE | 2020-12-02 20:16 | PC.NURSE ---
Pt doesn't know why he is in hospital this pm. per last shift, pt has home health at his residence today, and she felt pt was too weak to be there by himself. pt reports he lives with his niece and 2 dogs, but his niece is currently in the hospital. he is concerned with who will take care of his pets when no one is home. pleasant.
[2020-12-02] MEDS: POTASSIUM CHLORIDE 20 MEQ PACKET (FOR LIQUID) 40 MEQ PO (20:29)
--- NOTE | 2020-12-02 21:08 | ADMGEN ---
This patient, Jose D Sterling, was admitted to 3 [facility] Surg Room 314-01. Patient/family oriented to hospital policies and general routines including ID bracelet, bed and alarms, visiting hours, pain management, procedures, bathroom and other care routines, personal items, smoking policy, room service/diet, and visiting hours. Information on how to activate the Rapid Response Team has been discussed. Patient/Family are encouraged to report perceived risks to care and to ask questions if they do not understand what they are told or what they should do.
--- NOTE | 2020-12-02 22:50 | PM.IMHP ---
H&P: HPI History of Present Illness Date/Time: 12/02/20 22:50 Chief Complaint: weakness Narrative: This is an 85-year-old male that presents to the emergency department for generalized weakness. Reportedly patient lives at home and has home health. The home health provider was concerned that patient was not able to get around like he usually does. Usually ambulates with a walker. Was having difficulty doing this today. Patient was also febrile upon arrival to the ED. He denies any complaints currently. Denies sore throat, cough, chest pain, shortness of breath, abdominal pain, vomiting, or dysuria. When I evaluated, he is unsure of why he is here. he reports some sorenss here and there but no other complaints. ROS was attemped and he dnies any thing but unsure how reliable it is. Review of Systems Review of Systems: Narrative: - CONSTITUTIONAL: Denies weight loss, fever and chills. - HEENT: Denies changes in vision and hearing - RESPIRATORY: Denies SOB and cough. - CV: Denies palpitations and CP. - GI: Denies abdominal pain, nausea, vomiting and diarrhea. - : Denies dysuria and urinary frequency. - MSK: Denies myalgia and joint pain. - SKIN: Denies rash and pruritus. - NEUROLOGICAL: Denies headache and syncope. - PSYCHIATRIC: Denies recent changes in mood. Denies anxiety and depression. All systems reviewed & are unremarkable except as noted in HPI and below Constitutional: Constitutional: Reports fatigue and Reports weakness Neurologic: Reports weakness Endocrine: Endocrine: Reports fatigue [facility] Past Medical History Medical History Anemia Arthritis Benign prostatic hyperplasia Cerebrovascular accident Presenting with right-sided weakness. Chronic hyponatremia Chronic kidney disease, stage 3 Baseline creatinine is between 1.5 and 1.0. Coronary artery disease Dementia Gastroesophageal reflux disease Hiatal hernia Hyperlipidemia Hypertension Insulin dependent type 2 diabetes mellitus Hemoglobin A1c was 9.5% in December 2019. Peripheral arterial disease With history of carotid endarterectomy and axillofemoral bypass. Seasonal allergies Thrombocytopenia Mild, chronic thrombocytopenia. 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 History of angioplasty x2 History of appendectomy History of bilateral cataract extraction History of cardiac catheterization History of carotid endarterectomy History of carpal tunnel release History of vascular surgery Axillofemoral bypass graft with subsequent endarterectomy. Family History Family History Mother Old age Diabetes mellitus Sibling Diabetes mellitus Social History Social History Social History: The patient lives in [place] with his niece. She helps him somewhat with activities of daily living. They have 2 dogs at home. He has no children. He smoked 1 pack of cigarettes per day for 40 years and quit many years ago. No alcohol or illicit substance use. He designates his niece Shannon Mckeon, as his surrogate decision maker and he wishes to be a do not resuscitate. Smoking packs per day: 1 Smoking cigarettes per day: 20.0 Years smoked: 40 Smoking pack-years: 40.00 Smoking status: Never smoker Tobacco type: cigarettes Alcohol intake: never Drinks per week: 1 Substance use: never Substance use type: does not use Gender identity (if verbalized by the patient): Male Spiritual care concerns: No Meds Home Medications and Allergies Home Medications Medication Instructions Recorded Confirmed Type atorvastatin 80 mg PO HS 05/17/19 10/07/20 History clopidogrel 75 mg PO DAILY 05/17/19 10/07/20 History furosemide 20 mg PO DAILY 05/17/19 10/07/20 His
[2020-12-03] VITALS (11 sets, daily range): BP systolic 123–159; BP diastolic 52–60; PULSE 67–109; RESP 18; TEMP 36.6–37.2; O2SAT 98–99
[2020-12-03] MEDS: METOPROLOL TARTRATE 12.5 MG TABLET PO ×2 (04:47→09:46)
[2020-12-03 06:10] LABS: Basophils Absolute Auto 0.1 K/mm3 (0.0-0.1); Basophils Percent Auto 0.8 % (0.2-1.2); Hematocrit 38.9 % (42.0-52.0); Hemoglobin 13.5 g/dL (14.0-18.0); Immature Granulocyte Absolute 0.02 K/mm3 (0.00-0.031); Immature Granulocyte Percent A 0.3 % (0-0.5); Immature Platelet Fraction Pct 6.4 % (0.9-11.2); Lymphocytes Absolute Auto 1.08 K/mm3 (0.9-3.2); Mean Corpuscular HGB Conc 34.7 g/dl (32-36); Mean Corpuscular Hemoglobin 31.1 pg (26-34); Mean Corpuscular Volume 89.6 fl (80-100); Mean Platelet Volume 11.6 fl (7.4-10.4); Monocytes Absolute Auto 0.4 K/mm3 (0.1-0.6); Monocytes Percent Auto 5.1 % (2.6-8.5); Neutrophils Absolute Auto 6.2 K/mm3 (1.3-6.7); Neutrophils Percent Auto 79.8 % (45.5-73.1); Platelet Count Result 136 k/mm3 (150-375); Red Blood Count 4.34 M/mm3 (4.6-6.20); Red Cell Distribution Width 12.5 % (11.5-14.5); White Blood Count 7.7 K/mm3 (4.5-10.0)
[2020-12-03 06:15] LABS: Alanine Aminotransferase 12 U/L (4-50); Albumin Level 3.3 g/dL (3.5-5.1); Alkaline Phosphatase 85 U/L (38-126); Anion Gap 8 mmol/L (8-16); Aspartate Amino Transferase 23 U/L (17-59); Bilirubin,Total 1.5 mg/dL (0.2-1.3); Blood Urea Nitrogen 18 mg/dL (9-20); Calcium 8.8 mg/dL (8.4-10.2); Carbon Dioxide 26 mmol/L (22-30); Chloride 99 mmol/L (98-107); Estimated CRCL calculation 38 ml/min; Estimated Glomerular Filt Rate 53; Glucose 169 mg/dL (75-110); Potassium 3.5 mmol/L (3.4-5.0); Sodium 133 mmol/L (137-145)
[2020-12-03 08:01] LABS: Glucose Point of Care 156 mg/dl (65-105)
[2020-12-03] MEDS: INSULIN ASPART (*BKC) 100 UNITS/ML SUB-Q ×2 (11:17→16:26)
[2020-12-03 11:24] LABS: Glucose Point of Care 228 mg/dl (65-105)
[2020-12-03] MEDS: GABAPENTIN 300 MG CAPSULE PO ×2 (15:41→21:15)
--- NOTE | 2020-12-03 15:50 | PM.IMPN ---
Progress Note: A&P Assessment and Plan (1) Person under investigation for severe acute respiratory syndrome coronavirus 2 (SARS-CoV-2) infection: Code(s): Z20.822 - Contact with and (suspected) exposure to COVID-19 Status: Acute Assessment and Plan: Patient presents with fever and weakness. Family member at home is COVID positive. COVID-19 by PCR is pending. CXR without evidence of pneumonia. (2) Generalized weakness: Code(s): R53.1 - Weakness Status: Acute Assessment and Plan: Suspect related to advanced age, debility. May be related to above. PT/OT. Home health arranged. (3) Acute hypokalemia: Code(s): E87.6 - Hypokalemia Status: Acute Assessment and Plan: Mild. Check potassium and magnesium daily, replace each as needed. (4) Cerebrovascular accident: Qualifiers: CVA mechanism: unspecified Qualified Code(s): I63.9 - Cerebral infarction, unspecified Code(s): I63.9 - Cerebral infarction, unspecified Status: Chronic Assessment and Plan: History of prior CVA with chronic right-sided weakness. Continue Plavix and statin therapy. I do not think he has been taking his medications appropriately at home. 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 Should be on aloglipton at home according to last discharge summary but I am unsure if he is taking anything for his diabetes. Continue to monitor with accu-cheks and adjust treatment as needed, cover with SSI. (6) Chronic kidney disease, stage 3: Qualifiers: Chronic kidney disease stage 3 subtype: unspecified whether 3a or 3b Qualified Code(s): N18.30 - Chronic kidney disease, stage 3 unspecified Code(s): N18.30 - Chronic kidney disease, stage 3 unspecified Status: Chronic Assessment and Plan: Stable. Monitor renal function and avoid nephrotoxic agents. (7) Peripheral arterial disease: Code(s): I73.9 - Peripheral vascular disease, unspecified Status: Chronic Assessment and Plan: Longstanding history of peripheral vascular disease. Continue his Plavix and statin therapy. (8) Hypertension: Qualifiers: Hypertension type: essential hypertension Qualified Code(s): I10 - Essential (primary) hypertension Code(s): I10 - Essential (primary) hypertension Status: Chronic Assessment and Plan: Blood pressures reviewed, elevated last 157/59. Improved compared to yesterday after resuming home metoprolol. Continue metoprolol. Monitor BP and adjust treatment as needed. (9) Hyperlipidemia: Qualifiers: Hyperlipidemia type: unspecified Qualified Code(s): E78.5 - Hyperlipidemia, unspecified Code(s): E78.5 - Hyperlipidemia, unspecified Status: Chronic Assessment and Plan: Resume his home statin therapy. Recently discharged with 80 mg atorvastatin, will decrease the dose given his weakness in case that is contributing. Subjective Date/time seen: 12/03/20 15:45 Interval history: Mr. Sterling is a 85yo M admitted for weakness and fever; COVID-19 pending. He tells me he is feeling well today. He is a poor historian and very hard of hearing but he offers no complaints at this time. Review of Systems Review of Systems: All systems reviewed & are unremarkable except as noted in HPI and below ROS unobtainable: Yes other (Review of sys
[2020-12-03 16:31] LABS: Glucose Point of Care 254 mg/dl (65-105)
[2020-12-03 17:41] LABS: SARS-CoV-2 RNA PCR Negative
[2020-12-03] MEDS: METOPROLOL TARTRATE 25 MG TABLET PO (21:17)
[2020-12-03 21:33] LABS: Glucose Point of Care 267 mg/dl (65-105)
[2020-12-04 05:23] VITALS: BP 134/69; PULSE 54; RESP 20; TEMP 36.7; O2SAT 97
[2020-12-04] MEDS: GABAPENTIN 300 MG CAPSULE PO ×2 (05:48→13:15)
[2020-12-04 06:05] LABS: Anion Gap 6 mmol/L (8-16); Blood Urea Nitrogen 26 mg/dL (9-20); Carbon Dioxide 27 mmol/L (22-30); Chloride 101 mmol/L (98-107); Estimated CRCL calculation 33 ml/min; Estimated Glomerular Filt Rate 45; Glucose 167 mg/dL (75-110); Magnesium 1.6 mg/dL (1.6-2.3); Potassium 3.4 mmol/L (3.4-5.0); Sodium 134 mmol/L (137-145)
[2020-12-04 08:08] LABS: Glucose Point of Care 175 mg/dl (65-105)
[2020-12-04 08:29] VITALS: PULSE 60
[2020-12-04] MEDS: ATORVASTATIN 40 MG TABLET PO (08:29)
[2020-12-04] MEDS: CLOPIDOGREL BISULFATE 75 MG TABLET PO (08:29)
[2020-12-04] MEDS: METOPROLOL TARTRATE 25 MG TABLET PO (08:29)
[2020-12-04] MEDS: POTASSIUM CHLORIDE 20 MEQ TABLET PO (08:32)
[2020-12-04] MEDS: MAGNESIUM SULF 2 GM/WATER 50ML 2 GM/50 ML BAG IVPB (08:32)
[2020-12-04] MEDS: INSULIN ASPART (*BKC) 100 UNITS/ML SUB-Q (12:26)
[2020-12-04 12:30] LABS: Glucose Point of Care 210 mg/dl (65-105)
--- NOTE | 2020-12-04 13:25 | PM.DS ---
DS: Admitting Diagnosis Admitting Diagnosis Admitting Diagnosis: Weakness DS: Discharge Diagnosis Discharge Diagnosis (1) Generalized weakness: Code(s): R53.1 - Weakness Status: Acute Assessment and Plan: Date of Admission 12/02/20 Date of Discharge 12/04/20 Mr. Sterling is a pleasant 85yo gentleman with dementia and several comorbidities who presented to the ED for evaluation of generalized weakness. Caregiver described that he was hard to wake up from sleeping and that he was unable to ambulate with a walker which he is normally able to do. He is known to have chronic right-sided weakness after a prior CVA. He lives with his niece who is COVID positive, thus he was also tested for COVID. COVID-19 testing was negative by PCR. He was treated for mild hypokalemia and potassium was replaced. He has significant peripheral vascular disease and was restarted on his Plavix and statin medications. It is unclear if he is feeling a taking his medications appropriately. He was recently discharged on 80 mg atorvastatin. We will decrease his atorvastatin dose in case this is contributing to any weakness. He has chronic lower extremity dependent erythema with significant vascular disease. No evidence of acute infection at this time. Recent A1c 8.0% although it appears he has not filled his alogliptin recently. Discharged with metformin and follow-up with PCP. He worked with PT/OT and is felt to be a good candidate to continue therapy with home health. He is hemodynamically stable for discharge 12/04/20 with instructions to follow-up with PCP in 1 week. Suspect related to advanced age, debility. He has history of chronic right-sided weakness after prior CVA and peripheral vascular disease. PT/OT. Home health arranged. (2) Person under investigation for severe acute respiratory syndrome coronavirus 2 (SARS-CoV-2) infection: Code(s): Z20.822 - Contact with and (suspected) exposure to COVID-19 Status: Ruled-out Assessment and Plan: Patient presents with fever and weakness. Family member at home is COVID positive. COVID-19 by PCR is negative. CXR without evidence of pneumonia. (3) Acute hypokalemia: Code(s): E87.6 - Hypokalemia Status: Acute Assessment and Plan: Mild. Potassium replaced. (4) Cerebrovascular accident: Qualifiers: CVA mechanism: unspecified Qualified Code(s): I63.9 - Cerebral infarction, unspecified Code(s): I63.9 - Cerebral infarction, unspecified Status: Chronic Assessment and Plan: History of prior CVA with chronic right-sided weakness. Continue Plavix and statin therapy. I do not think he has been taking his medications appropriately at home. 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 Used to be on aloglipton at home according to last discharge summary but I am unsure if he is taking anything for his diabetes. Will discharge with metformin and follow up with PCP. Continue to monitor with accu-cheks and adjust treatment as needed, cover with SSI. (6) Chronic kidney disease, stage 3: Qualifiers: Chronic kidney disease stage 3 subtype: unspecified whether 3a or 3b Qualified Code(s): N18.30 - Chronic kidney disease, stage 3 unspecified Code(s): N18.30 - Chronic kidney disease, stage 3 unspecified Status: Chronic Assessment and Plan: Stable. (7) Peripheral arterial disease: Code(s): I73.9 - Peripheral vascular disease, unspecifie
--- NOTE | 2020-12-11 13:05 | PC.NURSE ---
Anaerobic bottle with gram negative bacilli. Dr. Gaitan notified by lab and requested follow up ID.
== END 2020-12-04 17:30 | disposition home health service (06) ==
LOC: ANHED 20:05 → ANH3MEDSUR 20:21
PROVIDERS: Physician Assistant; Admitting Provider Internal Medicine; Emergency Provider Emergency Medicine; PCP Family Medicine; Visit Provider Family Medicine
DX: R53.1 Weakness (principal); F03.90 Unspecified dementia, unspecified severity, without behavioral disturbance, psychotic disturbance, mood disturbance, and anxiety; I69.351 Hemiplegia and hemiparesis following cerebral infarction affecting right dominant side; I12.9 Hypertensive chronic kidney disease with stage 1 through stage 4 chronic kidney disease, or unspecified chronic kidney disease; I73.9 Peripheral vascular disease, unspecified; E87.6 Hypokalemia; E11.22 Type 2 diabetes mellitus with diabetic chronic kidney disease; E11.51 Type 2 diabetes mellitus with diabetic peripheral angiopathy without gangrene; N18.30 Chronic kidney disease, stage 3 unspecified; Z20.822 Contact with and (suspected) exposure to COVID-19; Z79.4 Long term (current) use of insulin; Z79.02 Long term (current) use of antithrombotics/antiplatelets
CPT/HCPCS: 36415; 51701; 71045; 80048; 80053; 81001; 82948; 83036; 83605; 83690; 83735; 85025; 85055; 85610; 85730; 86140; 87040; 87076; 87081; 87181; 87186; 87880; 93005; 96361; 96365; 96375; 97110; 97161; 97165; 99285; A9270; C9803; G0378; J0131; J1815; J3475; J7040; U0003; U0005

== ENCOUNTER 2023-09-02 11:46 | Inpatient (IN) | payer MEDICARE, SELFPAY ==
[2023-09-02] VITALS (15 sets, daily range): BP systolic 118–248; BP diastolic 66–98; PULSE 77–163; RESP 13–20; TEMP 36.4–36.7; O2SAT 95–100; BMI 19.5
--- NOTE | ~2023-09-02 | US_ITS ---
EXAMINATION: US right upper quadrant DATE: 09/02/2023 18:04 INDICATION: Right upper quadrant pain TECHNIQUE: Multiple grayscale and Doppler ultrasound images of the abdomen were obtained. COMPARISON: CT from today FINDINGS: Bowel gas obscures visualization of the pancreas. The liver is normal with normal echogenic ity and echotexture. No surface nodularity. Normal hepatopetal flow in the main portal vein. There is sludge in the nondistended gallbladder. The normal common bile duct measures 3 mm. There was no sono graphic Ko sign. IMPRESSION: 1. Sludge in the distended gallbladder without definite pericholecystic fluid or gallbladder wall thi ckening. Findings on CT remain suspicious for cholecystitis. Consider further evaluation with nuclear hepatobiliary scan. Reviewed, dictated and finalized at location F. SFORCE SPECIALIST IMPRESSION: 1. Sludge in the distended gallbladder without definite pericholecystic fluid o r gallbladder wall thickening. Findings on CT remain suspicious for cholecystit is. Consider further evaluation with nuclear hepatobiliary scan.
--- NOTE | ~2023-09-02 | XR_ITS ---
EXAMINATION: XR chest 1V portable DATE: 09/02/2023 12:51 INDICATION: Altered mental status. TECHNIQUE: A single frontal view of the chest was obtained. COMPARISON: Chest single view 12/02/20 FINDINGS: A calcified left lung nodule is consistent with old granulomatous disease. No pleural effus ion or pneumothorax. The heart size is normal. There are changes of posterior fusion procedure in cer vical spine. IMPRESSION: 1. No acute cardiopulmonary disease. Reviewed, dictated and finalized at location A. . CONSULTANT
--- NOTE | ~2023-09-02 | CT_ITS ---
EXAMINATION: CT abdomen pelvis w con DATE: 09/02/2023 15:24 INDICATION: Non localized abdominal pain TECHNIQUE: Computed tomography (CT) of the abdomen and pelvis was performed with 100 mL Omnipaque-350 intravenous contrast. Automated exposure control and iterative reconstruction technique were employe d. The dose-length product was 284.97 mGy-cm. COMPARISON: None FINDINGS: Emphysema with irregular septal line thickening in the dependent aspect of the bilateral lower lobes which could be atelectasis, chronic interstitial lung disease or mild pulmonary edema. Calcified nodu les at the left lung base consistent with old granulomatous disease. Heart size is normal. Small slid ing-type hiatal hernia. Atherosclerotic coronary artery calcification, aortic valve calcification and mitral annular calcification. There is a thrombosed bypass graft being at the cephalad-most image at the anterior right chest wall extending caudal to the anastomosis with the right superficial femoral artery. The gallbladder is dilated with adjacent hepatic hyperemia along the gallbladder fossa with interveni ng other edematous gallbladder wall thickening or very small amount pericholecystic fluid at the gall bladder fossa, all findings suspicious for acute cholecystitis. Prominent fatty atrophy of the pancre as. Heterogeneous enhancement of the otherwise unremarkable spleen likely related to phase of contras t. Bilateral adrenal glands and left kidney are normal. Moderate right renal atrophy with diffuse cor tical thinning and small region of cortical scarring at the lower pole. Prostatomegaly. Bladder is un remarkable. There is moderate colonic diverticulosis with a sigmoid predominance. There is no adjacent inflammato ry change to suggest diverticulitis. No free intraperitoneal gas or fluid. No pathologically enlarged abdominal or pelvic lymphadenopathy. There is calcified atherosclerosis of the aorta and many of the other arteries. Potentially hemodynamically significant stenosis at the origins of the celiac axis a nd bilateral renal arteries and with likely thrombosis of the proximal most superior mesenteric arter y which reconstitutes via collaterals likely including the gastroduodenal artery. Prior aortobifemora l bypass grafting with thrombosis of the entire length of the right side of the graft extending to it s anastomosis with the right common femoral artery. There is reconstitution of flow in the right femo ral artery via collaterals. 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 Mild thoracolumbar dextroscoliosis with moderate spondylosis. IMPRESSION: 1. Findings suggestive of acute cholecystitis. Correlate for Ko sign and if clinically indicated could consider further evaluation with either ultrasound or HIDA scan. 2. Extensive atherosclerotic disease with thrombosis of a likely right axillary to femoral bypass gra ft and of the right limb of an aortobiiliac femoral bypass graft. 3. Thrombosis of the proximal most segment of the superior mesenteric artery which reconstitutes via collaterals and potentially minimally significant stenosis at the origin of the celiac axis and bilat eral renal arteries, the latter which might account for the moderate right renal atrophy with cortica l scarring at the lower pole. 4. 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 5. Small sliding-type hiatal hernia. 6. diverticulosis. 7. Prostatomegaly. Reviewed, dictated and finalized at location B. CTOR CARD
--- NOTE | ~2023-09-02 | CT_ITS ---
EXAMINATION: CTA brain carotid DATE: 09/06/2023 11:44 INDICATION: Change in mental status. TECHNIQUE: Computed tomographic angiography (CTA) of the head was performed without and with 100 mL O mnipaque-350 intravenous contrast. CTA of the neck was performed with intravenous contrast. Automated exposure control and iterative reconstruction technique were employed. The dose-length product was 1 804.49 mGy-cm. Maximum intensity projection and volume rendered 3D-reconstructions were created by tony villegas technologist on a separate workstation. COMPARISON: Head CT 09/02/2023 FINDINGS: HEAD CTA: There is an old infarct in right parietal lobe. There is an old infarct in right frontal lo be. There is an old infarct in the right caudate nucleus. There are scattered areas of low attenuatio n in the cerebral white matter. There is no intracranial hemorrhage, acute infarction, or abnormal in tracranial mass lesion. The ventricles are normal in size. There are likely changes of ocular lens re placement surgeries. There is a small right mastoid effusion. There is mild mucosal thickening in the ethmoid sinuses. The vertebral arteries are codominant. There is no significant stenosis of basilar artery or the posterior cerebral arteries. Right posterior communicating artery is normal. A left pos terior communicating artery is not identified. There is no significant stenosis of the intracranial i nternal carotid arteries or anterior or middle cerebral arteries. Anterior communicating artery is no rmal. There is no aneurysm. NECK CTA: There is mild emphysema. There are no pathologically enlarged lymph nodes. There is no sign ificant stenosis of the vertebral arteries. There are surgical clips in right neck, likely from carot id endarterectomy. There is proximal plaque in the left internal carotid artery. There is 0% stenosi s of the proximal right internal carotid artery relative to normal distal artery lumen diameter (NASC ET criteria). There is 60% stenosis of the proximal left internal carotid artery relative to normal d istal artery lumen diameter. There are changes of posterior fusion procedure from C3 to C7. There is severe cervical spondylosis. IMPRESSION: 1. 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 2. Stable moderate nonspecific cerebral white matter disease, which likely represents chronic small v essel ischemic disease. 3. No aneurysm or significant intracranial internal stenosis. 4. 0% stenosis of the proximal right internal carotid artery relative to normal distal artery lumen d iameter (NASCET criteria). 5. 60% stenosis of the proximal left internal carotid artery relative to normal distal artery lumen d iameter. Reviewed, dictated and finalized at location E. K TENDERIZER MACHINE IMPRESSION: 1. Old infarcts involving the right frontal and parietal lobes and right caudat e nucleus. 2. Stable moderate nonspecific cerebral white matter disease, which likely repr esents chronic small vessel ischemic disease. 3. No aneurysm or significant intracranial internal stenosis. 4. 0% stenosis of the proximal right internal carotid artery relative to normal distal artery lumen diameter (NASCET criteria). 5. 60% stenosis of the proximal left internal carotid artery relative to normal distal artery lumen diameter.
--- NOTE | ~2023-09-02 | US_ITS ---
EXAMINATION: US perc cholecystostomy w imag DATE: 09/04/2023 13:40 INDICATION: Acute cholecystitis. TECHNIQUE: Consent was obtained. The skin overlying the liver and gallbladder was prepped and draped in usual sterile fashion. Anesthetic was administered with 1% lidocaine subcutaneously. An 8.5 Fr catheter was inserted into the gallbladder by trocar technique. The metal stiffener and trocar needle were removed, and the pigtail tip was locked. Bile was aspirated and sent for culture. The catheter was stitched to the skin with suture. There were no immediate complications. FINDINGS: Ultrasound images demonstrate the catheter within the gallbladder. 8 mL bile was aspirated. IMPRESSION: 1. Successful ultrasound-guided cholecystostomy tube placement. 2. 8 mL black bile was sent for aerobic and anaerobic cultures. 3. The catheter will be managed by Dr. Avalos. A catheter cholangiogram may be performed not less than 48 hours after tube placement if clinically indicated to assess cystic duct patency. If cholecystecto my is not eventually performed and the infectious episode has resolved, the tube may be removed over a guidewire, preferably not less than 3 weeks after placement to allow time for a mature catheter tra ct to form to prevent bile leakage and peritonitis. Reviewed, dictated and finalized at location A. CTOR OF QUANTITATIVE RESEARCH IMPRESSION: 1. Successful ultrasound-guided cholecystostomy tube placement. 2. 8 mL black bile was sent for aerobic and anaerobic cultures. 3. The catheter will be managed by Dr. Avalos. A catheter cholangiogram may be pe rformed not less than 48 hours after tube placement if clinically indicated to assess cystic duct patency. If cholecystectomy is not eventually performed and the infectious episode has resolved, the tube may be removed over a guidewire, preferably not less than 3 weeks after placement to allow time for a mature cat heter tract to form to prevent bile leakage and peritonitis.
--- NOTE | ~2023-09-02 | CT_ITS ---
EXAMINATION: CT brain wo con DATE: 09/02/2023 14:03 INDICATION: Minor head injury TECHNIQUE: Computed tomography (CT) of the head was performed without intravenous contrast. Sagittal and coronal reconstructions were performed. The mA was adjusted according to patient size. Iterative reconstruction technique was employed. The dose-length product was 681.00 mGy-cm. COMPARISON: head CT dated 10/06/2020 FINDINGS: No fracture. No acute intracranial hemorrhage, acute infarction or abnormal extra axial fluid collect ion. Unchanged small to moderate-sized region of encephalomalacia at the peritrigonal right parietal lobe consistent and small focus of subtle malacia the posterior right frontal lobe consistent with ch ronic infarcts. Small old lacunar infarcts at the bilateral caudate nuclei. There is moderate scatter ed white matter hypoattenuation consistent with chronic small vessel ischemic disease. Symmetric prom inence of the sulci and ventricles consistent with mild to moderate age-appropriate diffuse cerebral volume loss. No mass/mass effect. Changes of bilateral intraocular lens replacement. Small right mast oid effusion. Intracranial calcified cerebral atherosclerosis is noted. IMPRESSION: 1. No fracture or acute intracranial process. 2. Old infarcts in the right frontal and parietal lobes and at the bilateral caudate nuclei. 3. Age-related changes including mild to moderate diffuse volume loss and moderate scattered white ma tter hypoattenuation consistent with chronic small vessel ischemic disease. Reviewed, dictated and finalized at location B. ROLLER IMPRESSION: 1. No fracture or acute intracranial process. 2. Old infarcts in the right frontal and parietal lobes and at the bilateral ca udate nuclei. 3. Age-related changes including mild to moderate diffuse volume loss and moder ate scattered white matter hypoattenuation consistent with chronic small vessel ischemic disease.
--- NOTE | 2023-09-02 12:05 | ECG_ITS ---
Measurements Intervals [place] Rate: 162 P: [place]: 0 QRS: 28 QRSD: 89 T: 230 QT: 272 QTc: 447 Interpretive Statements ATRIAL FLUTTER/TACHYCARDIA WITH RAPID VENTRICULAR RESPONSE ST-T WAVE ABNORMALITY IN ANTEROLAT/INF LEADS- CONSIDER ISCHEMIA BASELINE ARTIFACT- I, II, III, AVL, V6 ABNORMAL ECG COMPARED TO ECG 12/02/2020 16:28:56 ATRIAL FLUTTER NOW PRESENT ST-T WAVE ABNORMALITY NOW PRESENT Electronically Signed On 09-02-2023 16:49:06 MACHINE BANDER AND CELLOPHANER by Duncan Walsh D.O.
[2023-09-02 12:39] LABS: Basophils Percent Auto 0.4 % (0.2-1.2); Eosinophils Percent Auto 0.1 % (0-4.4); Hematocrit 46.1 % (42.0-52.0); Hemoglobin 16.4 g/dL (14.0-18.0); Immature Granulocyte Absolute 0.05 K/mm3 (0.00-0.031); Immature Granulocyte Percent A 0.5 % (0-0.5); Lymphocytes Absolute Auto 1.69 K/mm3 (0.9-3.2); Lymphocytes Percent Auto 17.6 % (18.3-44.2); Mean Corpuscular HGB Conc 35.6 g/dl (32-36); Mean Corpuscular Hemoglobin 31.6 pg (26-34); Mean Corpuscular Volume 88.8 fl (80-100); Monocytes Absolute Auto 0.4 K/mm3 (0.1-0.6); Monocytes Percent Auto 4.5 % (2.6-8.5); Neutrophils Absolute Auto 7.4 K/mm3 (1.3-6.7); Neutrophils Percent Auto 76.9 % (45.5-73.1); Platelet Count Result 136 k/mm3 (150-375); Red Blood Count 5.19 M/mm3 (4.6-6.20); Red Cell Distribution Width 12.9 % (11.5-14.5); White Blood Count 9.6 K/mm3 (4.5-10.0)
[2023-09-02 12:51] LABS: Alanine Aminotransferase 23 U/L (6-50); Albumin Level 3.6 g/dL (3.5-5.1); Alkaline Phosphatase 121 U/L (38-126); Anion Gap 15 mmol/L (8-16); Aspartate Amino Transferase 45 U/L (17-59); Bilirubin,Total 1.9 mg/dL (0.2-1.3); Blood Urea Nitrogen 23 mg/dL (9-20); Calcium 8.6 mg/dL (8.4-10.2); Carbon Dioxide 19 mmol/L (22-30); Chloride 96 mmol/L (98-107); Estimated CRCL calculation 22 ml/min; Estimated Glomerular Filt Rate 41; Glucose 209 mg/dL (65-110); Sodium 130 mmol/L (137-145)
[2023-09-02 13:14] LABS: Creatine Kinase 42 U/L (55-170)
[2023-09-02] MEDS: SODIUM CHLORIDE 0.9% IV 1,000 ML 999 ML IV CONT (13:44)
[2023-09-02] MEDS: ONDANSETRON INJ 4 MG/2 ML VIAL (13:45)
[2023-09-02] MEDS: hydrALAZINE HCL 20 MG/ML VIAL 10 MG IV PUSH (15:50)
[2023-09-02 15:55] LABS: Appearance Urine Clear (Clear); Bacteria Urine None Seen /hpf; Bilirubin Urine Negative (Negative); Blood Urine 2+ (Negative); Color Urine Yellow (Yellow); Glucose Urine UA 1+ mg/dL (Negative); Ketones Urine 1+ mg/dL (Negative); Leukocyte Esterase Ur Negative LEU/UL (Negative); Nitrate Urine Negative (Negative); Non Pathogenic Casts 0-2; Protein Urine 2+ mg/dL (Negative); RBC Urine 0-2 /hpf (0-2); Specific Grav Ur 1.013 (1.001-1.035); Squamous Epithelial Cell Urine None seen /hpf (Few); WBC Urine 0-5 /hpf
[2023-09-02 15:58] LABS: Add Urine Microscopic? YES
--- NOTE | 2023-09-02 16:21 | ED.GENADULT ---
HPI - General Adult General Chief complaint: Fall Stated complaint: fall Time Seen by Provider: 09/02/23 12:10 History of Present Illness HPI narrative: The patient is an 88-year-old male who presents ER after being found on the ground at his home. I have discussed this case with his niece who lives with him. She has a caregiver for herself who went and checked on him and found him on the ground. It is unknown when he fell last night. He has no complaints at this time. He is demented and has a baseline orientation of self and place. Niece reports patient has chronic vascular issues and used to see Dr. Rudy robledo at [facility]. She believes he was released from their care as there were no additional interventions to preform. Related Data Allergies Allergy/AdvReac Type Severity Reaction Status Date / Time No Known Allergies Allergy Unknown Verified 02/23/23 16:17 Review of Systems Review of Systems: ROS unobtainable: Yes unobtainable due to mental status PMFSH Past Medical History Medical History (Updated 09/02/23 @ 21:14 by Amy Hood DO) Anemia Arthritis Benign prostatic hyperplasia Cerebrovascular accident Presenting with right-sided weakness. Chronic hyponatremia Chronic kidney disease, stage 3 Baseline creatinine is between 1 and 1.5 Coronary artery disease Dementia Gastroesophageal reflux disease Hiatal hernia Hyperlipidemia Hypertension Peripheral arterial disease With history of carotid endarterectomy and axillofemoral bypass. Seasonal allergies Thrombocytopenia Mild, chronic thrombocytopenia. 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 History of angioplasty x2 History of appendectomy History of bilateral cataract extraction History of cardiac catheterization History of carotid endarterectomy History of carpal tunnel release History of vascular surgery Axillofemoral bypass graft with subsequent endarterectomy. Family History Family History Mother Old age Diabetes mellitus Sibling Diabetes mellitus Social History Social History Social History: The patient lives in [place] with his niece. She helps him somewhat with activities of daily living. They have 1 dog at home. He has no children. He smoked 1 pack of cigarettes per day for 40 years and quit many years ago. No alcohol or illicit substance use. He designates his niece Shannon Mckeon, as his surrogate decision maker and he wishes to be a do not resuscitate. Smoking packs per day: 1 Smoking cigarettes per day: 20.0 Years smoked: 40 Smoking pack-years: 40.00 Smoking status: Former smoker Tobacco type: cigarettes Alcohol intake: never Drinks per week: 1 Alcohol use details: Occasional alcohol use Substance use: never Substance use type: does not use Lack of Transportation: No Lack of Food: Never True Current Housing: I Have Housing Concerned About Future Housing: No Difficulty Paying Gas/Electric Bills: No Difficulty Paying for Meds: No Currently Unemployed: No Education: High School Diploma/GED Difficulty w/ Childcare or Family Care: No Living arrangements: with family Gender identity (if verbalized by the patient): Male Spiritual care concerns: No Exam Narrative: GENERAL: Chronically ill-appearing, well-nourished, and in no acute distress. HEAD: Normocephalic, atraumatic. ENT: Mucous membranes moist. NECK: Supple. CHEST: Clear to auscultation. No respiratory distress. HEART: Regular rate and rhythm. Normal peripheral pulses. ABDOMEN: Soft, nontender, nondistended. EXTREMITIES: Normal range of motion. No edema. SKIN: Warm, dry, no rash. NEURO: Alert and oriented x2. PSYCH: Normal mood and affect. Course Course Emergency Course:
--- NOTE | 2023-09-02 16:25 | ECG_ITS ---
Measurements Intervals [place] Rate: 89 P: 107 SC: 185 QRS: 51 QRSD: 96 T: 128 QT: 367 QTc: 448 Interpretive Statements SINUS RHYTHM VENTRICULAR PREMATURE COMPLEXES AND FREQUENT ATRIAL PREMATURE COMPLEXES BORDERLINE ST-T WAVE ABNORMALITY- DIFFUSE LEADS BASELINE ARTIFACT- I, II, III, AVR, AVL, AVF ABNORMAL ECG COMPARED TO ECG 09/02/2023 16:30:12 SINUS RHYTHM NOW PRESENT Electronically Signed On 09-02-2023 20:20:26 COMPUTING TUTOR by Duncan Walsh D.O.
[2023-09-02] MEDS: METOPROLOL TARTRATE INJ 5 MG/5 ML VIAL IV PUSH ×2 (16:32→22:02)
[2023-09-02] MEDS: ONDANSETRON INJ 4 MG/2 ML VIAL IV PUSH (17:13)
--- NOTE | 2023-09-02 18:09 | ECG_ITS ---
Measurements Intervals [place] Rate: 92 P: [place]: 0 QRS: 29 QRSD: 130 T: -49 QT: 427 QTc: 530 Interpretive Statements ATRIAL FLUTTER/TACHYCARDIA BORDERLINE ST-T WAVE ABNORMALITY- DIFFUSE LEADS BASELINE ARTIFACT- I, II, III, AVR, AVL, AVF, V1-V2 ABNORMAL ECG COMPARED TO ECG 12/02/2020 16:28:56 ATRIAL FLUTTER NOW PRESENT Electronically Signed On 09-04-2023 15:19:34 INPATIENT PHARMACIST by Duncan Walsh D.O.
--- NOTE | 2023-09-02 18:58 | PC.NURSE ---
carpenter catheter place because pt had multiple unsuccessful attempts to void with urinal. Bladder scanned and 500ml noted
[2023-09-02] MEDS: PIPERACILLIN/TAZ 2.25G/NS 50ML 2.25 GM/50 ML BAG IVPB (19:06)
--- NOTE | 2023-09-02 20:48 | PM.IMHP ---
H&P: HPI History of Present Illness Date/Time: 09/02/23 20:48 Chief Complaint: Found on floor Narrative: 85-year-old male with past medical history of BPH, CVA, chronic kidney disease stage 3, dementia, hyponatremia, diabetes, peripheral arterial disease among other comorbidities who presented to the ER via EMS after he was found down on the ground. Is unknown when the patient fell. Patient has dementia baseline is alert oriented to person and place only. Patient was initially complaining of abdominal pain in the ER but stated that is on the abdominal pain resolved after he had a large bowel movement. He denied any chest pain or shortness of breath but was found to be in a flutter RVR on presentation but converted back to sinus rhythm after he received IV metoprolol and IV fluids in the ER. Patient has been persistently hypertensive since arrival to the ER with systolic blood pressures as high as 220s. Patient's blood pressures came down nicely after IV Lopressor and IV hydralazine. The patient tells me his name and seems to be aware that he is in a hospital but does not know what hospital he is in. He is otherwise just pleasantly confused and conversational. He denies any specific complaints. He has no reproducible tenderness to his abdomen. History obtained from review of past medical records and ER report. Patient is a poor historian. Review of Systems Review of Systems: Review of systems was attempted but limited as patient is a poor historian [facility] Past Medical History Medical History (Updated 09/02/23 @ 22:47 by Amy Hood DO) Anemia Arthritis Benign prostatic hyperplasia Cerebrovascular accident Presenting with right-sided weakness. Chronic hyponatremia Chronic kidney disease, stage 3 Baseline creatinine is between 1 and 1.5 Coronary artery disease Dementia Gastroesophageal reflux disease Hiatal hernia Hyperlipidemia Hypertension Peripheral arterial disease With history of carotid endarterectomy and axillofemoral bypass. Seasonal allergies Thrombocytopenia Mild, chronic thrombocytopenia. 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 History of angioplasty x2 History of appendectomy History of bilateral cataract extraction History of cardiac catheterization History of carotid endarterectomy History of carpal tunnel release History of vascular surgery Axillofemoral bypass graft with subsequent endarterectomy. Family History Family History Mother Old age Diabetes mellitus Sibling Diabetes mellitus Social History Social History Social History: The patient lives in [place] with his niece. She helps him somewhat with activities of daily living. They have 1 dog at home. He has no children. He smoked 1 pack of cigarettes per day for 40 years and quit many years ago. No alcohol or illicit substance use. He designates his niece Shannon Mckeon, as his surrogate decision maker and he wishes to be a do not resuscitate. Smoking packs per day: 1 Smoking cigarettes per day: 20.0 Years smoked: 40 Smoking pack-years: 40.00 Smoking status: Former smoker Tobacco type: cigarettes Alcohol intake: never Drinks per week: 1 Alcohol use details: Occasional alcohol use Substance use: never Substance use type: does not use Lack of Transportation: No Lack of Food: Never True Current Housing: I Have Housing Concerned About Future Housing: No Difficulty Paying Gas/Electric Bills: No Difficulty Paying for Meds: No Currently Unemployed: No Education: High School Diploma/GED Difficulty w/ Childcare or Family Care: No Living arrangements: with family Gender identity (if verbalized by the patient): Male Spiritual care concerns: No Meds
--- NOTE | 2023-09-02 21:14 | ADMGEN ---
This patient, Jose D Sterling, was admitted to IMU Room 207-01. Patient/family oriented to hospital policies and general routines including ID bracelet, bed and alarms, visiting hours, pain management, procedures, bathroom and other care routines, personal items, smoking policy, room service/diet, and visiting hours. Information on how to activate the Rapid Response Team has been discussed. Patient/Family are encouraged to report perceived risks to care and to ask questions if they do not understand what they are told or what they should do.
[2023-09-02] MEDS: SODIUM CHLORIDE 0.9% IV 1,000 ML 125 ML IV CONT (22:01)
[2023-09-02] MEDS: POTASSIUM CHLORIDE INJ 40 MEQ in SODIUM CHLORIDE 0.9% IV 500 ML 130 MEQ IVPB (22:01)
[2023-09-03] VITALS (18 sets, daily range): BP systolic 141–178; BP diastolic 51–81; PULSE 3–91; RESP 16–19; TEMP 36.3–36.7; O2SAT 95–100
[2023-09-03] MEDS: PIPERACILLIN/TAZ 2.25G/NS 50ML 2.25 GM/50 ML BAG IVPB ×4 (00:43→17:16)
[2023-09-03] MEDS: QUEtiapine FUMARATE 12.5 MG TABLET PO (00:43)
[2023-09-03] MEDS: METOPROLOL TARTRATE INJ 5 MG/5 ML VIAL IV PUSH ×4 (04:00→21:53)
[2023-09-03 05:13] LABS: Hematocrit 44.8 % (42.0-52.0); Hemoglobin 15.6 g/dL (14.0-18.0); Immature Platelet Fraction Pct 15.2 % (0.9-11.2); Mean Corpuscular HGB Conc 34.8 g/dl (32-36); Mean Corpuscular Hemoglobin 31.8 pg (26-34); Mean Corpuscular Volume 91.4 fl (80-100); Mean Platelet Volume 13.4 fl (7.4-10.4); Platelet Count Result 110 k/mm3 (150-375); Red Cell Distribution Width 12.9 % (11.5-14.5); White Blood Count 17.2 K/mm3 (4.5-10.0)
[2023-09-03 05:23] LABS: Alanine Aminotransferase 18 U/L (6-50); Albumin Level 3.4 g/dL (3.5-5.1); Alkaline Phosphatase 99 U/L (38-126); Anion Gap 14 mmol/L (8-16); Aspartate Amino Transferase 40 U/L (17-59); Bilirubin,Total 1.4 mg/dL (0.2-1.3); Blood Urea Nitrogen 21 mg/dL (9-20); Calcium 7.9 mg/dL (8.4-10.2); Carbon Dioxide 19 mmol/L (22-30); Chloride 99 mmol/L (98-107); Estimated CRCL calculation 30 ml/min; Estimated Glomerular Filt Rate 52; Glucose 169 mg/dL (65-110); Sodium 132 mmol/L (137-145)
[2023-09-03 08:18] LABS: Glucose Point of Care 169 mg/dl (65-105)
[2023-09-03] MEDS: GABAPENTIN 300 MG CAPSULE PO ×3 (08:53→17:25)
[2023-09-03] MEDS: KCL 20 MEQ/0.45% NS 1,000 ML 100 ML IV CONT ×2 (08:55→22:38)
[2023-09-03] MEDS: POTASSIUM CHLORIDE 20 MEQ PACKET (FOR LIQUID) 40 MEQ PO ×2 (09:21→12:29)
[2023-09-03 11:59] LABS: Glucose Point of Care 150 mg/dl (65-105)
[2023-09-03] MEDS: ONDANSETRON INJ 4 MG/2 ML VIAL IV PUSH (12:20)
--- NOTE | 2023-09-03 12:49 | PM.CNCAR ---
Assessment and Plan Assessment and plan (1) Acute hypokalemia: Code(s): E87.6 - Hypokalemia Status: Acute Assessment and Plan: Potassium is low. Will replace of 40 mEq p.o. x1. (2) Atrial flutter with rapid ventricular response: Code(s): I48.92 - Unspecified atrial flutter Status: Acute Assessment and Plan: Back in sinus rhythm. Not anticoagulation candidate due to dementia, fall history as well as noncompliance with medications. In sinus rhythm at this point. Metoprolol succinate 50 mg p.o. daily to be started (3) Hypertension, uncontrolled: Code(s): I10 - Essential (primary) hypertension Status: Acute Assessment and Plan: Metoprolol to be started. Up titration of bleed (4) Peripheral arterial disease: Code(s): I73.9 - Peripheral vascular disease, unspecified Status: Chronic Assessment and Plan: Continue statin and anti-platelet agents History of Present Illness History of Present Illness Consult date/time: 09/03/23 12:49 Requesting physician: Cristian Bolaños MD Consult reason: Other (Atrial flutter, hypertension) Reason For Visit: Cholecysitis,Aflutter w/RVR,Uncontrolled Hypertens Narrative: Date of service 09/03/2023: Reason for consultation atrial flutter, hypertension Requesting provider: Dr. Bolaños History: Patient is an 88-year-old male who has a history of dementia, chronic kidney disease, atrial arrhythmia, PA D who fell. He also had some abdominal pain which has since gotten better after a large bowel movement. He was found to be in atrial flutter with rapid ventricular response he reportedly had not been taking his medications at home. He was also hypertensive. He was given IV metoprolol fluids and his rhythm normalized. Blood pressure also improved after IV Lopressor and IV hydralazine. He is A&O x2. He currently denies any chest pain, shortness of breath, syncope, presyncope, paroxysmal nocturnal dyspnea, orthopnea, edema palpitations. Review of Systems Review of Systems: All systems reviewed & are unremarkable except as noted in HPI and below Constitutional: Constitutional: Denies body ache(s) Eyes: Eyes: Denies blurry vision ENT: Denies epistaxis Cardiovascular: Cardiovascular: Denies chest pain Respiratory: Respiratory: Denies chest congestion Gastrointestinal: Gastrointestinal: Reports abdominal pain Genitourinary: Genitourinary: Denies hematuria Musculoskeletal: Musculoskeletal: Denies back pain Integumentary/Breasts: Skin/Breast: Denies dry skin Neurologic: Denies confusion Psychiatric: Psychiatric: Denies anxiety Endocrine: Endocrine: Denies excessive sweating Hematologic/Lymphatic: Hematologic/Lymphatic: Denies easy bleeding Allergic/Immunologic: Allergic/Immunologic: Denies GI upset with certain foods PMFSH Past Medical History Medical History Anemia Arthritis Benign prostatic hyperplasia Cerebrovascular accident Presenting with right-sided weakness. Chronic hyponatremia Chronic kidney disease, stage 3 Baseline creatinine is between 1 and 1.5 Coronary artery disease Dementia Gastroesophageal reflux disease Hiatal hernia Hyperlipidemia Hypertension Peripheral arterial disease With history of carotid endarterectomy and axillofemoral bypass. Seasonal allergies Thrombocytopenia Mild, chronic thrombocytopenia. 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 History of angioplasty x2 History of appendectomy History of bilateral cataract extraction History of cardiac catheterization History of carotid endarterectomy History of carpal tunnel release History of vascular surgery Axillofemoral bypass graft with subsequent endarterectomy. Family History Family History
--- NOTE | 2023-09-03 13:11 | PM.IMPN ---
Progress Note: A&P Assessment and Plan (1) Acute cholecystitis: Code(s): K81.0 - Acute cholecystitis Status: Acute Assessment and Plan: Continue conservative management with IV Zosyn and fluids (2) Atrial flutter with rapid ventricular response: Code(s): I48.92 - Unspecified atrial flutter Status: Acute Assessment and Plan: Resolved with beta-jeff Continue p.o. metoprolol 3/to transfer to medical telemetry (3) Hypertension, uncontrolled: Code(s): I10 - Essential (primary) hypertension Status: Acute Assessment and Plan: Controlled (4) Chronic kidney disease, stage 3: Qualifiers: Chronic kidney disease stage 3 subtype: unspecified whether 3a or 3b Qualified Code(s): N18.30 - Chronic kidney disease, stage 3 unspecified Code(s): N18.30 - Chronic kidney disease, stage 3 unspecified Status: Chronic Assessment and Plan: 3/2 creatinine 1.3 (5) Type 2 diabetes mellitus with hyperglycemia, without long-term current use of insulin: Code(s): E11.65 - Type 2 diabetes mellitus with hyperglycemia Status: Acute Assessment and Plan: 3/to FBS 169, 11:00 a.m. sugar 150 (6) Sacral ulcer: Qualifiers: Non-pressure ulcer stage: unspecified non-pressure ulcer stage Qualified Code(s): L98.429 - Non-pressure chronic ulcer of back with unspecified severity Code(s): L98.429 - Non-pressure chronic ulcer of back with unspecified severity Status: Acute Assessment and Plan: Continue wound care, turn and reposition frequently (7) Acute hyponatremia: Code(s): E87.1 - Hypo-osmolality and hyponatremia Status: Acute Assessment and Plan: 3/2 sodium 132 (8) Acute hypokalemia: Code(s): E87.6 - Hypokalemia Status: Acute Assessment and Plan: 3/2 sodium 3.0 so added p.o. and IV potassium (9) Dehydration with hyponatremia: Code(s): E86.0 - Dehydration; E87.1 - Hypo-osmolality and hyponatremia Status: Acute Assessment and Plan: Continue IV fluids and monitor labs Subjective Date/time seen: 09/03/23 13:11 Interval history: No complaints of abdominal pain nausea vomiting or diarrhea. No fevers or chills. No chest pain or shortness of breath. No edema. No abnormal bleeding. No trouble with micturition. No focal weakness or numbness. Review of Systems Review of Systems: All systems reviewed & are unremarkable except as noted in HPI and below Exam Narrative: HEENT: PERRL, sclerae nonicteric, pharyngeal mucosa pink and intact NECK: No JVD CHEST: Clear to auscultation. Normal effort. HEART: NL S1/S2, regular, no murmur ABDOMEN: BS+, soft, RIGHT UPPER QUADRANT TENDERNESS TO COME MODERATELY DEEP PALPATION no mass, no bruits EXTREMITIES: No cyanosis, edema, or clubbing NEUROLOGIC: CN intact and symmetric to inspection. MUSCULOSKELETAL: Tone and strength symmetric. PSYCH: Alert. Oriented to person, place, BUT NOT TO YEAR OR MONTH Objective Data Vital Signs Vital Signs: Vital Signs - 24 hr 09/02/23 13:31 09/02/23 14:15 09/02/23 15:31 Temperature 98 F 97.8 F Pulse Rate 81 87 77 Respiratory Rate 17 18 17 Blood Pressure 235/86 H 236/80 H 246/79 H Pulse Oximetry 95 99 Oxygen Delivery 09/02/23 16:32 09/02/23 17:05 09/02/23 16:02 Temperature 97.8 F 97.8 F Pulse Rate 163 H 96 80 Respiratory Rate 16 13 Blood Pressure 160/66 H 118/92 H Pulse Oximetry 96 95 Oxygen Delivery 09/02/23 18:40 09/02/23 17:31 09/02/23 20:56 Temperature 97.8 F 97.8 F 97.9 F Pulse Rate 86 79 88 Respiratory Rate 16 19 18 Blood Pressure 198/80 H 199/80 H 204/85 H Pulse Oximetry 96 99 Oxygen Delivery 09/02/23 21:10 09/02/23 22:02 09/03/23 00:00 Temperature 98.1 F Pulse Rate 88 98 73 Respiratory Rate 18 19 Blood Pressure 171/75 H Pulse Oximetry 99 99 Oxygen Delivery Room Air 09/02/23 22:00 09/03/23 00:00 09/02
--- NOTE | 2023-09-03 15:58 | PM.CNGS ---
Assessment and Plan Assessment and plan (1) Fall in home: Qualifiers: Encounter type: subsequent encounter Qualified Code(s): W19.XXXD - Unspecified fall, subsequent encounter; Y92.009 - Unspecified place in unspecified non-institutional (private) residence as the place of occurrence of the external cause Code(s): W19.XXXA - Unspecified fall, initial encounter; Y92.009 - Unspecified place in unspecified non-institutional (private) residence as the place of occurrence of the external cause Status: Acute Assessment and Plan: Patient found at home lying on the floor. Unknown when he fell or the circumstances of the fall. He was taken to the emergency room for this reason. (2) DNR (do not resuscitate): Code(s): Z66 - Do not resuscitate Status: Chronic Assessment and Plan: Decision for this made prior to admission (3) Abnormal findings on imaging of biliary tract: Code(s): R93.2 - Abnormal findings on diagnostic imaging of liver and biliary tract Status: Acute Assessment and Plan: Patient having some emesis and unable to keep even water down while in the emergency room. This prompted CT scan which suggested cholecystitis. Subsequent ultrasound showed gallbladder sludge but no real signs of inflammation. Clinical exam has not been suggestive of cholecystitis. Plan to continue IV antibiotics and initiate oral intake when we can. Probably get HIDA scan on Tuesday. (4) Dehydration with hyponatremia: Code(s): E86.0 - Dehydration; E87.1 - Hypo-osmolality and hyponatremia Status: Acute Assessment and Plan: Sodium 130 (5) Acute hypokalemia: Code(s): E87.6 - Hypokalemia Status: Acute Assessment and Plan: Potassium 3.0, being treated (6) Type 2 diabetes mellitus with hyperglycemia, without long-term current use of insulin: Code(s): E11.65 - Type 2 diabetes mellitus with hyperglycemia Status: Acute (7) Atrial flutter with rapid ventricular response: Code(s): I48.92 - Unspecified atrial flutter Status: Resolved (8) Hypertension, uncontrolled: Code(s): I10 - Essential (primary) hypertension Status: Acute Assessment and Plan: Blood pressure better controlled (9) Antiplatelet or antithrombotic long-term use: Code(s): Z79.02 - MCFP (current) use of antithrombotics/antiplatelets Status: Chronic Assessment and Plan: Not sure if he has been taking his home meds but has been noted to take Plavix for many years. (10) Peripheral arterial disease: Code(s): I73.9 - Peripheral vascular disease, unspecified Status: Chronic History of Present Illness Consult details Consult date: 09/03/23 Reason for consult: other (Abnormal imaging of the gallbladder) Requesting physician: Cristian Bolaños MD Narrative: Patient is an 88-year-old man with dementia who is normally oriented to person and place either 1 or the other or sometimes both. He has do not resuscitate status. He lives with his niece. Yesterday morning, he was found lying face down in her home. It seemed that he had fallen previous night but that is uncertain. He was taken to the emergency room where he was thoroughly evaluated. He had an elevated blood pressure and then some atrial flutter with RVR but apparently had not been taking his medications. He was also having some vomiting and a CT scan of the abdomen and pelvis was done. This was normal except that the CT scan was suspicious for acute cholecystitis with inflammatory changes and hyperemia of the gallbladder wall. The patient did not have any complaints of abdominal pain. He was not tender on exam. He did continue to have persistent emesis even with water. An ultrasound was done which was much less suspicious for cholecystitis showing sludge and gallbladder distension but no other inflammatory signs or changes. While numerous examiners have been there w
[2023-09-03 17:19] LABS: Glucose Point of Care 151 mg/dl (65-105)
[2023-09-03] MEDS: METOPROLOL SUCCINATE EXT REL 50 MG TABCR PO (17:25)
--- NOTE | 2023-09-03 18:30 | PC.NURSE ---
POC Per Dr Clark do not give 20 MeQ K
--- NOTE | 2023-09-03 18:55 | PC.NURSE ---
This patient, Jose D Sterling, was received from [ [id number]] on 09/03/23 at 1855. Patient/family oriented to unit policies and routines. Report from Susie
[2023-09-03 21:35] LABS: Glucose Point of Care 139 mg/dl (65-105)
[2023-09-04] VITALS (10 sets, daily range): BP systolic 135–181; BP diastolic 52–72; PULSE 52–70; RESP 18–22; TEMP 36.1–37.3; O2SAT 95–100
[2023-09-04] MEDS: METOPROLOL TARTRATE INJ 5 MG/5 ML VIAL IV PUSH (02:32)
[2023-09-04] MEDS: PIPERACILLIN/TAZ 2.25G/NS 50ML 2.25 GM/50 ML BAG IVPB ×4 (02:32→17:06)
[2023-09-04 06:27] LABS: Hematocrit 49.1 % (42.0-52.0); Hemoglobin 16.7 g/dL (14.0-18.0); Mean Corpuscular Hemoglobin 31.7 pg (26-34); Mean Corpuscular Volume 93.3 fl (80-100); Mean Platelet Volume 12.6 fl (7.4-10.4); Platelet Count Result 112 k/mm3 (150-375); Red Blood Count 5.26 M/mm3 (4.6-6.20); Red Cell Distribution Width 13.4 % (11.5-14.5); White Blood Count 18.2 K/mm3 (4.5-10.0)
[2023-09-04] MEDS: KCL 20 MEQ/0.45% NS 1,000 ML 100 ML IV CONT (06:31)
[2023-09-04 06:38] LABS: Alanine Aminotransferase 16 U/L (6-50); Albumin Level 3.4 g/dL (3.5-5.1); Alkaline Phosphatase 104 U/L (38-126); Anion Gap 13 mmol/L (8-16); Aspartate Amino Transferase 32 U/L (17-59); Bilirubin,Total 1.4 mg/dL (0.2-1.3); Blood Urea Nitrogen 19 mg/dL (9-20); Carbon Dioxide 18 mmol/L (22-30); Chloride 100 mmol/L (98-107); Estimated CRCL calculation 33 ml/min; Estimated Glomerular Filt Rate 57; Glucose 122 mg/dL (65-110); Magnesium 1.4 mg/dL (1.6-2.3); Potassium 4.1 mmol/L (3.4-5.0); Sodium 131 mmol/L (137-145)
[2023-09-04 08:12] LABS: Glucose Point of Care 135 mg/dl (65-105)
[2023-09-04] MEDS: MAGNESIUM SULF 2 GM/WATER 50ML 2 GM/50 ML BAG IVPB (08:13)
[2023-09-04] MEDS: GABAPENTIN 300 MG CAPSULE PO ×2 (08:20→17:04)
[2023-09-04] MEDS: METOPROLOL SUCCINATE EXT REL 50 MG TABCR PO (08:20)
--- NOTE | 2023-09-04 09:07 | PM.PNCARD ---
Progress Note: A&P Assessment and Plan (1) Acute hypokalemia: Code(s): E87.6 - Hypokalemia Status: Acute Assessment and Plan: Replace potassium (2) Atrial flutter with rapid ventricular response: Code(s): I48.92 - Unspecified atrial flutter Status: Resolved Assessment and Plan: Back in sinus rhythm. Not anticoagulation candidate due to dementia, fall history as well as noncompliance with medications. In sinus rhythm at this point. Continue metoprolol succinate. Will discontinue IV metoprolol today. (3) Hypertension, uncontrolled: Code(s): I10 - Essential (primary) hypertension Status: Acute Assessment and Plan: Metoprolol to be started. Up titration as needed (4) Peripheral arterial disease: Code(s): I73.9 - Peripheral vascular disease, unspecified Status: Chronic Assessment and Plan: Continue statin and anti-platelet agents Subjective Date/time seen: 09/04/23 09:07 Interval history: 88-year-old admitted following a fall and found to be in atrial flutter. Since converted. Date of service 09/04/2023: Somnolent but arousable and denying any chest pain. No shortness of breath Review of Systems Review of Systems: All systems reviewed & are unremarkable except as noted in HPI and below Constitutional: Constitutional: Denies body ache(s) and Denies excessive sweating Eyes: Eyes: Denies blurry vision ENT: Denies epistaxis Cardiovascular: Cardiovascular: Denies chest pain Respiratory: Respiratory: Denies chest congestion Gastrointestinal: Gastrointestinal: Reports abdominal pain Genitourinary: Genitourinary: Denies hematuria Musculoskeletal: Musculoskeletal: Denies back pain Integumentary/Breasts: Skin/Breast: Denies dry skin Neurologic: Denies confusion Psychiatric: Psychiatric: Denies anxiety and Denies confusion Endocrine: Endocrine: Denies excessive sweating Hematologic/Lymphatic: Hematologic/Lymphatic: Denies easy bleeding Allergic/Immunologic: Allergic/Immunologic: Denies GI upset with certain foods Exam Narrative: Awake alert. Appears stated age Const: General: comfortable and no acute distress; No confusion Orientation/consciousness: No confusion HENMT: Ears: TM's normal bilaterally Face/Nose/Sinus: Normal nares present Mouth: Yes moist mucous membranes Eyes: General: appearance normal, both eyes and all related structures Sclera: sclerae normal Neck: Neck: supple and no JVD Carotids: no bruits Chest: Other: No reproducible chest wall pain to palpation Resp: Effort & Inspection: normal respiratory effort Auscultation: clear to auscultation bilaterally Cardio: Rate: regular rate Rhythm: regular rhythm GI: Inspection: non-distended Skin: General skin exam: normal color Neuro: General: No confusion Speech: normal speech Sensory Exam: normal sensation Extrem: General: normal to inspection Psych: Mental Status: mental status grossly normal Objective Data Vital Signs Vital Signs: Vital Signs - 24 hr 09/03/23 09:13 09/03/23 12:00 09/03/23 10:00 Temperature 36.6 C Pulse Rate 67 62 Respiratory Rate 17 Blood Pressure 156/80 H Pulse Oximetry 96 100 Oxygen Delivery Room Air 09/03/23 12:00 09/03/23 14:00 09/03/23 17:25 Temperature Pulse Rate 75 69 3 L Respiratory Rate Blood Pressure Pulse Oximetry Oxygen Delivery 09/03/23 17:30 09/03/23 17:30 09/03/23 17:51 Temperature Pulse Rate 71 72 Respiratory Rate Blood Pressure 178/70 H 169/59 H Pulse Oximetry Oxygen Delivery 09/03/23 18:46 09/03/23 16:00 09/03/23 14:00 Temperature Pulse Rate 75 69 Respiratory Rate 17 Blood Pressure Pulse Oximetry Oxygen Delivery Room Air 09/03/23 16:00 09/03/23 12:00 09/03/23 21:53 Temperature Pulse Rate 70 Respiratory Rate Blood Pressure Pulse Oximetry Oxygen Delivery Room Air Room Air
--- NOTE | 2023-09-04 10:53 | PM.IMPN ---
Progress Note: A&P Assessment and Plan (1) Acute cholecystitis: Code(s): K81.0 - Acute cholecystitis Status: Acute Assessment and Plan: Continue conservative management with IV Zosyn (started 09/02) and fluids / WBC 17.2, 09/03 18.2 and LFTs with bili 1.4 and NL transaminases 09/03 advanced diet from clear liquid to full liquid with Ensure Clear BID. (2) Atrial flutter with rapid ventricular response: Code(s): I48.92 - Unspecified atrial flutter Status: Resolved Assessment and Plan: Resolved with beta-jeff Continue p.o. metoprolol 09/02 transfer to medical telemetry 09/03 continues in NSR (3) Hypertension, uncontrolled: Code(s): I10 - Essential (primary) hypertension Status: Acute Assessment and Plan: 09/03 150's to 170's systolic, so stopped IVF and monitor (consider adding low dose amlodipine if not improving) (4) Chronic kidney disease, stage 3: Qualifiers: Chronic kidney disease stage 3 subtype: unspecified whether 3a or 3b Qualified Code(s): N18.30 - Chronic kidney disease, stage 3 unspecified Code(s): N18.30 - Chronic kidney disease, stage 3 unspecified Status: Chronic Assessment and Plan: 09/02 creatinine 1.3, 09/03 1.2 (5) Type 2 diabetes mellitus with hyperglycemia, without long-term current use of insulin: Code(s): E11.65 - Type 2 diabetes mellitus with hyperglycemia Status: Acute Assessment and Plan: 09/02 FBS 169, 11:00 a.m. sugar 150, 09/03 FBS 122 (6) Sacral ulcer: Qualifiers: Non-pressure ulcer stage: unspecified non-pressure ulcer stage Qualified Code(s): L98.429 - Non-pressure chronic ulcer of back with unspecified severity Code(s): L98.429 - Non-pressure chronic ulcer of back with unspecified severity Status: Acute Assessment and Plan: Continue wound care, turn and reposition frequently (7) Acute hyponatremia: Code(s): E87.1 - Hypo-osmolality and hyponatremia Status: Acute Assessment and Plan: 3 sodium 132, 09/03 131 (8) Acute hypokalemia: Code(s): E87.6 - Hypokalemia Status: Acute Assessment and Plan: 3/2 sodium 3.0 so added p.o. and IV potassium, 09/03 4.1 with Mg 1.4 so supplemental Mag 2 gm IV given (9) Dehydration with hyponatremia: Code(s): E86.0 - Dehydration; E87.1 - Hypo-osmolality and hyponatremia Status: Acute Assessment and Plan: Continue IV fluids and monitor labs Subjective Date/time seen: 09/04/23 10:53 Interval history: Tolerated clear liquids well w/o pain, consumed 100%. No complaints of abdominal pain nausea vomiting or diarrhea. No fevers or chills. No chest pain or shortness of breath. No edema. No abnormal bleeding. No trouble with micturition. No focal weakness or numbness. Review of Systems Review of Systems: All systems reviewed & are unremarkable except as noted in HPI and below Exam Narrative: HEENT: PERRL, sclerae nonicteric, pharyngeal mucosa pink and intact NECK: No JVD CHEST: Clear to auscultation. Normal effort. HEART: NL S1/S2, regular, no murmur ABDOMEN: BS+, soft, RIGHT UPPER QUADRANT TENDERNESS TO COME MODERATELY DEEP PALPATION no mass, no bruits EXTREMITIES: No cyanosis, edema, or clubbing NEUROLOGIC: CN intact and symmetric to inspection. MUSCULOSKELETAL: Tone and strength symmetric. PSYCH: Alert. Oriented to person, place, BUT NOT TO YEAR OR MONTH Objective Data Vital Signs Vital Signs: Vital Signs - 24 hr 09/03/23 12:00 09/03/23 12:00 09/03/23 14:00 Temperature 97.9 F Pulse Rate 67 75 69 Respiratory Rate 17 Blood Pressure 156/80 H Pulse Oximetry 100 Oxygen Delivery 09/03/23 17:25 09/03/23 17:30 09/03/23 17:30 Temperature Pulse Rate 3 L 71 72 Respiratory Rate Blood Pressure 178/70 H Pulse Oximetry Oxygen Delivery 09/03/23 17:51 09/03/23 18:46 09/03/23 16:00 Temperature Pulse Rate 75 Re
[2023-09-04 12:00] LABS: Mean Platelet Volume 12.5 fl (7.4-10.4); Platelet Count Result 96 k/mm3 (150-375)
[2023-09-04 12:13] LABS: INR 1.2; Prothrombin Time 15.3 Seconds (11.1-14.7)
[2023-09-04 12:14] LABS: Partial Thromboplastin Time 32.4 SECONDS (22.3-36.8)
[2023-09-04 12:33] LABS: Glucose Point of Care 171 mg/dl (65-105)
--- NOTE | 2023-09-04 14:38 | PM.PNGS ---
Progress Note: A&P Assessment and Plan (1) Acute cholecystitis: Code(s): K81.0 - Acute cholecystitis Status: Acute Assessment and Plan: With rising white blood cell count and tenderness in the right upper quadrant, I think clinically it is pretty clear that he does have cholecystitis. He is not a good surgical candidate. I discussed this with him. We will go ahead and have cholecystostomy tube placed by Radiology. I talked with Dr. Acosta, who is able to do this today. I will cancel his hepatobiliary scan. No stones have been noted on his imaging so possibly he can have this tube removed after 3 weeks and no surgery will be needed. (2) DNR (do not resuscitate): Code(s): Z66 - Do not resuscitate Status: Chronic (3) Fall in home: Qualifiers: Encounter type: subsequent encounter Qualified Code(s): W19.XXXD - Unspecified fall, subsequent encounter; Y92.009 - Unspecified place in unspecified non-institutional (private) residence as the place of occurrence of the external cause Code(s): W19.XXXA - Unspecified fall, initial encounter; Y92.009 - Unspecified place in unspecified non-institutional (private) residence as the place of occurrence of the external cause Status: Acute (4) Type 2 diabetes mellitus with hyperglycemia, without long-term current use of insulin: Code(s): E11.65 - Type 2 diabetes mellitus with hyperglycemia Status: Chronic Subjective Subjective Date/Time Seen: 09/04/23 14:38 Patient reports: still having pain, bowel movement and afebrile Interval history: Awake alert conversant this morning. Review of Systems Review of Systems: ROS unobtainable: Yes unobtainable due to medical condition Exam Const: General: alert, awake and thin GI: Inspection: non-distended, scaphoid and scar GI Palp: Yes Soft to palpation, Yes Tenderness to palpation present (GI) (Right upper quadrant) and Yes Guarding due to palpation present (GI) (Right upper quadrant) Auscultation: normal bowel sounds Objective Data Vital Signs Vital Signs: Vital Signs - 24 hr 09/03/23 17:25 09/03/23 17:30 09/03/23 17:30 Temperature Pulse Rate 3 L 71 72 Respiratory Rate Blood Pressure 178/70 H Pulse Oximetry Oxygen Delivery 09/03/23 17:51 09/03/23 18:46 09/03/23 16:00 Temperature Pulse Rate 75 Respiratory Rate 17 Blood Pressure 169/59 H Pulse Oximetry Oxygen Delivery Room Air 09/03/23 16:00 09/03/23 21:53 09/03/23 21:25 Temperature 36.7 C Pulse Rate 70 67 Respiratory Rate 18 Blood Pressure 141/81 H Pulse Oximetry 95 Oxygen Delivery Room Air 09/04/23 00:25 09/04/23 02:32 09/04/23 00:00 Temperature 36.9 C Pulse Rate 64 65 70 Respiratory Rate 18 Blood Pressure 173/63 H Pulse Oximetry 98 Oxygen Delivery 09/04/23 04:00 09/04/23 05:35 09/04/23 08:20 Temperature 36.4 C Pulse Rate 69 58 L 62 Respiratory Rate 20 Blood Pressure 155/72 H Pulse Oximetry 97 Oxygen Delivery 09/04/23 08:00 09/04/23 08:00 09/04/23 08:00 Temperature 36.4 C Pulse Rate 59 L 64 62 Respiratory Rate 22 H Blood Pressure 174/57 H Pulse Oximetry 100 98 Oxygen Delivery Room Air 09/04/23 12:00 09/04/23 12:00 Temperature 36.1 C L Pulse Rate 65 65 Respiratory Rate 18 Blood Pressure 181/69 H Pulse Oximetry 98 Oxygen Delivery Intake/Output Intake/Output: Intake & Output 09/01/23 09/02/23 09/03/23 09/04/23 23:59 23:59 23:59 23:59 Intake Total 1050 1620 2166 Output Total 400 1250 490 Balance 890 910 8716 Meds/Results Medications: Active Medications Generic Name Dose Route Start Last Admin Trade Name Freq PRN Reason Stop Dose Admin Dextrose 12.5 gm 09/02/23 21:07 Dextrose 50% 25 Gm/50 Ml Syringe IV PUSH PRN PRN Hypoglycemia Protocol Gabapentin 300 mg 09/03/23 09:00 09/04/23 12:30 Gabapentin 300 Mg Capsule PO Not Given TID JOSSUE Gluca
[2023-09-04] MEDS: hydrALAZINE HCL 20 MG/ML VIAL 10 MG IV PUSH (15:53)
[2023-09-04] MEDS: ACETAMINOPHEN 325 MG TABLET 650 MG PO ×2 (15:58→21:12)
[2023-09-04 16:49] LABS: Glucose Point of Care 174 mg/dl (65-105)
[2023-09-04 21:24] LABS: Glucose Point of Care 184 mg/dl (65-105)
[2023-09-05] VITALS (8 sets, daily range): BP systolic 120–199; BP diastolic 53–65; PULSE 69–118; RESP 18–20; TEMP 36–36.4; O2SAT 98–100; BMI 19.9
[2023-09-05] MEDS: PIPERACILLIN/TAZ 2.25G/NS 50ML 2.25 GM/50 ML BAG IVPB ×2 (01:14→05:59)
[2023-09-05 07:17] LABS: Hematocrit 42.9 % (42.0-52.0); Immature Platelet Fraction Pct 15.9 % (0.9-11.2); Mean Corpuscular Volume 91.5 fl (80-100); Mean Platelet Volume 13.6 fl (7.4-10.4); Platelet Count Result 124 k/mm3 (150-375); Red Blood Count 4.69 M/mm3 (4.6-6.20); Red Cell Distribution Width 13.5 % (11.5-14.5); White Blood Count 14.5 K/mm3 (4.5-10.0)
[2023-09-05 07:38] LABS: Glucose Point of Care 162 mg/dl (65-105)
[2023-09-05 07:41] LABS: Alanine Aminotransferase 13 U/L (6-50); Albumin Level 2.4 g/dL (3.5-5.1); Alkaline Phosphatase 228 U/L (38-126); Anion Gap 10 mmol/L (8-16); Aspartate Amino Transferase 25 U/L (17-59); Bilirubin,Total 1.5 mg/dL (0.2-1.3); Blood Urea Nitrogen 17 mg/dL (9-20); Calcium 7.7 mg/dL (8.4-10.2); Carbon Dioxide 19 mmol/L (22-30); Chloride 95 mmol/L (98-107); Estimated CRCL calculation 40 ml/min; Estimated Glomerular Filt Rate > 60; Glucose 129 mg/dL (65-110); Magnesium 1.6 mg/dL (1.6-2.3); Potassium 3.6 mmol/L (3.4-5.0); Sodium 124 mmol/L (137-145)
[2023-09-05] MEDS: GABAPENTIN 300 MG CAPSULE PO ×3 (08:37→16:05)
[2023-09-05] MEDS: METOPROLOL SUCCINATE EXT REL 50 MG TABCR PO (08:37)
[2023-09-05] MEDS: SODIUM CHLORIDE 0.9% IV 1,000 ML 100 ML IV CONT (08:53)
[2023-09-05 11:45] LABS: Glucose Point of Care 187 mg/dl (65-105)
[2023-09-05] MEDS: PIPERACILLN/TAZ 3.375GM/NS50ML 3.375 GM/50 ML BAG IVPB ×2 (12:33→17:14)
--- NOTE | 2023-09-05 14:41 | PM.IMPN ---
Progress Note: A&P Assessment and Plan (1) Acute cholecystitis: Code(s): K81.0 - Acute cholecystitis Status: Acute Assessment and Plan: General surgery following - [place] tube placed on 09/03; draining will likely remain in place for 2-3 weeks and removed outpatient IV Zosyn and fluids WBC 14.5 this am regular diet with Ensure Clear BID. (2) Atrial flutter with rapid ventricular response: Code(s): I48.92 - Unspecified atrial flutter Status: Resolved Assessment and Plan: Resolved with beta-jeff Continue p.o. metoprolol (3) Hypertension, uncontrolled: Code(s): I10 - Essential (primary) hypertension Status: Chronic Assessment and Plan: reviewed, con't to monitor (consider adding low dose amlodipine if not improving) (4) Chronic kidney disease, stage 3: Qualifiers: Chronic kidney disease stage 3 subtype: unspecified whether 3a or 3b Qualified Code(s): N18.30 - Chronic kidney disease, stage 3 unspecified Code(s): N18.30 - Chronic kidney disease, stage 3 unspecified Status: Chronic Assessment and Plan: creatinine 1.00 gfr >60 (5) Type 2 diabetes mellitus with hyperglycemia, without long-term current use of insulin: Code(s): E11.65 - Type 2 diabetes mellitus with hyperglycemia Status: Chronic Assessment and Plan: accuchecks, sliding scale insulin with hypoglycemic protocol. (6) Sacral ulcer: Qualifiers: Non-pressure ulcer stage: unspecified non-pressure ulcer stage Qualified Code(s): L98.429 - Non-pressure chronic ulcer of back with unspecified severity Code(s): L98.429 - Non-pressure chronic ulcer of back with unspecified severity Status: Acute Assessment and Plan: Continue wound care, turn and reposition frequently (7) Acute hyponatremia: Code(s): E87.1 - Hypo-osmolality and hyponatremia Status: Acute Assessment and Plan: 124 this am, given NaCl, and recheck (8) Acute hypokalemia: Code(s): E87.6 - Hypokalemia Status: Acute Assessment and Plan: 09/04 3.6 con't to monitor (9) Dehydration with hyponatremia: Code(s): E86.0 - Dehydration; E87.1 - Hypo-osmolality and hyponatremia Status: Resolved Subjective Date/time seen: 09/05/23 14:41 Interval history: Patient lying in bed this morning in no acute distress, but does report tenderness near his tube. Tolerating regular diet. No fevers or chills. No chest pain or shortness of breath. General surgery following. [place] tube placed on 09/03 as he is not a surgical candidate. Continue Zosyn. Sodium down to 124 this am, will give NaCl and recheck. Not currently symptomatic. Review of Systems Review of Systems: All systems reviewed & are unremarkable except as noted in HPI and below Exam Narrative: GEN: Elderly gentlemen, no acute distress. HEENT: PERRLA, EOMI NECK: supple CHEST: Lungs clear to auscultation. Normal effort. HEART: RRR ABDOMEN: BS+, soft, tender to area near [place] tube. EXTREMITIES: No cyanosis, edema, or clubbing NEUROLOGIC: CN intact and symmetric to inspection. PSYCH: Alert. Appropriate. Sitter present. Objective Data Vital Signs Vital Signs: Vital Signs - 24 hr 09/04/23 16:00 09/04/23 16:00 09/04/23 21:15 Temperature 97.9 F 99.1 F Pulse Rate 68 65 52 L Respiratory Rate 18 20 Blood Pressure 155/52 H 135/55 L Pulse Oximetry 100 95 Oxygen Delivery 09/05/23 01:10 09/05/23 05:35 09/05/23 07:41 Temperature 97.6 F 96.9 F L 97.5 F L Pulse Rate 71 69 77 Respiratory Rate 18 20 20 Blood Pressure 125/64 135/53 L 131/65 Pulse Oximetry 100 98 98 Oxygen Delivery 09/05/23 08:00 09/05/23 08:37 09/05/23 08:45 Temperature Pulse Rate 70 70 Respiratory Rate Blood Pressure Pulse Oximetry Oxygen Delivery Room Air 09/05/23 08:00 09/05/23 12:00 Temperature Pulse Rate 73 Respiratory Rate Blo
--- NOTE | 2023-09-05 16:02 | PCPTNOTE ---
Per nursing patient out of room for MRI.
[2023-09-05] MEDS: ONDANSETRON INJ 4 MG/2 ML VIAL IV PUSH (16:05)
[2023-09-05 16:21] LABS: Glucose Point of Care 190 mg/dl (65-105)
--- NOTE | 2023-09-05 16:37 | PM.PNGS ---
Progress Note: A&P Assessment and Plan (1) Acute cholecystitis: Code(s): K81.0 - Acute cholecystitis Status: Acute Assessment and Plan: S/p cholecystostomy tube placement in Radiology yesterday. WBC count trending down today. Will advance to a regular diet. Continue IV antibiotics and monitor drain output. (2) DNR (do not resuscitate): Code(s): Z66 - Do not resuscitate Status: Chronic (3) Fall in home: Qualifiers: Encounter type: subsequent encounter Qualified Code(s): W19.XXXD - Unspecified fall, subsequent encounter; Y92.009 - Unspecified place in unspecified non-institutional (private) residence as the place of occurrence of the external cause Code(s): W19.XXXA - Unspecified fall, initial encounter; Y92.009 - Unspecified place in unspecified non-institutional (private) residence as the place of occurrence of the external cause Status: Acute (4) Type 2 diabetes mellitus with hyperglycemia, without long-term current use of insulin: Code(s): E11.65 - Type 2 diabetes mellitus with hyperglycemia Status: Chronic Plan I have discussed the patient's case and plan of care with Dr. Avalos. Subjective Subjective Date/Time Seen: 09/05/23 16:37 Patient reports: no new complaints and tolerating liquids well Interval history: This is an 88-year-old man with dementia and other medical problems, who was admitted after a fall with CT findings of possible cholecystitis. Right upper quadrant ultrasound showed gallbladder sludge but no real signs of inflammation. His white blood cell count was rising any had tenderness in the right upper quadrant. He was a poor surgical candidate and decision was made to proceed with cholecystostomy tube placement in Radiology. This was done yesterday. The patient was tolerating liquids. Chart reviewed. He has a sitter at the bedside. Patient does report some right-sided abdominal pain. No other complaints at this time. Exam Const: General: awake Orientation/consciousness: confusion GI: Inspection: non-distended and other (cholecystostomy tube with bilious appearing output) GI Palp: Yes Soft to palpation, Yes Tenderness to palpation present (GI) (RUQ, RLQ) and No Guarding due to palpation present (GI) Auscultation: normal bowel sounds Objective Data Vital Signs Vital Signs: Vital Signs - 24 hr 09/04/23 21:15 09/05/23 01:10 09/05/23 05:35 Temperature 99.1 F 97.6 F 96.9 F L Pulse Rate 52 L 71 69 Respiratory Rate 20 18 20 Blood Pressure 135/55 L 125/64 135/53 L Pulse Oximetry 95 100 98 Oxygen Delivery 09/05/23 07:41 09/05/23 08:00 09/05/23 08:37 Temperature 97.5 F L Pulse Rate 77 70 70 Respiratory Rate 20 Blood Pressure 131/65 Pulse Oximetry 98 Oxygen Delivery 09/05/23 08:45 09/05/23 08:00 09/05/23 12:00 Temperature Pulse Rate 73 Respiratory Rate Blood Pressure Pulse Oximetry Oxygen Delivery Room Air Room Air 09/05/23 16:00 Temperature 97.3 F L Pulse Rate 80 Respiratory Rate 20 Blood Pressure 199/65 H Pulse Oximetry 100 Oxygen Delivery Intake/Output Intake/Output: Intake & Output 09/02/23 09/03/23 09/04/23 09/05/23 23:59 23:59 23:59 23:59 Intake Total 1050 1620 2566 318 Output Total 400 1250 920 345 Balance 813 779 2968 -27 Meds/Results Medications: Active Medications Generic Name Dose Route Start Last Admin Trade Name Freq PRN Reason Stop Dose Admin Acetaminophen 650 mg 09/04/23 15:34 09/04/23 21:12 Acetaminophen 325 Mg Tablet PO 650 mg Q4H PRN Administration Mild Pain (1-3) or Fever Dextrose 12.5 gm 09/02/23 21:07 Dextrose 50% 25 Gm/50 Ml Syringe IV PUSH PRN PRN Hypoglycemia Protocol Gabapentin 300 mg 09/03/23 09:00 09/05/23 16:05 Gabapentin 300 Mg Capsule PO 300 mg TID JOSSUE Administration Glucagon 1 mg 09/02/23 21:07 Glucagon For Inj 1 Mg Vial IM PRN PRN Hypoglycemia Protocol
[2023-09-05] MEDS: hydrALAZINE HCL 20 MG/ML VIAL 10 MG IV PUSH (17:13)
[2023-09-05 21:46] LABS: Glucose Point of Care 203 mg/dl (65-105)
[2023-09-05] MEDS: INSULIN ASPART (*BKC) 100 UNITS/ML SUB-Q (23:04)
[2023-09-06] VITALS (11 sets, daily range): BP systolic 49–148; BP diastolic 26–72; PULSE 0–92; RESP 10–20; TEMP 34.9–36.2; O2SAT 93–98
[2023-09-06 06:54] LABS: Glucose Point of Care 125 mg/dl (65-105)
[2023-09-06 07:13] LABS: Hematocrit 44.2 % (42.0-52.0); Hemoglobin 15.1 g/dL (14.0-18.0); Mean Corpuscular HGB Conc 34.2 g/dl (32-36); Mean Corpuscular Hemoglobin 31.3 pg (26-34); Mean Corpuscular Volume 91.7 fl (80-100); Mean Platelet Volume 12.5 fl (7.4-10.4); Platelet Count Result 83 k/mm3 (150-375); Red Blood Count 4.82 M/mm3 (4.6-6.20); Red Cell Distribution Width 13.2 % (11.5-14.5); White Blood Count 11.5 K/mm3 (4.5-10.0)
[2023-09-06 07:30] LABS: Alanine Aminotransferase 17 U/L (6-50); Albumin Level 2.6 g/dL (3.5-5.1); Alkaline Phosphatase 171 U/L (38-126); Anion Gap 9 mmol/L (8-16); Aspartate Amino Transferase 38 U/L (17-59); Bilirubin,Total 1.5 mg/dL (0.2-1.3); Blood Urea Nitrogen 22 mg/dL (9-20); Carbon Dioxide 17 mmol/L (22-30); Chloride 97 mmol/L (98-107); Estimated CRCL calculation 31 ml/min; Estimated Glomerular Filt Rate 52; Glucose 114 mg/dL (65-110); Potassium 3.6 mmol/L (3.4-5.0); Sodium 123 mmol/L (137-145)
[2023-09-06 08:56] LABS: Glucose Point of Care 145 mg/dl (65-105)
--- NOTE | 2023-09-06 09:02 | PM.PNCARD ---
Progress Note: A&P Assessment and Plan (1) Acute hypokalemia: Code(s): E87.6 - Hypokalemia Status: Acute Assessment and Plan: K+ 3.6 today (2) Atrial flutter with rapid ventricular response: Code(s): I48.92 - Unspecified atrial flutter Status: Resolved Assessment and Plan: Back in atrial flutter with rate controlled on metoprolol succinate. Not anticoagulation candidate due to dementia, fall history as well as noncompliance with medications. Continue metoprolol succinate, but will decrease dose to 25mg daily because of hypotension. (3) Hypertension, uncontrolled: Code(s): I10 - Essential (primary) hypertension Status: Chronic Assessment and Plan: As above, actually somewhat hypotensive today...decreasing metoprolol (4) Peripheral arterial disease: Code(s): I73.9 - Peripheral vascular disease, unspecified Status: Chronic Assessment and Plan: Continue statin and anti-platelet agents Plan Plan discussed with Hospitalist. Cardiology will sign off please call with any questions. Subjective Date/time seen: 09/06/23 09:02 Interval history: 88-year-old admitted following a fall and found to be in atrial flutter. Since converted. Date of service 09/04/2023: Somnolent but arousable and denying any chest pain. No shortness of breath Date of service 09/06/2023: Somnolent today and not arousable to stimuli. Review of Systems Review of Systems: All systems reviewed & are unremarkable except as noted in HPI and below Constitutional: Constitutional: Denies body ache(s) and Denies excessive sweating Eyes: Eyes: Denies blurry vision ENT: Denies epistaxis Cardiovascular: Cardiovascular: Denies chest pain Respiratory: Respiratory: Denies chest congestion Gastrointestinal: Gastrointestinal: Reports abdominal pain Genitourinary: Genitourinary: Denies hematuria Musculoskeletal: Musculoskeletal: Denies back pain Integumentary/Breasts: Skin/Breast: Denies dry skin Neurologic: Denies confusion Psychiatric: Psychiatric: Denies anxiety and Denies confusion Endocrine: Endocrine: Denies excessive sweating Hematologic/Lymphatic: Hematologic/Lymphatic: Denies easy bleeding Allergic/Immunologic: Allergic/Immunologic: Denies GI upset with certain foods Exam Const: General: comfortable and no acute distress HENMT: Ears: TM's normal bilaterally Face/Nose/Sinus: Normal nares present Mouth: Yes moist mucous membranes Eyes: General: appearance normal, both eyes and all related structures Sclera: sclerae normal Neck: Neck: supple and no JVD Carotids: no bruits Resp: Effort & Inspection: normal respiratory effort Auscultation: clear to auscultation bilaterally Cardio: Rate: regular rate Rhythm: abnormal rhythm irregularly irregular GI: Inspection: non-distended Skin: General skin exam: normal color Neuro: General: No patient oriented x3 Extrem: General: normal to inspection Psych: Mental Status: mental status grossly abnormal Objective Data Vital Signs Vital Signs: Vital Signs - 24 hr 09/05/23 12:00 09/05/23 16:00 09/05/23 16:00 Temperature 36.3 C L Pulse Rate 73 80 Respiratory Rate 20 Blood Pressure 199/65 H 135/55 L Pulse Oximetry 100 09/05/23 16:00 09/05/23 20:00 09/05/23 20:00 Temperature 36.0 C L Pulse Rate 80 92 118 H Respiratory Rate 18 Blood Pressure 120/61 Pulse Oximetry 98 09/06/23 00:00 09/06/23 04:00 09/06/23 08:00 Temperature Pulse Rate 90 85 88 Respiratory Rate Blood Pressure Pulse Oximetry Intake/Output Intake/Output: Intake & Output 09/03/23 09/04/23 09/05/23 09/06/23 23:59 23:59 23:59 23:59 Intake Total 1620 2566 368 Output Total 3242 733 5144 60 Balance 370 1646 -912 -60 Meds/Results Medications: Active Medications Generic Name Dose Route Start Last Admin Trade Name Freq PRN Reason Stop Dose Admin Acetaminophen 650 mg
[2023-09-06] MEDS: PIPERACILLN/TAZ 3.375GM/NS50ML 3.375 GM/50 ML BAG IVPB ×3 (09:47→21:21)
--- NOTE | 2023-09-06 10:12 | PCOTNOTE ---
Per RN, Patient unable to be aroused this A.M. Patient not to be seen. Per RN, MD to follow and will be going for testing.
[2023-09-06] MEDS: SODIUM CHLORIDE 0.9% IV 1,000 ML 500 ML (11:45)
--- NOTE | 2023-09-06 11:54 | PM.PNGS ---
Progress Note: A&P Assessment and Plan (1) Acute cholecystitis: Code(s): K81.0 - Acute cholecystitis Status: Acute Assessment and Plan: S/p cholecystostomy tube placement in Radiology on 09/03. WBC count trending down. Continue IV antibiotics. His diet was advanced but unfortunately he has had mental status changes overnight and is obtunded this morning, so he is unable to have oral intake. Sodium trending down and he was started on normal saline this morning. He is undergoing workup from primary service for his mental status changes. (2) DNR (do not resuscitate): Code(s): Z66 - Do not resuscitate Status: Chronic (3) Fall in home: Qualifiers: Encounter type: subsequent encounter Qualified Code(s): W19.XXXD - Unspecified fall, subsequent encounter; Y92.009 - Unspecified place in unspecified non-institutional (private) residence as the place of occurrence of the external cause Code(s): W19.XXXA - Unspecified fall, initial encounter; Y92.009 - Unspecified place in unspecified non-institutional (private) residence as the place of occurrence of the external cause Status: Acute (4) Type 2 diabetes mellitus with hyperglycemia, without long-term current use of insulin: Code(s): E11.65 - Type 2 diabetes mellitus with hyperglycemia Status: Chronic Plan I have discussed the patient's case and plan of care with Dr. Avalos. Subjective Subjective Date/Time Seen: 09/06/23 09:34 Interval history: Patient is completely obtunded when I saw the patient this morning. He has a sitter at the bedside who was also with him during the day yesterday. Yesterday, the patient was able to answer questions and wake up. He ate all of breakfast before I saw him, but per the sitter was complaining of right-sided abdominal pain and refused lunch. He also denied any much for dinner. Per nursing, he became more confused overnight and by this morning he has become unresponsive. The sitter states that this morning he did arouse when a bed alarm went off, but went straight back to sleep. During my evaluation, he had snoring respirations and was completely attended. I was unable to arouse the patient with verbal or physical stimulation. I was unable to ask him any questions and he would not follow any commands. Hospitalist has evaluated patient and a CT scan of the head has been ordered. He also was started on IV fluids as his sodium has trended down over the past few days and was 123 this morning. Review of Systems Review of Systems: ROS unobtainable: Yes unobtainable due to mental status Exam Const: General: ill appearing Orientation/consciousness: patient obtunded GI: Inspection: non-distended and other (cholecystostomy tube with bilious appearing output) GI Palp: Yes Soft to palpation, No Guarding due to palpation present (GI) and Yes Other GI palpation findings present (exam limited due to altered mental status) Auscultation: normal bowel sounds Objective Data Vital Signs Vital Signs: Vital Signs - 24 hr 09/05/23 12:00 09/05/23 16:00 09/05/23 16:00 Temperature 97.3 F L Pulse Rate 73 80 Respiratory Rate 20 Blood Pressure 199/65 H 135/55 L Pulse Oximetry 100 09/05/23 16:00 09/05/23 20:00 09/05/23 20:00 Temperature 96.8 F L Pulse Rate 80 92 118 H Respiratory Rate 18 Blood Pressure 120/61 Pulse Oximetry 98 09/06/23 00:00 09/06/23 04:00 09/06/23 08:00 Temperature Pulse Rate 90 85 88 Respiratory Rate Blood Pressure Pulse Oximetry 09/06/23 08:00 09/06/23 10:00 Temperature 97.1 F L Pulse Rate 69 88 Respiratory Rate 18 Blood Pressure 88/42 L 90/50 L Pulse Oximetry 94 Intake/Output Intake/Output: Intake & Output 09/03/23 09/04/23 09/05/23 09/06/23 23:59 23:59 23:59 23:59 Intake Total 1620 2566 368 0 Output Total 6835 979 7608 60 Balance 370 1646 -912 -60 Meds/Results Medications: Active Medications Generic Name Dos
--- NOTE | 2023-09-06 13:35 | PCOTNOTE ---
Per RN, Patient is still unarousable this P.M. RN stated waiting on tests and results. Patient unable to be seen.
[2023-09-06 13:56] LABS: Glucose Point of Care 95 mg/dl (65-105)
--- NOTE | 2023-09-06 15:05 | PM.IMPN ---
Progress Note: A&P Assessment and Plan (1) Acute cholecystitis: Code(s): K81.0 - Acute cholecystitis Status: Acute Assessment and Plan: General surgery following - [place] tube placed on 09/03; draining will likely remain in place for 2-3 weeks and removed outpatient IV Zosyn and fluids WBC 11.5 this am regular diet with Ensure Clear BID. (2) Atrial flutter with rapid ventricular response: Code(s): I48.92 - Unspecified atrial flutter Status: Resolved Assessment and Plan: Resolved with beta-jeff Continue metoprolol, reduced by cardiology for lower BP cardiology signed off today (3) Hypertension, uncontrolled: Code(s): I10 - Essential (primary) hypertension Status: Chronic Assessment and Plan: reviewed, con't to monitor (consider adding low dose amlodipine if not improving) hypotensive this am, fluid bolus and continuous given and rebounded. (4) Chronic kidney disease, stage 3: Qualifiers: Chronic kidney disease stage 3 subtype: unspecified whether 3a or 3b Qualified Code(s): N18.30 - Chronic kidney disease, stage 3 unspecified Code(s): N18.30 - Chronic kidney disease, stage 3 unspecified Status: Chronic Assessment and Plan: creatinine 1.00 gfr >60 nephrology consulted for hyponatremia, worsening. (5) Type 2 diabetes mellitus with hyperglycemia, without long-term current use of insulin: Code(s): E11.65 - Type 2 diabetes mellitus with hyperglycemia Status: Chronic Assessment and Plan: accuchecks, sliding scale insulin with hypoglycemic protocol. (6) Sacral ulcer: Qualifiers: Non-pressure ulcer stage: unspecified non-pressure ulcer stage Qualified Code(s): L98.429 - Non-pressure chronic ulcer of back with unspecified severity Code(s): L98.429 - Non-pressure chronic ulcer of back with unspecified severity Status: Acute Assessment and Plan: Continue wound care, turn and reposition frequently (7) Acute hyponatremia: Code(s): E87.1 - Hypo-osmolality and hyponatremia Status: Acute Assessment and Plan: 123 this am, continue NaCL ordered sodium chloride tabs but not taking PO today nephrology consulted if 3% saline infusion needed (8) Acute hypokalemia: Code(s): E87.6 - Hypokalemia Status: Resolved Assessment and Plan: 3/4 3.6 con't to monitor (9) Dehydration with hyponatremia: Code(s): E86.0 - Dehydration; E87.1 - Hypo-osmolality and hyponatremia Status: Acute Assessment and Plan: continue IV Nacl Subjective Date/time seen: 09/06/23 15:05 Interval history: Patient unable to arouse this morning on exam. Patient snoring, breathing regularly and HR sinus rhythm. 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 Patient already on statin and Plavix, but currently held. Patient continues to remain quite hyponatremic, nephrology consulted. IV fluids given as patient has not been taking in PO today and BP was soft this morning. Per patient family, this is not uncommon behavior for him to be difficult to arouse from sleep and also made him a DNR. Will continue to monitor. General surgery following for michoacano tube, draining dark bilious liquid. Review of Systems Review of Systems: All systems reviewed & are unremarkable except as noted in HPI and below Exam Narrative: GEN: Elderly gentlemen, no acute distress. Unable to arouse from sleep. HEENT: unable to assess NECK: supple CHEST: Lungs clear to auscultation. Normal effort. HEART: RRR ABDOMEN: BS+ EXTREMITIES: No cyanosis, edema, or clubbing NEUROLOGIC: unable to assess as patient was unarousable on exam PSYCH: Sitter present. Objective Data Vital Signs Vital Signs: Vital Signs - 24 hr 09/05/23 16:00 09/05/23 16:00 09/05/23 16:00 Temperature 97.3 F L Pulse Rate 80 80 Respiratory Rate 20 Bl
[2023-09-06 15:12] LABS: Sodium 123 mmol/L (137-145)
--- NOTE | 2023-09-06 15:25 | PCPTNOTE ---
Attempted to see patient for PT this afternoon, however patient sleeping soundly and unable to arouse to participate. RN reports patient has been lethargic today. SPO2, HR and RR within normal limits. PT will continue to follow per plan of care.
--- NOTE | 2023-09-06 15:50 | PM.CNNEP ---
Assessment and Plan Assessment and plan (1) Hyponatremia: Code(s): E87.1 - Hypo-osmolality and hyponatremia Status: Acute Assessment and Plan: appears acute previous sodium 140mmol/L prior to admission admitted at 130mmol/L but now down to 123mmol/L concern is that this maybe a contributing factor with regard to #2 check TSH, cortisol, SPEP, UPEP and serum/urine osmo trial of normal saline IVF due to #2, unable to use salt tabs or oral lasix depending on trend of repeat sodium levels, may need to consider 3% saline follow trend of repeat sodium levels (2) Altered mental status: Code(s): R41.82 - Altered mental status, unspecified Status: Acute Assessment and Plan: difficult to arouse today however, family reports this kind of behavior before CT of brain is negative consider ABG - possible CO2 retentsion given body habitus(?) (3) Acute cholecystitis: Code(s): K81.0 - Acute cholecystitis Status: Acute Assessment and Plan: General surgery following s/p cholecystotomy tube placement on 09/03 will likely remain in place for 2-3 weeks and removed outpatient on IV Zosyn follow culture data advance diet as tolerated (4) Hypertension: Qualifiers: Hypertension type: essential hypertension Qualified Code(s): I10 - Essential (primary) hypertension Code(s): I10 - Essential (primary) hypertension Status: Chronic Assessment and Plan: reasonable control issues with low BP noted follow trend of hemodynamics (5) Diabetes type 2, controlled: Qualifiers: Diabetes mellitus shelter insulin use: with shelter use Diabetes mellitus complication status: with kidney complications Diabetes mellitus complication detail: with chronic kidney disease Chronic kidney disease stage: stage 3 (moderate) Qualified Code(s): E11.22 - Type 2 diabetes mellitus with diabetic chronic kidney disease; N18.3 - Chronic kidney disease, stage 3 (moderate); 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 Thank you for allowing me to participate in the care this patient. History of Present Illness Reason for Consult Consult date: 03/05/24 Reason for consult: hyponatremia Chief Complaint Chief complaint: Cholecysitis,Aflutter w/RVR,Uncontrolled Hypertens History of Present Illness Narrative: Most of the information that I have obtained is review of electronic medical record as well as discussion with the physician/ nurses involved in the patient's care as the patient is unable to provide me with much history due to his altered mentation. The patient is an 85-year-old male with a past medical history as outlined below the end who presented to [facility] Emergency room after being found on the ground. Is not entirely clear if the patient fell or what exactly occurred that led to him being found on the ground. He has baseline dementia so is difficult to get much history from the patient when these events occurred. In any case, EMS brought the patient to the ER for further assessment after this event. Interestingly, on presentation to the ER, his major complaint was that of abdominal pain that seemed to resolve after having a large bowel movement. On further evaluation in the emergency room, he was found to be in a flutter with RVR but converted fairly quickly after being given a dose of IV metoprolol in conjunction with IV fluids. He was also quite hypertensive on presentation with systolic BP is greater than 220. his blood pressure improved with the use of the IV metoprolol in conjunction with IV hydralazine. with regard to his abdom
--- NOTE | 2023-09-06 15:50 | P.CONNP_ITS ---
Assessment and Plan Assessment and plan (1) Hyponatremia: Code(s): E87.1 - Hypo-osmolality and hyponatremia Status: Acute Assessment and Plan: * appears acute * previous sodium 140mmol/L prior to admission * admitted at 130mmol/L but now down to 123mmol/L * concern is that this maybe a contributing factor with regard to #2 * check TSH, cortisol, SPEP, UPEP and serum/urine osmo * trial of normal saline IVF * due to #2, unable to use salt tabs or oral lasix * depending on trend of repeat sodium levels, may need to consider 3% saline * follow trend of repeat sodium levels (2) Altered mental status: Code(s): R41.82 - Altered mental status, unspecified Status: Acute Assessment and Plan: * difficult to arouse today * however, family reports this kind of behavior before * CT of brain is negative * consider ABG - possible CO2 retentsion given body habitus(?) (3) Acute cholecystitis: Code(s): K81.0 - Acute cholecystitis Status: Acute Assessment and Plan: * General surgery following * s/p cholecystotomy tube placement on 09/03 * will likely remain in place for 2-3 weeks and removed outpatient * on IV Zosyn * follow culture data * advance diet as tolerated (4) Hypertension: Qualifiers: Hypertension type: essential hypertension Qualified Code(s): I10 - Essential (primary) hypertension Code(s): I10 - Essential (primary) hypertension Status: Chronic Assessment and Plan: * reasonable control * issues with low BP noted * follow trend of hemodynamics (5) Diabetes type 2, controlled: Qualifiers: Diabetes mellitus long term care pharmacist insulin use: with long term care pharmacist use Diabetes mellitus complication status: with kidney complications Diabetes mellitus complication detail: with chronic kidney disease Chronic kidney disease stage: stage 3 (moderate) Qualified Code(s): E11.22 - Type 2 diabetes mellitus with diabetic chronic kidney disease; N18.3 - Chronic kidney disease, stage 3 (moderate); 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 Thank you for allowing me to participate in the care this patient. History of Present Illness Reason for Consult Consult date: 09/06/23 Reason for consult: hyponatremia Chief Complaint Chief complaint: Cholecysitis,Aflutter w/RVR,Uncontrolled Hypertens History of Present Illness Narrative: Most of the information that I have obtained is review of electronic medical record as well as discussion with the physician/ nurses involved in the patient's care as the patient is unable to provide me with much history due to his altered mentation. The patient is an 85-year-old male with a past medical history as outlined below the end who presented to [facility] Emergency room after being found on the ground. Is not entirely clear if the patient fell or what exactly occurred that led to him being found on the ground. He has baseline dementia so is difficult to get much history from the patient when these events occurred. In any case, EMS brought the patient to the ER for further assessment after this event. Interestingly, on presentation to the ER, his major complaint was that of abdominal pain that seemed to resolve after having a large bowel movement.
--- NOTE | 2023-09-06 16:54 | P.PNCROSS_ITS ---
Event Note Event Note Event Note: Rapid response was called by nursing due to hypoglycemia. His blood sugar was reported to be 18 and patient was given an amp of D50. His recheck blood sugar was 328. Nursing has stated that he has been obtunded all day and arousable to painful stimuli. He had a head CT scan earlier in the day due to his somnolence which was negative for any acute intracranial process. I asked nursing to get a full set of labs along with an ABG. Labs resulted with a white blood cell count of 7.3, hemoglobin 13.3, sodium 124, potassium 5.2, chloride 97, bicarb was less than 5, BUN 21, creatinine 2.10, EGFR 30, calcium 7.8, total bili 2.0, AST 1117, ALT 406, alk-phos 145, albumin 2.3. His ABG showed a pH of 7.194, pCO2 17.0, PO2 87.0 Bicarb was 6.4. Lactic acid currently 19.6. He was given 2 amps of bicarb and started on a bicarb drip which is mixed in D5W to help sustain his b lood sugars. I spoke with Dr. Mahajan who agrees with the bicarb drip. We will also send him to IMU for closer observation. I tried reaching out to both family members that are listed in the computer and no one has answered. I left a message for Shannon who is the niece. I will continue to reach out to them considering his guarded prognosis. Patient is currently a DNR/DNI.
[2023-09-06 17:03] LABS: Alveolar/Arterial O2 Gradient 42.4 mmHg; Base Excess ABG -19.4 mEq/l (+/-2.0); Fractional Inspired Oxygen 21 %; HCO3 ABG 6.4 mEq/l (22.0-26.0); Oxygen Content ABG 18.5 %vol (16.0-22.0); Oxygen Saturation ABG 94.8 % (95.0-100.0); Oxyhemoglobin 93.6 % THb (90.0-100.0); PO2 FiO2 Ratio Arterial Blood 4.14 %
[2023-09-06 17:05] LABS: Glucose Point of Care 328 mg/dl (65-105)
[2023-09-06 17:05] LABS: Glucose Point of Care < 20 mg/dl (65-105)
[2023-09-06 17:12] LABS: pH ABG 7.194 (7.350-7.450)
[2023-09-06 17:13] LABS: Device ROOM AIR; Modified Allen's Test Pass; Site Drawn RIGHT RADIAL
[2023-09-06] MEDS: DEXTROSE 5%/0.9% SOD CHL 1,000 ML 100 ML IV CONT (17:21)
[2023-09-06 17:29] LABS: Basophils Absolute Auto 0.1 K/mm3 (0.0-0.1); Hematocrit 41.3 % (42.0-52.0); Hemoglobin 13.3 g/dL (14.0-18.0); Immature Granulocyte Absolute 0.17 K/mm3 (0.00-0.031); Immature Granulocyte Percent A 2.3 % (0-0.5); Immature Platelet Fraction Pct 15.3 % (0.9-11.2); Lymphocytes Absolute Auto 0.43 K/mm3 (0.9-3.2); Lymphocytes Percent Auto 5.9 % (18.3-44.2); Mean Corpuscular HGB Conc 32.2 g/dl (32-36); Mean Corpuscular Volume 99.5 fl (80-100); Mean Platelet Volume 13.4 fl (7.4-10.4); Monocytes Absolute Auto 0.5 K/mm3 (0.1-0.6); Monocytes Percent Auto 6.5 % (2.6-8.5); Neutrophils Absolute Auto 6.1 K/mm3 (1.3-6.7); Neutrophils Percent Auto 84.3 % (45.5-73.1); Nucleated Red Blood Cells Perc 0.3 % (0.0-0.2); Platelet Count Result 101 k/mm3 (150-375); Red Blood Count 4.15 M/mm3 (4.6-6.20); Red Cell Distribution Width 13.8 % (11.5-14.5); White Blood Count 7.3 K/mm3 (4.5-10.0)
[2023-09-06 17:39] LABS: Albumin Level 2.3 g/dL (3.5-5.1); Alkaline Phosphatase 145 U/L (38-126); Blood Urea Nitrogen 21 mg/dL (9-20); Calcium 7.8 mg/dL (8.4-10.2); Carbon Dioxide < 5 mmol/L (22-30); Chloride 97 mmol/L (98-107); Estimated CRCL calculation 20 ml/min; Estimated Glomerular Filt Rate 30; Glucose 115 mg/dL (65-110); Potassium 5.2 mmol/L (3.4-5.0); Sodium 124 mmol/L (137-145)
[2023-09-06] MEDS: SODIUM BICARBONATE 8.4% 50 MEQ/50 ML SYRINGE 100 MEQ IV PUSH (18:09)
[2023-09-06 18:11] LABS: Ovalocytes 1+ (NORMAL); Platelet Estimate Decreased (Adequate)
[2023-09-06 18:12] LABS: Burr Cells 2+ (NORMAL); Schistocytes None Seen (NORMAL)
[2023-09-06 18:26] LABS: Alanine Aminotransferase 406 U/L (6-50)
[2023-09-06 18:37] LABS: Aspartate Amino Transferase 1117 U/L (17-59)
--- NOTE | 2023-09-06 18:46 | PC.NURSE ---
Addendum entered by Dale Garcia, MARIA TERESA 09/06/23 18:57: urine output only 150mls; provider made aware. requested Shirin to call family to discuss plan of care/comfort. Original Note: Pt seen for AM assessment approx 0930 with OPEN TENTER OPERATOR and cardio OPEN TENTER OPERATOR. Pt unresponsive to sternal rub. Same position as this AM when pt sleeping/loudly snoring with eyes and mouth open. OPEN TENTER OPERATOR ordered CT head; requesting vasc gas systems worker to place 18 or 20 for contrast. Pt obtunded with paroxysmal afib and BP 90/50 manual. Provider ordered 1L NS IVPB, with 500 bolus over 30 minutes, then run at 100 for the last 5 hours. OPEN TENTER OPERATOR consulted nephro for hyponatremia. This RN called bambi to clarify if pt full code/DNR. Pt had stated in Feb 2023 to ED MD that he wanted DNR; mentioned this to bambi who agreed DNR. Provider made aware and code status changed. Started Q2T&R, as well as oral care. Pt BS at lunch down to 95 from 143; asked provider if we should switch to D5NS, but concerns over Na. Dinner BS at 18; rapid response called. 25g dextrose pushed. Pt BS up to 328. Pt started on d5NS @ 100. Pt BS@1800 105. Two amps bicarb given. Pt remains sleeping.
[2023-09-06] MEDS: SODIUM BICARBONATE 8.4% 150 MEQ in DEXTROSE 5% 1,000 ML 950 ML 50 MEQ IV CONT (20:09)
[2023-09-06] MEDS: SODIUM CHLORIDE 0.9% IV 1,000 ML 50 ML IV CONT (20:10)
[2023-09-06 20:19] LABS: Glucose Point of Care 105 mg/dl (65-105)
[2023-09-06 20:54] LABS: Ammonia < 9 umol/L (9-30)
[2023-09-06 21:50] LABS: Lactic Acid Reflex 19.6 mmol/L (0.7-2.0)
--- NOTE | 2023-09-06 22:29 | PC.NURSE ---
pt transfered to IMU at 2039, report given at bedside
[2023-09-06 23:20] LABS: Glucose Point of Care 93 mg/dl (65-105)
--- NOTE | 2023-09-06 23:35 | PC.NURSE ---
Patient transferred to IMU room 204 from [facility] room 332-2. Upon arrival patient unresponsive and cyanotic, mottling extremities, no purposeful movement, agonal breathing. Patient DNR/DNI and calls placed to patient contacts with no answer, voicemails left. Heart rhythm PEA at 2253 and asystole at 2255. Family and physician notified.
[2023-09-06 23:39] LABS: Reflex Lactic Acid Yes or No Add Lactic
--- NOTE | 2023-09-07 00:04 | PC.NURSE ---
09/06/232324 attempted to reach nephew William to notify of patient expiration. 09/06/232325 notified niece Shannon of patient expiration, unsure of home at this time.
[2023-09-07 01:16] LABS: Glucose Point of Care 93 mg/dl (65-105)
--- NOTE | 2023-09-15 08:44 | PM.DDS ---
Discharge Summary Date and Time Date of : 09/06/23 Time of : 22:55 Provider Pronounced By: Nanette Hampton RN Probable Cause of Probable Cause of : metabolic acidosis Summary Hospital Course: Patient was a 88-year-old male with PMH of BPH, CVA, chronic kidney disease stage 3, dementia, hyponatremia, diabetes, peripheral arterial disease among other comorbidities admitted from ER after he was found down on the ground. Is unknown when the patient fell. Patient has dementia baseline is alert oriented to person and place only. Patient was initially complaining of abdominal pain in the ER but stated that is on the abdominal pain resolved after he had a large bowel movement. CT scan was suspicious for acute cholecystitis with inflammatory changes and hyperemia of the gallbladder wall. An ultrasound was done which was much less suspicious for cholecystitis showing sludge and gallbladder distension but no other inflammatory signs or changes. Chest x-ray and urinalysis were both negative for signs of infection. He was receiving Zosyn antibiotics. Cardiology was consulted and he was put on 50mg metoprolol. He was a poor surgical candidate and decision was made to proceed with cholecystostomy tube placement in Radiology. On the morning of 09/06/23, patient once again became very difficult to arouse on exam. Patient snoring, breathing regularly and HR sinus rhythm. 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 Patient already on statin and Plavix. Patient continues to remain quite hyponatremic, nephrology consulted. IV fluids given as patient has not been taking in PO today and BP was soft this morning. 500 ml bolus, then continuous. Per patient family, this is not uncommon behavior for him to be difficult to arouse from sleep and also made him a DNR. General surgery following for michoacano tube, draining dark bilious liquid. Hypoglycemic protocol was ordered to monitor BS while not eating, as D5 fluids would have continued to worsen the hyponatremia. BC were redrawn, but ultimately late afternoon a rapid response was called and cross cover notes indicated the following: Rapid response was called by nursing due to hypoglycemia. His blood sugar was reported to be 18 and patient was given an amp of D50. His recheck blood sugar was 328. Nursing has stated that he has been obtunded all day and arousable to painful stimuli. He had a head CT scan earlier in the day due to his somnolence which was negative for any acute intracranial process. ABG and repeat labs drawn. Labs resulted with a white blood cell count of 7.3, hemoglobin 13.3, sodium 124, potassium 5.2, chloride 97, bicarb was less than 5, BUN 21, creatinine 2.10, EGFR 30, calcium 7.8, total bili 2.0, AST 1117, ALT 406, alk-phos 145, albumin 2.3. His ABG showed a pH of 7.194, pCO2 17.0, PO2 87.0 Bicarb was 6.4. Lactic acid 19.6. He was given 2 amps of bicarb and started on a bicarb drip which is mixed in D5W to help sustain his blood sugars. He was sent to IMU for closer observation where he continued to deteriorate until his at 10:55 pm. Additional Data Confirmation of as documented by pronouncing clinician: Pupillary Reflex, Palpable Pulses, Response to Stimuli, Heart Tones and Breath Sounds Name of Provider Notified: Dr. Fall Time Provider Notified: 23:09 Provider Requests Autopsy: No Family Requests Autopsy: No Program Manager Environmental Planning Notified: Yes Date [facility] Notified of : 09/06/23 Time [facility] Notified of : 23:17 Hospice patient?: No
== END 2023-09-06 22:55 | disposition expired | DRG 641 ==
LOC: ANHED 19:01 → ANHIMU 20:19 → ANH3MEDSUR 09-03 19:06 → ANHIMU 09-07 14:14
PROVIDERS: Emergency Medicine; Internal Medicine; Nurse Practitioner; Surgery; Admitting Provider Family Medicine; Emergency Provider Emergency Medicine; PCP Family Medicine; Visit Provider Nurse Practitioner Acute Care
DX: E87.20 Acidosis, unspecified (principal); I69.351 Hemiplegia and hemiparesis following cerebral infarction affecting right dominant side; I48.92 Unspecified atrial flutter; E87.1 Hypo-osmolality and hyponatremia; Z66 Do not resuscitate; K82.9 Disease of gallbladder, unspecified; D69.6 Thrombocytopenia, unspecified; E86.0 Dehydration; I12.9 Hypertensive chronic kidney disease with stage 1 through stage 4 chronic kidney disease, or unspecified chronic kidney disease; E11.649 Type 2 diabetes mellitus with hypoglycemia without coma; E11.22 Type 2 diabetes mellitus with diabetic chronic kidney disease; E11.51 Type 2 diabetes mellitus with diabetic peripheral angiopathy without gangrene; E11.65 Type 2 diabetes mellitus with hyperglycemia; E78.5 Hyperlipidemia, unspecified; F03.90 Unspecified dementia, unspecified severity, without behavioral disturbance, psychotic disturbance, mood disturbance, and anxiety; I25.10 Atherosclerotic heart disease of native coronary artery without angina pectoris; K21.9 Gastro-esophageal reflux disease without esophagitis; M19.90 Unspecified osteoarthritis, unspecified site; N40.0 Benign prostatic hyperplasia without lower urinary tract symptoms; N18.30 Chronic kidney disease, stage 3 unspecified; Z90.49 Acquired absence of other specified parts of digestive tract; Z79.02 Long term (current) use of antithrombotics/antiplatelets; Z79.84 Long term (current) use of oral hypoglycemic drugs; Z98.41 Cataract extraction status, right eye; Z98.42 Cataract extraction status, left eye; Z87.891 Personal history of nicotine dependence; Z89.422 Acquired absence of other left toe(s); Z89.421 Acquired absence of other right toe(s); L98.429 Non-pressure chronic ulcer of back with unspecified severity; E87.6 Hypokalemia; Z91.148 Patient's other noncompliance with medication regimen for other reason; Z91.81 History of falling
CPT/HCPCS: 36415; 36600; 47490; 70450; 70496; 70498; 71045; 74177; 76705; 80053; 81001; 82140; 82550; 82805; 82948; 83605; 83735; 84295; 85025; 85027; 85049; 85055; 85610; 85730; 87040; 87070; 87075; 87205; 93005; 96361; 96365; 96375; 96376; 97110; 97161; 97166; 97530; 99285; A9270; G0378; J0360; J1815; J2405; J2543; J3475; J3480; J7030; J7040; J7042; J7070; Q9967